=== PATIENT | female | born 1935 | race Caucasian/White ===

== ENCOUNTER 2017-10-01 09:29 | Inpatient (IN) | payer OTHER ==
[~2017-10-01] VITALS: Ht 152.4 cm; Wt 50.5 kg
[~2017-10-01 09:29] MED LIST: CARI350T28 PO; CLTP PO; CTP1 PO; DILT-119 PO; FIBER PO; FSM70 PO; INSDGI SC; LISI40TA PO; MRLP17 PO; MULT-506 PO; NVLGI; OXYC-57 PO; OXYSR20 PO; RANI75TA7 PO; SENN-65 PO; SIMV10TA2 PO
[2017-10-01] MEDS ORDERED: SODIUM CHLORIDE 0.9% 1000ML 1,000 ML IV STA (10:05)
[2017-10-01 10:17] LABS: BASO % 0.1 %; BASO ABS # 0.01 K/uL (0-0.2); EOS % 0.1 %; EOS ABS # 0.01 K/uL (0-0.5); HEMATOCRIT 36.4 % (37-47); HEMOGLOBIN 12.7 g/dL (12.0-16.0); IG# 0.02 K/uL (0.00-0.02); LYMPH % 3.9 %; LYMPH ABS # 0.45 K/uL (1.2-3.4); MEAN CELL VOLUME 93.6 fL (80-100); MEAN CORPUSCULAR HEMOGLOBIN 32.6 pg (25-34); MEAN CORPUSCULAR HGB CONC 34.9 g/dl (32-36); MEAN PLATELET VOLUME 10.1 fL (7.4-10.4); MONO ABS # 0.46 K/uL (0.11-0.59); NEUT % 91.7 %; NEUT ABS # 10.62 K/uL (1.4-6.5); PLATELET COUNT 184 K/uL (130-400); RED CELL DISTRIBUTION WIDTH CV 13.1 % (11.5-14.5); RED CELL DISTRIBUTION WIDTH SD 45.2 fL (36.4-46.3); WHITE BLOOD COUNT 11.57 K/uL (4.8-10.8)
--- NOTE | 2017-10-01 10:21 | EMERGENCY ROOM VISIT NOTE ---
History Report prepared by Juan David: Eddi Cantrell Under the Supervision of: Dr. Daniel Tamayo M.D. First contact with patient: 09:59 Chief Complaint: HYPERGLYCEMIA Stated Complaint: BLOOD SUGAR OVER 500 2 DAYS IN A ROW -MOUTH SORE History of Present Illness The patient is an 82 year old white female with a past medical history of diabetes, HTN, HLD who presents to the ED with a cc of persistent hyperglycemia beginning 2 days ago. Positive dry cough, vomiting, nausea, sore roof of mouth. Negative abdominal pain, fevers, back pain, diarrhea, urinary symptoms. The patient only vomited once and that was yesterday. She states that she takes Insulin 4 times per day, and she has not had any recent changes in her Insulin, but adds that she has raised her dosage recently. The patient took 18 units of NovoLog this morning. She notes that she did take her evening dosage last night. The patient says that she has not had any recent changes in her other medications. She notes no alcohol or tobacco use, or any recent long travels, antibiotic use, or hospitalizations. Source of History: patient, family Onset: 2 days ago Position: other (global) Quality: other (hyperglycemia) Timing: other (persistent) Associated Symptoms: + cough, + nausea, + vomiting, No fevers, No abdominal pain, No back pain, No diarrhea, No urinary symptoms Note: Sore roof of mouth. Review of Systems See HPI for pertinent positives and negatives. A total of ten systems were reviewed and were otherwise negative. Past Medical & Surgical Medical Problems: (1) Diabetes (2) HLD (hyperlipidemia) (3) HTN (hypertension) (4) Spinal stenosis Family History Family history omitted secondary to patient's advanced age. Social History Smoking Status: Never Smoker Marital Status: Housing Status: lives with family Occupation Status: retired Current/Historical Medications Scheduled Diltiazem Hcl Ext Rel (Tiazac), 360 MG PO DAILY Famotidine (Pepcid), 20 MG PO DAILY Insulin Glargine (Lantus), 16 UNITS SC QPM Lisinopril (Lisinopril), 40 MG PO DAILY Simvastatin (Zocor), 10 MG PO QPM Miscellaneous Medications Insulin Aspart (Novolog Flexpen) Allergies Coded Allergies: Penicillins (Verified Allergy, Intermediate, HIVES, 10/01/17) Physical Exam Vital Signs Date Time Temp Pulse Resp B/P (MAP) Pulse Ox O2 Delivery O2 Flow Rate FiO2 10/01/17 10:43 96 Room Air 10/01/17 10:03 101 10/01/17 09:32 36.7 118 18 147/55 95 Room Air Physical Exam GENERAL: Awake, alert, well-appearing, NAD HENT: Normocephalic, atraumatic. Posterior pharynx is clear. No tonsillar or uvular deviation or exudates. Recession of gums noted throughout. No sign of odontogenic infection. EYES: Normal conjunctiva. Sclera non-icteric. NECK: Supple. No nuchal rigidity. FROM. RESPIRATORY: CTAB, no rhonchi, wheezing, crackles CARDIAC: RRR, no MRG ABDOMEN: Soft, NTND, BS+ MSK: No chest wall TTP, no LE edema NEURO: GCS 15, CN 2-12 intact, moves all 4s on command SKIN: No rash or jaundice noted. Medical Decision & Procedures ER Provider Diagnostic Interpretation: X-ray: Per my interpretation, radiologist review. CHEST ONE VIEW PORTABLE CLINICAL HISTORY: Evaluate Fever/Sepsis dyspnea COMPARISON STUDY: No previous studies for comparison. FINDINGS: Mild emphysematous change. No focal infiltrate. Postoperative changes to the cervical and thoracolumbar spine. Minimal basilar platelike atelectasis. IMPRESSION: No acute process. Chronic and postoperative change. The above report was generated using voice recognition software. It may contain grammatical, syntax or spelling errors. Electronically signed by: Pepe Manzano M.D. 10/01/2017 10:34 AM Dictated Date/Time: 10/01/2017 10:33 AM Laboratory Results 10/01/17 09:55 Red Blood Count 3.89, Mean Corpuscular Volume 93.6, Mean Corpuscular Hemoglobin 32.6, Mean Corpuscular Hemoglobin Concent 34.9, Mean Platelet Volume 10.1, Neutrophils (%) (Auto) 91.7, Lymphocytes (%) (Auto) 3.9, Monocytes (%) (Auto) 4.0, Eosinophils (%) (Auto) 0.1, Basophils (%) (Auto) 0.1, Neutrophils # (Auto) 10.62, Lymphocytes # (Auto) 0.45, Monocytes # (Auto) 0.46, Eosinophils # (Auto) 0.01, Basophils # (Auto) 0.01 10/01/17 09:55 Test 10/01/17 09:55 10/01/17 10:40 10/01/17 10:50 10/01/17 11:30 White Blood Count 11.57 K/uL (4.8-10.8) Red Blood Count 3.89 M/uL (4.2-5.4) Hemoglobin 12.7 g/dL (12.0-16.0) Hematocrit 36.4 % (37-47) Mean Corpuscular Volume 93.6 fL (80-100) Mean Corpuscular Hemoglobin 32.6 pg (25-34) Mean Corpuscular Hemoglobin Concent 34.9 g/dl (32-36) Platelet Count 184 K/uL (130-400) Mean Platelet Volume 10.1 fL (7.4-10.4) Neutrophils (%) (Auto) 91.7 % Lymphocytes (%) (Auto) 3.9 % Monocytes (%) (Auto) 4.0 % Eosinophils (%) (Auto) 0.1 % Basophils (%) (Auto) 0.1 % Neutrophils # (Auto) 10.62 K/uL (1.4-6.5) Lymphocytes # (Auto) 0.45 K/uL (1.2-3.4) Monocytes # (Auto) 0.46 K/uL (0.11-0.59) Eosinophils # (Auto) 0.01 K/uL (0-0.5) Basophils # (Auto) 0.01 K/uL (0-0.2) RDW Standard Deviation 45.2 fL (36.4-46.3) RDW Coefficient of Variation 13.1 % (11.5-14.5) Immature Granulocyte % (Auto) 0.2 % Immature Granulocyte # (Auto) 0.02 K/uL (0.00-0.02) Prothrombin Time 10.6 SECONDS (9.0-12.0) Prothromb Time International Ratio 1.0 (0.9-1.1) Activated Partial Thromboplast Time 23.3 SECONDS (21.0-31.0) Partial Thromboplastin Ratio 0.9 Anion Gap 11.0 mmol/L (3-11) Est Creatinine Clear Calc Drug Dose 21.3 ml/min Estimated GFR () 38.5 Estimated GFR (Non- 33.2 BUN/Creatinine Ratio 25.1 (10-20) Calcium Level 9.2 mg/dl (8.5-10.1) Total Bilirubin 0.7 mg/dl (0.2-1) Direct Bilirubin 0.2 mg/dl (0-0.2) Aspartate Amino Transf (AST/SGOT) 22 U/L (15-37) Alanine Aminotransferase (ALT/SGPT) 29 U/L (12-78) Alkaline Phosphatase 61 U/L (45-117) Troponin I 0.053 ng/ml (0-0.045) Total Protein 6.6 gm/dl (6.4-8.2) Albumin 3.6 gm/dl (3.4-5.0) Lipase 147 U/L (73-393) Beta-Hydroxybutyric Acid 8.95 mg/dL (0.2-2.81) Influenza Type A Antigen Neg for Influ A (NEG) Influenza Type B Antigen Neg for Influ B (NEG) Venous Blood pH 7.40 (7.36-7.41) Venous Blood Partial Pressure CO2 37 mmHg (38.0-50.0) Venous Blood Partial Pressure O2 35 mmHg Venous Blood HCO3 23 mmol/L Venous Blood Oxygen Saturation 65.6 % Venous Blood Base Excess -1.9 mEq/L Lactic Acid Level 1.7 mmol/L (0.4-2.0) Laboratory results reviewed by me Medications Administered Medications (Trade) Dose Ordered Sig/Beverley Route Start Time Stop Time Status Last Admin Dose Admin Sodium Chloride 1,000 ml @ 999 mls/hr Q1H1M STAT IV 10/01/17 10:05 10/01/17 11:05 DC 10/01/17 10:58 999 MLS/HR Aspirin (Aspirin Chew) 324 mg NOW STAT PO 10/01/17 11:19 10/01/17 11:20 DC 10/01/17 11:28 324 MG ECG Per My Interpretation Indication: SOB/dyspnea Rate (beats per minute): 101 Rhythm: sinus tachycardia Findings: left axis deviation, other (normal intervals, T-wave flattening AVL, no other sts changes or twi) Change: Second ECG: Normal sinus rhythm at 99 bpm, otherwise unchanged. ED Course 1015: The patient was evaluated in room A9B. A complete history and physical exam was performed. 1130: Upon reexamination, the patient was resting comfortably. I discussed the test results and treatment plan with her. The patient will be evaluated for further management. 1142: Discussed the patient's case with Alla Jackson. The patient will be evaluated for further treatment and disposition. Medical Decision The patient is an 82 year old white female with a past medical history of diabetes, HTN, HLD who presents to the ED with a cc of persistent hyperglycemia beginning 2 days ago. Positive dry cough, vomiting, nausea, sore roof of mouth. Negative abdominal pain, fevers, back pain, diarrhea, urinary symptoms Differential diagnosis: Infection, stress reaction, medication noncompliance, possible non-fasting glucose. Patient was seen and evaluated the bedside. Patient was complaining of hyperglycemia. Patient noted that her blood sugars have been elevated greater than 500 each morning. Patient has tried to self titrate by increasing her home sliding scale as well as her long-acting insulin. Patient did have an episode of vomiting yesterday. Patient is mildly tacky on exam does not have any other acute complaints. Patient did have blood work completed, chest x-ray , EKG. Patient did have a noted positive troponin. Upon reassessment the patient denies any active chest pain or shortness of breath. The patient did note that she had some palpitations and has noted some increasing shortness of breath on exertion which is new for her. Patient does not appear volume overloaded. Patient denies any prior history of DVT or PE. Patient does have an elevated blood glucose. Patient has a normal anion gap. Bicarb is slightly low. Patient was giving fluids. Medication Reconcilliation Current Medication List: was personally reviewed by me Blood Pressure Screening Patient's blood pressure: Elevated blood pressure Refer to hospitalist. Consults Time Called: 1140 Consulting Physician: Alla Jackson Returned Call: 1142 Discussed the patient's case with Alla Jackson. The patient will be evaluated for further treatment and disposition. Impression Primary Impression: Hyperglycemia Additional Impression: Elevated troponin Scribe Attestation The scribe's documentation has been prepared under my direction and personally reviewed by me in its entirety. I confirm that the note above accurately reflects all work, treatment, procedures, and medical decision making performed by me. Departure Information Dispostion Being Evaluated By Hospitalist Referrals Albino Magaña MD (PCP) Patient Instructions My [facility] Problem Qualifiers
[2017-10-01 10:27] LABS: PTT PATIENT 23.3 SECONDS (21.0-31.0)
[2017-10-01 10:31] LABS: ALBUMIN 3.6 gm/dl (3.4-5.0); CALCIUM 9.2 mg/dl (8.5-10.1); CREATININE 1.46 mg/dl (0.60-1.20); POTASSIUM 4.1 mmol/L (3.5-5.1)
[2017-10-01 10:33] LABS: TOTAL PROTEIN 6.6 gm/dl (6.4-8.2)
--- NOTE | 2017-10-01 10:35 | DIAGNOSTIC IMAGING REPORT ---
CHEST ONE VIEW PORTABLE CLINICAL HISTORY: Evaluate Fever/Sepsis dyspnea COMPARISON STUDY: No previous studies for comparison. FINDINGS: Mild emphysematous change. No focal infiltrate. Postoperative changes to the cervical and thoracolumbar spine. Minimal basilar platelike atelectasis. IMPRESSION: No acute process. Chronic and postoperative change. The above report was generated using voice recognition software. It may contain grammatical, syntax or spelling errors. Electronically signed by: Pepe Manzano M.D. 10/01/2017 10:34 AM Dictated Date/Time: 10/01/2017 10:33 AM
[2017-10-01] MEDS ORDERED: SIMV10TA2 PO (11:15)
[2017-10-01] MEDS ORDERED: FAMO20TA11 PO (11:15)
[2017-10-01] MEDS ORDERED: NVLGI/PEN (11:15)
[2017-10-01] MEDS ORDERED: LSN40 PO (11:15)
[2017-10-01] MEDS ORDERED: DILT-119 PO (11:15)
[2017-10-01] MEDS ORDERED: INSDGI SC (11:15)
[2017-10-01] MEDS ORDERED: ASPIRIN 324 MG CHEW PO STA (11:19)
[2017-10-01 11:29] LABS: INFLUENZA B ANTIGEN Neg for Influ B (NEG)
[2017-10-01 11:56] VITALS: O2SAT 96; BMI 21.3
[2017-10-01] MEDS ORDERED: NITROGLYCERIN 0.4 MG SL PER TAB CHARGE SL PRN (12:30)
[2017-10-01] MEDS ORDERED: ONDANSETRON INJ 2 MG/ML 2 ML VIAL IV PRN (12:30)
[2017-10-01] MEDS ORDERED: ACETAMINOPHEN 325 MG TAB PO PRN (12:30)
[2017-10-01] MEDS ORDERED: DEXTROSE 50% 50 ML SYR IV PRN (13:00)
[2017-10-01] MEDS ORDERED: GLUCOSE 10 TABS/TUBE PO PRN (13:00)
[2017-10-01] MEDS ORDERED: GLUCOSE 40% GEL 15 GM TUBE PO PRN (13:00)
[2017-10-01] MEDS ORDERED: GLUCAGON FOR INJ 1 MG VIAL SQ PRN (13:00)
[2017-10-01] MEDS ORDERED: ASPEC81 PO (13:05)
[2017-10-01] MEDS ORDERED: OXYC-643 PO (13:05)
[2017-10-01] MEDS ORDERED: MULTTAB5 PO (13:05)
[2017-10-01] MEDS ORDERED: OMEG12006 PO (13:05)
[2017-10-01] MEDS ORDERED: OXYCODONE/ACETAMINOPHEN 5-325 TAB PO PRN (13:15)
[2017-10-01 13:30] VITALS: BP 107/63; PULSE 115; TEMP 36.8; O2SAT 98
[2017-10-01] MEDS ORDERED: INSULIN IV INFUSION PROTOCOL STA (13:55)
[2017-10-01] MEDS ORDERED: DKA GOAL RANGE 150-250 mg/dl 1 EA ONE (14:00)
[2017-10-01] MEDS ORDERED: INSULIN HUMAN REGULAR IV BOLUS 3 UNIT in SYRINGE 0 ML IV SCH (14:00)
[2017-10-01] MEDS ORDERED: SEVERE STRESS LEVEL ONE (14:00)
[2017-10-01] MEDS ORDERED: INSULIN ASPART 100 UNITS/ML 3 ML PEN SC SCH (14:00)
--- NOTE | 2017-10-01 14:02 | History and Physical ---
History & Physical Date & Time of Service: Oct 01, 2017 at 13:11 Chief Complaint: High Blood Sugars, Not Feeling Well Primary Care Physician: Albino Magaña MD History of Present Illness 82 year old female who presents to the ED with reports of high blood sugars and not feeling well the past couple of days. The patient reports that two nights ago she woke up in the middle of the night and was having palpitations. She reports this lasted for a couple of hours. When she got up in the morning, her blood sugar was over 500 which is very unusual for her. Blood sugars improved throughout the day with Novolog. She also increased her Lantus from 16 units to 18 units. Yesterday she felt nauseous and had one episode of vomiting. She denies hematemesis or coffee ground emesis. No abdominal pain or diarrhea. Patient reports she has been feeling generally poor. She denies any further episodes of palpitations. She does note increased shortness of breath with exertion. No chest pain, lightheadedness, dizziness, diaphoresis, or syncopal events. She denies fever and chills. No urinary symptoms. This morning blood sugar was over 500 again. In the ED, patient's blood sugar is 327. Troponin is mildly elevated at 0.053. EKG does not show any acute ST changes. Patient was given a full dose ASA and IVF. Past Medical/Surgical History Medical Problems: (1) CKD (chronic kidney disease), stage III Status: Chronic (2) DM type 1 (diabetes mellitus, type 1) Status: Chronic (3) Dyslipidemia Status: Chronic (4) HTN (hypertension) Status: Chronic (5) Spinal stenosis Status: Chronic Surgical Problems: (1) History of cataract surgery Status: Chronic (2) History of lumbar fusion Status: Chronic (3) S/P cervical spinal fusion Status: Chronic Family History non contributory due to patient's advanced age Social History Smoking Status: Former Smoker Alcohol Use: occasionally Immunizations History of Influenza Vaccine: Yes Influenza Vaccine Date: Apr 22, 2017 History of Tetanus Vaccine?: Yes Tetanus Immunization Date: Mar 03, 2015 History of Pneumococcal: Yes Pneumococcal Date: Sep 01, 2014 Allergies Coded Allergies: Penicillins (Verified Allergy, Intermediate, HIVES, 10/01/17) Home Medications Scheduled Aspirin (Aspirin EC Low Dose), 81 MG PO DAILY Diltiazem Hcl Ext Rel (Tiazac), 360 MG PO DAILY Famotidine (Pepcid), 20 MG PO DAILY Insulin Glargine (Lantus), 16 UNITS SC QPM Lisinopril (Lisinopril), 40 MG PO DAILY Multiple Vitamins W/ Minerals (Centrum), 1 TAB PO DAILY [place]-3 Fatty Acids ([place] 3), 1,000 MG PO DAILY Simvastatin (Zocor), 10 MG PO QPM Scheduled PRN Oxycodone/Acetaminophen 5MG/325MG (Oxycodone/Acetaminophen 5MG/325MG), 1 TABLET PO Q6H PRN for Pain Miscellaneous Medications Insulin Aspart (Novolog Flexpen) Review of Systems ROS per HPI, all other systems reviewed and negative Physical Exam Vital Signs Date Time Temp Pulse Resp B/P (MAP) Pulse Ox O2 Delivery O2 Flow Rate FiO2 10/01/17 12:41 112 10/01/17 11:56 96 Room Air 10/01/17 10:43 96 Room Air 10/01/17 10:03 101 10/01/17 09:32 36.7 118 18 147/55 95 Room Air General Appearance: WD/WN, no apparent distress Head: normocephalic, atraumatic Eyes: normal inspection, EOMI, sclerae normal ENT: hearing grossly normal, + pertinent finding (mucous membranes moist) Neck: supple, no JVD, trachea midline Respiratory/Chest: lungs clear, normal breath sounds, no respiratory distress Cardiovascular: no edema, normal peripheral pulses, + tachycardia (regular rhythm), + systolic murmur Abdomen/GI: normal bowel sounds, non tender, soft, no organomegaly Extremities/Musculoskelatal: normal inspection, no calf tenderness, normal capillary refill Neurologic/Psych: no motor/sensory deficits, alert, normal mood/affect, oriented x 3 Skin: normal color, warm/dry Diagnostics Laboratory Results Results Past 24 Hours Test 10/01/17 09:53 10/01/17 09:55 10/01/17 10:40 10/01/17 10:50 Range/Units Bedside Glucose 288 70-90 mg/dl White Blood Count 11.57 4.8-10.8 K/uL Red Blood Count 3.89 4.2-5.4 M/uL Hemoglobin 12.7 12.0-16.0 g/dL Hematocrit 36.4 37-47 % Mean Corpuscular Volume 93.6 80-100 fL Mean Corpuscular Hemoglobin 32.6 25-34 pg Mean Corpuscular Hemoglobin Concent 34.9 32-36 g/dl Platelet Count 184 130-400 K/uL Mean Platelet Volume 10.1 7.4-10.4 fL Neutrophils (%) (Auto) 91.7 % Lymphocytes (%) (Auto) 3.9 % Monocytes (%) (Auto) 4.0 % Eosinophils (%) (Auto) 0.1 % Basophils (%) (Auto) 0.1 % Neutrophils # (Auto) 10.62 1.4-6.5 K/uL Lymphocytes # (Auto) 0.45 1.2-3.4 K/uL Monocytes # (Auto) 0.46 0.11-0.59 K/uL Eosinophils # (Auto) 0.01 0-0.5 K/uL Basophils # (Auto) 0.01 0-0.2 K/uL RDW Standard Deviation 45.2 36.4-46.3 fL RDW Coefficient of Variation 13.1 11.5-14.5 % Immature Granulocyte % (Auto) 0.2 % Immature Granulocyte # (Auto) 0.02 0.00-0.02 K/uL Prothrombin Time 10.6 9.0-12.0 SECONDS Prothromb Time International Ratio 1.0 0.9-1.1 Activated Partial Thromboplast Time 23.3 21.0-31.0 SECONDS Partial Thromboplastin Ratio 0.9 Sodium Level 131 136-145 mmol/L Potassium Level 4.1 3.5-5.1 mmol/L Chloride Level 100 98-107 mmol/L Carbon Dioxide Level 20 21-32 mmol/L Anion Gap 11.0 3-11 mmol/L Blood Urea Nitrogen 37 7-18 mg/dl Creatinine 1.46 0.60-1.20 mg/dl Est Creatinine Clear Calc Drug Dose 21.3 ml/min Estimated GFR () 38.5 Estimated GFR (Non- 33.2 BUN/Creatinine Ratio 25.1 10-20 Random Glucose 327 70-99 mg/dl Calcium Level 9.2 8.5-10.1 mg/dl Total Bilirubin 0.7 0.2-1 mg/dl Direct Bilirubin 0.2 0-0.2 mg/dl Aspartate Amino Transf (AST/SGOT) 22 15-37 U/L Alanine Aminotransferase (ALT/SGPT) 29 12-78 U/L Alkaline Phosphatase 61 45-117 U/L Troponin I 0.053 0-0.045 ng/ml Total Protein 6.6 6.4-8.2 gm/dl Albumin 3.6 3.4-5.0 gm/dl Lipase 147 73-393 U/L Beta-Hydroxybutyric Acid 8.95 0.2-2.81 mg/dL Influenza Type A Antigen Neg for Influ A NEG Influenza Type B Antigen Neg for Influ B NEG Venous Blood pH 7.40 7.36-7.41 Venous Blood Partial Pressure CO2 37 38.0-50.0 mmHg Venous Blood Partial Pressure O2 35 mmHg Venous Blood HCO3 23 mmol/L Venous Blood Oxygen Saturation 65.6 % Venous Blood Base Excess -1.9 mEq/L Lactic Acid Level 1.7 0.4-2.0 mmol/L Test 10/01/17 11:30 Range/Units Urine Color YELLOW Urine Appearance CLEAR CLEAR Urine pH 5.0 4.5-7.5 Urine Specific [place] 1.020 1.000-1.030 Urine Protein NEG NEG Urine Glucose (UA) 3+ NEG Urine Ketones 2+ NEG Urine Occult Blood TRACE NEG Urine Nitrite NEG NEG Urine Bilirubin NEG NEG Urine Urobilinogen NEG NEG Urine Leukocyte Esterase MODERATE NEG Urine WBC (Auto) 10-30 0-5 /hpf Urine RBC (Auto) 0-4 0-4 /hpf Urine Hyaline Casts (Auto) 0 0-5 /lpf Urine Epithelial Cells (Auto) >30 0-5 /lpf Urine Bacteria (Auto) NEG NEG Microbiology Results 10/01/17 Blood Culture, Received Pending 10/01/17 Blood Culture, Received Pending 10/01/17 Urine Culture, Received Pending Diagnostic Radiology CXR IMPRESSION: No acute process. Chronic and postoperative change. Impression Assessment and Plan PALPITATIONS EXERTIONAL SHORTNESS OF BREATH ELEVATED TROPONIN - admit to tele - patient presenting with one episode of palpitations, exertional shortness of breath, and hyperglycemia - initial troponin 0.053, EKG without acute ST changes - last stress test was in 1999 - risk factors: DM, HTN, dyslipidemia, former smoker - continue to cycle cardiac enzymes, check resting echo - s/p full dose ASA in the ED; will continue with 81mg daily and statin - PRN nitro and EKG with chest pain - cardio consulted, Dr. Alvarado notified - also will r/o PE - check d. dimer and if positive will do BLLE dopplers and VQ due to renal function HYPERGLYCEMIA, DM TYPE I - blood sugars have been running over 500 in the mornings at home - mildly low bicarb, no gap - blood sugar 327 on labs -> 397 - will place on insulin gtt, IVF JUAN ON CKD STAGE III - prerenal due to dehydration / hyperglycemia in combination with ACEi - IVF, follow renal functions - hold ACEi ASYMPTOMATIC BACTERURIA - likely contaminated U/A - hold on antibiotics, follow culture HTN - BP controlled - continue diltiazem, holding Lisinopril due to JUAN DYSLIPIDEMIA - continue statin DVT PROPHYLAXIS - SQ Heparin CODE STATUS - Patient is a full code as per my discussion with her. DISPO - In my clinical judgment this beneficiary meets acute admission criteria, established by [facility], that includes being hospitalized through two midnights. - Patient is a former patient of Dr. Calderon; outpatient appointment made with [facility] Endocrinology - information given to patient's daughter Advanced Directives Existing Living Will: Yes Existing Power of Filter Washer: Yes Resuscitation Status VTE Prophylaxis Will order VTE Prophylaxis: Yes Note ATTENDING ADDENDUM Record reviewed. Patient interviewed and examined. Care coordinated with REYNA Hoffman. Please refer to her documentation for patient's history. Briefly, 82-year-old female with history of diabetes mellitus type 1 and other problems as noted. Blood sugars have been running very high over the past 1-2 days. Experiencing intermittent palpitations without chest pain or dyspnea. No fever, cough, or other symptoms of infection. EXAM: General- elderly female, no distress Eyes- anicteric Lungs- clear to auscultation; no respiratory distress Cardiovascular- RRR; I/ systolic murmur LSB; no gallop; no JVD; no pretibial edema Abdomen- + bowel sounds, soft, nontender Extremities- no cyanosis; no calf tenderness Neuro- alert, oriented Skin- warm & dry . DATA: Sodium 131, potassium 4.1, chloride 100, CO2 20, BUN 37, creatinine 1.46, random glucose 327. Serum troponin 0 0.053. Urinalysis demonstrated 3+ glucose, 2+ ketones, negative nitrites, moderate leukocyte esterase, 10-30 WBCs, greater than 30 epithelial cells, no bacteria. Nasopharyngeal swab for influenza A/B by both antigen and PCR were negative Other lab studies as noted. Chest x-ray did not show any infiltrates, effusions, CHF. EKG performed at 1043 reviewed and demonstrated sinus rhythm 100/minute, no acute changes. Repeat EKG performed at 1127 reviewed and demonstrated sinus tachycardia 101/ minute, slight ST depression in lead II, T-wave flattening in aVL, slight ST depression V3-6. ASSESSMENT AND PLAN: Diabetes mellitus type 1 with elevated blood sugars. Anion gap normal. BHB slightly elevated. Pharmacy consult for glycemic management. Insulin infusion will be utilized until blood sugars are improved. Uncertain precipitating etiology of elevated sugars. No apparent infection. Experiencing some palpitations and dyspnea, no chest pain; check d-dimer to screen for thromboembolic disease. Serum troponin slightly elevated. Second EKG showed minimal ST depression laterally. Check serial troponins. Check echo. Consult Cardiology. Please refer to BRADEN Gaitan's documentation for discussion of other issues. Iftikhar Carvalho MD .
[2017-10-01] MEDS ORDERED: PHARMACY GLYCEMIC MGMT CONSULT PRN (14:05)
[2017-10-01] MEDS ORDERED: INSULIN REGULAR 250 UNITS in SODIUM CHLORIDE 0.9% 250ML 250 ML IV SCH (14:30)
[2017-10-01] MEDS: HEPARIN SOD 5000 UNIT/0.5 ML CARP SQ SCH ×2 (14:39→20:37)
[2017-10-01] MEDS: INSULIN ASPART 100 UNITS/ML 3 ML PEN SC SCH ×3 (14:40→20:33)
--- NOTE | 2017-10-01 14:59 | Pharmacy Progress Note ---
Glycemic Control Intl Consult Date of Service Oct 01, 2017. Scope Glycemic Pharmacist consulted by Alla Gaitan on 10/01/17 for glycemic control and to write orders per [facility] inpatient glycemic control protocol Objective Weight (Kilograms): 49.800 Accuchecks BSG (last 24hrs): Test 10/01/17 09:53 10/01/17 09:55 10/01/17 13:34 Bedside Glucose 288 mg/dl (70-90) 397 mg/dl (70-90) Random Glucose 327 mg/dl (70-99) Laboratory Data (last 24hrs) Test 10/01/17 09:55 Anion Gap 11.0 mmol/L BUN/Creatinine Ratio 25.1 Blood Urea Nitrogen 37 mg/dl Creatinine 1.46 mg/dl Potassium Level 4.1 mmol/L Sodium Level 131 mmol/L White Blood Count 11.57 K/uL Red Blood Count 3.89 M/uL Hemoglobin 12.7 g/dL Hematocrit 36.4 % Mean Corpuscular Volume 93.6 fL Mean Corpuscular Hemoglobin 32.6 pg Mean Corpuscular Hemoglobin Concent 34.9 g/dl Platelet Count 184 K/uL Mean Platelet Volume 10.1 fL Neutrophils (%) (Auto) 91.7 % Lymphocytes (%) (Auto) 3.9 % Monocytes (%) (Auto) 4.0 % Eosinophils (%) (Auto) 0.1 % Basophils (%) (Auto) 0.1 % Neutrophils # (Auto) 10.62 K/uL Lymphocytes # (Auto) 0.45 K/uL Monocytes # (Auto) 0.46 K/uL Eosinophils # (Auto) 0.01 K/uL Basophils # (Auto) 0.01 K/uL Recent Pertinent Medications Outpatient Anti-diabetic Regimen: * Lantus 14 units SQ daily at bedtime (recently increased to 16 units for elevated blood sugars) and Novolog scale based SOLELY on blood sugars (patient does not count carbohydrates) * breakfast: scale is 4-11 units * lunch/dinner: scale is 4-12 units * A1c = 5.8 % 10/01/17 Risk Factors for Insulin Resistance: * Diet: type 1 diabetic diet Assessment & Plan ASSESSMENT: * Ms Todd is an 82 yo F with a PMH of HLD, HTN, and late onset- type 1 diabetes that appears well controlled per the HbA1C. Patient was diagnosed when she was her late twenties after gestational diabetes. The patient has been managed on the above regimen for about 1 year. She does not count carbohydrates. Her diet typically includes yogurt (recent switched to romanian yogurt) plus splenda and cinnamon swirl toast for breakfast; lunch is a [employer] sandwich; dinner is variable typically meat plus a carbohydrate. Per the patient's blood sugar log over the past few months, the patient's blood sugar control is very liable... she typically trends either very low in the morning to high at night (80s to 200s-300s) or very high in the morning to low at night (300s down to ~90s). * For the past two days the patient has had blood sugars in the morning of the 500s. Yesterday the patient took 60 units of insulin (18 units of Lantus) and blood sugars were 518 (14 units Novolog)-432 (14 units Novolog)-308 (14 units Novolog)-230 ... back up to 529 this morning for which she took 16 units of Novolog. This is not normal for the patient. * Based upon the blood sugar logs and the fact that the patient does not count carbohydrates, there is a lot of fluctuation and variability that the outpatient scale most accommodate. Since the patient has large swings in blood sugars, twice daily Lantus may be an option. Will start with 7 units tonight and do this twice daily. Insulin infusion will cover any deficit at this point. Will monitor patient closely. * If insulin infusion turns itself off in the middle of the night, recommend checking at least at midnight and four AM.... correction factor of 35 carbohydrate ratio of 10. Okay with turning off insulin infusion if the blood sugar is below 150 mg/dL x 2 checks and the insulin infusion is running at a negligible rate such as 0.5 units/hr. PLAN FOR INPATIENT GLYCEMIC CONTROL: * Starting IV insulin infusion per moderate (moderate/severe) stress protocol * Goal Range 150 - 250 mg/dl * In the critical care setting, continuous IV insulin infusion has been shown to be the best method for achieving glycemic targets. * Basal insulin with LANTUS 7 units SQ BID * Correctional Insulin with NOVOLOG per scale ACHS or Q6hrs while NPO * Goal Range: Low 150 mg/dL - High 250 mg/dL * Correction Factor: -- mg/dL/unit * Nutritional / Prandial insulin per carb ratio of 1 unit per -- grams CHO consumed * Please note that the plan above was derived based on current level of insulin resistance and hospital stress. These recommendations are appropriate for inpatient admission only. Plan of care upon discharge will need to be reassessed to avoid potential outpatient hypo/hyperglycemia. Thank you.
[2017-10-01] MEDS: SODIUM CHLORIDE 0.9% 1000ML 1,000 ML IV SCH (15:08)
[2017-10-01 15:18] VITALS: BMI 21.4
--- NOTE | 2017-10-01 15:45 | ECHOCARDIOGRAM REPORT ---
*NOTICE TO RECEIVING DEMOCRAT AGENCY This information is strictly Confidential and protected under [place] law. [place] law prohibits you from making any further disclosure of this information unless further disclosure is expressly permitted by the written consent of the person to whom it pertains or is authorized by law. A general authorization for the release of medical or other information is not sufficient for this purpose. Hospital accepts no responsibility if the information is made available to any other person, INCLUDING THE PATIENT. Interpretation Summary * Conclusions -- * The left ventricle is normal in size. * There is moderate concentric left ventricular hypertrophy. * Left ventricular systolic function is normal. * Ejection Fraction = 60-65%. * The left ventricular wall motion is normal. * The right ventricular systolic function is normal. * There is mild tricuspid regurgitation. Procedure Details * A complete two-dimensional transthoracic echocardiogram was performed (2D, M-mode, Doppler and color flow Doppler). Left Ventricle * The left ventricle is normal in size. * There is moderate concentric left ventricular hypertrophy. * Left ventricular systolic function is normal. * Ejection Fraction = 60-65%. * The left ventricular wall motion is normal. Right Ventricle * The right ventricle is normal size. * The right ventricular systolic function is normal. Atria * The left atrial size is normal. * Right atrial size is normal. Mitral Valve * There is moderate mitral annular calcification. * The mitral valve is not well visualized. * Significant mitral regurgitation is absent. Tricuspid Valve * The tricuspid valve is not well visualized, but is grossly normal. * There is mild tricuspid regurgitation. Aortic Valve * The aortic valve is not well visualized. * No hemodynamically significant valvular aortic stenosis. * There is no significant aortic regurgitation. Pulmonic Valve * The pulmonic valve is not well visualized. MMode 2D Measurements and Calculations IVSd 1.3 cm IVSs 1.4 cm LVIDd 3.6 cm LVIDs 2.2 cm LVPWd 1.1 cm LVPWs 1.1 cm IVS/LVPW 1.2 FS 38.3 % EDV(Teich) 54.4 ml ESV(Teich) 16.6 ml EF(Teich) 69.4 % EDV(cubed) 46.7 ml ESV(cubed) 11.0 ml EF(cubed) 76.5 % % IVS thick 7.1 % % LVPW thick 6.2 % LV mass(C)d 138.8 grams LV mass(C)dI 96.6 grams/m\S\2 LV mass(C)s 80.7 grams LV mass(C)sI 56.1 grams/m\S\2 SV(Teich) 37.8 ml SI(Teich) 26.3 ml/m\S\2 SV(cubed) 35.7 ml SI(cubed) 24.8 ml/m\S\2 Ao root diam 2.3 cm Ao root area 4.1 cm\S\2 LA dimension 2.7 cm LA/Ao 1.2 LVOT diam 1.9 cm LVOT area 2.8 cm\S\2 LVAd ap4 19.6 cm\S\2 LVLd ap4 6.7 cm EDV(MOD-sp4) 47.6 ml EDV(sp4-el) 48.5 ml LVAs ap4 11.3 cm\S\2 LVLs ap4 5.6 cm ESV(MOD-sp4) 20.8 ml ESV(sp4-el) 19.3 ml EF(MOD-sp4) 56.3 % EF(sp4-el) 60.3 % LVAd ap2 18.0 cm\S\2 LVLd ap2 6.0 cm EDV(MOD-sp2) 44.0 ml EDV(sp2-el) 46.0 ml LVAs ap2 10.1 cm\S\2 LVLs ap2 4.8 cm ESV(MOD-sp2) 17.6 ml ESV(sp2-el) 17.9 ml EF(MOD-sp2) 60.0 % EF(sp2-el) 61.1 % LVLd %diff -12.72 % EDV(MOD-bp) 46.2 ml LVLs %diff -15.55 % ESV(MOD-bp) 19.4 ml EF(MOD-bp) 58.0 % SV(MOD-sp4) 26.8 ml SI(MOD-sp4) 18.7 ml/m\S\2 SV(MOD-sp2) 26.4 ml SI(MOD-sp2) 18.4 ml/m\S\2 SV(MOD-bp) 26.8 ml SI(MOD-bp) 18.7 ml/m\S\2 SV(sp4-el) 29.2 ml SI(sp4-el) 20.3 ml/m\S\2 SV(sp2-el) 28.1 ml SI(sp2-el) 19.6 ml/m\S\2 Doppler Measurements and Calculations Ao V2 max 151.5 cm/sec Ao max PG 9.2 mmHg Ao max PG (full) 4.1 mmHg AZAM(V,A) 2.1 cm\S\2 AZAM(V,D) 2.1 cm\S\2 LV V1 max PG 5.1 mmHg LV V1 max 112.7 cm/sec TR max fariba 333.1 cm/sec
[2017-10-01 15:52] VITALS: BP 137/69; TEMP 36.7; O2SAT 95
[2017-10-01 16:34] LABS: CALCIUM 8.7 mg/dl (8.5-10.1); CREATININE 1.25 mg/dl (0.60-1.20); POTASSIUM 4.6 mmol/L (3.5-5.1)
--- NOTE | 2017-10-01 17:12 | DIAGNOSTIC IMAGING REPORT ---
ULTRASOUND BILATERAL LOWER EXTREMITY VENOUS CLINICAL HISTORY: Elevated d-dimer. COMPARISON STUDY: No priors. TECHNIQUE: Real-time, grayscale, and color Doppler sonography of the deep veins of the right and left lower extremity was performed from the inguinal crease to the calf. Compression and augmentation were utilized. FINDINGS: There is no sonographic evidence of deep venous thrombosis identified in the right or left lower extremity. The common femoral, superficial femoral, and popliteal veins are patent and normally compressible bilaterally. The greater saphenous vein and the profunda femoris vein at the junction with the common femoral vein are clear in both legs. The visualized calf veins are patent bilaterally. IMPRESSION: There is no sonographic evidence of deep venous thrombosis identified in the right or left lower extremity. Electronically signed by: Blaze Chery M.D. 10/01/2017 5:11 PM Dictated Date/Time: 10/01/2017 5:11 PM
[2017-10-01 19:32] VITALS: BP 136/69; PULSE 91; TEMP 37.1; O2SAT 98
[2017-10-01 19:35] LABS: INFLUENZA A PCR Neg for Influ A (NEG); INFLUENZA B PCR Neg for Influ B (NEG)
[2017-10-01] MEDS: SIMVASTATIN 10 MG TAB PO SCH (20:30)
[2017-10-01 20:31] LABS: CALCIUM 8.6 mg/dl (8.5-10.1); CREATININE 1.05 mg/dl (0.60-1.20); POTASSIUM 4.3 mmol/L (3.5-5.1)
[2017-10-01] MEDS: CLONAZEPAM 0.5 MG TAB PO SCH (20:33)
[2017-10-01] MEDS ORDERED: INSULIN GLARGINE SOLOSTAR 100 UNITS/ML 3 ML PEN SC SCH (21:00)
[2017-10-01 23:56] VITALS: BP 136/75; PULSE 86; TEMP 37.1; O2SAT 97
[2017-10-02] MEDS: SODIUM CHLORIDE 0.9% 1000ML 1,000 ML IV SCH (00:03)
[2017-10-02 00:20] LABS: CALCIUM 8.5 mg/dl (8.5-10.1); CREATININE 1.03 mg/dl (0.60-1.20); POTASSIUM 4.4 mmol/L (3.5-5.1)
[2017-10-02] MEDS ORDERED: METOPROLOL TARTRATE 25 MG TAB PO ONE (01:25)
[2017-10-02] MEDS ORDERED: HEPARIN IV BOLUS 4,000 UNIT in SYRINGE 0 ML IV ONE (01:45)
[2017-10-02] MEDS ORDERED: HEPARIN 25,000 UNIT/500ML D5W 500 ML IV PRN (01:45)
[2017-10-02] MEDS ORDERED: INSULIN ASPART 100 UNITS/ML 3 ML PEN SC SCH (02:00)
[2017-10-02 03:50] VITALS: BP 125/63; PULSE 81; TEMP 36.9; O2SAT 96
[2017-10-02 07:51] VITALS: BP 141/69; PULSE 80; TEMP 36.7; O2SAT 95
[2017-10-02] MEDS ORDERED: SODIUM CHLORIDE 0.9% 1000ML 1,000 ML IV SCH (08:15)
[2017-10-02 08:31] LABS: CALCIUM 8.3 mg/dl (8.5-10.1); CREATININE 0.87 mg/dl (0.60-1.20); POTASSIUM 4.5 mmol/L (3.5-5.1)
[2017-10-02 08:41] LABS: PTT PATIENT 224.3 SECONDS (21.0-31.0)
[2017-10-02] MEDS ORDERED: INSULIN GLARGINE SOLOSTAR 100 UNITS/ML 3 ML PEN SC SCH ×2 (09:00→16:45)
[2017-10-02 09:05] LABS: HEMOGLOBIN A1C 6.6 % (4.5-5.6)
[2017-10-02] MEDS ORDERED: OPTIRAY 320 IV PRN (09:15)
--- NOTE | 2017-10-02 09:18 | DIAGNOSTIC IMAGING REPORT ---
CT ANGIOGRAM OF THE CHEST CLINICAL HISTORY: COMPARISON STUDY: Chest x-ray dated 10/01/2017 TECHNIQUE: Following the IV administration of 94 mL of Optiray-320, CT angiogram of the thorax was performed from the thoracic inlet to the lung bases utilizing the pulmonary embolus protocol. Images are reviewed in the axial, sagittal, and coronal planes. IV contrast was administered without complication. MIP imaging was performed. A dose lowering technique was utilized adhering to the principles of ALARA. CT DOSE: 350.04 mGycm FINDINGS: No pathologically enlarged axillary mediastinal or hilar lymph nodes were visualized. Atheromatous changes are present within the thoracic aorta. There is no evidence of thoracic aortic aneurysm. There were no pulmonary artery filling defects to indicate acute pulmonary embolism. No pleural effusions are visualized. Evaluation the parenchyma is limited due to respiratory motion artifact. There is no lobar consolidation. There is lower lobe bronchial wall thickening and atelectatic change. There is mild elevation left hemidiaphragm. There are advanced arthritic changes present within the left shoulder with mild posterior subluxation and a bursal fluid collection. There are advanced degenerative changes in the lower thoracic spine. There are postsurgical changes present within the cervical spine and thoracolumbar spine. IMPRESSION: 1. No evidence of pulmonary embolism 2. Lower lobe bronchial wall thickening and basilar atelectatic change. Electronically signed by: Ranjith Irving M.D. 10/02/2017 9:16 AM Dictated Date/Time: 10/02/2017 9:10 AM
[2017-10-02] MEDS: INSULIN ASPART 100 UNITS/ML 3 ML PEN SC SCH ×4 (10:06→21:24)
[2017-10-02] MEDS: METOPROLOL TARTRATE 25 MG TAB PO SCH ×2 (10:07→21:00)
[2017-10-02] MEDS: FAMOTIDINE 20 MG TAB PO SCH (10:08)
[2017-10-02] MEDS: ASPIRIN 81 MG ECTAB PO SCH (10:08)
[2017-10-02] MEDS: CEROVITE ADV FORMULA TAB PO SCH (10:08)
[2017-10-02] MEDS: DILTIAZEM HCL (TIAzac) 180 MG CAPCR PO SCH (10:08)
[2017-10-02] MEDS: OMEGA-3 (PURIFIED FISH OIL) 1 GM CAP PO SCH (10:08)
[2017-10-02 10:21] LABS: PTT PATIENT 197.7 SECONDS (21.0-31.0)
--- NOTE | 2017-10-02 10:34 | Cardiology Consultation ---
Cardiology Consultation Date of Service Oct 02, 2017. Cardiology Consultation Indication: Consultation for abnormal cardiac markers History: This is an 82-year-old female with no prior history of heart disease. She has been a type I diabetic for several she stoped smoking approximately 10 years ago. The patient was in her usual state of health. On the evening before admission she did not feel well and actually vomited. The next morning she checked her blood glucose levels and they were over 500. She became concerned because she could not bring them down and presented to the hospital for hyperglycemia. She has not had any recent episodes of activity related chest pain. She has dyspnea with activity which is not new. After admission she has had no chest pain and feels well. Her EKGs show no acute changes. Her echocardiogram showed no wall motion abnormalities with normal LV function. Her cardiac troponins after admission were borderline elevated which is most likely due to the hyperglycemia, dehydration and renal insufficiency and not acute coronary syndrome. Allergies: Penicillin Reported Home Medications Medications Dose Route/Sig Max Daily Dose Days Date Category Dose Instructions Oxycodone/Acetaminophen 5MG/325MG (Oxycodone/Acetaminophen) 1 Tab Tab 1 Tablet PO Q6H PRN 10/01/17 Reported [place] 3 ([place]aver[place]-3 Fatty Acids) 1 Cap Cap 1,000 Mg PO DAILY 10/01/17 Reported Centrum (Multiple Vitamins W/ Minerals) 1 Tab Tab 1 Tab PO DAILY 10/01/17 Reported Aspirin EC Low Dose (Aspirin) 81 Mg Ectab 81 Mg PO DAILY 10/01/17 Reported Novolog Flexpen (Insulin Aspart) 100 Units/Ml Inj 10/01/17 Reported SLIDING SCALE. UP TO 30 U DAILY. Tiazac (Diltiazem HCl) 360 Mg Capcr 360 Mg PO DAILY 10/01/17 Reported Zocor (Simvastatin) 10 Mg Tab 10 Mg PO QPM 10/01/17 Reported Pepcid (Famotidine) 20 Mg Tab 20 Mg PO DAILY 10/01/17 Reported Lisinopril 40 Mg Tab 40 Mg PO DAILY 10/01/17 Reported Lantus (Insulin Glargine) 100 Unit/Ml Inj 16 Units SC QPM 10/01/17 Reported Past medical history: As outlined above the patient has no prior history of heart disease. She denies strokes. She has been a type I diabetic for many decades. She is treated for hypertension and dyslipidemia. Social history: Patient stopped smoking 10 years ago. She lives independently. Family medical history: Noncontributory General: The patient denies weight change, night sweats, fever, chills. Head: The patient denies headache and prior head trauma. Cardiovascular: The patient denies chest pain or chest discomfort, dyspnea on exertion, palpitations, PND, orthopnea, edema, spontaneous shortness of breath, syncope and near syncope. Pulmonary: The patient denies cough, wheeze, pleurisy, hemoptysis, sputum, and excessive snoring. Gastrointestinal: The patient denies nausea, vomiting, diarrhea, constipation, bloating, hematemesis, hematochezia, and abdominal pain. Skin: The patient denies diaphoresis and rash. Musculoskeletal: The patient denies joint pain, joint swelling, myalgia, back pain, neck pain and prior injuries. Neurological: The patient denies prior stroke and seizures Vital Signs Past 12 Hours Date Time Temp Pulse Resp B/P (MAP) Pulse Ox O2 Delivery O2 Flow Rate FiO2 10/02/17 07:51 36.7 80 18 141/69 (93) 95 10/02/17 04:02 Room Air 10/02/17 03:50 36.9 81 17 125/63 (83) 96 Room Air 10/02/17 00:00 Room Air 10/01/17 23:56 37.1 86 17 136/75 (95) 97 Room Air General Appearance: Alert and Oriented x3. NAD. Head: Normocephalic Atraumatic. Eyes: PERRLA, EOMI, conjunctiva and sclera clear Neck: Supple. No carotid bruits noted. No JVD. No HJD. Respiratory: Breath sounds clear to auscultation bilaterally. No w/r/r. Cardiovascular: Reg rate and rhythm. S1 and S2 noted. No murmurs, rubs, gallops. PMI non displace. Abdomen: Normal bowel sounds, soft nontender. no abdominal bruits. Extremities: No edema, no clubbing or cyanosis. distal pulses 2/4 bilaterally. Neuro: No focal deficits. Psychiatric: Normal affect. Last 24 Hours Test 10/01/17 10:40 10/01/17 10:50 10/01/17 11:30 10/01/17 13:34 Influenza Type A Antigen Neg for Influ A Influenza Type B Antigen Neg for Influ B Venous Blood pH 7.40 Venous Blood Partial Pressure CO2 37 mmHg Venous Blood Partial Pressure O2 35 mmHg Venous Blood HCO3 23 mmol/L Venous Blood Oxygen Saturation 65.6 % Venous Blood Base Excess -1.9 mEq/L Lactic Acid Level 1.7 mmol/L Urine Color YELLOW Urine Appearance CLEAR Urine pH 5.0 Urine Specific [place] 1.020 Urine Protein NEG Urine Glucose (UA) 3+ Urine Ketones 2+ Urine Occult Blood TRACE Urine Nitrite NEG Urine Bilirubin NEG Urine Urobilinogen NEG Urine Leukocyte Esterase MODERATE Urine WBC (Auto) 10-30 /hpf Urine RBC (Auto) 0-4 /hpf Urine Hyaline Casts (Auto) 0 /lpf Urine Epithelial Cells (Auto) >30 /lpf Urine Bacteria (Auto) NEG Bedside Glucose 397 mg/dl Test 10/01/17 15:32 10/01/17 15:51 10/01/17 16:32 10/01/17 17:32 Bedside Glucose 375 mg/dl 314 mg/dl 279 mg/dl D-Dimer 830 ug/L FEU Sodium Level 133 mmol/L Potassium Level 4.6 mmol/L Chloride Level 103 mmol/L Carbon Dioxide Level 20 mmol/L Anion Gap 10.0 mmol/L Blood Urea Nitrogen 32 mg/dl Creatinine 1.25 mg/dl Est Creatinine Clear Calc Drug Dose 24.9 ml/min Estimated GFR () 46.4 Estimated GFR (Non- 40.0 BUN/Creatinine Ratio 25.8 Random Glucose 353 mg/dl Calcium Level 8.7 mg/dl Troponin I 0.064 ng/ml Beta-Hydroxybutyric Acid 25.46 mg/dL Test 10/01/17 18:13 10/01/17 18:25 10/01/17 19:32 10/01/17 19:49 Influenza Type A (RT-PCR) Neg for Influ A Influenza Type B (RT-PCR) Neg for Influ B Bedside Glucose 230 mg/dl 209 mg/dl Sodium Level 135 mmol/L Potassium Level 4.3 mmol/L Chloride Level 105 mmol/L Carbon Dioxide Level 21 mmol/L Anion Gap 9.0 mmol/L Blood Urea Nitrogen 30 mg/dl Creatinine 1.05 mg/dl Est Creatinine Clear Calc Drug Dose 29.7 ml/min Estimated GFR () 57.3 Estimated GFR (Non- 49.4 BUN/Creatinine Ratio 28.3 Random Glucose 196 mg/dl Calcium Level 8.6 mg/dl Test 10/01/17 20:27 10/01/17 22:44 10/01/17 23:57 10/02/17 01:55 Bedside Glucose 164 mg/dl 118 mg/dl 115 mg/dl Sodium Level 137 mmol/L Potassium Level 4.4 mmol/L Chloride Level 107 mmol/L Carbon Dioxide Level 23 mmol/L Anion Gap 7.0 mmol/L Blood Urea Nitrogen 26 mg/dl Creatinine 1.03 mg/dl Est Creatinine Clear Calc Drug Dose 30.2 ml/min Estimated GFR () 58.6 Estimated GFR (Non- 50.6 BUN/Creatinine Ratio 25.3 Random Glucose 119 mg/dl Calcium Level 8.5 mg/dl Troponin I 0.248 ng/ml Test 10/02/17 07:49 10/02/17 08:03 10/02/17 09:39 Activated Partial Thromboplast Time 224.3 SECONDS 197.7 SECONDS Partial Thromboplastin Ratio 8.4 7.6 Sodium Level 135 mmol/L Potassium Level 4.5 mmol/L Chloride Level 105 mmol/L Carbon Dioxide Level 20 mmol/L Anion Gap 10.0 mmol/L Blood Urea Nitrogen 22 mg/dl Creatinine 0.87 mg/dl Est Creatinine Clear Calc Drug Dose 35.8 ml/min Estimated GFR () 71.9 Estimated GFR (Non- 62.0 BUN/Creatinine Ratio 24.6 Random Glucose 272 mg/dl Estimated Average Glucose 143 mg/dl Hemoglobin A1c 6.6 % Calcium Level 8.3 mg/dl Troponin I 0.196 ng/ml Triglycerides Level 39 mg/dl Cholesterol Level 127 mg/dl HDL Cholesterol 66 mg/dl LDL Cholesterol, Calculated 53 mg/dl VLDL Cholesterol, Calculated 8 mg/dl Cholesterol/HDL Ratio 1.9 Thyroid Stimulating Hormone (TSH) 2.090 uIu/ml Bedside Glucose 247 mg/dl Echocardiogram: Interpretation Summary n Conclusions -- n The left ventricle is normal in size. n There is moderate concentric left ventricular hypertrophy. n Left ventricular systolic function is normal. n Ejection Fraction = 60-65%. n The left ventricular wall motion is normal. n The right ventricular systolic function is normal. n There is mild tricuspid regurgitation. Impression: 1. Type II elevation of cardiac troponins 2. Doubt acute coronary syndrome 3. Type I diabetic with hyperglycemia Recommendations: As outlined above believe at this time the patient has type II elevation of the cardiac troponins and not acute coronary syndrome. I would treat her hyperglycemia. I do not anticipate any additional cardiac testing at this time so she may eat. I would discontinue the heparin. I believe that she may be discharged to outpatient follow-up. We can do a screening stress test as an outpatient. Thank you Dr. Alvarado
[2017-10-02 11:40] LABS: PTT PATIENT 73.2 SECONDS (21.0-31.0)
--- NOTE | 2017-10-02 13:17 | Progress Note ---
Internal Med Progress Note Date of Service: Oct 02, 2017. Provider Documentation: SUBJECTIVE: The patient was seen and examined Admitted with Palpitation and not feeling well Blood sugar was very high with mildly increased Troponin Feels a lot better this morning OBJECTIVE: Vital Signs-as noted below Exam: General-No distress at rest Eyes-normal ENT-normal Neck-supple Lungs-clear to ausucltate bilaterally Heart-Regular,no murmur appreciated Abdomen-Benign,no masses,bowel sound present Extremities-NO edema Neuro-AAOx3 Lab data as noted below. ASSESSMENT & PLAN: PALPITATIONS EXERTIONAL SHORTNESS OF BREATH ELEVATED TROPONIN -Type II - patient presenting with one episode of palpitations, exertional shortness of breath, and hyperglycemia - initial troponin 0.053 and subsequent troponin moderately elevated . EKG without acute ST changes - risk factors: DM, HTN, dyslipidemia, former smoker -ECHO;; The left ventricle is normal in size. There is moderate concentric left ventricular hypertrophy. n Left ventricular systolic function is normal. n Ejection Fraction = 60-65%. n The left ventricular wall motion is normal. n The right ventricular systolic function is normal. There is mild tricuspid regurgitation. - s/p full dose ASA in the ED; will continue with 81mg daily and statin - cardio consulted, Dr. Alvarado notified-appreciate Input -CTA -negative for PE and No DVT -Heparin discontinued -OP Cardiology follow up HYPERGLYCEMIA, DM TYPE I - blood sugars have been running over 500 in the mornings at home - mildly low bicarb, no gap - blood sugar 327 on labs -> 397 -appreciate Pharmacy input JUAN ON CKD STAGE III - prerenal due to dehydration / hyperglycemia in combination with ACEi - IVF, follow renal functions - hold ACEi-will restart on Discharge -Kidney function normalized ASYMPTOMATIC BACTERURIA - likely contaminated U/A - hold on antibiotics, follow culture-negative HTN - BP controlled - continue diltiazem, holding Lisinopril due to JUAN DYSLIPIDEMIA - continue statin DVT PROPHYLAXIS - SQ Heparin CODE STATUS - Patient is a full code as per my discussion with her. DISPO - In my clinical judgment this beneficiary meets acute admission criteria, established by [facility], that includes being hospitalized through two midnights. - Patient is a former patient of Dr. Calderon; outpatient appointment made with [facility] Endocrinology - information given to patient's daughter Vital Signs: Date Time Temp Pulse Resp B/P (MAP) Pulse Ox O2 Delivery O2 Flow Rate FiO2 10/02/17 07:51 36.7 80 18 141/69 (93) 95 10/02/17 04:02 Room Air 10/02/17 03:50 36.9 81 17 125/63 (83) 96 Room Air 10/02/17 00:00 Room Air 10/01/17 23:56 37.1 86 17 136/75 (95) 97 Room Air 10/01/17 20:00 Room Air 10/01/17 19:32 37.1 91 20 136/69 (91) 98 Room Air 10/01/17 16:00 Room Air 10/01/17 15:52 36.7 20 137/69 (91) 95 Room Air 10/01/17 13:30 36.8 115 18 107/63 (78) 98 Room Air Lab Results: Results Past 24 Hours Test 10/01/17 13:34 10/01/17 15:32 10/01/17 15:51 10/01/17 16:32 Range/Units Bedside Glucose 397 375 314 70-90 mg/dl D-Dimer 830 0-500 ug/L FEU Sodium Level 133 136-145 mmol/L Potassium Level 4.6 3.5-5.1 mmol/L Chloride Level 103 98-107 mmol/L Carbon Dioxide Level 20 21-32 mmol/L Anion Gap 10.0 3-11 mmol/L Blood Urea Nitrogen 32 7-18 mg/dl Creatinine 1.25 0.60-1.20 mg/dl Est Creatinine Clear Calc Drug Dose 24.9 ml/min Estimated GFR () 46.4 Estimated GFR (Non- 40.0 BUN/Creatinine Ratio 25.8 10-20 Random Glucose 353 70-99 mg/dl Calcium Level 8.7 8.5-10.1 mg/dl Troponin I 0.064 0-0.045 ng/ml Beta-Hydroxybutyric Acid 25.46 0.2-2.81 mg/dL Test 10/01/17 17:32 10/01/17 18:13 10/01/17 18:25 10/01/17 19:32 Range/Units Bedside Glucose 279 230 209 70-90 mg/dl Influenza Type A (RT-PCR) Neg for Influ A NEG Influenza Type B (RT-PCR) Neg for Influ B NEG Test 10/01/17 19:49 10/01/17 20:27 10/01/17 22:44 10/01/17 23:57 Range/Units Sodium Level 135 137 136-145 mmol/L Potassium Level 4.3 4.4 3.5-5.1 mmol/L Chloride Level 105 107 98-107 mmol/L Carbon Dioxide Level 21 23 21-32 mmol/L Anion Gap 9.0 7.0 3-11 mmol/L Blood Urea Nitrogen 30 26 7-18 mg/dl Creatinine 1.05 1.03 0.60-1.20 mg/dl Est Creatinine Clear Calc Drug Dose 29.7 30.2 ml/min Estimated GFR () 57.3 58.6 Estimated GFR (Non- 49.4 50.6 BUN/Creatinine Ratio 28.3 25.3 10-20 Random Glucose 196 119 70-99 mg/dl Calcium Level 8.6 8.5 8.5-10.1 mg/dl Bedside Glucose 164 118 70-90 mg/dl Troponin I 0.248 0-0.045 ng/ml Test 10/02/17 01:55 10/02/17 07:49 10/02/17 08:03 10/02/17 09:39 Range/Units Bedside Glucose 115 247 70-90 mg/dl Activated Partial Thromboplast Time 224.3 197.7 21.0-31.0 SECONDS Partial Thromboplastin Ratio 8.4 7.6 Sodium Level 135 136-145 mmol/L Potassium Level 4.5 3.5-5.1 mmol/L Chloride Level 105 98-107 mmol/L Carbon Dioxide Level 20 21-32 mmol/L Anion Gap 10.0 3-11 mmol/L Blood Urea Nitrogen 22 7-18 mg/dl Creatinine 0.87 0.60-1.20 mg/dl Est Creatinine Clear Calc Drug Dose 35.8 ml/min Estimated GFR () 71.9 Estimated GFR (Non- 62.0 BUN/Creatinine Ratio 24.6 10-20 Random Glucose 272 70-99 mg/dl Estimated Average Glucose 143 mg/dl Hemoglobin A1c 6.6 4.5-5.6 % Calcium Level 8.3 8.5-10.1 mg/dl Troponin I 0.196 0-0.045 ng/ml Triglycerides Level 39 0-150 mg/dl Cholesterol Level 127 0-200 mg/dl HDL Cholesterol 66 mg/dl LDL Cholesterol, Calculated 53 mg/dl VLDL Cholesterol, Calculated 8 mg/dl Cholesterol/HDL Ratio 1.9 Thyroid Stimulating Hormone (TSH) 2.090 0.300-4.500 uIu/ml Test 10/02/17 11:07 10/02/17 11:30 Range/Units Activated Partial Thromboplast Time 73.2 21.0-31.0 SECONDS Partial Thromboplastin Ratio 2.8 Bedside Glucose 284 70-90 mg/dl
[2017-10-02 14:16] VITALS: Ht 152.4 cm; Wt 50.5 kg
--- NOTE | 2017-10-02 14:34 | Pharmacy Progress Note ---
Pharmacy Glycemic Short Note 2 Date of Service Oct 02, 2017. OUTPATIENT ANTIDIABETIC REGIMEN: * ASSESSMENT: * Ms Todd is an 82 yo F with a PMH of HLD, HTN, and late onset- type 1 diabetes that appears well controlled per the HbA1C. Patient was diagnosed when she was her late twenties after gestational diabetes. The patient has been managed on the above regimen for about 1 year. She does not count carbohydrates. Her diet typically includes yogurt (recent switched to martiniquais yogurt) plus splenda and cinnamon swirl toast for breakfast; lunch is a [employer] sandwich; dinner is variable typically meat plus a carbohydrate. Per the patient's blood sugar log over the past few months, the patient's blood sugar control is very liable... she typically trends either very low in the morning to high at night (80s to 200s-300s) or very high in the morning to low at night (300s down to ~90s). * The patient was maintained on an insulin infusion from 1530 until around 1999 (she received an extra 5.5 units of insulin). Lantus was divided BID and received 7 units last night. Overnight patient was 115 mg/dL and then this morning 247 mg/dL. Lunch 282 mg/dL (less than 2 hours after correction given for breakfast). Increased Lantus slightly to 8 units this morning. After further evaluation of patient and her outpatient blood sugar logs, it appears that the patient has a lot of hypoglycemia and twice daily Lantus may augment this. Changing back to once daily. Give 8 units with dinner tonight and then 15 units at 1500 tomorrow and 15 units at bedtime 10/03/17. * Cannot evaluate Novolog yet so continue care. PLAN FOR INPATIENT GLYCEMIC CONTROL: * Basal insulin * Lantus 8 units SQ BID with transition to once daily * Bolus insulin * NovoLog per scale ACHS or Q6hrs while NPO * Goal Range: Low 140 mg/dL - High 180 mg/dL * Correction Factor: 35 mg/dL/unit * Nutritional / Prandial insulin per carb ratio of 1 unit per 10 grams CHO consumed PLAN FOR DISCHARGE: * Ms Todd is an 82 y/o F with many low blood sugars at home. She is maintained on once daily Lantus + a scale determined solely by blood sugars. She does not count carbohydrates. Patient is to follow-up with endocrinology very soon and would recommend that. Patient does appear to be stable on her home scale and may benefit from some loosenings.
[2017-10-02 15:40] VITALS: BP 104/69; PULSE 54; TEMP 36.6; O2SAT 96
[2017-10-02 19:08] VITALS: BP 125/61; PULSE 58; TEMP 36.6; O2SAT 97
[2017-10-02] MEDS: SIMVASTATIN 10 MG TAB PO SCH (21:10)
[2017-10-02] MEDS: CLONAZEPAM 0.5 MG TAB PO SCH (21:22)
[2017-10-02 23:18] VITALS: BP 119/68; PULSE 62; TEMP 36.6; O2SAT 97
[2017-10-03] MEDS ORDERED: INSULIN ASPART 100 UNITS/ML 3 ML PEN SC SCH (02:00)
[2017-10-03 03:19] VITALS: BP 154/71; PULSE 69; TEMP 36.6; O2SAT 96
[2017-10-03 06:09] LABS: HEMATOCRIT 37.2 % (37-47); MEAN CELL VOLUME 92.3 fL (80-100); MEAN CORPUSCULAR HEMOGLOBIN 32.3 pg (25-34); MEAN CORPUSCULAR HGB CONC 34.9 g/dl (32-36); MEAN PLATELET VOLUME 9.9 fL (7.4-10.4); PLATELET COUNT 143 K/uL (130-400); RED CELL DISTRIBUTION WIDTH CV 13.2 % (11.5-14.5); RED CELL DISTRIBUTION WIDTH SD 44.5 fL (36.4-46.3); WHITE BLOOD COUNT 5.19 K/uL (4.8-10.8)
[2017-10-03 06:19] LABS: PTT PATIENT 23.1 SECONDS (21.0-31.0)
[2017-10-03] MEDS: INSULIN ASPART 100 UNITS/ML 3 ML PEN SC SCH ×2 (07:57→12:14)
[2017-10-03] MEDS: ASPIRIN 81 MG ECTAB PO SCH (07:59)
[2017-10-03] MEDS: DILTIAZEM HCL (TIAzac) 180 MG CAPCR PO SCH (07:59)
[2017-10-03] MEDS: OMEGA-3 (PURIFIED FISH OIL) 1 GM CAP PO SCH (07:59)
[2017-10-03] MEDS: FAMOTIDINE 20 MG TAB PO SCH (07:59)
[2017-10-03] MEDS: CEROVITE ADV FORMULA TAB PO SCH (08:00)
[2017-10-03] MEDS: METOPROLOL TARTRATE 25 MG TAB PO SCH (08:01)
[2017-10-03 08:09] VITALS: BP 150/68; PULSE 73; TEMP 36.9; O2SAT 95
[2017-10-03 11:33] VITALS: BP 149/73; PULSE 69; TEMP 36.7; O2SAT 98
--- NOTE | 2017-10-03 11:43 | Progress Note ---
Internal Med Progress Note Date of Service: Oct 03, 2017. Provider Documentation: SUBJECTIVE: The patient was seen and examined Admitted with Palpitation and not feeling well Blood sugar was very high with mildly increased Troponin Feels a lot better this morning Ambulating without any difficulty Wants to go home OBJECTIVE: Vital Signs-as noted below Exam: General-No distress at rest Eyes-normal ENT-normal Neck-supple Lungs-clear to ausucltate bilaterally Heart-Regular,no murmur appreciated Abdomen-Benign,no masses,bowel sound present Extremities-NO edema Neuro-AAOx3 Lab data as noted below. ASSESSMENT & PLAN: PALPITATIONS EXERTIONAL SHORTNESS OF BREATH ELEVATED TROPONIN -Type II - patient presenting with one episode of palpitations, exertional shortness of breath, and hyperglycemia - initial troponin 0.053 and subsequent troponin moderately elevated . EKG without acute ST changes - risk factors: DM, HTN, dyslipidemia, former smoker -ECHO;; The left ventricle is normal in size. There is moderate concentric left ventricular hypertrophy. n Left ventricular systolic function is normal. n Ejection Fraction = 60-65%. n The left ventricular wall motion is normal. n The right ventricular systolic function is normal. There is mild tricuspid regurgitation. - s/p full dose ASA in the ED; will continue with 81mg daily and statin - cardio consulted, Dr. Alvarado notified-appreciate Input -CTA -negative for PE and No DVT -Heparin discontinued -OP Cardiology follow up -clinically stable to be discharged HYPERGLYCEMIA, DM TYPE I - blood sugars have been running over 500 in the mornings at home - mildly low bicarb, no gap - blood sugar 327 on labs -> 397 -appreciate Pharmacy input -No change in her OP regimen JUAN ON CKD STAGE III - prerenal due to dehydration / hyperglycemia in combination with ACEi - IVF, follow renal functions - hold ACEi-will restart on Discharge -Kidney function normalized ASYMPTOMATIC BACTERURIA - likely contaminated U/A - hold on antibiotics, follow culture-negative HTN - BP controlled - continue diltiazem, holding Lisinopril due to JUAN DYSLIPIDEMIA - continue statin DVT PROPHYLAXIS - SQ Heparin CODE STATUS - Patient is a full code as per my discussion with her. DISPO - Patient is a former patient of Dr. Calderon; outpatient appointment made with [facility] Endocrinology - information given to patient's daughter -Discharge home today Vital Signs: Date Time Temp Pulse Resp B/P (MAP) Pulse Ox O2 Delivery O2 Flow Rate FiO2 10/03/17 11:33 36.7 69 16 149/73 (98) 98 10/03/17 08:09 36.9 73 18 150/68 (95) 95 10/03/17 08:00 Room Air 10/03/17 04:00 Room Air 10/03/17 03:19 36.6 69 18 154/71 (98) 96 Room Air 10/02/17 23:59 Room Air 10/02/17 23:18 36.6 62 18 119/68 (85) 97 Room Air 10/02/17 20:00 Room Air 10/02/17 19:08 36.6 58 20 125/61 (82) 97 Room Air 10/02/17 16:00 Room Air 10/02/17 15:40 36.6 54 20 104/69 (81) 96 Room Air 10/02/17 12:00 Room Air Lab Results: Results Past 24 Hours Test 10/02/17 16:20 10/02/17 20:53 10/03/17 02:59 10/03/17 05:59 Range/Units Bedside Glucose 183 189 88 70-90 mg/dl White Blood Count 5.19 4.8-10.8 K/uL Red Blood Count 4.03 4.2-5.4 M/uL Hemoglobin 13.0 12.0-16.0 g/dL Hematocrit 37.2 37-47 % Mean Corpuscular Volume 92.3 80-100 fL Mean Corpuscular Hemoglobin 32.3 25-34 pg Mean Corpuscular Hemoglobin Concent 34.9 32-36 g/dl RDW Standard Deviation 44.5 36.4-46.3 fL RDW Coefficient of Variation 13.2 11.5-14.5 % Platelet Count 143 130-400 K/uL Mean Platelet Volume 9.9 7.4-10.4 fL Activated Partial Thromboplast Time 23.1 21.0-31.0 SECONDS Partial Thromboplastin Ratio 0.9 Test 10/03/17 07:42 Range/Units Bedside Glucose 107 70-90 mg/dl
--- NOTE | 2017-10-03 13:07 | Discharge Instructions ---
Discharge Instructions Date of Service Oct 03, 2017. Admission Reason for Admission: Elevated Troponin Discharge Discharge Diagnosis / Problem: Hyperglycemia,Palpitations-no ACS Discharge Goals Goal(s): Prevent Disease Progression Activity Recommendations Activity Limitations: resume your previous activity . Instructions / Follow-Up Instructions / Follow-Up Dr Magaña on 10/08/17 at 11:05 AM.Will need OP Cardiology follow up in a few weeks. Current Hospital Diet Patient's current hospital diet: Diabetes Type 1 Diet Discharge Diet Recommended Diet: AHA Diet (Heart Healthy), Diabetes Type 1 Diet Pending Studies Studies pending at discharge: no Laboratory Results Hemoglobin A1c Test 10/02/17 07:49 Range/Units Estimated Average Glucose 143 mg/dl Hemoglobin A1c 6.6 H 4.5-5.6 % Lipid Panel Test 10/02/17 07:49 Range/Units Triglycerides Level 39 0-150 mg/dl Cholesterol Level 127 0-200 mg/dl HDL Cholesterol 66 mg/dl Cholesterol/HDL Ratio 1.9 LDL Cholesterol, Calculated 53 mg/dl Medical Emergencies . Who to Call and When: Medical Emergencies: If at any time you feel your situation is an emergency, please call 911 immediately. . Non-Emergent Contact Non-Emergency issues call your: Primary Care Provider . Past History Medical & Surgical History: (1) Dyslipidemia (2) DM type 1 (diabetes mellitus, type 1) (3) CKD (chronic kidney disease), stage III (4) HTN (hypertension) (5) History of cataract surgery (6) History of lumbar fusion (7) S/P cervical spinal fusion . "Provider Documentation" section prepared by Mervin Perez. .
[2017-10-03 13:39] VITALS: BP 149/73; PULSE 69; TEMP 36.7; O2SAT 98
[2017-10-03] MEDS ORDERED: INSULIN GLARGINE SOLOSTAR 100 UNITS/ML 3 ML PEN SC SCH (15:00)
--- NOTE | 2017-10-04 08:06 | Discharge Summary ---
Discharge Summary Date of Service Oct 04, 2017. Discharge Summary Admission Date: Oct 01, 2017 at 12:31 Discharge Date: Oct 03, 2017 Discharge Disposition: Home Principal Diagnosis: Hyperglycemia,Palpitations-no ACS Secondary Diagnoses/Problems: Please see H&P and Hospital progress note Consultations: Cardiology Medication Reconciliation Continued Medications: Aspirin (Aspirin EC Low Dose) 81 Mg Ectab 81 MG PO DAILY Diltiazem Hcl Ext Rel (Tiazac) 360 Mg Capcr 360 MG PO DAILY Famotidine (Pepcid) 20 Mg Tab 20 MG PO DAILY Insulin Aspart (Novolog Flexpen) 100 Units/Ml Inj SLIDING SCALE. UP TO 30 U DAILY. Insulin Glargine (Lantus) 100 Unit/Ml Inj 16 UNITS SC QPM Lisinopril (Lisinopril) 40 Mg Tab 40 MG PO DAILY Multiple Vitamins W/ Minerals (Centrum) 1 Tab Tab 1 TAB PO DAILY Piseco-3 Fatty Acids (Piseco 3) 1 Cap Cap 1000 MG PO DAILY Oxycodone/Acetaminophen 5MG/325MG (Oxycodone/Acetaminophen 5MG/325MG) 1 Tab Tab 1 TABLET PO Q6H PRN for Pain, TAB Simvastatin (Zocor) 10 Mg Tab 10 MG PO QPM Admission Information HPI (per Admitting provider): 82 year old female who presents to the ED with reports of high blood sugars and not feeling well the past couple of days. The patient reports that two nights ago she woke up in the middle of the night and was having palpitations. She reports this lasted for a couple of hours. When she got up in the morning, her blood sugar was over 500 which is very unusual for her. Blood sugars improved throughout the day with Novolog. She also increased her Lantus from 16 units to 18 units. Yesterday she felt nauseous and had one episode of vomiting. She denies hematemesis or coffee ground emesis. No abdominal pain or diarrhea. Patient reports she has been feeling generally poor. She denies any further episodes of palpitations. She does note increased shortness of breath with exertion. No chest pain, lightheadedness, dizziness, diaphoresis, or syncopal events. She denies fever and chills. No urinary symptoms. This morning blood sugar was over 500 again. In the ED, patient's blood sugar is 327. Troponin is mildly elevated at 0.053. EKG does not show any acute ST changes. Patient was given a full dose ASA and IVF. Past Medical/Surgical History Medical Problems: (1) CKD (chronic kidney disease), stage III Status: Chronic (2) DM type 1 (diabetes mellitus, type 1) Status: Chronic (3) Dyslipidemia Status: Chronic (4) HTN (hypertension) Status: Chronic (5) Spinal stenosis Status: Chronic Surgical Problems: (1) History of cataract surgery Status: Chronic (2) History of lumbar fusion Status: Chronic (3) S/P cervical spinal fusion Status: Chronic Family History non contributory due to patient's advanced age Social History Smoking Status: Former Smoker Alcohol Use: occasionally Immunizations History of Influenza Vaccine: Yes Influenza Vaccine Date: Apr 22, 2017 History of Tetanus Vaccine?: Yes Tetanus Immunization Date: Mar 03, 2015 History of Pneumococcal: Yes Pneumococcal Date: Sep 01, 2014 Allergies Coded Allergies: Penicillins (Verified Allergy, Intermediate, HIVES, 10/01/17) Home Medications Scheduled Aspirin (Aspirin EC Low Dose), 81 MG PO DAILY Diltiazem Hcl Ext Rel (Tiazac), 360 MG PO DAILY Famotidine (Pepcid), 20 MG PO DAILY Insulin Glargine (Lantus), 16 UNITS SC QPM Lisinopril (Lisinopril), 40 MG PO DAILY Multiple Vitamins W/ Minerals (Centrum), 1 TAB PO DAILY Piseco-3 Fatty Acids (Piseco 3), 1,000 MG PO DAILY Simvastatin (Zocor), 10 MG PO QPM Scheduled PRN Oxycodone/Acetaminophen 5MG/325MG (Oxycodone/Acetaminophen 5MG/325MG), 1 TABLET PO Q6H PRN for Pain Miscellaneous Medications Insulin Aspart (Novolog Flexpen) Review of Systems ROS per HPI, all other systems reviewed and negative Physical Exam Vital Signs Date Time Temp Pulse Resp B/P (MAP) Pulse Ox O2 Delivery O2 Flow Rate FiO2 10/01/17 12:41 112 10/01/17 11:56 96 Room Air 10/01/17 10:43 96 Room Air 10/01/17 10:03 101 10/01/17 09:32 36.7 118 18 147/55 95 Room Air General Appearance: WD/WN, no apparent distress Head: normocephalic, atraumatic Eyes: normal inspection, EOMI, sclerae normal ENT: hearing grossly normal, + pertinent finding (mucous membranes moist) Neck: supple, no JVD, trachea midline Respiratory/Chest: lungs clear, normal breath sounds, no respiratory distress Cardiovascular: no edema, normal peripheral pulses, + tachycardia (regular rhythm), + systolic murmur Abdomen/GI: normal bowel sounds, non tender, soft, no organomegaly Extremities/Musculoskelatal: normal inspection, no calf tenderness, normal capillary refill Neurologic/Psych: no motor/sensory deficits, alert, normal mood/affect, oriented x 3 Skin: normal color, warm/dry Diagnostics Laboratory Results Results Past 24 Hours Test 10/01/17 09:53 10/01/17 09:55 10/01/17 10:40 10/01/17 10:50 Range/Units Bedside Glucose 288 70-90 mg/dl White Blood Count 11.57 4.8-10.8 K/uL Red Blood Count 3.89 4.2-5.4 M/uL Hemoglobin 12.7 12.0-16.0 g/dL Hematocrit 36.4 37-47 % Mean Corpuscular Volume 93.6 80-100 fL Mean Corpuscular Hemoglobin 32.6 25-34 pg Mean Corpuscular Hemoglobin Concent 34.9 32-36 g/dl Platelet Count 184 130-400 K/uL Mean Platelet Volume 10.1 7.4-10.4 fL Neutrophils (%) (Auto) 91.7 % Lymphocytes (%) (Auto) 3.9 % Monocytes (%) (Auto) 4.0 % Eosinophils (%) (Auto) 0.1 % Basophils (%) (Auto) 0.1 % Neutrophils # (Auto) 10.62 1.4-6.5 K/uL Lymphocytes # (Auto) 0.45 1.2-3.4 K/uL Monocytes # (Auto) 0.46 0.11-0.59 K/uL Eosinophils # (Auto) 0.01 0-0.5 K/uL Basophils # (Auto) 0.01 0-0.2 K/uL RDW Standard Deviation 45.2 36.4-46.3 fL RDW Coefficient of Variation 13.1 11.5-14.5 % Immature Granulocyte % (Auto) 0.2 % Immature Granulocyte # (Auto) 0.02 0.00-0.02 K/uL Prothrombin Time 10.6 9.0-12.0 SECONDS Prothromb Time International Ratio 1.0 0.9-1.1 Activated Partial Thromboplast Time 23.3 21.0-31.0 SECONDS Partial Thromboplastin Ratio 0.9 Sodium Level 131 136-145 mmol/L Potassium Level 4.1 3.5-5.1 mmol/L Chloride Level 100 98-107 mmol/L Carbon Dioxide Level 20 21-32 mmol/L Anion Gap 11.0 3-11 mmol/L Blood Urea Nitrogen 37 7-18 mg/dl Creatinine 1.46 0.60-1.20 mg/dl Est Creatinine Clear Calc Drug Dose 21.3 ml/min Estimated GFR () 38.5 Estimated GFR (Non- 33.2 BUN/Creatinine Ratio 25.1 10-20 Random Glucose 327 70-99 mg/dl Calcium Level 9.2 8.5-10.1 mg/dl Total Bilirubin 0.7 0.2-1 mg/dl Direct Bilirubin 0.2 0-0.2 mg/dl Aspartate Amino Transf (AST/SGOT) 22 15-37 U/L Alanine Aminotransferase (ALT/SGPT) 29 12-78 U/L Alkaline Phosphatase 61 45-117 U/L Troponin I 0.053 0-0.045 ng/ml Total Protein 6.6 6.4-8.2 gm/dl Albumin 3.6 3.4-5.0 gm/dl Lipase 147 73-393 U/L Beta-Hydroxybutyric Acid 8.95 0.2-2.81 mg/dL Influenza Type A Antigen Neg for Influ A NEG Influenza Type B Antigen Neg for Influ B NEG Venous Blood pH 7.40 7.36-7.41 Venous Blood Partial Pressure CO2 37 38.0-50.0 mmHg Venous Blood Partial Pressure O2 35 mmHg Venous Blood HCO3 23 mmol/L Venous Blood Oxygen Saturation 65.6 % Venous Blood Base Excess -1.9 mEq/L Lactic Acid Level 1.7 0.4-2.0 mmol/L Test 10/01/17 11:30 Range/Units Urine Color YELLOW Urine Appearance CLEAR CLEAR Urine pH 5.0 4.5-7.5 Urine Specific [place] 1.020 1.000-1.030 Urine Protein NEG NEG Urine Glucose (UA) 3+ NEG Urine Ketones 2+ NEG Urine Occult Blood TRACE NEG Urine Nitrite NEG NEG Urine Bilirubin NEG NEG Urine Urobilinogen NEG NEG Urine Leukocyte Esterase MODERATE NEG Urine WBC (Auto) 10-30 0-5 /hpf Urine RBC (Auto) 0-4 0-4 /hpf Urine Hyaline Casts (Auto) 0 0-5 /lpf Urine Epithelial Cells (Auto) >30 0-5 /lpf Urine Bacteria (Auto) NEG NEG Microbiology Results 10/01/17 Blood Culture, Received Pending 10/01/17 Blood Culture, Received Pending 10/01/17 Urine Culture, Received Pending Diagnostic Radiology CXR IMPRESSION: No acute process. Chronic and postoperative change. Impression Assessment and Plan PALPITATIONS EXERTIONAL SHORTNESS OF BREATH ELEVATED TROPONIN - admit to tele - patient presenting with one episode of palpitations, exertional shortness of breath, and hyperglycemia - initial troponin 0.053, EKG without acute ST changes - last stress test was in 1999 - risk factors: DM, HTN, dyslipidemia, former smoker - continue to cycle cardiac enzymes, check resting echo - s/p full dose ASA in the ED; will continue with 81mg daily and statin - PRN nitro and EKG with chest pain - cardio consulted, Dr. Alvarado notified - also will r/o PE - check d. dimer and if positive will do BLLE dopplers and VQ due to renal function HYPERGLYCEMIA, DM TYPE I - blood sugars have been running over 500 in the mornings at home - mildly low bicarb, no gap - blood sugar 327 on labs -> 397 - will place on insulin gtt, IVF JUAN ON CKD STAGE III - prerenal due to dehydration / hyperglycemia in combination with ACEi - IVF, follow renal functions - hold ACEi ASYMPTOMATIC BACTERURIA - likely contaminated U/A - hold on antibiotics, follow culture HTN - BP controlled - continue diltiazem, holding Lisinopril due to JUAN DYSLIPIDEMIA - continue statin DVT PROPHYLAXIS - SQ Heparin CODE STATUS - Patient is a full code as per my discussion with her. DISPO - In my clinical judgment this beneficiary meets acute admission criteria, established by [facility], that includes being hospitalized through two midnights. - Patient is a former patient of Dr. Calderon; outpatient appointment made with [facility] [place] [facility] - information given to patient's daughter Advanced Directives Existing Living Will: Yes Existing Power of [employer] Art [employer]: Yes Resuscitation Status VTE Prophylaxis Will order VTE Prophylaxis: Yes Note ATTENDING ADDENDUM Record reviewed. Patient interviewed and examined. Care coordinated with REYNA Hoffman. Please refer to her documentation for patient's history. Briefly, 82-year-old female with history of diabetes mellitus type 1 and other problems as noted. Blood sugars have been running very high over the past 1-2 days. Experiencing intermittent palpitations without chest pain or dyspnea. No fever, cough, or other symptoms of infection. EXAM: General- elderly female, no distress Eyes- anicteric Lungs- clear to auscultation; no respiratory distress Cardiovascular- RRR; I/ systolic murmur LSB; no gallop; no JVD; no pretibial edema Abdomen- + bowel sounds, soft, nontender Extremities- no cyanosis; no calf tenderness Neuro- alert, oriented Skin- warm & dry . DATA: Sodium 131, potassium 4.1, chloride 100, CO2 20, BUN 37, creatinine 1.46, random glucose 327. Serum troponin 0 0.053. Urinalysis demonstrated 3+ glucose, 2+ ketones, negative nitrites, moderate leukocyte esterase, 10-30 WBCs, greater than 30 epithelial cells, no bacteria. Nasopharyngeal swab for influenza A/B by both antigen and PCR were negative Other lab studies as noted. Chest x-ray did not show any infiltrates, effusions, CHF. EKG performed at 1043 reviewed and demonstrated sinus rhythm 100/minute, no acute changes. Repeat EKG performed at 1127 reviewed and demonstrated sinus tachycardia 101/ minute, slight ST depression in lead II, T-wave flattening in aVL, slight ST depression V3-6. ASSESSMENT AND PLAN: Diabetes mellitus type 1 with elevated blood sugars. Anion gap normal. BHB slightly elevated. Pharmacy consult for glycemic management. Insulin infusion will be utilized until blood sugars are improved. Uncertain precipitating etiology of elevated sugars. No apparent infection. Experiencing some palpitations and dyspnea, no chest pain; check d-dimer to screen for thromboembolic disease. Serum troponin slightly elevated. Second EKG showed minimal ST depression laterally. Check serial troponins. Check echo. Consult Cardiology. Please refer to BRADEN Gaitan's documentation for discussion of other issues. Iftikhar Carvalho MD . Addendum: Iftikhar Carvalho M.D. on 10/02/17 @ 01:25 Addendum Section D-dimer was elevated. Venous duplex lower extremities negative for DVT. CTA not performed because of elevated creatinine. VQ pending. Serum troponin 0 0.053, 0.064, 0.248. Echo did not show any wall motion abnormalities. Continue aspirin. Start IV heparin. Start metoprolol. Consult Cardiology. . Physical Exam (per Admitting): General Appearance: WD/WN, no apparent distress Head: normocephalic, atraumatic Eyes: normal inspection, EOMI, sclerae normal ENT: hearing grossly normal, + pertinent finding (mucous membranes moist) Neck: supple, no JVD, trachea midline Respiratory/Chest: lungs clear, normal breath sounds, no respiratory distress Cardiovascular: no edema, normal peripheral pulses, + tachycardia (regular rhythm), + systolic murmur Abdomen/GI: normal bowel sounds, non tender, soft, no organomegaly Extremities/Musculoskelatal: normal inspection, no calf tenderness, normal capillary refill Neurologic/Psych: no motor/sensory deficits, alert, normal mood/affect, oriented x 3 Skin: normal color, warm/dry Hospital Course PALPITATIONS EXERTIONAL SHORTNESS OF BREATH ELEVATED TROPONIN -Type II - patient presenting with one episode of palpitations, exertional shortness of breath, and hyperglycemia - initial troponin 0.053 and subsequent troponin moderately elevated . EKG without acute ST changes - risk factors: DM, HTN, dyslipidemia, former smoker -ECHO;; The left ventricle is normal in size. There is moderate concentric left ventricular hypertrophy. n Left ventricular systolic function is normal. n Ejection Fraction = 60-65%. n The left ventricular wall motion is normal. n The right ventricular systolic function is normal. There is mild tricuspid regurgitation. - s/p full dose ASA in the ED; will continue with 81mg daily and statin - cardio consulted, Dr. Alvarado notified-appreciate Input -CTA -negative for PE and No DVT -Heparin discontinued -OP Cardiology follow up -clinically stable to be discharged HYPERGLYCEMIA, DM TYPE I - blood sugars have been running over 500 in the mornings at home - mildly low bicarb, no gap - blood sugar 327 on labs -> 397 -appreciate Pharmacy input -No change in her OP regimen JUAN ON CKD STAGE III - prerenal due to dehydration / hyperglycemia in combination with ACEi - IVF, follow renal functions - hold ACEi-will restart on Discharge -Kidney function normalized ASYMPTOMATIC BACTERURIA - likely contaminated U/A - hold on antibiotics, follow culture-negative HTN - BP controlled - continue diltiazem, holding Lisinopril due to JUAN DYSLIPIDEMIA - continue statin DVT PROPHYLAXIS - SQ Heparin CODE STATUS - Patient is a full code as per my discussion with her. DISPO - Patient is a former patient of Dr. Calderon; outpatient appointment made with [facility] [place] [facility] - information given to patient's daughter -Discharge home today Total time spent on discharge = 35 minutes This includes examination of the patient, discharge planning, medication reconciliation, and communication with other providers. Discharge Instructions Date of Service Oct 03, 2017. Admission Reason for Admission: Elevated Troponin Discharge Discharge Diagnosis / Problem: Hyperglycemia,Palpitations-no ACS Discharge Goals Goal(s): Prevent Disease Progression Activity Recommendations Activity Limitations: resume your previous activity . Instructions / Follow-Up Instructions / Follow-Up Dr Magaña on 10/08/17 at 11:05 AM.Will need OP Cardiology follow up in a few weeks. Current Hospital Diet Patient's current hospital diet: Diabetes Type 1 Diet Discharge Diet Recommended Diet: AHA Diet (Heart Healthy), Diabetes Type 1 Diet Pending Studies Studies pending at discharge: no Laboratory Results Hemoglobin A1c Test 10/02/17 07:49 Range/Units Estimated Average Glucose 143 mg/dl Hemoglobin A1c 6.6 H 4.5-5.6 % Lipid Panel Test 10/02/17 07:49 Range/Units Triglycerides Level 39 0-150 mg/dl Cholesterol Level 127 0-200 mg/dl HDL Cholesterol 66 mg/dl Cholesterol/HDL Ratio 1.9 LDL Cholesterol, Calculated 53 mg/dl Medical Emergencies . Who to Call and When: Medical Emergencies: If at any time you feel your situation is an emergency, please call 911 immediately. . Non-Emergent Contact Non-Emergency issues call your: Primary Care Provider . Past History Medical & Surgical History: (1) Dyslipidemia (2) DM type 1 (diabetes mellitus, type 1) (3) CKD (chronic kidney disease), stage III (4) HTN (hypertension) (5) History of cataract surgery (6) History of lumbar fusion (7) S/P cervical spinal fusion . "Provider Documentation" section prepared by Mervin Preez. . <Electronically signed by Mervin Perez M.D.> Signed: 10/03/17 7607 Additional Copies To Albino Magaña MD
[2017-10-04] MEDS ORDERED: INSULIN GLARGINE SOLOSTAR 100 UNITS/ML 3 ML PEN SC SCH (21:00)
== END 2017-10-03 14:53 | disposition home or self-care (01) | DRG 638 ==
LOC: C.EDB 09:32 → C.2T 12:31 → ENRESERV 12:38
PROVIDERS: ADMIT Hospitalist; ATTEND Internal Medicine
DX: E10.65 Type 1 diabetes mellitus with hyperglycemia (principal); N17.9 Acute kidney failure, unspecified; R00.2 Palpitations; R06.02 Shortness of breath; E78.5 Hyperlipidemia, unspecified; I10 Essential (primary) hypertension; N18.3 Chronic kidney disease, stage 3 (moderate); Z79.4 Long term (current) use of insulin; Z88.0 Allergy status to penicillin; Z87.891 Personal history of nicotine dependence

== ENCOUNTER 2017-10-03 21:49 | Emergency (ER) | payer OTHER ==
[~2017-10-03] VITALS: Ht 152.4 cm; Wt 49.5 kg
[~2017-10-03 21:49] MED LIST changes: +ASPEC81 PO; -CARI350T28 PO; -CLTP PO; -CTP1 PO; +FAMO20TA11 PO; -FIBER PO; -FSM70 PO; -LISI40TA PO; +LSN40 PO; -MRLP17 PO; -MULT-506 PO; +MULTTAB5 PO; -NVLGI; +NVLGI/PEN; +OMEG12006 PO; -OXYC-57 PO; +OXYC-643 PO; -OXYSR20 PO; -RANI75TA7 PO; -SENN-65 PO
[2017-10-03 21:57] VITALS: Ht 152.4 cm; Wt 49.5 kg
[2017-10-03] MEDS ORDERED: SODIUM CHLORIDE 0.9% 500ML 500 ML IV STA (23:07)
--- NOTE | 2017-10-03 23:10 | EMERGENCY ROOM VISIT NOTE ---
History Report prepared by Juan David: Mic Stephenson Under the Supervision of: Dr. Oleg Mares M.D. First contact with patient: 22:57 Chief Complaint: HYPERGLYCEMIA Stated Complaint: HIGH BLOOD SUGAR,BS WAS 527 BEFORE SUPPER History of Present Illness The patient is a 82 year old female who presents to the Emergency Room with complaints of improving elevated blood sugars that began 8 hours ago. She states that her blood sugars were at 522 prior to eating a meal of chicken breast and a single piece of bread. She states that after taking 15 units of Insulin, her blood sugars came down. Per the family, they would like to know why her blood sugars have been abnormally elevated. She reports 2 episodes of nausea when she tried to eat. She takes a shot of NovoLog before each meal. She was given her nighttime Lantus (16 units) at 1500 yesterday. Per the family, the patient was admitted to [facility] yesterday without significant findings and had an egg salad sandwich with a cup of peaches for lunch. She denies chest pain, cough, fevers, and urinary burning. She denies steroid use. Source of History: patient, family Onset: 8 hours ago Position: other (global) Symptom Intensity: pain rated as 0/10 Timing: intermittent Modifying Factors (Relieving): other (Insulin) Associated Symptoms: + nausea (2 episodes), No fevers, No cough, No chest pain, No urinary symptoms Review of Systems See HPI for pertinent positives & negatives. A total of 10 systems reviewed and were otherwise negative. Past Medical & Surgical Medical Problems: (1) CKD (chronic kidney disease), stage III (2) DM type 1 (diabetes mellitus, type 1) (3) Dyslipidemia (4) HTN (hypertension) (5) Spinal stenosis Surgical Problems: (1) History of cataract surgery (2) History of lumbar fusion (3) S/P cervical spinal fusion Social History Smoking Status: Former Smoker Marital Status: Housing Status: lives with family Occupation Status: retired Current/Historical Medications Scheduled Aspirin (Aspirin EC Low Dose), 81 MG PO DAILY Diltiazem Hcl Ext Rel (Tiazac), 360 MG PO DAILY Famotidine (Pepcid), 20 MG PO DAILY Insulin Glargine (Lantus), 16 UNITS SC QPM Lisinopril (Lisinopril), 40 MG PO DAILY Multiple Vitamins W/ Minerals (Centrum), 1 TAB PO DAILY [place]-3 Fatty Acids ([place] 3), 1,000 MG PO DAILY Simvastatin (Zocor), 10 MG PO QPM Scheduled PRN Oxycodone/Acetaminophen 5MG/325MG (Oxycodone/Acetaminophen 5MG/325MG), 1 TABLET PO Q6H PRN for Pain Miscellaneous Medications Insulin Aspart (Novolog Flexpen) Allergies Coded Allergies: Penicillins (Verified Allergy, Intermediate, HIVES, 10/01/17) Physical Exam Vital Signs Date Time Temp Pulse Resp B/P (MAP) Pulse Ox O2 Delivery O2 Flow Rate FiO2 10/04/17 01:21 36.7 88 20 170/79 97 10/04/17 00:42 88 20 170/79 97 Room Air 10/03/17 23:24 79 20 151/66 97 Room Air 10/03/17 21:57 36.7 96 18 175/65 96 Room Air Physical Exam GENERAL: Patient is mildly anxious appearing and in no acute distress. EYES: No scleral icterus, unremarkable pupils. ENT: Mucous membranes moist, no nasal congestion. NECK: No masses appreciated, no meningismus, trachea is midline. RESPIRATORY: No dyspnea. Clear to auscultation and equal bilaterally. No wheeze , no rhonchi. CARDIOVASCULAR: Regular rate and rhythm. No murmurs, rubs, gallops appreciated. GASTROINTESTINAL: Abdomen soft, nontender, no peritonitis. Bowel sounds positive. No masses appreciated. BACK: No midline tenderness, no CVA tenderness EXTREMITIES: Normal motion all extremities, no cyanosis, no edema. NEUROLOGIC: Alert and oriented, no acute motor or sensory deficits, no focal weakness, cranial nerves grossly intact. SKIN: No rash, no jaundice, no diaphoresis. Medical Decision & Procedures Laboratory Results 10/03/17 23:21 Red Blood Count 4.14, Mean Corpuscular Volume 92.0, Mean Corpuscular Hemoglobin 32.4, Mean Corpuscular Hemoglobin Concent 35.2, Mean Platelet Volume 9.7, Neutrophils (%) (Auto) 82.1, Lymphocytes (%) (Auto) 7.9, Monocytes (%) (Auto) 9.1, Eosinophils (%) (Auto) 0.8, Basophils (%) (Auto) 0.0, Neutrophils # (Auto) 6.57, Lymphocytes # (Auto) 0.63, Monocytes # (Auto) 0.73, Eosinophils # (Auto) 0.06, Basophils # (Auto) 0.00 10/03/17 23:21 Test 10/03/17 23:21 10/03/17 23:26 10/04/17 00:41 White Blood Count 8.00 K/uL (4.8-10.8) Red Blood Count 4.14 M/uL (4.2-5.4) Hemoglobin 13.4 g/dL (12.0-16.0) Hematocrit 38.1 % (37-47) Mean Corpuscular Volume 92.0 fL (80-100) Mean Corpuscular Hemoglobin 32.4 pg (25-34) Mean Corpuscular Hemoglobin Concent 35.2 g/dl (32-36) Platelet Count 139 K/uL (130-400) Mean Platelet Volume 9.7 fL (7.4-10.4) Neutrophils (%) (Auto) 82.1 % Lymphocytes (%) (Auto) 7.9 % Monocytes (%) (Auto) 9.1 % Eosinophils (%) (Auto) 0.8 % Basophils (%) (Auto) 0.0 % Neutrophils # (Auto) 6.57 K/uL (1.4-6.5) Lymphocytes # (Auto) 0.63 K/uL (1.2-3.4) Monocytes # (Auto) 0.73 K/uL (0.11-0.59) Eosinophils # (Auto) 0.06 K/uL (0-0.5) Basophils # (Auto) 0.00 K/uL (0-0.2) RDW Standard Deviation 43.9 fL (36.4-46.3) RDW Coefficient of Variation 13.1 % (11.5-14.5) Immature Granulocyte % (Auto) 0.1 % Immature Granulocyte # (Auto) 0.01 K/uL (0.00-0.02) Anion Gap 9.0 mmol/L (3-11) Est Creatinine Clear Calc Drug Dose 28.1 ml/min Estimated GFR () 53.6 Estimated GFR (Non- 46.2 BUN/Creatinine Ratio 18.8 (10-20) Calcium Level 9.2 mg/dl (8.5-10.1) Troponin I 0.070 ng/ml (0-0.045) Beta-Hydroxybutyric Acid 14.39 mg/dL (0.2-2.81) Urine Color YELLOW Urine Appearance CLEAR (CLEAR) Urine pH 5.5 (4.5-7.5) Urine Specific [place] 1.023 (1.000-1.030) Urine Protein NEG (NEG) Urine Glucose (UA) 3+ (NEG) Urine Ketones 1+ (NEG) Urine Occult Blood 1+ (NEG) Urine Nitrite NEG (NEG) Urine Bilirubin NEG (NEG) Urine Urobilinogen NEG (NEG) Urine Leukocyte Esterase NEG (NEG) Urine WBC (Auto) 1-5 /hpf (0-5) Urine RBC (Auto) 0-4 /hpf (0-4) Urine Hyaline Casts (Auto) 0 /lpf (0-5) Urine Epithelial Cells (Auto) 5-10 /lpf (0-5) Urine Bacteria (Auto) NEG (NEG) Bedside Glucose 268 mg/dl (70-90) Laboratory results as reviewed by me. Medications Administered Medications (Trade) Dose Ordered Sig/Beverley Route Start Time Stop Time Status Last Admin Dose Admin Sodium Chloride 500 ml @ 999 mls/hr Q31M STAT IV 10/03/17 23:07 10/03/17 23:37 DC 10/03/17 23:07 999 MLS/HR Insulin Human Regular (novoLIN-R U-100 PER UNIT) 6 units NOW STAT SC 10/03/17 23:38 10/03/17 23:39 DC 10/04/17 00:09 6 UNITS Insulin Glargine (Lantus Solostar Pen) 16 units NOW SC 10/03/17 23:45 10/04/17 01:31 DC 10/04/17 00:10 16 UNITS ED Course 2257: The patient was evaluated in room B2. A complete history and physical exam was performed. 0042: I checked on the patient and she ambulated to the bathroom. She is doing well and would like to go home. 0115: I checked on the patient and she feels much better. They will try splitting her Lantus with an evening and morning dose. 0130: Reevaluated the patient. Discussed results and discharge instructions: She and the family verbalized understanding and agreement. The patient is ready for discharge. Medical Decision 82 yr old female arrives with BSG 500 at home this evening already down to the 300s after taking her insulin. Did not yet take her evening lantus. Review of chart she was discharged today from hospital with BSG 360 as it was thus I am not surprised it continued to go up without any insulin. She is asymptomatic and feels well. Her BSG is usually very well controlled however it did seem morning levels are good while evening ones tend to be trending up. Labs here are good and trop is at her baseline. She is not in dka. No evidence of infection that I can find. She is stable, maybe a bit on dehydrated side and feeling well. Given IV fluids, her evening Lantus and small dose sc fast insulin. She wishes to go home which seems reasonable. We discussed splitting her Lantus in to two daily injections to better cover her throughout day in to evening. She has family which will be with her. We also discussed that given she is requiring fair amount of sliding scale, increasing lantus to 20U total for the day might be reasonable as well. Patient and family comfortable with this plan and are aware of risks of hypoglycemia, as well as what to do in that situation. Medication Reconcilliation Current Medication List: was personally reviewed by me Blood Pressure Screening Patient's blood pressure: Elevated blood pressure Blood pressure disposition: Elevated BP felt to be situational Impression Primary Impression: Hyperglycemia Scribe Attestation The scribe's documentation has been prepared under my direction and personally reviewed by me in its entirety. I confirm that the note above accurately reflects all work, treatment, procedures, and medical decision making performed by me. Departure Information Dispostion Home / Self-Care Referrals Albino Magaña MD (PCP) Patient Instructions My [facility] Additional Instructions Monitor you sugars very closely and make sure you have family members around when you are changing your Insulin schedule.
[2017-10-03 23:32] LABS: EOS % 0.8 %; EOS ABS # 0.06 K/uL (0-0.5); HEMATOCRIT 38.1 % (37-47); HEMOGLOBIN 13.4 g/dL (12.0-16.0); IG# 0.01 K/uL (0.00-0.02); LYMPH % 7.9 %; LYMPH ABS # 0.63 K/uL (1.2-3.4); MEAN CORPUSCULAR HEMOGLOBIN 32.4 pg (25-34); MEAN CORPUSCULAR HGB CONC 35.2 g/dl (32-36); MEAN PLATELET VOLUME 9.7 fL (7.4-10.4); MONO % 9.1 %; MONO ABS # 0.73 K/uL (0.11-0.59); NEUT % 82.1 %; NEUT ABS # 6.57 K/uL (1.4-6.5); PLATELET COUNT 139 K/uL (130-400); RED CELL DISTRIBUTION WIDTH CV 13.1 % (11.5-14.5); RED CELL DISTRIBUTION WIDTH SD 43.9 fL (36.4-46.3)
[2017-10-03] MEDS ORDERED: NovoLIN-R INSULIN PER UNIT CHARGE SC STA (23:38)
[2017-10-03] MEDS ORDERED: INSULIN GLARGINE SOLOSTAR 100 UNITS/ML 3 ML PEN SC SCH (23:45)
[2017-10-04 00:04] LABS: CALCIUM 9.2 mg/dl (8.5-10.1); CREATININE 1.11 mg/dl (0.60-1.20); POTASSIUM 4.1 mmol/L (3.5-5.1)
[2017-10-04 01:21] VITALS: BP 170/79; PULSE 88; TEMP 36.7; O2SAT 97
== END 2017-10-04 01:21 | disposition home or self-care (01) ==
LOC: C.EDB 21:50
DX: E10.65 Type 1 diabetes mellitus with hyperglycemia (principal); E10.22 Type 1 diabetes mellitus with diabetic chronic kidney disease; I12.9 Hypertensive chronic kidney disease with stage 1 through stage 4 chronic kidney disease, or unspecified chronic kidney disease; N18.3 Chronic kidney disease, stage 3 (moderate); E78.5 Hyperlipidemia, unspecified; Z79.4 Long term (current) use of insulin; Z79.82 Long term (current) use of aspirin; Z87.891 Personal history of nicotine dependence; Z98.1 Arthrodesis status; Z88.0 Allergy status to penicillin

== ENCOUNTER 2023-09-22 12:54 | Inpatient (IN) ==
[2023-09-22 13:52] LABS: Basophils # (auto) 0.03 K/uL (0.00-0.20); Basophils % (auto) 0.4 %; Eosinophils # (auto) 0.08 K/uL (0.00-0.50); Hematocrit (blood only) 37.5 % (37.0-47.0); Hemoglobin 12.7 g/dl (12.0-16.0); Immature Granulocytes # (auto) 0.02 K/uL (0.01-0.20); Immature Granulocytes % (auto) 0.2 %; Lymphocytes # (auto) 0.72 K/uL (1.20-3.40); Lymphocytes % (auto) 8.7 %; Mean Corpuscular Hemoglobin 31.8 pg (25.0-34.0); Mean Corpuscular Hgb Conc 33.9 g/dL (32.0-36.0); Mean Platelet Volume 9.7 fL (9.4-12.4); Monocytes # (auto) 0.62 K/uL (0.11-0.59); Monocytes % (auto) 7.5 %; Neutrophils # (auto) 6.78 K/uL (1.40-6.50); Neutrophils % (auto) 82.2 %; Platelet Count 235 K/uL (130-400); RDW Coefficient of Variation 12.9 % (11.5-14.5); RDW Standard Deviation 44.5 fL (36.4-46.3); Red Blood Count 3.99 M/uL (4.20-5.40); White Blood Count 8.25 K/ul (4.8-10.8)
[2023-09-22 14:14] LABS: Alanine Aminotransferase 14 U/L (7-52); Albumin Globulin Ratio 1.2 (0.9-2); Albumin Level 3.8 gm/dl (3.4-5.0); Alkaline Phosphatase 55 U/L (34-104); Anion Gap 8 (3-11); Aspartate Aminotransferase 19 U/L (13-39); BUN Creatinine Ratio 24.6 (10-20); Bilirubin,Total 0.3 mg/dl (0.2-1.0); Blood Urea Nitrogen 31 mg/dl (6-23); Calcium 9.4 mg/dl (8.6-10.3); Carbon Dioxide 22 mmol/L (21-32); Chloride 102 mmol/L (98-107); Creatinine Clr Calc Pharmacy 21.4 ml/min; Est GFR (African American) 44.1 ml/min; Globulin 3.1 gm/dl (2.5-4.0); Glucose 102 mg/dl (70-99(Fasting)); Potassium 4.7 mmol/L (3.5-5.1); Sodium 132 mmol/L (136-145); Total Protein 6.9 gm/dl (6.0-8.3)
--- NOTE | 2023-09-22 14:54 | Emergency Department Note ---
Impression & Plan Osteomyelitis of finger of right hand, DM type 1 (diabetes mellitus, type 1), CKD (chronic kidney disease), stage III ED Provider Note Provider: Odin Mistry MD DATE OF SERVICE: 09/22/2023 CHIEF COMPLAINT: Finger infection HISTORY OF PRESENT ILLNESS: Patient is a 88-year-old female history of type 1 diabetes, hypertension, and CKD presenting here today with daughter reporting worsening infection of her right index finger. She reports her fingers cracked and she got a bit of erythema and infection here. Went to [facility] and placed on Bactrim on Friday. Less redness at the base of the index finger around the knuckles but worsening swelling particular noted by daughter to the tip of the right index finger. No fevers or chills. No other trauma. No drainage reported other than a little bit of serous drainage from the middle dorsal phalangeal area where a small erythematous abrasion and wound has appeared. Patient without pain but with severe neuropathy. PAST MEDICAL HISTORY: As noted above MEDICATIONS: Reviewed home medications includes insulin SOCIAL HISTORY: Non-smoker PHYSICAL EXAM: GENERAL: alert and oriented in no acute distress in chair Head: normocephalic and atraumatic EYES: No injection, discharge or icterus. PERRL, EOMI. NECK: Trachea midline. Supple. ENT: Mucous membranes pink and moist. Pharynx without erythema or exudate. LUNGS: Airway patent. No retractions or tachypnea HEART: Regular rate and rhythm. SKIN: Acyanotic, warm, dry, without rashes EXTREMITIES: Without swelling, tenderness or deformity with a small less than centimeter slight area of abrasion and erythema to the right index finger mid phalange E. The distal right index fingertip significantly swollen and erythematous with what appears to be purulence just under the nail. NEUROLOGICAL: No aphasia. No facial droop or slurred speech. Normal strength and tone in the extremities. Generalized diminished peripheral extremity numbness at baseline. Ambulatory with cane Patient's laboratory studies and imaging reviewed. Differential includes Cellulitis, abscess, MRSA infection, DVT, necrotizing fasciitis, dermatitis, drug eruption, allergic reaction, as well as other pathologies. IMPRESSION/MEDICAL DECISION MAKING: Patient had triage orders completed. Has been on Bactrim. Does not appear to affect the hand. Normal white count I doubt systemic involvement. Unfortunately fairly advanced neuropathy but is not causing her much discomfort or pain. Distal tip of the right index finger appears to show purulence under the nail concerning for felon. There is a slight abrasion in the middle phalangeal area with some serous drainage. Doubt flexor tenosynovitis. X-ray obtained to help exclude osteo as well as CRP. Will give a dose ceftriaxone as well as vancomycin in discussion with pharmacist here in the ED October. Question given her age with diabetes and the significant wound to her finger if further IV antibiotics would be the best course for her at this point. Discussed with patient and her daughter at bedside. I&D performed as below from the area with wound culture sent. Review of the x-ray by myself is concerning for osteo of this distal fingertip although CRP is not severely elevated. Will bring in for IV antibiotics patient and daughter were in agreement. I&D as below without significant purulent material. Seems to have some sloughing and skin. Question if she may lose this fingertip. DIAGNOSIS: Right index finger cellulitis and abscess, right index finger osteomyelitis, type 1 diabetes DISPOSITION: Hospitalist will evaluate Patient was agreeable with this plan. INCISION and DRAINAGE: Indications for the procedure as well as its risks and benefits were explained to the patient who provided informed consent to proceed. Patient, procedure, and site were verified immediately before the procedure. The affected area was prepped and draped for sterile technique. Patient fortunately with significant neuropathy although this means I do not need to use local anesthetics as she is insensate. Cleaned with Betadine. Abscess was incised with #11 blade and some blood expressed but no significant purulent material. Cavity irrigated and probed to extent for loculations. Seems to have a lot of sloughing of skin with some trace bleeding. Patient tolerated the procedure well. Wound culture sent from wound although again lack of significant purulence. Past Med/Surg History Medical History (Updated 09/22/23 @ 15:55 by Herminia Terrazas PA-C) Diabetic neuropathy CKD (chronic kidney disease), stage III DM type 1 (diabetes mellitus, type 1) Hypertension Dyslipidemia Surgical History Hx of breast biopsy History of trabeculectomy S/P cervical spinal fusion History of lumbar fusion History of cataract surgery Family History Mother Heart disease Father Heart disease Cancer Social History (Updated 09/22/23 @ 15:55 by Herminia Terrazas PA-C) Smoking Status: Former smoker Smoking End Date: 2005; Hx Alcohol Use: Yes Alcohol Intake Frequency: Monthly or Less Feels Safe at Home: Yes Allergies Allergies Allergy/AdvReac Type Severity Reaction Status Date / Time Penicillins Allergy Intermediate HIVES Verified 04/22/23 11:26 Home Meds Home Medications Medication Instructions Recorded Confirmed acetone (urine) test (Ketostix #25 ea 05/18/19 04/22/23 strips) diltiazem HCl 360 mg capsule,24 360 mg PO QAM 10/03/19 09/22/23 hr,extended release lisinopril 40 mg tablet 40 mg PO QAM #30 tabs 10/03/19 09/22/23 simvastatin 10 mg tablet 10 mg PO DAILY #90 tabs 10/03/19 09/22/23 blood-glucose meter #1 ea 01/22/21 04/22/23 vit C 250 mg-vit E 90 mg-zinc 40 2 tab PO BID 01/22/21 04/22/23 mg-copper 1 [id number] capsule (PreserVision AREDS-2) cholecalciferol (vitamin D3) 125 125 mcg PO QAM 01/22/22 09/22/23 mcg (5,000 unit) capsule denosumab 60 mg/mL subcutaneous 60 mg subcut UD 01/22/22 09/22/23 syringe (Prolia) Previous Rx's Medication Instructions Recorded pen needle, diabetic 32 gauge x #600 ea 12/27/22 5/32" (BD Ultra-Fine Briseyda Pen Needle) glucagon 3 mg/actuation nasal spray 3 mg intranasal ONCE 90 days #2 ea 04/23/23 insulin syringe-needle U-100 1 mL #200 ea 04/23/23 31 gauge x 5/16" (BD Insulin Syringe Ultra-Fine) Novolog FlexPen U-100 Insulin 100 25 unit (0.25 mL) subcut DAILY 90 08/28/23 unit/mL (3 mL) subcutaneous days #30 mL (insulin aspart U-100) insulin glargine 100 unit/mL (3 See Rx Instructions subcut 09/02/23 mL) subcutaneous pen (Basaglar .COMPLEX #30 mL KwikPen U-100 Insulin) Results & Data (ED) Vital Signs Vital Signs - 24 hr 09/22/23 13:02 Temperature 36.6 C Temperature Source Temporal Artery Scan Pulse Rate 92 H Respiratory Rate 20 Respiratory Effort / Characteristics Non-Labored Respiratory Depth Normal Blood Pressure 100/56 L Blood Pressure Mean 70 Pulse Oximetry 94 Oxygen Delivery Method Room Air Sepsis Recent Fever Within 48 Hours No Sepsis New/Unexplained Change in Mental Status No Sepsis Action Taken by Nursing No Action Required Laboratory Data 09/22/23 13:33 09/22/23 13:33 Lab Results 09/22/23 Range/Units 13:33 WBC 8.25 (4.8-10.8) K/ul RBC 3.99 L (4.20-5.40) M/uL Hgb 12.7 (12.0-16.0) g/dl Hct 37.5 (37.0-47.0) % MCV 94.0 (80.0-100.0) fL MCH 31.8 (25.0-34.0) pg MCHC 33.9 (32.0-36.0) g/dL RDW Std Deviation 44.5 (36.4-46.3) fL RDW Coeff of Chuy 12.9 (11.5-14.5) % Plt Count 235 (130-400) K/uL MPV 9.7 (9.4-12.4) fL Immature Gran % (Auto) 0.2 % Neut % (Auto) 82.2 % Lymph % (Auto) 8.7 % Union % (Auto) 7.5 % Eos % (Auto) 1.0 % Baso % (Auto) 0.4 % Neut # (Auto) 6.78 H (1.40-6.50) K/uL Lymph # (Auto) 0.72 L (1.20-3.40) K/uL Union # (Auto) 0.62 H (0.11-0.59) K/uL Eos # (Auto) 0.08 (0.00-0.50) K/uL Baso # (Auto) 0.03 (0.00-0.20) K/uL Immature Gran # (Auto) 0.02 (0.01-0.20) K/uL Sodium 132 L (136-145) mmol/L Potassium 4.7 (3.5-5.1) mmol/L Chloride 102 (98-107) mmol/L Carbon Dioxide 22 (21-32) mmol/L Anion Gap 8 (3-11) BUN 31 H (6-23) mg/dl Creatinine 1.26 H (0.6-1.2) mg/dl Est Cr Clr Drug Dosing 21.4 ml/min Est GFR ( Amer) 44.1 ml/min Est GFR (Non-Af Amer) 38.0 ml/min BUN/Creatinine Ratio 24.6 H (10-20) Glucose 102 H (70-99(Fasting)) mg/dl Calcium 9.4 (8.6-10.3) mg/dl Total Bilirubin 0.3 (0.2-1.0) mg/dl AST 19 (13-39) U/L ALT 14 (7-52) U/L Alkaline Phosphatase 55 (34-104) U/L C-Reactive Protein < 0.50 (0-0.5) mg/dl Total Protein 6.9 (6.0-8.3) gm/dl Albumin 3.8 (3.4-5.0) gm/dl Globulin 3.1 (2.5-4.0) gm/dl Albumin/Globulin Ratio 1.2 (0.9-2) Administered Medications Discontinued Medications Ceftriaxone Sodium (Rocephin) 2,000 mg in 50 mls @ 100 mls/hr IV NOW STA Stop: 09/22/23 15:18 Last Admin: 09/22/23 15:30 Dose: 100 mls/hr Documented By: MICHEAL Sodium Chloride (Nss) 500 mls @ 999 mls/hr IV .Q31M ONE Stop: 09/22/23 15:35 Last Admin: 09/22/23 15:30 Dose: 999 mls/hr Documented By: MICHEAL Imaging Data Radiologist's Impression: Finger X-Ray 09/22/23 14:47 RIGHT SECOND FINGER 3 VIEWS CLINICAL HISTORY: Second finger infection. FINDINGS: 3 views of the right second finger are obtained. No prior studies are available for comparison at the time of dictation. The skeletal structures are osteopenic. No acute fracture is seen. There is no dislocation. There is bony erosion involving the tuft of the second distal phalanx typical for osteomyelitis. Surrounding soft tissue edema is seen throughout the second digit, greatest distally. No soft tissue gas or radiodense foreign body is identified. Arthritic change is noted throughout the imaged fingers. Soft tissue calcifications are seen around the metacarpophalangeal joints and the third proximal interphalangeal joint. IMPRESSION: There is evidence of osteomyelitis involving the tuft of the second distal phalanx with significant surrounding soft tissue edema. Electronically signed by: Blaze Chery M.D. 09/22/2023 3:05 PM Discharge Plan Visit Data Chief Complaint: Infection Stated Complaint: FINGER INFECTION, ANTIBIOTIC NOT WORKING ED Provider: Odin Mistry Discharge Problem: Osteomyelitis of finger of right hand, DM type 1 (diabetes mellitus, type 1), CKD (chronic kidney disease), stage III Patient Disposition: Being Evaluated by Hospitalist Condition: Good Forms Stand Alone Forms: My [facility] [employer] Prescriptions Prescriptions: No Action (DME) pen needle, diabetic [BD Ultra-Fine Briseyda Pen Needle] 32 gauge x 5/32" needle See Dose Instructions .ROUTE .MEDSUPPLY Qty: 600 3RF Rx Instructions: use 6 needles daily insulin aspart U-100 [Novolog FlexPen U-100 Insulin] 100 unit/mL (3 mL) insulin pen 25 unit SQ DAILY 90 Days Qty: 30 3RF Rx Instructions: Inject 5 u before breakfast, 5 u before lunch and 8 u before supper, plus sliding scale; TDD 30 u insulin glargine [Basaglar KwikPen U-100 Insulin] 100 unit/mL (3 mL) insulin pen See Rx Instructions subcut .COMPLEX MDD 14 units Qty: 30 3RF Rx Instructions: subcutaneously; inject 9 units AM and 5 units PM (DME) Ketostix strip See Dose Instructions .ROUTE .MEDSUPPLY Qty: 25 Rx Instructions: as needed diltiazem HCl 360 mg capsule,extended release 24 hr 360 mg PO QAM simvastatin 10 mg tablet 10 mg PO DAILY Qty: 90 lisinopril 40 mg tablet 40 mg PO QAM Qty: 30 (DME) blood-glucose meter Mis See Rx Instructions .ROUTE .MEDSUPPLY Qty: 1 Rx Instructions: Reli-On brand. Test blood sugar four times daily Prolia 60 mg/mL syringe 60 mg subcut UD cholecalciferol (vitamin D3) 125 mcg (5,000 unit) capsule 125 mcg PO QAM PreserVision AREDS-2 250-90-40-1 mg capsule 2 tab PO BID Rx Instructions: administer with meals glucagon 3 mg/actuation spray,non-aerosol 3 mg intranasal ONCE 90 Days Qty: 2 3RF (DME) insulin syringe-needle U-100 [BD Insulin Syringe Ultra-Fine] 1 mL 31 gauge x 5/16 syringe See Rx Instructions .ROUTE .MEDSUPPLY Qty: 200 3RF Rx Instructions: Use twice daily Referrals Referrals: Albino Magaña MD [Primary Care Provider] -
[2023-09-22] MEDS ORDERED: VANCOMYCIN CONSULT ACTIVE PRN (15:04)
--- NOTE | 2023-09-22 15:06 | XRay Report ---
RIGHT SECOND FINGER 3 VIEWS CLINICAL HISTORY: Second finger infection. FINDINGS: 3 views of the right second finger are obtained. No prior studies are available for compari son at the time of dictation. The skeletal structures are osteopenic. No acute fracture is seen. Ther e is no dislocation. There is bony erosion involving the tuft of the second distal phalanx typical fo r osteomyelitis. Surrounding soft tissue edema is seen throughout the second digit, greatest distally . No soft tissue gas or radiodense foreign body is identified. Arthritic change is noted throughout t he imaged fingers. Soft tissue calcifications are seen around the metacarpophalangeal joints and the third proximal interphalangeal joint. IMPRESSION: There is evidence of osteomyelitis involving the tuft of the second distal phalanx with s ignificant surrounding soft tissue edema. Electronically signed by: Blaze Chery M.D. 09/22/2023 3:05 PM
[2023-09-22 15:15] LABS: C Reactive Protein < 0.50 mg/dl (0-0.5)
[2023-09-22] MEDS: SODIUM CHLORIDE 0.9% 500 ML IV ONE (15:30)
[2023-09-22] MEDS: cefTRIAXone SODIUM 2,000 MG/50 ML BAG IV STA (15:30)
--- NOTE | 2023-09-22 15:55 | History & Physical Report ---
Date of Service September 22, 2023 Assessment & Plan (1) Osteomyelitis of finger of right hand: (2) Acute kidney injury superimposed on CKD: (3) DM type 1 (diabetes mellitus, type 1): (4) Hypertension: (5) Dyslipidemia: Plan This is a 88-year-old female with PMH of type 1 diabetes, dyslipidemia, hypertension, macular degeneration and other medical problems listed below who presents with worsening infection of right index finger with findings consistent with osteomyelitis. Osteomyelitis of finger of right hand Had cracked opening at the tip of her right index finger that became infected, started on Bactrim 09/20 with increased edema and purulent drainage since Finger XR with evidence of osteomyelitis involving the tuft of the second distal phalanx with significant surrounding soft tissue edema Wound culture obtained in the ED, ID consult placed Continue empiric vanco, cefepime Ortho consulted, NPO at midnight JUAN superimposed on CKD Cr 1.26 (baseline 0.8-0.9) in setting of recent Bactrim use Hold lisinopril, dc Bactrim, gentle fluids Repeat BMP in AM DM I Follows with [facility] endocrinology Basal/bolus insulin while admitted Glycemic consult placed BSG AC HS HTN BP lower end of normal at 128/57. Holding lisinopril 2/2 JUAN, continue diltiazem Dyslipidemia Continue statin DVT Ppx: SCDs for now until ortho evaluates Code status: FULL PCP: Gómez Dispo: Admitted to med/surg Patient seen in collaboration with Dr. Hoffman. Please see addendum. I spent a total of 75 minutes coordinating, documenting, and providing care for this patient excluding time spent in the performance of separately billed services. History of Present Illness Chief Complaint: Right finger pain Primary Care Provider: Albino Magaña MD This is a 88-year-old female with PMH of type 1 diabetes, dyslipidemia, hypertension, macular degeneration and other medical problems listed below who presents with worsening infection of right index finger. Noted cracked skin that had opened on the finger 1 week ago that then developed redness and looked infected by last Friday. Redness and swelling increased and went to [facility] on Friday, 09/20. Has noted some improvement of the redness near knuckles and dorsum of hand but worsening swelling noted at the tip of her right index finger as well as some blood-tinged drainage. Denies any fever or chills. No lightheadedness, chest pain, shortness of breath, nausea, vomiting, abdominal pain, dysuria, diarrhea or constipation. Allergies Allergy/AdvReac Type Severity Reaction Status Date / Time Penicillins Allergy Intermediate HIVES Verified 09/22/23 15:59 Home Medications Medication Instructions Recorded Confirmed Type acetone (urine) test (Ketostix #25 ea 05/18/19 04/22/23 History strips) diltiazem HCl 360 mg capsule,24 360 mg PO QAM 10/03/19 09/22/23 History hr,extended release lisinopril 40 mg tablet 40 mg PO QAM #30 tabs 10/03/19 09/22/23 History simvastatin 10 mg tablet 10 mg PO DAILY #90 tabs 10/03/19 09/22/23 History blood-glucose meter #1 ea 01/22/21 09/22/23 History vit C 250 mg-vit E 90 mg-zinc 40 2 tab PO BID 01/22/21 04/22/23 History mg-copper 1 [id number] capsule (PreserVision AREDS-2) cholecalciferol (vitamin D3) 125 125 mcg PO QAM 01/22/22 09/22/23 History mcg (5,000 unit) capsule denosumab 60 mg/mL subcutaneous 60 mg subcut UD 01/22/22 09/22/23 History syringe (Prolia) pen needle, diabetic 32 gauge x #600 ea 12/27/22 04/22/23 Rx 5/32" (BD Ultra-Fine Briseyda Pen Needle) insulin syringe-needle U-100 1 mL #200 ea 04/23/23 04/23/23 Rx 31 gauge x 5/16" (BD Insulin Syringe Ultra-Fine) insulin glargine 100 unit/mL (3 See Rx Instructions subcut 09/02/23 09/22/23 Rx mL) subcutaneous pen (Basaglar .COMPLEX #30 mL KwikPen U-100 Insulin) insulin aspart U-100 100 unit/mL 0 unit subcut DAILY 09/22/23 09/22/23 History (3 mL) subcutaneous pen (Novolog FlexPen U-100 Insulin aspart) sulfamethoxazole 800 1 tab PO BID 09/22/23 09/22/23 History mg-trimethoprim 160 mg tablet vit C 250 mg-vit E 90 mg-zinc 40 1 cap PO BID 09/23/23 09/23/23 History mg-copper 1 [id number] capsule (PreserVision AREDS-2) Past Med/Surg History Medical History Diabetic neuropathy CKD (chronic kidney disease), stage III DM type 1 (diabetes mellitus, type 1) Hypertension Dyslipidemia Surgical History Hx of breast biopsy History of trabeculectomy S/P cervical spinal fusion History of lumbar fusion History of cataract surgery Family History Mother Heart disease Father Heart disease Cancer Social History Smoking Status: Former smoker Smoking End Date: 2005; Hx Alcohol Use: Yes Alcohol Intake Frequency: Monthly or Less Hx Substance Use: No Preferred Language: Turkish Communication Ability: Effective [employer] Architect Required: No Beliefs That Will Affect Care: None Current Living Situation: Alone Current Living Situation Comment: [facility]. lives at [facility]. Other Information That Helps Us Care for You: No Feels Safe at Home: Yes Safety Concerns: Feels Safe At This Time Assistive Devices: Cane Review of Systems Review of Systems: At least ten systems reviewed and negative except as noted in the HPI. Physical Exam Physical Exam: General Appearance: WD/WN, vitals as above, NAD, sitting up in bed, pleasant, conversing easily Head: normocephalic, atraumatic Eyes: normal inspection, PERRL, conjunctivae normal, anicteric sclerae ENT: external ear and nose normal, oropharynx normal Neck: normal visual inspection, trachea midline, no thyromegaly Respiratory: normal respiratory effort, lungs clear to auscultation, no wheeze, rales, rhonchi. No accessory muscle use Cardiovascular: regular rate, rhythm, no murmur, normal peripheral pulses, no BLE edema. Vessels: no JVD Chest: normal inspection of chest Abdomen/GI: normal bowel sounds, soft, nontender, no hepatosplenomegaly Extremities/Musculoskeletal: R index finger with dressing c/d/i. No cyanosis or clubbing, extremities motor strength 5/5 Neurologic: PERRL, EOMI, accommodation nl, no face palsy, no dysarthria, CN's II-XI intact bilaterally and moves all extremities Psychiatric: A+Ox3, euthymic affect Skin: no rashes, normal color, warm/dry Results & Data Results & Data Vital Signs (Past 12 Hours) Vital Signs Temp Pulse Resp BP Pulse Ox O2 Del Method 09/22/23 13:02 36.6 C 92 H 20 100/56 L 94 Room Air Laboratory Results Short CBC 09/22/23 Range/Units 13:33 WBC 8.25 (4.8-10.8) K/ul Hgb 12.7 (12.0-16.0) g/dl Hct 37.5 (37.0-47.0) % Plt Count 235 (130-400) K/uL BMP 09/22/23 13:33 Sodium 132 L Potassium 4.7 Chloride 102 Carbon Dioxide 22 BUN 31 H Creatinine 1.26 H Glucose 102 H Calcium 9.4 Liver Function 09/22/23 Range/Units 13:33 Total Bilirubin 0.3 (0.2-1.0) mg/dl AST 19 (13-39) U/L ALT 14 (7-52) U/L Alkaline Phosphatase 55 (34-104) U/L Albumin 3.8 (3.4-5.0) gm/dl Diagnostic Findings Finger X-Ray 09/22/23 14:47 RIGHT SECOND FINGER 3 VIEWS CLINICAL HISTORY: Second finger infection. FINDINGS: 3 views of the right second finger are obtained. No prior studies are available for comparison at the time of dictation. The skeletal structures are osteopenic. No acute fracture is seen. There is no dislocation. There is bony erosion involving the tuft of the second distal phalanx typical for osteomyelitis. Surrounding soft tissue edema is seen throughout the second digit, greatest distally. No soft tissue gas or radiodense foreign body is identified. Arthritic change is noted throughout the imaged fingers. Soft tissue calcifications are seen around the metacarpophalangeal joints and the third proximal interphalangeal joint. IMPRESSION: There is evidence of osteomyelitis involving the tuft of the second distal phalanx with significant surrounding soft tissue edema. Electronically signed by: Blaze Chery M.D. 09/22/2023 3:05 PM Code Status & VTE Plan VTE Prophylaxis Plan VTE Prophylaxis will be ordered: Yes Supervising Physician Co-Signing Physician Notes Patient was seen and examined at bedside. Patient came in with worsening infection of right index finger, noted to have osteomyelitis in the ED. Failure of outpatient antibiotic therapy. Patient will be admitted, Ortho will evaluate, ID consult placed, will continue with cefepime and vancomycin for the time being, cultures pending. GENERAL: Alert and oriented x3. NAD, on RA. HEENT: No pallor, no icterus. Pupils equal, round and reactive to light. Oral mucosa moist. NECK: No JVD, no neck masses. HEART: S1 and S2 heard. Regular rate and rhythm. No murmur, no gallop. RESPIRATORY SYSTEM: Normal AP diameter. No accessory muscle use. No wheezing, no crackles. ABDOMEN: Soft, bowel sounds present, nontender, no distention. CENTRAL NERVOUS SYSTEM: No facial droop. Speech is clear. Obeys simple commands. Moves extremities. EXTREMITIES: No edema, no erythema seen. Right index finger with clean dressing without soakage. Right hand with erythema extending from right index finger. I have seen and examined the patient and have discussed the case with the provider above. I agree with the assessment and plan as stated.
[2023-09-22] MEDS: VANCOMYCIN HCL 1,000 MG in SODIUM CHLORIDE 0.9% 500 ML IV ONE (16:03)
[2023-09-22] MEDS ORDERED: ACETAMINOPHEN 325 MG TAB PO PRN (18:00)
[2023-09-22] MEDS ORDERED: ONDANSETRON INJ 2 MG/ML 2 ML VIAL IV PRN (18:00)
[2023-09-22] MEDS ORDERED: POLYETHYLENE (MIRALAX) 17 GM PACK PO PRN (18:00)
[2023-09-22] MEDS ORDERED: GLUCOSE 10 TAB/TUBE PO PRN (19:04)
[2023-09-22] MEDS ORDERED: PHARMACY GLYCEMIC MGMT CONSULT PRN (19:04)
[2023-09-22] MEDS ORDERED: CARBOHYDRATES FOR HYPOGLYCEMIA PO PRN (19:04)
[2023-09-22] MEDS ORDERED: GLUCAGON FOR INJ 1 MG VIAL SQ PRN (19:04)
[2023-09-22] MEDS ORDERED: GLUCOSE 40% GEL 15 GM TUBE PO PRN (19:04)
[2023-09-22] MEDS: SODIUM CHLORIDE 0.9% 500 ML IV SCH (19:50)
[2023-09-22] MEDS: CEFEPIME 2,000 MG in SYRINGE 0 ML IV ONE (19:50)
[2023-09-22] MEDS ORDERED: NON-FORMULARY MEDICATION (Vit C,E-Zn-Coppr-Lutein-Zeaxan [Preservision Areds-2] 250-90-40- PO SCH (21:00)
--- NOTE | 2023-09-22 21:10 | Orthopedic Consultation ---
Date of Consultation September 22, 2023 Assessment & Plan (1) Osteomyelitis of finger of right hand: 88-year-old female with right index finger infection/suspected osteomyelitis -Pain control -Elevate right upper extremity -Med management -IV antibiotic therapy -Follow-up MRI right hand -Patient's examination and imaging are concerning for osteomyelitis. We ordered MRI to evaluate for extent of bony involvement. Pending this this will determine next step in treatment. History of Present Illness Reason for Consultation: Right index finger infection Attending Physician: Blaine Hoffman MD History of Present Illness 88-year-old male presenting with a 2 to 3-day history of right index finger pain and swelling. She noted a crack over the tip of her index finger and admits that it began to swell and drain purulent fluid. He was placed on Bactrim but did not have any significant improvement. She presented to the emergency department radiographs were obtained demonstrating some erosive changes concerning for possible osteomyelitis. Patient was admitted medical service orthopedics was consulted for evaluation. Allergies Allergy/AdvReac Type Severity Reaction Status Date / Time Penicillins Allergy Intermediate HIVES Verified 09/22/23 15:59 Home Medications Medication Instructions Recorded Confirmed Type acetone (urine) test (Ketostix #25 ea 05/18/19 04/22/23 History strips) diltiazem HCl 360 mg capsule,24 360 mg PO QAM 10/03/19 09/22/23 History hr,extended release lisinopril 40 mg tablet 40 mg PO QAM #30 tabs 10/03/19 09/22/23 History simvastatin 10 mg tablet 10 mg PO DAILY #90 tabs 10/03/19 09/22/23 History blood-glucose meter #1 ea 01/22/21 09/22/23 History vit C 250 mg-vit E 90 mg-zinc 40 2 tab PO BID 01/22/21 09/22/23 History mg-copper 1 uo-ktwlze-dxzviv capsule (PreserVision AREDS-2) cholecalciferol (vitamin D3) 125 125 mcg PO QAM 01/22/22 09/22/23 History mcg (5,000 unit) capsule denosumab 60 mg/mL subcutaneous 60 mg subcut UD 01/22/22 09/22/23 History syringe (Prolia) pen needle, diabetic 32 gauge x #600 ea 12/27/22 04/22/23 Rx 5/32" (BD Ultra-Fine Briseyda Pen Needle) insulin syringe-needle U-100 1 mL #200 ea 04/23/23 04/23/23 Rx 31 gauge x 5/16" (BD Insulin Syringe Ultra-Fine) insulin glargine 100 unit/mL (3 See Rx Instructions subcut 09/02/23 09/22/23 Rx mL) subcutaneous pen (Basaglar .COMPLEX #30 mL KwikPen U-100 Insulin) insulin aspart U-100 100 unit/mL 0 unit subcut DAILY 09/22/23 09/22/23 History (3 mL) subcutaneous pen (Novolog FlexPen U-100 Insulin aspart) sulfamethoxazole 800 1 tab PO BID 09/22/23 09/22/23 History mg-trimethoprim 160 mg tablet Patient History Medical History Diabetic neuropathy CKD (chronic kidney disease), stage III DM type 1 (diabetes mellitus, type 1) Hypertension Dyslipidemia Surgical History Hx of breast biopsy History of trabeculectomy S/P cervical spinal fusion History of lumbar fusion History of cataract surgery Family History Mother Heart disease Father Heart disease Cancer Social History Smoking Status: Former smoker Smoking End Date: 2005; Hx Alcohol Use: Yes Alcohol Intake Frequency: Monthly or Less Feels Safe at Home: Yes Physical Exam Constitutional: No acute distress, resting in bed Musculoskeletal: Right upper extremity -There is diffuse swelling over the dist al phalanx of the right index finger, there is surrounding erythema as well as a crack in the distal aspect of the finger. It appears to be draining serosanguineous fluid -There is no pain over the flexor tendon sheath. She is able to flex and extend the proximal interphalangeal and metacarpophalangeal joints. - silt srad/med/uln - fires edc/fdp/ra + rad pulse Results & Data Vital Signs (Past 12 Hours) Vital Signs Temp Pulse Pulse Resp BP BP Pulse Ox 09/22/23 16:51 74 18 128/57 L 98 09/22/23 13:02 36.6 C 92 H 20 100/56 L 94 O2 Del Method 09/22/23 16:51 Room Air 09/22/23 13:02 Room Air Diagnostic Findings Radiographs of the right index finger demonstrate erosive changes overlying the distal phalanx tuft
--- OUTSIDE RECORDS SUMMARY | 2023-09-22 21:25 | External Medical Summary | Summary of Care ---
Author Name Unknown Organization [facility] Address [address] [place] [address] Phone [phone] Care Team Providers Care Clerk Carrier Name Role Phone Albino Magaña MD Primary Care Provider + Reason for Visit * Reason Comments Adult Annual Wellness Visit, Subsequent Visit Encounter Details Date Type Department Care Team Description 2023 Nurse Only Ancillary [facility] [address] [place] [id number] Im, Nurse Annual Wellness [facility] [address] [place] [id number] Adult Annual Wellness Visit, Subsequent Visit Allergies Active Allergy Reactions Severity Noted Date Comments Penicillins Hives 05/04/2000 documented as of this encounter (statuses as of 2023) Medications Medication Sig Dispensed Refills Start Date End Date Status B-D ULTRAFINE III (8MM) SHORT PEN MISCIndications:DM type 1, goal A1c below 7 for use with Novolog flex pen. use 3 times daily. 270 Each 3 01/18/2014 Active Insulin Syringes, Disposable, U-100 1 ML MISCIndications:Typ e 1 diabetes mellitus with hemoglobin A1c goal of less than 7.5% (HCC) Use as directed daily. 1 Box Dosing Unit 5 08/05/2016 Active glucagon (GLUCAGON EMERGENCY) 1 MG KITIndications:Type 1 diabetes mellitus with hemoglobin A1c goal of less than 7.5% (HCC) As directed 1 Kit 5 01/20/2019 Active Blood Glucose Monitoring Suppl ([employer] PREMIER COMPACT SYSTEM) w/Device KIT Use as directed. Test 4 times daily as directed. 0 Active Glucose Blood In Vitro Strip Test 4 times daily as directed. 0 Active ReliOn Lancets Micro-Thin 33G MISC Use as directed. Test 4 times daily as directed. 0 Active Multiple Vitamins-Minerals (PRESERVISION AREDS 2+MULTI VIT) CAPS Take 1 Cap by mouth 2 times a day. 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 Apply to right elbow as needed 0 Active Simvastatin 10 MG Oral Tablet (Zocor)Indications: Dyslipidemia, goal LDL below 100 TAKE 1 TABLET BY MOUTH AT BEDTIME 90 Tablet 1 03/19/2023 Active Lisinopril 40 MG Oral TabletIndications:H TN, goal below 140/90 TAKE 1 TABLET BY MOUTH ONCE DAILY 90 Tablet 1 03/19/2023 Active dilTIAZem HCl ER Beads 360 MG Oral Capsule Extended Release 24 Hour (Tiazac)Indications :HTN, goal below 140/90 TAKE 1 CAPSULE BY MOUTH ONCE DAILY 90 Capsule 1 05/07/2023 Active Hospital, Clinic, or Other Facility Administered Medication Ordered Dose Route Frequency Start Date End Date Status albuterol sulfate (PROVENTIL) (2.5 MG/3ML) 0.083% inhalation solution 2.5 mgIndications:COPD exacerbation (HCC) 2.5 mg NEBULIZER Q4H PRN 02/18/2019 Active documented as of this encounter (statuses as of 2023) Active Problems Problem Noted Date 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 SPINAL STENOSIS-LUMBAR 09/05/2005 Spondylolisthesis 09/05/2005 documented as of this encounter (statuses as of 2023) Resolved Problems Problem Noted Date Resolved Date Osteopenia of multiple sites 04/22/2017 Current use of insulin 04/22/2017 8 CKD stage 3 due to type 1 diabetes mellitus 03/2907/15/2018 Type 1 diabetes mellitus wit h hemoglobin A1c goal of less than 7.5% 04/22/2017 01/20/2019 Kidney disease, chronic, stage III (GFR 30-59 ml /min) 04/10/2015 04/22/2017 Overview: Per CKD protocol #1 Dermatitis 11/03/2013 07/15/2018 MEDICATION USE AGREEMENT 05/29/2012 018 Carpal tunnel syndrome 02/26/2012 7 DM type 2 causing renal disease 04/05/2011 02/26/2012 Kidney disease, chronic, stage III (GFR 30-59 ml /min) 05/23/2010 03/21/2013 HTN, goal below 130/80 10/19/2009 4 Type 1 diabetes mellitus wit h hemoglobin A1c goal of less than 7.0% 05/11/2009 03/22/2015 Overview: Modified per Diabetes protocol #14. ICD-10 update of inactive term Vertebral fracture, osteoporotic 07/04/2008 04/22/2017 Overview: Per Osteoporotic Vertebral Fracture Protocol # 9 Constipation 12/26/2007 04/23/2010 Overview: ICD-10 update of inactive term Neuralgia and neuritis 12/24/2007 2 Overview: right lower extremity radiculopathy s/p revision of posterior segmental instrumentat ion 12/23/2007 07/15/2018 Thoracic and lumbosacral neuritis 08/06/2006 06/16/2008 Other form of scoliosis, unspecified spinal tegan on 09/05/2005 07/15/2018 Overview: ICD-10 update of inactive term Pain in limb 09/05/2005 06/16/2008 Inflammation of sacroiliac joint 06/05/2005 06/16/2008 Colonoscopy 06/28; due in 06/201205/28/2005 02/26/2012 Overview: Hyperplastic polyp - repeat in 10 years ADVANCE DIRECTIVE INFORMATION 03/21/2005 Overview: Yes, Patient instructed to provide copy of advance directive for provider to review and to be scanned into Electronic Medical Record States was given to Joann Willoughby with Dr. Doran. Lumbosacral spondylosis 12/15/2002 04/22/20 17 DISC DIS [id number] 11/17/2002 06/16/20 08 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 Osteoporosis 06/16/2008 PURE HYPERCHOLESTEROLEM 07/04/20 09 Overview: Per Lipid Taxonomy. 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 documented as of this encounter (statuses as of 2023) Immunizations Name Administration Dates Next Due COVID-19 mRNA, LNP-s, No Pre serve, 2-Dose Series ([employer]) 02/15/2022,06/04/2021,09/20/2020,08/30 Covid-19, Mrna, Lnp-s, Pf, B ivalent, 30 Mcg, IM, 12 yrs and above (Pfizer) 10/04/2022 H1N1 2009 Influenza, IM 07/24/2009 Pneumococcal Conjugate Vacc, 13 Valent (Prevnar) 09/01/2014 Pneumococcal Polysaccharide PPV23 (Pneumovax) 04/23/2010 SEASONAL INFLUENZA, PF, 6 M & Above, IM , (FLULAVAL or FLUZONE) 04/14/2019,04/02/2018,04/22/2017 Season Influenza, Quad, PF, Adjuvanted, 65+ Yrs, IM (FLUAD) 04/05/2021,03/30/2020 Seasonal Influenza Virus Vac cine, Unspecified Formulation 04/18/2022 Seasonal Influenza, Quadriva lent Hd (Fluzone Hd) 04/09/2023 Seasonal Influenza, Quadriva lent, No Preserve, IM 04/09/2016,05/02/2015 Seasonal Influenza, Split, I IV3, With Preserve, Inj 04/22/2014,05/24/2013,04/24/2012,04/15,04/23/2010,04/20/2009,05/02/2008 ,05/14/2007,04/28/2006 TD, Preservative Free 11/02/2007 TDAP (age 10 and older)(Boostrix) 03/03/2015 Varicella Zoster Vaccine (Adult) 05/29/2012 Zoster Vaccine Recombinant (Shingrix) 08/29/2018 ,06/26/2018 documented as of this encounter Social History Tobacco Use Types Packs/Day Years Used Date Smoking Tobacco: Former Cigarettes 0.5 48 Q uit: 05/02/2006 Smokeless Tobacco: Never Tobacco Cessation:Counseling Given: Not Answered Alcohol Use Standard Drinks/Week Comments Yes 0 (1 standard drink = 0.6 oz pur e alcohol) seldom Alcohol Habits Answer Date Recorded How often do you have a drink containing alcohol ? Monthly or less 06/05/2020 How many drinks containing a lcohol do you have on a typical day when you are drinking? 1 or 2 06/05/2020 How often do you have six or more drinks on one occasion? Not asked 06/05/2020 Food Insecurity Answer Date Recorded Within the past 12 months, y ou worried that your food would run out before you got money to buy more. Never true 05/09/2022 Within the past 12 months, t he food you bought just didn't last and you didn't have money to get more. Never true 05/09/2022 Sex Assigned at Date Recorded Female 01/20/2019 9:23 AM E DT Job Start Date Occupation Industry Not on file Not on file Not on file documented as of this encounter Last Filed Vital Signs Vital Sign Reading Time Taken Comments Blood Pressure 126/58 2023 2:00 PM EDT Pulse 90 2023 2:00 PM EDT Temperature 36.5 C (97.7 F) 2023 2:00 PM ED T Respiratory Rate - - Oxygen Saturation 98% 2023 2:00 PM EDT Inhaled Oxygen Concentration - - Weight 46.6 kg (102 lb 11.2 oz) 2023 2:00 PM EDT Height 149.9 cm (4' 11") 2023 2:00 PM EDT Body Mass Index 20.74 2023 2:00 PM EDT documented in this encounter Patient Instructions * Patient Instructions* Jessica Braxton RN - 2023 9:16 AM EDT Patient Instructions - Fall Prevention (This education is for all patients over 65 regardless of symptoms) Remember to take your current medications as prescribed. In order to prevent falls, you are encouraged to: Exercise Utilize assistive/adaptive devices Avoid multifocal lenses when walking Avoid hazards in home Maintain a regular toileting schedule Any questions please contact our office. Preventing Falls in the Home (This education is for all patients over 65 regardless of symptoms) As you get older, falls are more likely. Thats because your reaction time slows. Your muscles and joints may also get stiffer, making them less flexible. Illness, medications, and vision changes can also affect your balance. A fall could leave you unable to live on your own. To make your home safer, follow these tips: Floors Put nonskid pads under area rugs Remove throw rugs Replace worn floor coverings Tack carpets firmly to each step on carpeted stairs. Put nonskid strips on the edges of uncarpeted stairs Keep floors and stairs free of clutter and cords Arrange furniture so there are clear pathways Clean up any spills right away Bathrooms Install grab bars in the tub or shower Apply nonskid strips or put a nonskid rubber mat in the tub or shower Sit on a bath chair to bathe Use bathmats with nonskid backing Lighting Keep a flashlight in each room Put a nightlight along the pathway between the bedroom and the bathroom boo-box Patient Education Copyright 2008 - 2010 [employer]box except where otherwise noted Preventing Falls: Exercises to Improve Balance, Flexibility, Strength, and Staying Power (This education is for all patients over 65 regardless of symptoms) Certain types of exercises may help make you less likely to fall. Try the ones below. Or do other exercises that your healthcare provider suggests. Depending on your health, you may need to start slowly. Dont let that stop you. Even small amounts of exercise can help you. Be sure to talk to yourhealthcare provider before starting any exercise program. Improve Balance Many types of exercise can help improve balance. Hayden chi and yoga are good examples. Heres another one to try. You can do it anytime and almost anywhere. Stand next to a counter or solid support. Push yourself up onto your tiptoes. Hold for 5 seconds. If you start to lose your balance, hold on to the counter. Rest and repeat 5 times. Work up to holding for 20 to 30 seconds, if you can. Increase Flexibility Being more flexible makes it easier for you to move around safely. Try exercises like the seated hamstring stretch. Sit in a chair and put one foot on a stool. Straighten your leg and reach with both hands down either side of your leg. Reach as far down your leg as you can. Hold for about 20 seconds. Go back to the starting position. Then repeat 5 times. Switch legs. Build Strength Resistance exercises help build strength. You can do them without equipment. Or you can use weights, elastic bands, or special machines. One such exercise is called the biceps curl. You can hold a 1 pound weight or even a can of soup. Do this exercise at least 3 times a week. Strive for everyday. Sit up straight in a chair. Keep your elbow close to your body and your wrist straight. Bend your arm, moving your hand up to your shoulder. Then slowly lower your arm. Repeat 5 times. Switch to the other arm. Build Your Staying Power Aerobic exercises make your heart and lungs stronger so you can keep moving longer. Walking and swimming are two of the best types of exercises you can do. Using a stationary bike is great, too. Find an aerobic exercise that you enjoy. Start slowly and build up. Even 5 minutes is helpful. Aimfor a goal of 30 minutes, at least 3 times a week. You dont have to do 30 minutes in one session. Break it up and walk a little throughout the day. More Helpful Tips Start easy. Slowly work up to doing more. Talk with your healthcare provider about the best exercises for you. Call senior centers or health clubs about exercise programs. If needed, have a family member watch you walk every so often to check your stability. Exercise with a friend. Choose an activity you both enjoy. Try exercises that you can do anytime, anywhere. Here are two examples. Have someone with you when you first try these: Practice walking by placing one foot right in front of the other. Stand up and sit down 10 times. Repeat this throughout the day. [employer] Patient Education Copyright 2008 - 2010 Noemi except where otherwise noted. Preventing Falls: Moving Safely Using a Cane or Walker (This education is for all patients over 65 regardless of symptoms) Keep the cane away from your feet so you dont trip. A walking aid, such as a cane or walker, can help you stay more independent and avoid falls. Remember to keep your walking aid within easy reach when youre in a chair or in bed. And learn how to use it safely so you dont injure yourself. Using a Cane If you have a stronger side, hold the cane on that side. Get your balance. Move the cane and your weaker leg forward. Support your weight on both the cane and your weaker side. Step with your stronger leg. Start again from step 1. If youre using a folding walker, be sure you know how to lock it open. Check that its locked open before each use. Using a Walker Roll the walker (or lift it, if youre using one without wheels) forward about 12 inches. Step forward with your weaker leg first. Use the walker to help keep your balance. Bring your other foot forward to the center of the walker. Start again from step 1. Helpful Tips Check with your healthcare provider about the right walking aid to use. Ask about a walker with a seat attached. Check the tips of your cane or walker to make sure they have nonskid covers. Move slowly from room to room. Dont mehta. Sit down to get dressed. Use a pradip pack or backpack to keep your hands free. Get help for jobs that mean climbing, even on a stepstool. [employer] Patient Education Copyright 2008 - 2010 [employer] except where otherwise noted. Urinary Incontinence Plan of Care Documentation: (This education is for all patients over 65 regardless of symptoms) Current medications reconciled. Patient encouraged to: Practice kegal exercises Provide education materials Use the restroom every 2 hours throughout the day Limit caffeine, alcohol, spicy foods and acidic foods Keep a bladder diary Limit fluid intake 3-4 hours before bed Lose weight Prevent constipation Take fluid pills at a time when you can get to the bathroom quickly Control sugar better if diabetic Limit fluid intake to 60 oz. per day Wear support stockings (TEDs)if you have edema Jessica Braxton RN 2023 Kegel Exercises Kegel exercises dont require special clothing or equipment. Theyre easy to learn and simple to do. And if you do them right, no one can tell youre doing them, so they can be done almost anywhere. Your doctor, nurse, or physical therapist can answer any questions you have and help you get started. A Weak Pelvic Floor The pelvic floor muscles may weaken due to aging, and vaginal childbirth, injury, surgery, chronic cough, or lack of exercise. If the pelvic floor is weak, your bladder and other pelvic organs may sag out of place. The urethra may also open too easily and allow urine to leak out. Kegel exercises can help you strengthen your pelvic floor muscles so they can better support the pelvic organs and control urine flow. How Kegel Exercises Are Done Try each of the Kegel exercises described below. When youre doing them, try not to move your leg, buttock, or stomach muscles. While youre urinating, try to stop the flow of urine. Start and stop it as often as you can. Contract as if you were stopping your urine stream, but do it when youre not urinating. Tighten your rectum as if trying not to pass gas. Contract your anus, but dont move your buttocks. Helpful Hints Do your Kegels as often as you can. The more you do them, the faster youll feel the results. Pick an activity you do often as a reminder. For instance, do your Kegels every time you sit down. Tighten your pelvic floor before you sneeze, get up from a chair, cough, laugh, or lift. This protects your pelvic floor from injury and can help prevent urine leakage. Try to hold each Kegel for a slow count to five. You probably wont be able to hold them for thatlong at first, but keep practicing. It will get easier as your pelvic floor gets stronger. Eventually, special weights that you place in your vagina may be recommended to help make your Kegels even more effective. [employer] Patient Education Copyright 2008 - 2010 [employer] except where otherwise noted. Here are some helpful tips for your urinary incontinence: (This education is for all patients over 65 regardless of symptoms) Practice Kegel exercises Use the restroom every 2 hours throughout the day Limit caffeine, alcohol, spicy foods, and acidic foods Keep a bladder diary Limit fluid intake 3-4 hours before bed Lose weight Prevent constipation Take fluid pills at a time when can get to the bathroom quickly Control sugar better if diabetic Limit fluid intake to 60 oz. per day Any questions, please feel free to contact our office. Hi Ms. Todd, As your primary care physician, I know that regular visits with my patients who have several chronic conditions can go a long way in helping you stay healthy. Many times, the clinic team and I are in touch with you and/or other care team members between office visits to adjust medications, discuss any changes in your health, and review our care plan to make sure it is still meeting your needs. I am dedicated to helping you take a more active role in your overall care. It is important that there are resources available to you, so I created a personalized plan of care with a Health Calendar for you, which is included on the next page of this letter. Below is a list that summarizes your electronic health record: Health Maintenance Due: Health Maintenance Due Topic Date Due Diabetic Foot Exam 07/15/2019 COVID-19 Vaccine ( season) 2023 DXA Scan 04/30/2023 Depression Screening 05/09/2023 Current Medication List: (as of Visit date not found (in office), Visit date not found (telemedicine) ) Current Outpatient Medications Medication Sig Dispense Refill B-D ULTRAFINE III (8MM) SHORT PEN MISC for use with Novolog flex pen. use 3 times daily. 270 Each 3 Insulin Syringes, Disposable, U-100 1 ML MISC Use as directed daily. 1 Box Dosing Unit 5 glucagon (GLUCAGON EMERGENCY) 1 MG KIT As directed 1 Kit 5 Blood Glucose Monitoring Suppl ([employer] PREMIER COMPACT SYSTEM) w/Device KIT Use as directed. Test 4 times daily as directed. Glucose Blood In Vitro Strip Test 4 times daily as directed. ReliOn Lancets Micro-Thin 33G MISC Use as directed. Test 4 times daily as directed. Multiple Vitamins-Minerals (PRESERVISION AREDS 2+MULTI VIT) CAPS Take 1 Cap by mouth 2 times a day. UltiCare Insulin Syringe 31G X 5/16" 1 ML Levemir 100 UNIT/ML Subcutaneous Solution Inject 9 units subq in the morning and 7 units subq at bedtime, 1 Each NovoLOG FlexPen 100 UNIT/ML Subcutaneous Solution Pen-injector (insulin aspart) Inject 6 prior to breakfast, 5 units prior to lunch and 8 units prior to dinner, can apply pre meal scale if glucose out of range 15 mL 5 Clobetasol Propionate 0.05 % External Ointment (Temovate) APPLY TOPICALLY TO AFFECTED AREA 2 TIMES A DAY 45 g 0 Cholecalciferol 125 MCG (5000 UT) Oral Capsule DAILY Diclofenac Sodium 1 % External Gel Apply topically to affected area. Apply to right elbow as needed Simvastatin 10 MG Oral Tablet (Zocor) TAKE 1 TABLET BY MOUTH AT BEDTIME 90 Tablet 1 Lisinopril 40 MG Oral Tablet TAKE 1 TABLET BY MOUTH ONCE DAILY 90 Tablet 1 dilTIAZem HCl ER Beads 360 MG Oral Capsule Extended Release 24 Hour (Tiazac) TAKE 1 CAPSULE BY MOUTH ONCE DAILY 90 Capsule 1 Denosumab 60 MG/ML Subcutaneous Solution Prefilled Syringe (Prolia) Current Facility-Administered Medications Medication Dose Route Frequency Provider Last Rate Last Admin albuterol sulfate (PROVENTIL) (2.5 MG/3ML) 0.083% inhalation solution 2.5 mg 2.5 mg Nebulizer Q4H PRN Deann Valencia DO Current List of Allergies: (as of Visit date not found (in office), Visit date not found (telemedicine) ) Review of patient's allergies indicates: Allergen Reactions Penicillins Hives Most Recent Lab Results: Results for orders placed or performed in visit on 04/09/23 HEMOGLOBIN A1C Result Value Ref Range Hemoglobin A1C 6.8 (H) 4.0 - 5.6 % Estimated Average Glucose 148 (H) <126 mg/dL COMPREHENSIVE METABOLIC PANEL Result Value Ref Range BUN 15 6 - 20 mg/dL Creatinine 0.8 0.5 - 1.0 mg/dL Estimated Glomerular Filtration Rate 68 >=60 mL/min Sodium 136 135 - 146 mmol/L Potassium 4.8 3.5 - 5.1 mmol/L Chloride 99 98 - 107 mmol/L CO2 26 22 - 32 mmol/L Anion Gap 11 7 - 15 mmol/L Glucose 136 (H) 70 - 120 mg/dL Albumin 4.5 3.8 - 5.0 g/dL AST 23 10 - 35 U/L Alkaline Phosphatase 74 35 - 130 U/L Bilirubin, Total 0.3 <=1.2 mg/dL Calcium 10.2 8.4 - 10.2 mg/dL Protein 6.9 6.0 - 8.3 g/dL ALT 16 10 - 35 U/L PHOSPHORUS Result Value Ref Range Phosphorus 4.6 2.5 - 4.8 mg/dL LIPID PANEL WITH DIRECT LDL IF TG IS HIGH Result Value Ref Range Triglycerides 78 <=174 mg/dL Cholesterol 169 <200 mg/dL HDL Cholesterol 78 >49 mg/dL Non-HDL Cholesterol 91 <=159 mg/dL LDL Cholesterol 75 <=129 mg/dL CBC Result Value Ref Range WBC 6.15 4.00 - 10.80 K/uL RBC 4.40 3.85 - 5.15 M/uL HGB 14.1 12.0 - 15.3 g/dL HCT 42.5 36.0 - 45.2 % MCV 96.6 81.5 - 97.5 fL MCH 32.0 27.0 - 34.0 pg MCHC 33.2 32.0 - 36.0 g/dL RDW 13.5 11.5 - 15.5 % PLT 195 140 - 400 K/uL MPV 9.7 6.6 - 11.1 fL DIFFERENTIAL, AUTOMATED Result Value Ref Range WBC 6.15 4.00 - 10.80 K/uL Neutrophils % 76.6 (H) 40.0 - 75.0 % Lymphocytes % 12.8 (L) 18.0 - 42.0 % Monocytes % 8.9 1.0 - 11.0 % Eosinophils % 1.5 0.0 - 6.0 % Basophils % 0.2 0.0 - 2.0 % Absolute Neutrophils 4.71 1.80 - 7.70 K/uL Absolute Lymphocytes 0.79 (L) 1.00 - 4.80 K/ul Absolute Monocytes 0.55 0.00 - 1.10 K/uL Absolute Eosinophils 0.09 0.00 - 0.70 K/uL Absolute Basophils 0.01 0.00 - 0.20 K/uL *Note: Due to a large number of results and/or encounters for the requested time period, some results have not been displayed. A complete set of results can be found in Results Review. Sincerely, Albino Magaña MD 2023 [facility] Calendar (as of Visit date not found (in office), Visit date not found (telemedicine) ) Care needs Care needs Last completed Due next Diabetic Foot Exam 07/15/2018 07/15/2019 COVID-19 Vaccine ( season) 2022 03/28/2023 Bone Density 04/30/2021 04/30/2023 Urine albumin/creatinine test 09/09/2022 09/09/2023 A1C blood sugar test 04/09/2023 10/08/2023 Diphtheria, tetanus & pertussis vaccines (2 - Td or Tdap) 03/03/2015 03/03/2025 As you look over the recommended services, be sure to check with your insurance company to determine what's covered. [employer] is a great tool that helps you review your medical record online, including test results, doctor notes and your health summary. You can also schedule appointments with me and other members of your care team, request prescription refills and ask for advice related to your medical conditions at [email or web address]. Diabetes: Keeping Feet Healthy Inspect your feet every day for signs of a problem. Diabetes can damage nerves in your feet and cause neuropathy. This condition makes it hard for you to feel injuries or sore spots. Diabetes can also change blood flow, making it harder for small problems, like a blister, to heal properly. In fact, minor injuries can quickly become serious infections that send you to the hospital. Practice self-care to protect your feet and keep them healthy. Take Special Care Inspect your feet daily for problems such as redness, blisters, cracks, dry skin, or numbness. Use a mirror to see the bottoms of your feet. Or, ask for help. Manage your diabetes. Monitor and control your blood sugar. Take all your medications as prescribed. Avoid walking barefoot, even indoors. Wash your feet with warm water and mild soap. Dry well, especially between toes. Dont treat corns or calluses yourself. Talk to your doctor or payroll director (a doctor who specializes in foot care) if you need assistance trimming your toenails. Use moisturizing cream or lotion if you have dry skin, but dont use it between toes. Dont use heating pads on your feet. If you have neuropathy, you could get a burn and not feel it. Stop smoking. Smoking restricts blood flow and can make it harder for wounds to heal. Have Regular Checkups Foot problems can develop quickly. So be sure to follow your healthcare teams schedule for regular checkups. During office visits, take off your shoes and socks as soon as you get in the exam room. Ask your healthcare provider to examine your feet for problems. This will make it easier to find and treat small skin irritations before they get worse. Regular checkups can also help keep track of the blood flow and feeling in your feet. If you have neuropathy, you may need to have checkups more often. Wear Proper Footwear Wearing proper footwear is very important. If areas of your feet have been damaged by too much pressure, your healthcare provider may recommend changing your footwear. In some cases, avoiding high heels or tight work boots may be all thats needed. Or, your healthcare provider may recommend special shoes or custom inserts. These help protect your feet and keep existing irritations from getting worse. If you need special footwear, ask your healthcare provider if you qualify for [facility] diabetic shoe program. Make Sure Shoes and Socks Fit Any pair of shoes--new or old--should feel comfortable as soon as you put them on. There shouldnt be any rubbing when you walk. Wear the right shoe for any activity. For instance, a running shoe is designed to keep your feet injury-free while jogging. Buy shoes at the end of the day, when your feet are larger. Make sure they provide support without feeling too loose. Make sure your socks fit, t oo. Wear soft, seamless, well-padded socks for activity. Cotton or microfiber socks are best to help to absorb sweat. To protect your feet, avoid shoes that are open-toed or open-heeled. If you have questions about what kinds of shoes and socks are best, talk to your healthcare team. Get Regular Exercise Regular exercise improves blood flow in your feet. It also increases foot strength and flexibility.Gentle exercises, like walking or riding a stationary bicycle, are best. You can also do special foot exercises. Just be sure to talk with your healthcare provider before starting any exercise program. Also mention if any exercise causes pain, redness, or other signs of foot problems. Note: If you have any kind of break in the skin of your foot or ankle, keep the area clean. Then call your doctor--especially if the area doesnt appear to be healing. [id number] [employer], [address] [place] [address]. All rights reserved. This information is not intended as a substitute for professional medical care. Always follow your healthcare professional's instructions. documented in this encounter Progress Notes * Jessica Braxton RN - 2023 9:22 AM EDT AD8 Dementia Screening Interview Person answering questions: patient Remember, "Yes, a change" indicates that there has been a change in the last several years caused by cognitive (thinking and memory) problems 1. Problems with judgement (eg: problems making decisions, bad financial decisions, problems with thinking). No (0) 2. Less interest in hobbies/activities. No (0) 3. Repeats the same things over and over (questions, stories, or statements). No (0) 4. Trouble learning how to use a tool, appliance, or gadget (eg: VCR, computer, microwave, remote control). No (0) 5. Forgets correct month or year. No (0) 6. Trouble handling complicated financial affairs (eg: balancing checkbook, income taxes, paying bills). No (0) 7. Trouble remembering appointments. No (0) 8. Daily problems with thinking and/or memory. No (0) TOTAL AD8: 0 - AD8 Dementia Screening Score The final score is a sum of the number items marked "Yes, A Change". 0 - 1: Normal cognition; 2 or greater: Cognitive impairments is likely to be present - further testing required Adult Annual Wellness Visit: Sheila Todd is a 88 year old female who presents for an Adult Annual Wellness Visit. Depression Screening: Did the patient complete the screening questionnaire for Depression? Yes, score of 0 Is the patient's total score for Depression 15 or greater? No, no further intervention needed, unless requested by patient. Did the patient answer positively to the suicide question? No, no further intervention needed, unless requested by patient. In general, compared to other people your age, what would you say that your health is? Good Ht Readings from Last 1 Encounters: 04/09/23 1.524 m (5') Wt Readings from Last 1 Encounters: 04/09/23 45.9 kg (101 lb 3.2 oz) Body Mass Index: 20.6 There is no height or weight on file to calculate BMI. BP Readings from Last 1 Encounters: 04/09/23 136/58 Medical/Surgical/Family History Reviewed: Yes Past Medical History: Diagnosis Date Carpal tunnel syndrome 02/26/2012 CKD stage 3 due to type 1 diabetes mellitus ([facility]) 04/22/2017 Current use of insulin ([facility]) 04/22/2017 Diffuse cystic mastopathy Breast, Fibrocystic DM type 1, not at goal ([facility]) dx 1961 Diabetes Type I, Uncontrolled Dyslipidemia, goal LDL below 100 07/04/2009 Dyslipidemia, goal LDL below 160 Hypercholesterolemia High risk for fracture due to osteoporosis by DEXA scan 02/02/2020 HTN, goal below 140/90 10/19/2009 Lumbosacral spondylosis 12/15/2002 Macular degeneration MEDICATION USE AGREEMENT 05/29/2012 Neuralgia and neuritis 12/24/2007 right lower extremity radiculopathy Osteopenia of multiple sites 04/22/2017 Osteoporosis Osteopenia s/p revision of posterior segmental instrumentation 12/23/2007 Shingles 01/2012 Type 1 diabetes mellitus with hemoglobin A1c goal of less than 7.0% ([facility]) 04/22/2017 Vertebral fracture, osteoporotic ([facility]) 07/04/2008 Per Osteoporotic Vertebral Fracture Protocol # 9 Past Surgical History: Procedure Laterality Date ALLOGRAFT, MORSELIZED, FOR SPINE SURGERY 12/02/2006 ALLOGRAFT FOR SPINE SURGERY MORSELIZED performed by SRINIVASA DIEGO at [facility] BIOPSY OF BREAST, OPEN Breast Biopsy, Benign Disease COLONOSCOPY W/ BIOPSY (RECTUM) 08/20/2011 polyps ENDO DECOMPRESS SPINAL CORD W/LAMINOTOMY, CERVICAL 12/02/2006 LAMINECTOMY DECOMPRESSION SPINAL CORD CERVICAL performed [place] SRINIVASA DIEGO [place] [facility] [place]JECT/TREAT EYE W/MEDICATION 06/01/2020 LASER TRABECULOPLASTY 04/08/12, 04/15/12 Repair of scar tissue from cataract surgery LUMBAR SPINE FUSION W/BONE GRAFT 11/26/2007 ARTHRODESIS SPINE ANTERIOR LUMBAR performed by ZA REYES at [facility] LUMBAR SPINE FUSION, POST INTERBODY 11/26/2007 ARTHRODESIS SPINE POSTERIOR INTERBODY WITH LAMINECTOMY LUMBAR performed by ZA REYES [facility] LUMBAR SPINE FUSION, POSTEROLATERAL 11/26/2007 ARTHRODESIS SPINE POSTERIOR LUMBAR performed by ZA REYES at [facility] NECK SPINE FUSION (CERV, BELOW C2) 12/02/2006 ARTHRODESIS SPINE POSTERIOR CERVICAL performed by SRINIVASA DIEGO at [facility] REINSERT SPINAL FIXATION DEVICE 12/24/2007 REINSERTION OF SPINAL INSTRUMENTATION performed by ZA REYES [place] [facility] REMOVE CATARACT, INSERT LENS PROSTH both 2008 Cataract Removal REMOVE NECK SPINE DISK, SINGLE 12/02/2006 DISKECTOMY ANTERIOR CERVICAL performed by SRINIVASA DIEGO [place] [facility] REMOVE VERTEBR SEG FOR SPINE TUMOR 12/02/2006 CORPECTOMY EXCISION INTRASPINAL LESION EXTRADURAL CERVICAL performed by SRINIVASA DIEGO at [facility] SPINAL FUSION, 7-12 VERT, POST 12/02/2006 ARTHRODESIS SPINE POSTERIOR FOR DEFORMITY 7 TO 12 VERTEBRAE performed by SRINIVASA DIEGO at [facility] THORAX SPINE FUSION, POSTEROLATERAL 12/07/2007 ARTHRODESIS SPINE POSTERIOR THORACIC performed by ZA REYES [place] [facility] Family History Problem Relation Age of Onset Heart Disorder Mother Heart Disorder Father AAA, age 77 Cancer Father Stroke Sister Diabetes Sister Lung Disorder Brother Heart Disorder Sister AAA age 67 Has patient ever had cancer? No Social History Tobacco Use Smoking status: Former Packs/day: 0.50 Years: 48.00 Pack years: 24.00 Types: Cigarettes Quit date: 05/02/2006 Years since quittin.0 Smokeless tobacco: Never Substance Use Topics Alcohol use: Yes Comment: seldom Vaping/E-Cigarette Use Vaping/E-Cigarette Use Never User Vaping/E-Cigarette Substances Vaping/E-Cigarette Devices Tobacco/Alcohol screening completed today? Yes Hospital Care: Admissions (within the last year): Not Applicable ER within 30 days: No Does the patient have an Advance Directives/Living Will? No. Does the patient want information? Yes. Information given to patient Last Physical Exam: Last physical exam: 04/09/2023 Does patient see primary provider regularly? Yes Does patient see other providers? Yes, Specialist Patient Care Team updated? Yes Review of patient's allergies indicates: Allergen Reactions Penicillins Hives Immunization History Administered Date(s) Administered COVID-19 mRNA, LNP-s, No Preserve, 2-Dose Series ([employer]) 08/30/2020, 09/20/2020, 06/04/2021, 02/15/2022 Covid-19, Mrna, Lnp-s, Pf, Bivalent, 30 Mcg, IM, 12 yrs and above (Pfizer) 10/04/2022 H1N1 2009 Influenza, IM 07/24/2009 Pneumococcal Conjugate Vacc, 13 Valent (Prevnar) 09/01/2014 Pneumococcal Conjugate Vaccine, 7 Valent 03/08/2004 Pneumococcal Polysaccharide PPV23 (Pneumovax) 04/23/2010 SEASONAL INFLUENZA, PF, 6 M & Above, IM , (FLULAVAL or FLUZONE) 04/22/2017, 04/02/2018, 04/14/2019 Season Influenza, Quad, PF, Adjuvanted, 65+ Yrs, IM (FLUAD) 03/30/2020, 04/05/2021 Seasonal Influenza Virus Vaccine, Unspecified Formulation 04/18/2022 Seasonal Influenza, Quadrivalent Hd (Fluzone Hd) 04/09/2023 Seasonal Influenza, Quadrivalent, No Preserve, IM 05/02/2015, 04/09/2016 Seasonal Influenza, Split, IIV3, With Preserve, Inj 05/03/2002, 05/24/2003, 05/28/2005, 04/28/2006,05/14/2007, 05/02/2008, 04/20/2009, 04/23/2010, 04/15/2011, 04/24/2012, 05/24/2013, 04/22/2014 TD, Preservative Free 11/02/2007 TDAP (age 10 and older)(Boostrix) 03/03/2015 Varicella Zoster Vaccine (Adult) 05/29/2012 Zoster Vaccine Recombinant (Shingrix) 06/26/2018, 08/29/2018 Current Outpatient Medications Medication Sig Dispense Refill B-D ULTRAFINE III (8MM) SHORT PEN MISC for use with Novolog flex pen. use 3 times daily. 270 Each 3 Insulin Syringes, Disposable, U-100 1 ML MISC Use as directed daily. 1 Box Dosing Unit 5 glucagon (GLUCAGON EMERGENCY) 1 MG KIT As directed 1 Kit 5 Blood Glucose Monitoring Suppl ([employer]ION PREMIER COMPACT SYSTEM) w/Device KIT Use as directed. Test 4times daily as directed. Glucose Blood In Vitro Strip Test 4 times daily as directed. ReliOn Lancets Micro-Thin 33G MISC Use as directed. Test 4 times daily as directed. Multiple Vitamins-Minerals (PRESERVISION AREDS 2+MULTI VIT) CAPS Take 1 Cap by mouth 2 times a day. UltiCare Insulin Syringe 31G X 5/16" 1 ML Levemir 100 UNIT/ML Subcutaneous Solution Inject 9 units subq in the morning and 7 units subq at bedtime, 1 Each NovoLOG FlexPen 100 UNIT/ML Subcutaneous Solution Pen-injector (insulin aspart) Inject 6 prior to breakfast, 5 units prior to lunch and 8 units prior to dinner, can apply pre meal scale if glucose out of range 15 mL 5 Clobetasol Propionate 0.05 % External Ointment (Temovate) APPLY TOPICALLY TO AFFECTED AREA 2 TIMES A DAY 45 g 0 Cholecalciferol 125 MCG (5000 UT) Oral Capsule DAILY Diclofenac Sodium 1 % External Gel Apply topically to affected area. Apply to right elbow as needed Simvastatin 10 MG Oral Tablet (Zocor) TAKE 1 TABLET BY MOUTH AT BEDTIME 90 Tablet 1 Lisinopril 40 MG Oral Tablet TAKE 1 TABLET BY MOUTH ONCE DAILY 90 Tablet 1 dilTIAZem HCl ER Beads 360 MG Oral Capsule Extended Release 24 Hour (Tiazac) TAKE 1 CAPSULE BY MOUTH ONCE DAILY 90 Capsule 1 Denosumab 60 MG/ML Subcutaneous Solution Prefilled Syringe (Prolia) Current Facility-Administered Medications Medication Dose Route Frequency Provider Last Rate Last Admin albuterol sulfate (PROVENTIL) (2.5 MG/3ML) 0.083% inhalation solution 2.5 mg 2.5 mg Nebulizer Q4H PRN Deann Valencia, DO Patient Active Problem List Diagnosis Code SPINAL STENOSIS-LUMBAR M48.061 Spondylolisthesis M43.10 DYSLIPIDEMIA, GOAL LDL BELOW 100 E78.5 Hypertension goal BP (blood pressure) < 140/90 I10 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 ([facility]) E10.22, I12.9, N18.30 Right carotid bruit R09.89 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 Yes Patient takes medications as prescribed? Yes Patient manages own medications: Yes Patient uses a pill box? No Dental Exam: Hasn't been to dentist in a few years. Eye Screening: Yes: Every six weeks Are you having trouble with hearing? No. Doesn't have the money to get them. L ear worse than R ear. Do you use an assistive device to help your hearing? No Exercise Screening: daily exercise. Walks the halls at apartment and keeps her house. Nutrition Assessment: Eats three meals a day and if blood sugar is low at bedtime will eat something else. Eats a lot of frozen food. Is not going to "fuss for herself" Tries to drink at least 6 8 ozglasses of water daily. Pain Screening: Are you having any pain? No Sleep Screening Tool 'STOP': Do you snore? No Do you feel fatigued during the day? No Do you wake up feeling like you haven't slept? No Have you been told you stop breathing at night? No Do you gasp for air or choke while sleeping? No Have you been told you have Sleep Apnea? No Do you have high blood pressure or are on medication(s) to control high blood pressure? Yes SCORE: If you check YES to two or more questions, make a referral for Obstructive Sleep Apnea Patient and Caregiver Support System: Patient lives alone Means of Transportation: [employer] transportation Patient lives in Apartment. Community Resources: Gets food delivered [facility]. Also uses food [employer]. Functional Status and ADL Skills: Has patient ever had an amputation? No Functional Assessment: 90- Able to carry on normal activity, minor symptoms of disease Ambulation: Patient ambulates with assistive device. Quad Cane Dressing: Gets clothes and dresses without any assistance: Independent Able to move freely in chair or bed including turning over: Independent Repositioning (bed or chair): Not applicable Transfers: Independent Toileting: Goes to bathroom, uses toilet, arranges clothes and returns without any assistance: Independent Toileting: continent of bladder and continent of bowel Feeding: Self Bathing: Self; Walk in shower, with grab bars, and a chair. And has mat to step out onto. Requires minimal assistance with ADLs. Instrumental ADL's: Shopping: Independent Housekeeping: Independent Handling Finances: Independent DME Vendor Name: Not Applicable Fall Risk Assessment: Can the patient demonstrate that she can stand from a sitting position? Yes Has the patient had a fall within the last 6 months? No Does the patient have a problem with her gait or balance? No Does the patient take 4 or more prescription medicines? Yes Does the patient use sedatives or narcotics? No Fall Risk Factors Present: Uses more than 4 medications Uses assistive devices Older than age 70 Fuu-Fh-avd-Go Test: Time began at 0900. Patient stood from sitting position and walked approximately 10 feet, returned and sat down. Total time for zhc-if-qmn-go test was 12 seconds. Xbn-Bp-rjj-Go Test completed? Yes Gender Specific Preventative Plan: Health Maintenance Topic Date Due Diabetic Foot Exam 07/15/2019 COVID-19 Vaccine ( season) 2023 DXA Scan 04/30/2023 Depression Screening 05/09/2023 Albumin/Creatinine Ratio 09/09/2023 HbA1c 10/08/2023 CKD HGB USE SMARTSET [id number] 04/09/2024 CKD PHOS USE SMARTSET [id number] 04/09/2024 DTaP,Tdap,and Td Vaccines (2 - Td or Tdap) 03/03/2025 VITAMIN D LEVEL ONCE IN A LIFETIME-USE SMARTSET# [id number] Completed Influenza Vaccine (FLU shot) Completed Zoster Vaccines Completed Pneumococcal Vaccine: 65+ Years Completed Hepatitis B Aged Out MENINGOCOCCAL (MENACTRA/MENVEO) Aged Out GARDASIL-HPV IMMUNIZATION SERIES Aged Out Follow Up/ Referrals/Handouts: Depression screening - Completed. Score of 0 no concerns Functional assessment - Completed. Walks with quad cane.Provided handout, "Diabetes, Keeping Feet Healthy" Falls Risk screening - Completed. No history of recent fall. Provided handout, "Preventing Falls atHome" Exercise screening -Completed. Patient mendoza the hallways of the apartment complex she lives in. Isas active as she can be. Provided handout, "Exercises to Prevent Falls." Nutrition assessment -. Completed. Education Provided and discussed importance of hydration. Patient describes drinking adequate amounts of fluid. Gets "box" from [facility] and also uses food [employer]. Pain screening - Completed. No concerns. Incontinence screening - Completed. Has some urinary frequency. Risk and functional assessment (Primary) Routine general medical examination at a health care facility Encounter for diabetic foot exam (HCC) - DIABETES FOOT EXAM 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) - Med reconciliation completed and compliance discussed. - pt to continue present medications. 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 -ambulate with cane for safely -perform exercises to prevent falls DYSLIPIDEMIA, GOAL LDL BELOW 100 - Med reconciliation completed and compliance discussed. - pt to continue present medications. -Continues to follow with PCP Lab Results Component Value Date/Time LDL (CALCULATED)-OUTSIDE LAB 73 01/22/2021 12:00 AM LDL CHOLESTEROL (CALCULATED) - [facility] 75 04/09/2023 03:50 PM LDL CHOLESTEROL (CALCULATED) - [facility] 66 08/02/2020 08:46 AM LDL CHOLESTEROL (DIRECT MEASURE) - [facility] NOT APPLICABLE 08/02/2020 08:46 AM LDL CHOLESTEROL (DIRECT MEASURE) - [facility] 78 10/30/2015 07:21 AM Hypertension goal BP (blood pressure) < 140/90 - Med reconciliation completed and compliance discussed. - pt to continue present medications. -Continues to follow with PCP BP Readings from Last 4 Encounters: 05/12/23 126/58 04/09/23 136/58 10/01/22 102/60 07/22/22 130/60 High risk for fracture due to osteoporosis by DEXA scan - Med reconciliation completed and compliance discussed. - pt to continue present medications. -Continues to follow with rheumatology. Patient has been verbally educated on the need or importance of Cholesterol, Dexa Scan, Diabetic Eye Exam, Diabetic Foot Exam, Glucose, Hemoglobin A1c, and Immunizations: Flu, RSV, Covid Boosters. Pt has completed the covid vaccines: Yes, patient has had both vaccines and three boosters. Is scheduled for May 14 for additional booster. Would patient like to schedule next AWV visit? Yes Jessica Braxton RN DM Foot Exam completed today. Provider aware. Jessica Braxton RN Socks and Shoes Removed for Annual Diabetic Foot Screening RIGHT FOOT: No Reddened, Cracking, Or Open Areas Noted. RIGHT Dorsalis Pedis Pulse: Palpable RIGHT Posterior Tibial Pulse: Palpable RIGHT Monofilament:Patient reports feeling monofilament pressure on plantar surface of foot LEFT FOOT: No Reddened, Cracking or Open Areas Noted. LEFT Dorsalis Pedis Pulse: Palpable LEFT Posterior Tibial Pulse: Palpable LEFT Monofilament:Patient reports feeling monofilament pressure on plantar surface of foot Do you need diabetic shoes: N/A documented in this encounter Miscellaneous Notes * Pt Handout (on AVS) - Jessica Braxton RN - 2023 9:57 AM EDT Images from the original note were not included. [id number] Preventing Falls at Home A person can fall for many reasons. Older adults may fall because reaction time slows as we age. Your muscles and joints may get stiff, weak, or less flexible because of illness, medicines, or a physical condition. Other health problems that make falls more likely include: Arthritis Dizziness or lightheadedness when you stand up (orthostatic hypotension) History of a stroke Dizziness Anemia Certain medicines taken for mental illness or to control blood pressure. Problems with balance or gait Bladder or urinary problems History of falling Changes in vision (vision impairment) Changes in thinking skills and memory (cognitive impairment) Muscle weakness Excessive alcohol use Falls can cause serious injuries, such as head trauma, broken bones, dislocated joints, internal bleeding, and cuts. Injuries like these can limit your independence. Prevention tips To help prevent falls and fall-related injuries, follow the tips below. Floors To make floors safer: Put nonskid pads under area rugs. Remove small rugs. Replace worn floor coverings. Tack carpets firmly to each step on carpeted stairs. Put nonskid strips on the edges of uncarpeted stairs. Keep floors and stairs free of clutter and cords. Keep floors and stairs clear of animal and children's toys Arrange furniture so there are clear pathways. Clean up any spills right away. Don't walk on wet floors. Bathrooms To make bathrooms safer: Install grab bars in the tub or shower. Install a raised (elevated) toilet or toilet seat. Apply nonskid strips or put a nonskid rubber mat in the tub or shower. Sit on a bath chair to bathe. Use bathmats with nonskid backing. Lighting To improve visibility in your home: Keep a flashlight in each room. Or put a lamp next to the bed within easy reach. Put nightlights in the bedrooms, hallways, kitchen, and bathrooms. Make sure all stairways have good lighting. There should be a light switch at the bottom and thetop of each stairway. Other changes to make Look around to find any safety hazards. Look closely at doorways, walkways, and the driveway. Remove or repair any safety problems that you find. Wear shoes that fit well. Never go barefoot or wear socks or slippers with smooth soles. See your eye care provider once a year if you wear glasses. This is to be sure the prescription is still right for you. Take your time when going up and down stairs; always use handrails. Never carry items in both hands. Wear an alert necklace or bracelet if you are already prone to falling. Put handrails on both sides of stairs and in walkways for more support. To prevent injury to your wrist or arm, don?t use handrails to pull yourself up. Use a "reach stick" to grab [id number] items. Install grab bars wherever needed to pull yourself up. Arrange items that you use often. This will make them easier to find or reach. Keep track of where your pets are so you don't trip over them when you are walking. Last Reviewed Date: 05/28/[id number] [employer]. All rights reserved. This information is not intended as a substitute for professional medical care. Always follow your healthcare professional's instructions. * Pt Handout (on AVS) - Jessica Braxton RN - 2023 9:57 AM EDT Images from the original note were not included. 70851 Exercises to Prevent Falls Certain types of exercises may help make you less likely to fall. Try the ones below or do other exercises that your healthcare provider suggests. Depending on your health, you may need to start slowly. Don't let that stop you. Even small amountsof exercise can help you. Talk with your healthcare provider before starting any exercise program. Improve balance Many types of exercise can help improve balance. Hayden chi and yoga are good examples. Here's anotherone to try. You can do it anytime and almost anywhere. Stand next to a counter or solid support. Push yourself up onto your tiptoes. Hold for 5 seconds. If you start to lose your balance, hold on to the counter. Rest and repeat 5 times. Work up to holding for 20 to 30 seconds, if you can. Increase flexibility Being more flexible makes it easier for you to move around safely. Try exercises like the seatedhamstring stretch. o Sit in a chair and put one foot on a stool. o Straighten your leg and reach with both hands down either side of your leg. Reach as far down your leg as you can. o Hold for about 20 seconds. o Go back to the starting position. Then repeat 5 times. Switch legs. o o Build strength o Resistance exercises help build strength. You can do them without equipment. Or you can use weights, elastic bands, or special machines. One such exercise is called the biceps curl. You can hold a 1-pound weight or even a can of soup. Do this exercise at least 3 times a week. Strive for every day. Sit up straight in a chair. Keep your elbow close to your body and your wrist straight. Bend your arm, moving your hand up to your shoulder. Then slowly lower your arm. Repeat 5 times. Switch to the other arm. Build your staying power Aerobic exercises make your heart and lungs stronger so you can keep moving longer. Walking and swimming are 2 of the best types of exercises you can do. Using a stationary bike is great, too. Find an aerobic exercise that you enjoy. Start slowly and build up. Even 5 minutes is helpful. Aim for a goal of 30 minutes, at least 3 times a week. You don't have to do 30 minutes in 1 session. Break it up and walk a little throughout the day. Starting out safely and slowly Start easy. Slowly work up to doing more. Talk with your healthcare provider about the best exercises for you. Call senior centers or health clubs about exercise programs. If needed, have a family member watch you walk every so often to check your stability. Exercise with a friend. Choose an activity you both enjoy. Be sure to gently warm up and cool down. Drink fluids, such as water, to stay hydrated. If your provider recommended that you limit fluids, ask them how much is OK to drink while exercising. Consider hayden chi or yoga to strengthen your balance. Try exercises that you can do anytime, anywhere. Here are 2 examples. Have someone with you whenyou first try these: o Practice walking by placing one foot right in front of the other. o Stand up and sit down 10 times. Repeat this throughout the day. Last Reviewed Date: 05/28/202219990212-7213 [employer]. All rights reserved. This information is not intended as a substitute for professional medical care. Always follow your healthcare professional's instructions. * Pt Handout (on AVS) - Jessica Braxton RN - 2023 9:56 AM EDT Images from the original note were not included. 82645 Diabetes: Keeping Feet Healthy Diabetes can damage nerves in your feet. It can cause weakness, numbness, and pain (neuropathy). This makes it hard to feel injuries or sore spots. Diabetes can also change blood flow. This can make it harder for small problems, like a blister, to heal. In fact, small injuries can quickly become serious infections. They can send you to the hospital. Self-care is miranda. It helps protect your feet and keep them healthy. Take special care These tips can help you care for your feet: Check your feet daily for problems such as swelling, redness, and blisters. Also looks for cracks, dry skin, or numbness. Use a mirror to see the bottoms of your feet. Or ask for help. Try to check your feet at the same time each day. Manage your diabetes. Check and control your blood sugar. Take all your medicines as prescribed.Call your provider if you have trouble controlling your blood sugar. Don't walk barefoot, even indoors. Always wear socks inside your shoes. Wash your feet with warm water and mild soap. Check the water temperature before putting your foot in the water. Dry feet well, especially between toes. Don?t treat in-grown toenails, corns, or calluses yourself. Talk with your provider or foot doctor (payroll director) if you need help trimming your toenails. Ask your payroll director for a foot care plan. Use skin cream or lotion if you have dry skin. But, don?t use it between toes. Don?t use heating pads on your feet. If you have nerve damage (neuropathy), you could get a burnand not feel it. Stop smoking. Smoking limits blood flow. It can make it harder for wounds to heal. Don't use sharp blades to trim your nails. Use a nail clipper and file instead. Have regular checkups Foot problems can happen fast. Follow your healthcare team?s schedule for checkups. During office visits, take off your shoes and socks as soon as you get in the exam room. Ask your provider to checkyour feet for problems. This will make it easier to find and treat small skin problems before they get worse. Regular checkups can also help keep track of the blood flow and feeling in your feet. In some cases, you may have a decrease in the pulses in your feet. Then your provider may refer you to have special measurements taken of the blood pressures in your arms and legs. You may need to have checkups more often if you have neuropathy. Have your feet checked every time you see your healthcare provider, and at least once a year. Wear the right footwear Wearing correct footwear is very important. Parts of your feet have been damaged by too much pressure. Then your provider may advise changing your footwear. You may need to not wear high heels or tight work boots. Or your provider may advise special shoes or inserts. These help protect your feet. And they keep current problems from getting worse. If you need special footwear, ask your provider if you qualify for Medicare's custom-molded and extra-depth diabetic shoe and insert program. Make sure shoes and socks fit Any pair of shoes?new or old?should feel comfortable as soon as you put them on. There shouldn?t beany rubbing when you walk. Wear the right shoe for any activity. For instance, a running shoe is meant to keep your feet free from injury while you jog. Buy shoes at the end of the day, when your feet are larger. Check that they provide support without feeling too loose. Check that your socks fit, too. Wear soft, seamless, well-padded socks for activity. Cotton or microfiber socks are best. They help to absorb sweat. To protect your feet, don't wear open-toed or open-heeled shoes. Talk with your healthcare team if you have questions about what kinds of shoes and socks are best. . Get regular exercise Regular exercise helps blood flow in your feet. It also helps make your feet stronger and more flexible. Gentle exercises such as walking or riding a stationary bike are best. You can also do specialfoot exercises. Talk with your provider before starting any exercise program. Also tell your provider if any exercise causes pain, redness, or other foot problems. Note: If you have any kind of break in the skin of your foot or ankle, keep the area clean. Then call your healthcare provider. This is especially true if the area doesn?t seem to be healing. Last Reviewed Date: 06/27/202119995795-4061 [employer]. All rights reserved. This information is not intended as a substitute for professional medical care. Always follow your healthcare professional's instructions. documented in this encounter Plan of Treatment Upcoming Encounters Date Type Specialty Care Team Description 05/26/2023 Imaging Radiology 05/26/2023 Nurse Only Rheumatology Pf, Nurse Rheum [address] [place] [address] 10/22/2023 Office Visit Internal Medicine Albino Magaña MD [address] [facility] [place] [address] 05/13/2024 Nurse Only Ancillary Im, Nurse Annual Wellness [facility] [address] [place] [address] Health Maintenance Due Date Last Done Comments COVID-19 Vaccine ( season) 2023 10/04/2022, 02/15/2022, 06/04/2021, Additional history exists DXA Scan 04/30/2023 04/30/2021, 0708/2017, 01/22/2016, Additional history exists Depression Screening 05/09/2023 2023, 03/22/20 15 Albumin/Creatinine Ratio 09/09/2023 023, 04/05/2022, 01/22/2021, Additional history exists HbA1c 10/08/2023 04/09/2023, 08/28, 05/09/2022, Additional history exists CKD HGB USE SMARTSET 08732 04/09/202404/09, 04/09/2023, 04/05/2022, Additional history exists CKD PHOS USE SMARTSET 08561 04/09/202403/28, 04/05/2022, 08/02/2020, Additional history exists Diabetic Foot Exam 2024 2023, 1 09/15/2017, 10/08/2017, Additional history exists DTaP,Tdap,and Td Vaccines (2 - Td or Tdap) 03/03/2025 03/03/2015, 11/02/2007 Pneumococcal Vaccine: 65+ Years Completed 09/01/2014, 04/23/2010 Zoster Vaccines Completed 08/29/2018, 05/30, 05/29/2012 VITAMIN D LEVEL ONCE IN A LIFETIME-USE SMARTSET# 95040 Completed 08/08/2021, 10/19/2009 Influenza Vaccine (FLU shot) Completed , 04/18/2022, 04/05/2021, Additional history exists GARDASIL-HPV IMMUNIZATION SERIES Aged Out No longer eligible based on patient's age to complete this topic Hepatitis B Aged Out No longer eligi ble based on patient's age to complete this topic MENINGOCOCCAL (MENACTRA/MENVEO) Aged Out No longer eligible based on patient's age to complete this topic documented as of this encounter Medical Devices Implanted Type Area Mine Motor Engineer Device Identifier Shelf Expiration Date Model / Serial / Lot Graft Ant 10mm [id number] - [id number] [place]planted:Qt y: 1 [place] [facility] [place] Human N/A: Spine Lumbar [employer] 08/19/2011 [id number] / [id number] / [place] Nt [id number] - [id number] Implanted:Qt y: 1 on 12[place]02/2006 [place] [facility] [place]A: Spine Cervical REGALADO [id number] / / Amos 480mm [id number] - [id number] Implanted:Qt y: 1 on 11[place]26/2007 [place] [facility] [place]A: Spine Lumbar [employer]IA [employer] ELOD[employer] DEPUY [id number] / / documented as of this encounter Visit Diagnoses Diagnosis Risk and functional assessment- Primary Screening for unspecified condition Routine general medical examination at a health care facility Encounter for diabetic foot exam (HCC) 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 DYSLIPIDEMIA, GOAL LDL BELOW 100 Other and unspecified hyperlipidemia Hypertension goal BP (blood pressure) < 140/90 Unspecified essential hypertension High risk for fracture due to osteoporosis by DEXA scan Osteoporosis, unspecified documented in this encounter Advance Directives Latest Code Status on File Code Status Date Activated Date Inactivated Comments Full Code 12/24/2007 4:07 PM 12/30/2007 12:19 PM Code Status History Code Status Date Activated Date Inactivated Comments Full Code 12/23/2007 4:52 PM 12/24/2007 4:07 PM Full Code 11/26/2007 2:41 PM 12/11/2007 3:07 PM Full Code 11/26/2007 6:01 AM 11/26/2007 2:41 PM Care Teams Clerk Carrier Relationship Specialty Start Date End Date Albino Magaña MD [address] [place] [address], [place] [address] PCP - General Internal Medicine 01/17/12 documented as of this encounter
--- OUTSIDE RECORDS SUMMARY | 2023-09-22 21:25 | External Medical Summary ---
Author Name Unknown Address Unknown Organization K01:[facility]ORY [facility] [place] - [address] [place] [address] Laboratory Report Ordering Provider Test Date Status SUZY RETANA 09/20/2023 12:19:27 Preliminary Multiple other species of ae robic and/or anaerobic bacteria. Observation Date Value Abnormality Reference (Units) Status Bacteria identified in Specimen by Culture 09/20/2023 12:19:27 [id number]^STAPH YLOCOCCUS AUREUS Abnormal Preliminary One colony Staphylococcus au reus Gram Stain 09/20/2023 12:19:27 Few Polymorp honuclear leukocytes Abnormal Preliminary Gram Stain 09/20/2023 12:19:27 Many Gram positive cocci Abno rmal Preliminary Gram Stain 09/20/2023 12:19:27 Few Gram negative bacilli Abn ormal Preliminary Test: Culture, Wound, Deep, Aerobic and Anaerobic
Specimen Source: Finger, Left
Specimen Type: Drainage
Specimen Date: 09/20/2023 12:19 PM
Result Date: 09/22/2023 9:33 AM
Result Status: Preliminary result
Abnormal: Yes
Resulting Lab: [facility] [place]
[address]
[place] [address]

CULTURE

One colony Staphylococcus aureus (Abnormal)

Multiple other species of aerobic and/or anaerobic bacteria.

STAIN

Few Polymorphonuclear leukocytes

Many Gram positive cocci

Few Gram negative bacilli

null Performing Location [facility] [place] - [address] [facility] [address]
--- OUTSIDE RECORDS SUMMARY | 2023-09-22 21:25 | External Medical Summary | Summary of Care ---
Author Name Unknown Organization [facility] Address [address] [place] [address] Phone [phone] Care Team Providers Care Adjunct Professor Name Role Phone Albino Magaña MD Primary Care Provider + Reason for Visit * Reason Onset Date Comments Test Results 05/15/2023 Encounter Details Date Type Department Care Team Description 05/15/2023 Telephone General Internal Medicine [facility] [address] [facility] [place] [address] [facility] [address] [facility] [address] Test Results Allergies Active Allergy Reactions Severity Noted Date Comments Penicillins Hives 05/04/2000 documented as of this encounter (statuses as of 05/15/2023) Medications Medication Sig Dispensed Refills Start Date [...] 5 01/20/2019 Active Blood Glucose Monitoring Suppl ([employer] PREMIER COMPACT SYSTEM) w/Device KIT Use as [...] as of this encounter (statuses as of 05/15/2023) Active Problems Problem Noted Date Neovascular age-related [...] as of this encounter (statuses as of 05/15/2023) Resolved Problems Problem Noted Date Resolved Date [...] Lumbosacral spondylosis 12/15/2002 04/22/20 17 DISC DIS [id number] 11/17/2002 06/16/20 08 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 Osteoporosis 06/16/2008 PURE HYPERCHOLESTEROLEM 07/04/20 09 Overview: Per Lipid Taxonomy. 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 documented as of this encounter (statuses as of 05/15/2023) Immunizations Name Administration Dates Next Due COVID-19 mRNA, LNP-s, No Pre serve, 2-Dose Series (OpenSky) 02/15/2022,06/04/2021,09/20/2020,08/30 Covid-19, Mrna, Lnp-s, Pf, B ivalent, [...] 48 Q uit: 05/02/2006 Smokeless Tobacco: Never Alcohol Use Standard Drinks/Week Comments Yes 0 [...] on file documented as of this encounter Miscellaneous Notes * Telephone Encounter - Brian Bray LPN - 05/15/2023 12:18 PM EDT The pt states that voltaren helps a lot with pain management. She said she is using voltaren twice a day; and that the pain isn't severe and she is still able to do her ADLs without issue. Pt aware and voiced understanding of all other issues. 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 Given things improving, would observe clinically, let us know if things worsen or persist, 4-6 weeks documented in this encounter Plan of Treatment Upcoming Encounters Date Type Specialty Care Team Description 05/26/2023 Imaging Radiology 05/26/2023 Nurse Only Rheumatology Pf, Nurse Rheum [address] [facility] [place] [address] 10/22/2023 Office Visit Internal Medicine Albino Magaña MD [address] [facility] [place] [address] 05/13/2024 Nurse Only Ancillary Im, Nurse Annual Wellness [facility] [address] [place] [address] Health Maintenance Due Date Last Done Comments COVID-19 Vaccine (2022- season) 2023 10/04/2022, 02/15/2022, 06/04/2021, Additional history exists DXA Scan 04/30/2023 04/30/2021, 0708/2017, 01/22/2016, Additional history exists Albumin/Creatinine Ratio 09/09/2023 023, 04/05/2022, 01/22/2021, Additional history exists HbA1c 10/08/2023 04/09/2023, 08/28, 05/09/2022, Additional history exists CKD HGB USE SMARTSET 11517 04/09/202404/09, 04/09/2023, 04/05/2022, Additional history exists CKD PHOS USE SMARTSET 90923 04/09/202403/28, 04/05/2022, 08/02/2020, Additional history exists Depression Screening 2024 2023, 03/22/20 15 Diabetic Foot Exam 2024 2023, 1 09/15/2017, 10/08/2017, Additional history exists DTaP,Tdap,and Td Vaccines (2 - Td or Tdap) 03/03/2025 03/03/2015, 11/02/2007 Pneumococcal Vaccine: 65+ Years Completed 09/01/2014, 04/23/2010 Zoster Vaccines Completed 08/29/2018, 05/30, 05/29/2012 VITAMIN D LEVEL ONCE IN A LIFETIME-USE SMARTSET# 14511 Completed 08/08/2021, 10/19/2009 Influenza Vaccine (FLU shot) [...] this encounter Medical Devices Implanted Type Area Underwriting Sales Representative Device Identifier Shelf Expiration Date Model / Serial / Lot Graft Ant 10mm [id number] - [id number] Implanted:Qt y: 1 [place] [facility] [place] Human N/A: Spine Lumbar [employer] 08/19/2011 [id number] / [id number] / [place] Nt [id number] - [id number] Implanted:Qt y: 1 on 12[place]02[place]2006 [place] [facility] [place]A: Spine Cervical REGALADO [id number] / / Amos 480mm [id number] - [id number] Implanted:Qt y: 1 on 11[place]26/2007 [place] [facility] [place]A: Spine Lumbar ELODIA [employer] ELODIA DEPUY [id number] / / documented as of this encounter Advance Directives Latest Code Status on File Code Status Date Activated Date Inactivated Comments Full Code 12/24/2007 4:07 PM 12/30/2007 12:19 PM Code Status History Code Status Date Activated Date Inactivated Comments Full Code 12/23/2007 4:52 PM 12/24/2007 4:07 PM Full Code 11/26/2007 2:41 PM 12/11/2007 3:07 PM Full Code 11/26/2007 6:01 AM 11/26/2007 2:41 PM Care Teams Adjunct Professor Relationship Specialty Start Date End Date Albino Magaña MD [address] [place] [address] PCP - General Internal Medicine 01/17/12 documented as of this encounter
--- OUTSIDE RECORDS SUMMARY | 2023-09-22 21:25 | External Medical Summary | Summary of Care ---
Author Name Unknown Organization [facility] Address [address] [place] [address] Phone [phone] Care Team Providers Care Gas Dispenser Name Role Phone Albino Magaña MD Primary Care Provider + Reason for Visit * Reason Comments Acute Pt here for right queen nd pointer finger and hand swelling since fri. Pt denies any pain. Pt denies any trama to the area. Nail had been trimemd d/t growing into the finger about a month ago Encounter Details Date Type Department Care Team (Latest Contact Info) Description 09/20/2023 12:30 PM EST Convenient Care Visit [facility] [address] [place] [address] Isac Hernandez PA-C [address] [place] [address] Paronychia of finger of left hand* Allergies Active Allergy Reactions Criticality Noted Date Comments Penicillins Hives High 05/04/2000 Other Reaction(s): HIVES documented as of this encounter (statuses as of 09/20/2023) Medications Medication Sig Dispensed Refills Start Date End Date Status B-D ULTRAFINE III (8MM) SHORT PEN MISCIndications:DM type 1, goal A1c below 7 for use with Novolog flex pen. use 3 times daily. 270 Each 3 01/18/2014 Active Insulin Syringes, Disposable, U-100 1 ML MISCIndications:Typ e 1 diabetes mellitus with hemoglobin A1c goal of less than 7.5% ([facility]) Use as directed daily. 1 Box Dosing Unit 5 08/05/2016 Active glucagon (GLUCAGON EMERGENCY) 1 MG KITIndications:Type 1 diabetes mellitus with hemoglobin A1c goal of less than 7.5% (HCC) As directed 1 Kit 5 01/20/2019 Active Blood Glucose Monitoring Suppl ([employer] [...] to right elbow as needed 0 Active dilTIAZem HCl ER Beads 360 MG Oral Capsule Extended Release 24 Hour (Tiazac)Indications :HTN, goal below 140/90 TAKE 1 CAPSULE BY MOUTH ONCE DAILY 90 Capsule 1 05/07/2023 Active Simvastatin 10 MG Oral Tablet (Zocor)Indications: Dyslipidemia, goal LDL below 100 TAKE ONE TABLET BY MOUTH ONCE DAILY AT BEDTIME 90 Tablet 2 09/08/2023 Active Lisinopril 40 MG Oral TabletIndications:H TN, goal below 140/90 TAKE 1 TABLET BY MOUTH ONCE DAILY 90 Tablet 2 09/08/2023 Active Sulfamethoxazole-Tr imethoprim 800-160 MG Oral Tablet (Bactrim DS)Indications:Paro nychia of finger of left hand Take 1 Tablet by mouth in the morning and 1 Tablet before bedtime. Do all this for 10 days. Until gone. 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 SPINAL STENOSIS-LUMBAR 09/05/2005 Spondylolisthesis 09/05/2005 documented as of this encounter (statuses as of 09/20/2023) Resolved Problems Problem Noted Date Diagnosed Date Resolved Date Osteopenia of multiple sites 04/22/2017 03/26/2022 Current use of insulin 04/22/201707/15 CKD stage 3 due to type 1 diabetes mellitus 04/22/2017 07/15/2018 Type 1 diabetes mellitus wit h hemoglobin A1c goal of less than 7.5% 04/22/2017 01/20/2019 Kidney disease, chronic, sta ge III (GFR 30-59 ml/min) 04/10/2015 04/22/2017 Overview: Per CKD protocol #1 Dermatitis 11/03/2013 07/15/2018 MEDICATION USE AGREEMENT 05/29/2012 Carpal tunnel syndrome 02/26/201204/22 DM type 2 causing renal disease 04/05/2011 02/26/2012 Kidney disease, chronic, sta ge III (GFR 30-59 ml/min) 05/23/2010 03/21/2013 HTN, goal below 130/80 10/19/200909/20 Type 1 diabetes mellitus wit h hemoglobin A1c goal of less than 7.0% 05/11/2009 03/22/2015 Overview: Modified per Diabetes protocol #14. ICD-10 update of inactive term Vertebral fracture, osteoporotic 07/04/2008 04/22/2017 Overview: Per Osteoporotic Vertebral Fracture Protocol # 9 Constipation 12/26/2007 04/23/2010 Overview: ICD-10 update of inactive term Neuralgia and neuritis 12/24/200702/25 Overview: right lower extremity radiculopathy s/p revision of posterior se gmental instrumentation 12/23/2007 07/15/2018 Thoracic and lumbosacral neuritis 08/06/2006 06/16/2008 Other form of scoliosis, uns pecified spinal region 09/05/2005 07/15/2018 Overview: ICD-10 update of inactive term Pain in limb 09/05/2005 06/16/2008 Inflammation of sacroiliac joint 06/05/2005 06/16/2008 Colonoscopy 06/28; due in 06/201205/28/2005 02/26/2012 Overview: Hyperplastic polyp - repeat in 10 years ADVANCE DIRECTIVE INFORMATION 03/21/2005 01/09/2018 Overview: Yes, Patient instructed to provide copy of advance directive for provider to review and to be scanned into Electronic Medical Record States was given to Joann Willoughby with Dr. Doran. Lumbosacral spondylosis 12/15/200203/29 DISC DIS WBW-VPL-TNVOLD 11/17/200205/29 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 Osteoporosis 06/16/2008 PURE HYPERCHOLESTEROLEM /02/2009 Overview: Per Lipid Taxonomy. DIFFUS CYSTIC MASTOPATHY Osteoporosis 04/22/2017 Overview: Osteopenia HTN, goal to be determined 1 08/20/2008 Overview: Modified per HTN protocol #16. documented as of this encounter (statuses as of 09/20/2023) Immunizations Name Administration Dates Next Due COVID-19 mRNA, LNP-s, No Pre serve, 2-Dose Series ([employer]) 02/15/2022,06/04/2021,09/20/2020,08/30 COVID-19, MRNA-LNP, 23-24, P F, 30 MCG/0.3 mL, 12 YRS AND ABOVE, IM ([employer]-Comirnaty) 05/14/2023 Covid-19, Mrna, Lnp-s, Pf, B ivalent, 30 Mcg, IM, 12 yrs and above ([employer]) 10/04/2022 H1N1 2009 Influenza, IM 07/24/2009 Pneumococcal Conjugate Vacc, 13 Valent (Prevnar) 09/01/2014 Pneumococcal Polysaccharide PPV23 (Pneumovax) 04/23/2010 Season Influenza, Quad, PF, Adjuvanted, 65+ Yrs, IM (FLUAD) 05/14/2023,04/05/2021,03/30/2020 Seasonal Influenza Virus Vac cine, Unspecified Formulation 04/18/2022 Seasonal Influenza, PF, 6 M & above, IM , (FluLaval or Fluzone) 04/14/2019,04/02/2018,04/22/2017 Seasonal Influenza, Quadriva lent Hd (Fluzone Hd) [...] Date Smoking Tobacco: Former Cigarettes 0.5 48 1 - 05/02/2006 Smokeless Tobacco: Never Tobacco Cessation:Counseling Given: Not Answered Alcohol Use Standard Drinks/Week Comments Yes 0 (1 standard drink = 0.6 oz pur e alcohol) seldom AUDIT-C Answer Date Recorded Frequency of Alcohol Consumption Monthly or less 06/05/2020 Average Number of Drinks 1 or 2 020 Frequency of Binge Drinking Not asked 03/2020 PHQ-2 Answer Date Recorded PHQ Adult Total Score 0 2023 Hunger Vital Sign Answer Date Recorded Within the past 12 months, y ou worried that your food would run out before you got the money to buy more. Never true 05/09/20 22 Within the past 12 months, t he food you bought just didn't last and you didn't have money to get more. Never true 05/09/2022 Sex and Gender Information Value Date Recorded Sex Assigned at Female 01/20/2019 9:23 AM EDT Gender Identity Female 01/20/2019 9:23 AM EDT Sexual Orientation Straight 01/20/2019 9: 23 AM EDT Job Start Date Occupation Industry Not on file Not on file Not on file documented as of this encounter Last Filed Vital Signs Vital Sign Reading Time Taken Comments Blood Pressure 132/67 09/20/2023 12:04 PM EST Pulse 74 09/20/2023 12:04 PM EST Temperature 36.1 C (96.9 F) 09/20/2023 12:[address] Respiratory Rate 16 09/20/2023 12:04 PM EST Oxygen Saturation 97% 09/20/2023 12:04 PM EST Inhaled Oxygen Concentration - - Weight 44.5 kg (98 lb 3.2 oz) 09/20/2023 12:04 P M EST Height 149.9 cm (4' 11") 09/20/2023 12:04 PM EST Body Mass Index 19.83 09/20/2023 12:04 PM EST documented in this encounter Patient Instructions * Patient Instructions* Isac Hernandez PA-C - 09/20/2023 12:16 PM EST Bactrim twice a day for 10 days Warm soaks in epsom salts. After a soak, wash with soap and water. Follow-up with PCP on Mon/Tu. ER if acutely worsens or if develop fever. documented in this encounter Progress Notes * Isac Hernandez PA-C - 09/20/2023 12:18 PM EST Images from the original note were not included. Nursing Notes: Dejah Garcia LPN 09/20/23 1206 Sign at exiting of workspace Patient spelled last name and verbalized birthdate to verify identity. Chief Complaint Patient presents with Acute Pt here for right hand pointer finger and hand swelling since fri. Pt denies any pain. Pt denies any trama to the area. Nail had been trimemd d/t growing into the finger about a month ago Subjective Sheila Todd is a 88 year old female that presents for Acute (Pt here for right hand pointer finger and hand swelling since fri. Pt denies any pain. Pt denies any trama to the area. Nail had been trimemd d/t growing into the finger about a month ago) Hand Pain The incident occurred 5 to 7 days ago. The incident occurred at home. There was no injury mechanism(but a few weeks ago she did have an ingrown 2nd finger nail on L hand). Pain location: L 2nd digit. The quality of the pain is described as aching (redness, swelling). The pain does not radiate. Thepain is moderate. The pain has been Constant since the incident. Pertinent negatives include no chest pain, muscle weakness, numbness or tingling. Associated symptoms comments: Denies f/s/ch, drainage . Objective BP 132/67 | Pulse 74 | Temp 36.1 C (96.9 F) | Resp 16 | Ht 1.499 m (4' 11") | Wt 44.5 kg (98 lb3.2 oz) | SpO2 97% | BMI 19.83 kg/m | BSA 1.36 m Body mass index is 19.83 kg/m. BP Readings from Last 3 Encounters: 09/20/23 132/67 05/12/23 126/58 04/09/23 136/58 Wt Readings from Last 3 Encounters: 09/20/23 44.5 kg (98 lb 3.2 oz) 05/12/23 46.6 kg (102 lb 11.2 oz) 04/09/23 45.9 kg (101 lb 3.2 oz) Physical Exam Vitals and nursing note reviewed. Constitutional: General: She is not in acute distress. Appearance: She is well-developed. She is not ill-appearing, toxic-appearing or diaphoretic. HENT: Head: Normocephalic and atraumatic. Eyes: Extraocular Movements: Extraocular movements intact. Neck: Vascular: No JVD. Trachea: No tracheal deviation. Cardiovascular: Rate and Rhythm: Normal rate and regular rhythm. Pulses: Radial pulses are 2+ on the right side and 2+ on the left side. Heart sounds: Normal heart sounds. No murmur heard. No friction rub. No gallop. Pulmonary: Effort: No accessory muscle usage. Breath sounds: No decreased breath sounds, wheezing, rhonchi or rales. Chest: Chest wall: No mass, deformity, tenderness or crepitus. Abdominal: General: Bowel sounds are normal. Palpations: Abdomen is soft. There is no hepatomegaly or splenomegaly. Tenderness: There is no abdominal tenderness. There is no guarding or rebound. Musculoskeletal: General: Normal range of motion. Cervical back: Normal range of motion and neck supple. Right lower leg: No tenderness. No edema. Left lower leg: No tenderness. No edema. Skin: General: Skin is warm and dry. Capillary Refill: Capillary refill takes less than 2 seconds. Nails: There is no clubbing. Neurological: General: No focal deficit present. Mental Status: She is alert and oriented to person, place, and time. Psychiatric: Mood and Affect: Mood normal. Mood is not anxious. Behavior: Behavior normal. Behavior is not agitated. Assessment and plan 1. Paronychia of finger of left hand Will follow culture - Sulfamethoxazole-Trimethoprim 800-160 MG Oral Tablet (Bactrim DS); Take 1 Tablet by mouth in the morning and 1 Tablet before bedtime. Do all this for 10 days. Until gone. Dispense: 20 Tablet; Refill: 0 - CULTURE, WOUND, DEEP, AEROBIC AND ANAEROBIC Follow up Bactrim twice a day for 10 days Warm soaks in epsom salts. After a soak, wash with soap and water. Follow-up with PCP on Mon/Tu. ER if acutely worsens or if develop fever. The above was discussed and understanding was expressed. Isac Hernandez PA-C documented in this encounter Nursing Notes * Dejah Garcia LPN - 09/20/2023 12:02 PM EST Patient spelled last name and verbalized birthdate to verify identity. Chief Complaint Patient presents with Acute Pt here for right hand pointer finger and hand swelling since fri. Pt denies any pain. Pt denies any trama to the area. Nail had been trimemd d/t growing into the finger about a month ago documented in this encounter Plan of Treatment Upcoming Encounters Date Type Department Care Team (Late st Contact Info) Description 10/22/2023 10:00 AM EDT Office Visit General Internal Medicine [facility] [address] [place], [place] [address] Albino Magaña MD [address] [place], [place] [address] 12/10/2023 3:00 PM EDT Office Visit Rheumatology [facility] [address] [place], [place] [address] Trudy Jeffers CRNP [address] [place], [place] [address] 01/12/2024 12:00 PM EDT Office Visit Ophthalmology, [facility] [address] [place] [address] Neeraj Celis, DO [address] [facility] [place] [address] 05/13/2024 9:00 AM EDT Nurse Only Ancillary [facility] [address] [place] [address] Im, Nurse Annual Wellness [facility] [address] [place] [address] Pending Results Name Type Priority Associated Diagnoses Date /Time CULTURE, WOUND, DEEP, AEROBIC AND ANAEROBIC Lab STAT Paronychia of finger of left hand 09/20/2023 12:19 PM EST Health Maintenance Due Date Last Done Comments Diabetic Eye Exam 06/06/2023 06/06/2022, , 04/18/2021, Additional history exists Albumin/Creatinine Ratio 09/09/2023 023, 04/05/2022, 01/22/2021, Additional history exists HbA1c 10/08/2023 04/09/2023, 08/28, 05/09/2022, Additional history exists CKD HGB USE SMARTSET 54115 04/09/202404/09, 04/09/2023, 04/05/2022, Additional history exists CKD PHOS USE SMARTSET 43422 04/09/202403/28, 04/05/2022, 08/02/2020, Additional history exists Depression Screening 2024 2023, 03/22/20 15 Diabetic Foot Exam 2024 2023, 1 09/15/2017, 10/08/2017, Additional history exists DTaP,Tdap,and Td Vaccines (2 - Td or Tdap) 03/03/2025 03/03/2015, 11/02/2007 DXA Scan 05/26/2025 05/26/2023, 10/10/2020, 01/26/2018, Additional history exists Pneumococcal Vaccine: 65+ Years Completed 09/01/2014, 04/23/2010 Zoster Vaccines Completed 08/29/2018, 05/30, 05/29/2012 VITAMIN D LEVEL ONCE IN A LIFETIME-USE SMARTSET# [id number] Completed 08/08/2021, 10/19/2009 COVID-19 Vaccine Completed 05/14/2023, 04/2023, 02/15/2022, Additional history exists Influenza Vaccine (FLU shot) Completed , 04/09/2023, 04/18/2022, Additional history exists GARDASIL-HPV IMMUNIZATION SERIES Aged Out No longer eligible based on patient's age to complete this topic Hepatitis B Aged Out No longer eligi ble based on patient's age to complete this topic MENINGOCOCCAL (MENACTRA/MENVEO) Aged Out No longer eligible based on patient's age to complete this topic documented as of this encounter Medical Devices Implanted Type Area Transcript Evaluator Device Identifier Shelf Expiration Date Model / Serial / Lot Graft Ant Lat 12mm [id number] - [id number] Implanted:Qt y: 1 on 11[place]26[place]2007 [place] [facility] [place] - Human N/A: Spine Lumbar [employer] 06/09/2011 [id number] / [id number] / Graft Ant Lat 14mm Sw4p-22ma - [id number] Implanted:Qt y: 1 on 11/26/2007 [place] [facility] [place] Tissue - Human N/A: Spine Lumbar [employer] monett Co 08/08/2011 [id number] / [id number] / Graft Ant Lat 14mm [id number] - [id number] Implanted:Qt y: 1 on 11/26/2007 [place] [facility] [place] Tissue - Human N/A: Spine Lumbar [employer]ett Co 07/23/2009 [id number] / [id number] / Graft Ant Lat 14mm Qx6h-[id number] - [id number] Implanted:Qt y: 1 on 11/26/2007 at [place] [facility] [place] Tissue - Human N/A: Spine Lumbar [employer] 03/10/2012 [id number] / Graft Ant 10mm Ai1p-[id number] - [id number] Implanted:Qt y: 1 on 11/26/2007 [place] [facility] [place] Tissue - Human N/A: Spine Lumbar [employer] 08/19/2011 [id number] / [id number] / Floseal Nt [id number] - [id number] Implanted:Qt y: 1 on 12/02/2006 at [place] [facility] [place] N/A: Spine Cervical REGALADO [id number] / / [id number] Floseal Nt [id number] - [id number] Implanted:Qt y: 1 on 12/02/2006 at [place] [facility] [place] N/A: Spine Cervical REGALADO [id number] / / Graft Cervical 6x8 [id number] - [id number] Implanted:Qt y: 1 on 12/02/2006 at [place] [facility] [place] N/A: Spine Cervical [employer] [id number] / / [id number] Graft Cervical 5x7 Kg3d-U03 - [id number] Implanted:Qt y: 1 on 12/02/2006 at [place] [facility] [place] N/A: Spine Cervical [employer] monett [employer] [id number] / / -[id number] Graft Cervical 7x9 [id number]-O60 - [id number] Implanted:Qt y: 1 on 12/02/2006 at [place] [facility] [place] N/A: Spine Cervical [facility] Co [id number] / / -[id number] Screw 3.5x14 Mntr Fa [id number] - [id number] Implanted:Qt y: 8 on 12/02/2006 at [place] [facility] [place] N/A: Neck ELODIA & ELODIA DEPUY [id number] / / Screw Inner Mntr [id number] - [id number] Implanted:Qt y: 11 on 12/02/2006 at [place] [facility] [place] N/A: Neck ELODIA [employer] ELODIA DEPUY [id number] / / Screw 4.35x25 Mntrml [id number] - [id number] Implanted:Qt y: 2 on 12/02/2006 at [place] [facility] [place] N/A: Neck ELODIA [employer] ELOD[employer] DEPUY [id number] / / Amos [id number] - [id number] Implanted:Qt y: 2 on 12/02/2006 at [place] [facility] [place] N/A: Neck ELODIA [employer] EL[employer] DEPUY [id number] / / Screw 3.5x20 Mntr Fa [id number] - [id number] Implanted:Qt y: 1 on 12/02/2006 at [place] [facility] [place] N/A: Neck ELODIA [employer] ELOD[employer] DEPUY [id number] / / Graft Infus Bone Lg Ii [id number] - [id number] Implanted:Qt y: 1 on 11/26/2007 at [place] [facility] [place] N/A: Spine Lumbar Med[employer] Sofam[employer] Danek 12/26/2009 [id number] / / [id number] Graft Infuse Bone Sm [id number] - [id number] Implanted:Qt y: 1 on 11/26/2007 at [place] [facility] [place] N/A: Spine Lumbar Med[employer] Sofamor Danek 03/28/2010 [id number] / / [id number] Screw 6x40 Poly Si [id number] - [id number] Implanted:Qt y: 5 on 11/26/2007 at [place] [facility] [place] N/A: Spine Lumbar [employer] EL[employer] DE[employer]Y [id number] / / Screw 6x45 Poly Si [id number] - [id number] Implanted:Qt y: 4 on 11/26/2007 at [place] [facility] [place] N/A: Spine Lumbar [employer] ELOD[employer] DE[employer]Y [id number] / / Screw Set Sng Inner [id number] - [id number] Implanted:Qt y: 13 on 11/26/2007 at [place] [facility] [place] N/A: Spine Lumbar [employer] ELOD[employer] DEPUY [id number] / / Screw 7x35 Poly Si [id number] - [id number] Implanted:Qt y: 2 on 11/26/2007 at [place] [facility] [place] N/A: Spine Lumbar [employer] ELOD[employer] DEPUY [id number] / / Screw 5x40 Poly Si [id number] - [id number] Implanted:Qt y: 1 on 11/26/2007 at [place] [facility] [place] N/A: Spine Lumbar [employer]ODIA [employer] ELOD[employer] DEPUY [id number] / / Screw 5x45 Poly Si [id number] - [id number] Implanted:Qt y: 1 on 11/26/2007 at [place] [facility] [place] N/A: Spine Lumbar [employer] ELOD[employer]PUY [id number] / / Amos 480mm [id number] - [id number] Implanted:Qt y: 1 on 11/26/2007 at [place] [facility] [place] N/A: Spine Lumbar [employer]ODIA [employer] ELODIA DEPUY [id number] / / documented as of this encounter Visit Diagnoses Diagnosis Paronychia of finger of left hand- Primary documented in this encounter Advance Directives Latest Code Status on File Code Status Date Activated Date Inactivated Comments Full Code 12/24/2007 4:07 PM 12/30/2007 12:19 PM Code Status History Code Status Date Activated Date Inactivated Comments Full Code 12/23/2007 4:52 PM 12/24/2007 4:07 PM Full Code 11/26/2007 2:41 PM 12/11/2007 3:07 PM Full Code 11/26/2007 6:01 AM 11/26/2007 2:41 PM Care Teams Gas Dispenser Relationship Specialty Start Date End Date Albino Magaña MD [address] [place] [address] PCP - General Internal Medicine 01/17/12 documented as of this encounter
--- OUTSIDE RECORDS SUMMARY | 2023-09-22 21:25 | External Medical Summary | Summary of Care ---
Author Name Unknown Organization [facility] Address [address] [place] [address] Phone [phone] Care Team Providers Care Sail Finisher Machine Name Role Phone Albino Castillo MD Primary Care Provider + Reason for Visit * Reason Comments eRx-Medication Refill Encounter Details Date Type Department Care Team (Late st Contact Info) Description 09/07/2023 Refill General Internal Medicine [facility] [address] [facility] [place] [address] Albino Castillo MD 200 [place] [address] Dyslipidemia, goal LDL below 100; HTN, goal below 140/90 Allergies Active Allergy Reactions Criticality Noted Date Comments Penicillins Hives High 05/04/2000 Other Reaction(s): HIVES documented as of this encounter (statuses as of 09/08/2023) Medications Medication Sig Dispensed Refills Start Date End Date Status B-D ULTRAFINE III (8MM) SHORT PEN MISCIndications:D M type 1, goal A1c below 7 for use with Novolog flex pen. use 3 times daily. 270 Each 3 01/18/2014 Active Insulin Syringes, Disposable, U-100 1 ML MISCIndications:T ype 1 diabetes mellitus with hemoglobin A1c goal of less than 7.5% (HCC) Use as directed daily. 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) Inject 9 units subq in the morning and 7 units subq at bedtime, 1 Each 0 10/01/2022 Active NovoLOG FlexPen 100 UNIT/ML Subcutaneous Solution Pen-injector (insulin aspart)Indication s:Type 1 DM with CKD stage 3 and [...] MG Oral Capsule Extended Release 24 Hour (Tiazac)Indicatio ns:HTN, goal below 140/90 TAKE 1 CAPSULE BY MOUTH ONCE DAILY 90 Capsule 1 05/07/2023 Active Simvastatin 10 MG Oral Tablet (Zocor)Indication s:Dyslipidemia, goal LDL below 100 TAKE ONE TABLET BY MOUTH ONCE DAILY AT BEDTIME 90 Tablet 2 09/08/2023 Active Lisinopril 40 MG Oral TabletIndications :HTN, goal below 140/90 TAKE 1 TABLET BY MOUTH ONCE DAILY 90 Tablet 2 09/08/2023 Active Simvastatin 10 MG Oral Tablet (Zocor)Indication s:Dyslipidemia, goal LDL below 100 TAKE 1 TABLET BY MOUTH AT BEDTIME 90 Tablet 1 03/19/2023 4 Discontinued Lisinopril 40 MG Oral TabletIndications :HTN, goal below 140/90 TAKE 1 TABLET BY MOUTH ONCE DAILY 90 Tablet 1 03/19/2023 4 Discontinued Hospital, Clinic, or Other Facility Administered Medication Ordered Dose Route Frequency Start Date End Date Status albuterol sulfate (PROVENTIL) (2.5 MG/3ML) 0.083% inhalation solution 2.5 mgIndications:COPD exacerbation (HCC) 2.5 mg NEBULIZER Q4H PRN 02/18/2019 Active documented as of this encounter (statuses as of 09/08/2023) Active Problems Problem Noted Date Diagnosed Date [...] as of this encounter (statuses as of 09/08/2023) Resolved Problems Problem Noted Date Diagnosed Date [...] Dr. Doran. 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 Osteoporosis 06/16/2008 PURE HYPERCHOLESTEROLEM /0 02/2009 Overview: Per Lipid Taxonomy. DIFFUS CYSTIC MASTOPATHY Osteoporosis 04/22/2017 Overview: Osteopenia HTN, goal to be determined 1 08/20/2008 Overview: Modified per HTN protocol #16. documented as of this encounter (statuses as of 09/08/2023) Immunizations Name Administration Dates Next Due COVID-19 mRNA, LNP-s, No Pre serve, 2-Dose Series ([employer]) 02/15/2022,06/04/2021,09/20/2020,08/30 COVID-19, MRNA-LNP, 23-24, P F, 30 MCG/0.3 mL, 12 YRS AND ABOVE, IM ([facility]) 05/14/2023 Covid-19, Mrna, Lnp-s, Pf, B ivalent, 30 Mcg, IM, 12 yrs and above ([employer]) 10/04/2022 H1N1 2009 Influenza, IM 07/24/2009 Pneumococcal [...] encounter Miscellaneous Notes * Telephone Encounter - Chapis Guerrero RPh - 09/08/2023 10:58 AM ESTSigned Prescriptions: Disp Refills Simvastatin 10 MG Oral Tablet (Zocor) 90 Tab*2 Sig: TAKE ONE TABLET BY MOUTH ONCE DAILY AT BEDTIMEAuthorizing Provider: ALBINO CASTILLO User: CHAPIS GUERRERO Lisinopril 40 MG Oral Tablet 90 Tab*2 Sig: TAKE 1 TABLET BY MOUTH ONCE DAILYAuthorizing Provider: ALBINO CASTILLO User: CHAPIS GUERRERO documented in this encounter Plan of Treatment Upcoming Encounters Date Type Department Care Team (Late st Contact Info) Description 10/22/2023 10:00 AM EDT Office Visit General Internal Medicine [facility] [address] [place] [address] Albino Castillo MD 200 [facility] [place] [address] 12/10/2023 3:00 PM EDT Office Visit Rheumatology [place] [address] [place] [address] Trudy Jeffers CRNP [address] [place] [address] 05/13/2024 9:00 AM EDT Nurse Only Ancillary [facility] [address] [place] [address] Im, Nurse Annual Wellness [facility] 200 [facility] [place] [address] Health Maintenance Due Date Last Done Comments Hepatitis B (1 of 3 - Risk 3-dose series) 1995 Diabetic Eye Exam 06/06/2023 06/06/2022, , 04/18/2021, Additional history exists Albumin/Creatinine Ratio 09/09/2023 023, 04/05/2022, 01/22/2021, Additional history exists HbA1c 10/08/2023 04/09/2023, 08/28, 05/09/2022, Additional history exists CKD HGB USE SMARTSET 86367 04/09/202404/09, 04/09/2023, 04/05/2022, Additional history exists CKD PHOS USE SMARTSET 91252 04/09/202403/28, 04/05/2022, 08/02/2020, Additional history exists Depression Screening 2024 2023, 03/22/20 15 Diabetic Foot Exam 2024 2023, 1 09/15/2017, 10/08/2017, Additional history exists DTaP,Tdap,and Td Vaccines (2 - Td or Tdap) 03/03/2025 03/03/2015, 11/02/2007 DXA Scan 05/26/2025 05/26/2023, 10/2020, 01/26/2018, Additional history exists Pneumococcal Vaccine: 65+ Years Completed 09/01/2014, 04/23/2010 Zoster Vaccines Completed 08/29/2018, 05/30, 05/29/2012 VITAMIN D LEVEL ONCE IN A LIFETIME-USE SMARTSET# [id number] Completed 08/08/2021, 10/19/2009 COVID-19 Vaccine Completed 05/14/2023, [...] this encounter Medical Devices Implanted Type Area Twister Doffer Device Identifier Shelf Expiration Date Model / Serial / Lot Graft Ant 10mm [id number] - [id number] Implanted:Qt y: 1 on 11/26/2007 at [place] [facility] [place] Tissue - Human N/A: Spine Lumbar [employer] 08/19/2011 [id number] / [id number] / [place] [id number] - [id number] Implanted:Qt y: 1 on 12/02/2006 at [place] [facility] [place] N/A: Spine Cervical REGALADO [id number] / / Amos 480mm [id number] - [id number] Implanted:Qt y: 1 on 11/26/2007 at [place] [facility] [place] N/A: Spine Lumbar ELODIA & ELODIA DEPUY [id number] / / documented as of this encounter Visit Diagnoses Diagnosis Dyslipidemia, goal LDL below 100 Other and unspecified hyperlipidemia HTN, goal below 140/90 Unspecified essential hypertension documented in this encounter Advance Directives Latest Code Status on File Code Status Date Activated Date Inactivated Comments Full Code 12/24/2007 4:07 PM 12/30/2007 12:19 PM Code Status History Code Status Date Activated Date Inactivated Comments Full Code 12/23/2007 4:52 PM 12/24/2007 4:07 PM Full Code 11/26/2007 2:41 PM 12/11/2007 3:07 PM Full Code 11/26/2007 6:01 AM 11/26/2007 2:41 PM Care Teams Sail Finisher Machine Relationship Specialty Start Date End Date Albino Castillo MD 200 [facility], [place] [address] PCP - General Internal Medicine 01/17/12 documented as of this encounter
--- OUTSIDE RECORDS SUMMARY | 2023-09-22 21:25 | External Medical Summary | Summary of Care ---
Author Name Unknown Organization [facility] Address [address] [place] [address] Phone [phone] Care Team Providers Care Emr Analyst Name Role Phone Albino Magaña MD Primary Care Provider + Reason for Visit * Reason Onset Date Comments Medication Administration prolia Medication Administration 05/26/2023 Prolia * Precert (Within 30 days (routine)) - Authorized Specialty Diagnoses / Procedures Referred By Contac t Referred To Contact Rheumatology Diagnoses Age-related osteoporosis without current pathological fracture Procedures DENOSUMAB 1MG, [place] [address] [place] [address] Referral ID Status Reason Start Date Expiration Date V isits Requested Visits Authorized [id number] Authorized Precert 08/09/2021 07/27/2099 99 99 Encounter Details Date Type Department Care Team (Late st Contact Info) Description 05/26/2023 2:30 PM EDT Nurse Only Rheumatology [address] [place], [place] [address] Pf, Nurse Rheum [address] [place] [address] [place] [address] Medication Administration (prolia); Medica... 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 Doran. Lumbosacral spondylosis 12/15/200203/29 DISC DIS [id number] 11/17/200205/29 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 Osteoporosis 06/16/2008 PURE HYPERCHOLESTEROLEM 12/0 02/2009 Overview: Per Lipid Taxonomy. DIFFUS CYSTIC MASTOPATHY Osteoporosis 04/22/2017 Overview: Osteopenia HTN, goal to be determined 1 08/20/2008 Overview: Modified per HTN protocol #16. documented as of this encounter (statuses as of 05/26/2023) Immunizations Name Administration Dates Next Due COVID-19 mRNA, LNP-s, No Pre serve, 2-Dose Series ([employer]) 02/15/2022,06/04/2021,09/20/2020,08/30 COVID-19, MRNA-LNP, 23-24, P F, 30 MCG/0.3 mL, 12 YRS AND ABOVE, IM ([employer] [facility]) 05/14/2023 Covid-19, Mrna, Lnp-s, Pf, B ivalent, [...] Sign Reading Time Taken Comments Blood Pressure - - Pulse - - Temperature 36.8 C (98.2 F) 05/26/2023 1:35 PM ED T Respiratory Rate - - Oxygen Saturation - - Inhaled Oxygen Concentration - - Weight - - Height - - Body Mass Index - - documented in this encounter Progress Notes * Ginger Jain LPN - 05/26/2023 3:20 PM EDT Sheila Todd presents today for administration of Prolia. She understands the benefits and risks of this treatment. An educational pamphlet was given to the patient. Prolia 60 mg was administered subcutaneously. The patient tolerated the procedure without problems. She will return in 6 months for the next injection and evaluation. Ginger Jain LPN documented in this encounter Nursing Notes * Ginger Jain LPN - 05/26/2023 1:34 PM EDT Chief Complaint Patient presents with Medication Administration prolia documented in this encounter Plan of Treatment Upcoming Encounters Date Type Department Care Team (Late st Contact Info) Description 10/22/2023 10:00 AM EDT Office Visit General Internal Medicine [address] [place] [address] Albino Magaña MD [address] [place] [address] [place] [address] 12/10/2023 3:00 PM EDT Office Visit Rheumatology [facility] [address] [facility] [place] [address] Trudy Jeffers CRNP [address] [facility] [place] [address] 05/13/2024 9:00 AM EDT Nurse Only Ancillary [address] [place] [address] Im, Nurse Annual Wellness [address] [place] [address] Health Maintenance Due Date Last Done Comments Hepatitis B (1 of 3 - Risk 3-dose series) 1995 DXA Scan 04/30/2023 04/30/2021, 07/0 08/2017, 01/22/2016, Additional history exists Diabetic Eye Exam 06/06/2023 06/06/2022, , 04/18/2021, Additional history exists Albumin/Creatinine Ratio 09/09/2023 023, 04/05/2022, 01/22/2021, Additional history exists HbA1c 10/08/2023 04/09/2023, 08/28, 05/09/2022, Additional history exists CKD HGB USE SMARTSET 81464 04/09/202404/09, 04/09/2023, 04/05/2022, Additional history exists CKD PHOS USE SMARTSET 22605 04/09/202403/28, 04/05/2022, 08/02/2020, Additional history exists Depression Screening 2024 2023, 03/22/20 15 Diabetic Foot Exam 2024 2023, 1 09/15/2017, 10/08/2017, Additional history exists DTaP,Tdap,and Td Vaccines (2 - Td or Tdap) 03/03/2025 03/03/2015, 11/02/2007 Pneumococcal Vaccine: 65+ Years Completed 09/01/2014, 04/23/2010 *BISPHONATE OR OTHER ACCEPTABLE MEDICATION NEEDED FOR OSTEOPOROSIS (REFER TO SMARTSET #1146) Completed 04/09/2016 Zoster Vaccines Completed 08/29/2018, 05/30, 05/29/2012 VITAMIN D LEVEL ONCE IN A LIFETIME-USE SMARTSET# [id number] Completed 08/08/2021, 10/19/2009 COVID-19 Vaccine Completed 05/14/2023, [...] this encounter Medical Devices Implanted Type Area Legal Consultant Device Identifier Shelf Expiration Date Model / Serial / Lot Graft Ant 10mm [id number] - [id number] Implanted:Qt y: 1 [place] [facility] [place] Human N/A: Spine Lumbar [employer] 08/19/2011 [id number] / [id number] / [place] Nt [id number] - [id number] Implanted:Qt y: 1 on 12[place]02[place]2006 [place] [facility] [place]A: Spine Cervical REGALADO [id number] / / Amos 480mm [id number] - [id number] Implanted:Qt y: 1 on 11/26/2007 [place] [facility] [place]/A: Spine Lumbar ELODIA & EL[employer]IA DEPUY [id number] / / documented as of this encounter Visit Diagnoses Diagnosis Senile osteoporosis- Primary documented in this encounter Administered Medications Inactive Administered Medications - up to 3 most recent administrations Medication Order MAR Action Action Date Dose Rate Site Denosumab (Prolia) subcut inj 60 mg 60 mg, Subcutaneous, ONCE, On 05/26/23 at 1545, For 1 dose Given 05/26/2023 3:20 PM EDT 60 mg Arm L eft Upper documented in this encounter Advance Directives Latest Code Status on File Code Status Date Activated Date Inactivated Comments Full Code 12/24/2007 4:07 PM 12/30/2007 12:19 PM Code Status History Code Status Date Activated Date Inactivated Comments Full Code 12/23/2007 4:52 PM 12/24/2007 4:07 PM Full Code 11/26/2007 2:41 PM 12/11/2007 3:07 PM Full Code 11/26/2007 6:01 AM 11/26/2007 2:41 PM Care Teams Emr Analyst Relationship Specialty Start Date End Date Albino Magaña MD [address] [facility] [place] [address] PCP - General Internal Medicine 01/17/12 documented as of this encounter
--- OUTSIDE RECORDS SUMMARY | 2023-09-22 21:25 | External Medical Summary | Summary of Care ---
Author Name Unknown Organization [facility] Address [address] [place] [address] Phone [phone] Care Team Providers Care Shrimp Peeler Name Role Phone Albino Magaña MD Primary Care Provider + Reason for Visit * Reason Onset Date Comments Order Request 05/08/2023 Encounter Details Date Type Department Care Team (Late st Contact Info) Description 05/08/2023 Telephone Radiology [facility] [address] [place] [address] Dexa, Bone Density [address] [place] [address] Order Request Allergies Active Allergy Reactions Criticality Noted Date Comments Penicillins Hives High 05/04/2000 Other Reaction(s): HIVES documented as of this encounter (statuses as of 06/10/2023) Medications Medication Sig Dispensed Refills Start Date End Date Status B-D ULTRAFINE III (8MM) SHORT PEN MISCIndications:DM type 1, goal A1c below 7 for use with Novolog flex pen. use 3 times daily. 270 Each 3 01/18/2014 Active Insulin Syringes, Disposable, U-100 1 ML MISCIndications:Ty pe 1 diabetes mellitus with hemoglobin A1c goal of less than 7.5% (HCC) Use as directed daily. 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) Inject 9 units subq in the morning and 7 units subq at bedtime, 1 Each 0 10/01/2022 Active NovoLOG FlexPen 100 UNIT/ML Subcutaneous Solution Pen-injector (insulin aspart)Indications :Type 1 DM with CKD stage 3 [...] 0 Active Simvastatin 10 MG Oral Tablet (Zocor)Indications :Dyslipidemia, goal LDL below 100 TAKE 1 TABLET BY MOUTH AT BEDTIME 90 Tablet 1 03/19/2023 Active Lisinopril 40 MG Oral TabletIndications: HTN, goal below 140/90 TAKE 1 TABLET BY MOUTH ONCE DAILY 90 Tablet 1 03/19/2023 Active dilTIAZem HCl ER Beads 360 MG Oral Capsule Extended Release 24 Hour (Tiazac)Indication s:HTN, goal below 140/90 TAKE 1 CAPSULE BY MOUTH ONCE DAILY 90 Capsule 1 05/07/2023 Active Hospital, Clinic, or Other Facility Administered Medication Ordered Dose Route Frequency Start Date End Date Status albuterol sulfate (PROVENTIL) (2.5 MG/3ML) 0.083% inhalation solution 2.5 mgIndications:COPD exacerbation (HCC) 2.5 mg NEBULIZER Q4H PRN 02/18/2019 Active documented as of this encounter (statuses as of 06/10/2023) Active Problems Problem Noted Date Diagnosed Date [...] as of this encounter (statuses as of 06/10/2023) Resolved Problems Problem Noted Date Diagnosed Date [...] Dr. Doran. Lumbosacral spondylosis 12/15/200203/29 DISC DIS [id number] 11/17/200205/29 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 Osteoporosis 06/16/2008 PURE HYPERCHOLESTEROLEM /02/2009 Overview: Per Lipid Taxonomy. DIFFUS CYSTIC MASTOPATHY Osteoporosis 04/22/2017 Overview: Osteopenia HTN, goal to be determined 1 08/20/2008 Overview: Modified per HTN protocol #16. documented as of this encounter (statuses as of 06/10/2023) Immunizations Name Administration Dates Next Due COVID-19 mRNA, LNP-s, No Pre serve, 2-Dose Series ([employer]) 02/15/2022,06/04/2021,09/20/2020,08/30 Covid-19, Mrna, Lnp-s, Pf, B ivalent, [...] Answer Date Recorded PHQ Adult Total Score 1 05/09/2022 Hunger Vital Sign Answer Date Recorded Within [...] encounter Miscellaneous Notes * Telephone Encounter - Martell Simpson MD - 05/08/2023 1:55 PM EDT ordered * Telephone Encounter - Carrie Alejandre RT - 05/08/2023 10:01 AM EDT This is a [place] pt. Can you place new dexa order? Thanks! documented in this encounter Plan of Treatment Upcoming Encounters Date Type Department Care Team (Late st Contact Info) Description 10/22/2023 10:00 AM EDT Office Visit General Internal Medicine [facility] [address] [place], [place] [address] Albino Magaña MD [address] [facility] [place], [place] [address] 12/10/2023 3:00 PM EDT Office Visit Rheumatology [place] [id number] [facility] [place], [place] [address] Trudy Jeffers CRNP [address] [facility] [place] [address] 05/13/2024 9:00 AM EDT Nurse Only [facility] [employer] [address] [facility] [place] [address] Im, Nurse Annual Wellness [facility] [address] [place] [address] Health Maintenance Due Date Last Done Comments Hepatitis B (1 of 3 - Risk 3-dose series) 1995 Diabetic Eye Exam 06/06/2023 06/06/2022, , 04/18/2021, Additional history exists Albumin/Creatinine Ratio 09/09/2023 023, 04/05/2022, 01/22/2021, Additional history exists HbA1c 10/08/2023 04/09/2023, 08/28, 05/09/2022, Additional history exists CKD HGB USE SMARTSET 19667 04/09/202404/09, 04/09/2023, 04/05/2022, Additional history exists CKD PHOS USE SMARTSET 66352 04/09/202403/28, 04/05/2022, 08/02/2020, Additional history exists Depression [...] D LEVEL ONCE IN A LIFETIME-USE SMARTSET# 24058 Completed 08/08/2021, 10/19/2009 COVID-19 Vaccine Completed 05/14/2023, [...] this encounter Medical Devices Implanted Type Area Bull Gang Worker Device Identifier Shelf Expiration Date Model / Serial / Lot Graft Ant 10mm [id number] - [id number] Implanted:Qt y: 1 on 11/26/2007 [place] [facility] [place] - Human N/A: Spine Lumbar Lif[employer] Co 08/19/2011 [id number] / [id number] / [place] Nt [id number] - [id number] Implanted:Qt y: 1 on 12/02/2006 at [place] [facility] N/A: Spine Cervical REGALADO [id number] / / Amos 480mm [id number] - [id number] Implanted:Qt y: 1 on 11/26/2007 at [place] [facility] N/A: Spine Lumbar ELODIA & ELODIA DEPUY [id number] / / documented as of this encounter Procedures Procedure Name Priority Date/Time Associated Diagnosis Comments DEXA SCAN/BONE MINERAL AXIAL Routine 05/26/2023 1:15 PM EDT Senile osteoporosis documented in this encounter Results * DEXA SCAN/BONE MINERAL AXIAL (05/26/2023 1:15 PM EDT) Anatomical Region Laterality Modality Dexa, Vertebra, Spine, Hip, Pelvis Nuclear Medicine Impressions 05/28/2023 7:38 AM EDT S: Fracture risk is based on current National Osteoporosis Foundation (www.nof.org) Clinicians Guide and [place] Association of Clinical Endocrinology (AACE) Guidelines (www.aace.com) and the application of current WHO FRAX tool (https://www.taras.ac.uk/FRAX/) as well as the 2017 [place] [employer]umat[employer] Glucocorticoid Induced Osteoporosis (GIOP) Guidelines (rheumatology.org/Practice-Quality/Clinical-Support/Kxzrbtwq-Habmvyjf-Gccbo lines) using Bone mineral density derived T-scores and clinical risk factors obtained from the patient questionnaire. 1. The fracture risk is HIGH (remains HIGH) 2. The quality of the examination is GOOD. 3. No previous study for comparison. DEXA machine was recently upgraded so comparison study can not be made SUGGESTIONS: Information concerning the evaluation and treatment of osteoporosis can be found at the National Osteoporosis Foundation website (www.nof.org) and [place] Association of Clinical Endocrinology (AACE-www.aace.com). Osteoporosis prevention and treatment begins by modifying risk factors (such as smoking cessation and avoiding alcohol excess) and by participating in weight-bearing activities and exercise. Issues related to fall prevention and home safety should be addressed. Current NOF guidelines suggest 1200 to 1500 mg of calcium from diet and or supplemental sources. It is generally felt best to get calcium from one s diet. Calcium carbonate and calcium citrate are common calcium supplement choices in most local pharmacies. If the patient is taking a proton pump inhibitor, then calcium citrate should be the preferred supplement, if that is necessary. NOF guidelines for vitamin D are 800 to 1000 units of vitamin D3 daily. However, this may best be guided by measurement of 25-OH vitamin-D level, aiming for a level between 30 to 50 units (ng/ml). Additional information can be found at the FRAX website (https://www.taras.ac.uk/FRAX/), and the [place] College [employer] Rheumatology website (https://www.rheumatology.org/Practice-Quality/Clinical-Support/Clinical-Pr actice-Guidelines). 1. The present treatment with Prolia/Denosumab may be helping to maintain bone mineral density. in this patient and should be continued. 2. A repeat study should be considered in 2 years, while on therapy MARTELL SIMPSON M.D. ISCD Certified Clinical Responder Department of Rheumatology [facility] Narrative 05/28/2023 7:38 AM EDT Radiology, [facility] DXA Performed: 05/26/23 DXA Resulted: 05/28/2023 Sheila Todd Reason for testing: monitoring to assess efficacy of therapy Osteoporosis treatment (per questionnaire): A. Previous treatment: Fosamax/Alendronate B. Current treatment: Prolia/Denosumab Major risk factors: none Using a Hologic Discovery Unit [place] images of the left hip were obtained using DXA.. The bone mineral density and T scores [standard, young, normal, female population] are as follows: RESULTS: Left total hip: 0.603 gms/cm2 T-score: -2.8 FRAX not indicated. Martell Simpson MD RADIOLOGY (RAD GENE [facility]) documented in this encounter Visit Diagnoses Diagnosis Senile osteoporosis- Primary documented in this encounter Advance Directives Latest Code Status on File Code Status Date Activated Date Inactivated Comments Full Code 12/24/2007 4:07 PM 12/30/2007 12:19 PM Code Status History Code Status Date Activated Date Inactivated Comments Full Code 12/23/2007 4:52 PM 12/24/2007 4:07 PM Full Code 11/26/2007 2:41 PM 12/11/2007 3:07 PM Full Code 11/26/2007 6:01 AM 11/26/2007 2:41 PM Care Teams Shrimp Peeler Relationship Specialty Start Date End Date Albino Magaña MD [address] [place] [facility] [place] [address] PCP - General Internal Medicine 01/17/12 documented as of this encounter
--- OUTSIDE RECORDS SUMMARY | 2023-09-22 21:25 | External Medical Summary | Summary of Care ---
Author Name Unknown Organization [facility] Address [address] [place] [address] Phone [phone] Care Team Providers Care Seismic Interpreter Name Role Phone Albino Magaña MD Primary Care Provider + Reason for Referral * Evaluate & Treat - Unlimited Visits (Within 30 days (routine)) - Authorized Specialty Diagnoses / Procedures Referred By Kvng lentz Referred To Contact Ophthalmology Diagnoses Ptosis of both eyelids Venancio Cunha MD [address] [facility] [address] [place] [address] Referral ID Status Reason Start Date Expiration Date Visits Requested Visits Authorized [id number] Authorized Specialty Services Required 09/08/[phone] Question Answer Referral Priority Within 30 days (routine) Where should this appointment be scheduled? Manuel Referring for: Ophthalmology Conditions Ophthalmology Conditions Other Ophthalmology (comment) Encounter Details Date Type Department Care Team (Late st Contact Info) Description 09/08/2023 Orders Only Access Center, [facility] [address] [facility] *DO NOT REMOVE THIS DEPARTMENT* [place] [address] Request, External Referral Ptosis of both eyelids* Allergies Active Allergy Reactions Criticality Noted Date [...] hemoglobin A1c goal of less than 7.5% ([facility]) Use as directed daily. 1 Box Dosing Unit 5 08/05/2016 Active glucagon (GLUCAGON EMERGENCY) 1 MG KITIndications:Type 1 diabetes mellitus with hemoglobin A1c goal of less than 7.5% ([facility]) As directed 1 Kit 5 01/20/2019 Active [...] DM with CKD stage 3 and hypertension ([facility]) Inject 6 prior to breakfast, 5 units [...] ONCE DAILY 90 Tablet 2 09/08/2023 Active Hospital, Clinic, or Other Facility Administered [...] Dr. Doran. Lumbosacral spondylosis 12/15/200203/29 DISC DIS [id number] 11/17/200205/29 DIABETES MELLITUS WITHOUT ME NTION OF [...] mRNA, LNP-s, No Pre serve, 2-Dose Series ([employer]) 02/15/2022,06/04/2021,09/20/2020,08/30 COVID-19, MRNA-LNP, 23-24, P F, 30 MCG/0.3 mL, 12 YRS AND ABOVE, IM ([employer]) 05/14/2023 Covid-19, Mrna, Lnp-s, Pf, B ivalent, 30 Mcg, IM, 12 yrs and above ([employer]) 10/04/2022 H1N1 2009 Influenza, IM 07/24/2009 Pneumococcal [...] on file documented as of this encounter Plan of Treatment Upcoming Encounters Date Type Department Care Team (Late st Contact Info) Description 10/22/2023 10:00 AM EDT Office Visit General Internal Medicine [facility] [place] [address] [place], [place] [address] Albino Magaña MD [address] COUNT INCLUDES [facility] [place] [address] 12/10/2023 3:00 PM EDT Office Visit Rheumatology [facility] [address] [place] [address] Trudy Jeffers CRNP [address] [place] [address] 01/12/2024 12:00 PM EDT Office Visit Ophthalmology, [facility] [address] [place] [address] Neeraj Celis, DO [address] [place] [address] 05/13/2024 9:00 AM EDT Nurse Only Ancillary [facility] [address] [place] [address] Im, Nurse Annual Wellness [facility] [address] [place] [address] Scheduled Referrals Name Type Priority Associated Diagnoses Orde r Schedule ADULT/PEDS OPHTHALMOLOGY/OPTOM ETRY REFERRAL OP Referral Within 30 days (routine) Ptosis of both eyelids Ordered: 09/08/2023 Health Maintenance Due Date Last Done Comments Hepatitis B (1 of 3 - Risk 3-dose series) 1995 Diabetic Eye Exam 06/06/2023 06/06/2022, , 04/18/2021, Additional history exists Albumin/Creatinine Ratio 09/09/2023 023, 04/05/2022, 01/22/2021, Additional history exists HbA1c 10/08/2023 04/09/2023, 08/28, 05/09/2022, Additional history exists CKD HGB USE SMARTSET 77745 04/09/202404/09, 04/09/2023, 04/05/2022, Additional history exists CKD PHOS USE SMARTSET 38790 04/09/202403/28, 04/05/2022, 08/02/2020, Additional history exists Depression [...] D LEVEL ONCE IN A LIFETIME-USE SMARTSET# 41648 Completed 08/08/2021, 10/19/2009 COVID-19 Vaccine Completed 05/14/2023, [...] this encounter Medical Devices Implanted Type Area Hand Wrapper Operator Device Identifier Shelf Expiration Date Model / Serial / Lot Graft Ant 10mm [id number] - [id number] Implanted:Qt y: 1 on 11/26/2007 at [place] [facility] [place] Tissue - Human N/A: Spine Lumbar [employer] Co 08/19/2011 [id number] / [id number] / [place] Nt [id number] - [id number] Implanted:Qt y: 1 on 12/02/2006 at OR [facility] [place] N/A: Spine Cervical REGALADO [id number] / / Amos 480mm [id number] - [id number] Implanted:Qt y: 1 on 11/26/2007 at [place] [facility] [place] N/A: Spine Lumbar ELODIA & ELODIA DEPUY [id number] / / documented as of this encounter Visit Diagnoses Diagnosis Ptosis of both eyelids- Primary Unspecified ptosis of eyelid documented in this encounter Advance Directives Latest Code Status on File Code Status Date Activated Date Inactivated Comments Full Code 12/24/2007 4:07 PM 12/30/2007 12:19 PM Code Status History Code Status Date Activated Date Inactivated Comments Full Code 12/23/2007 4:52 PM 12/24/2007 4:07 PM Full Code 11/26/2007 2:41 PM 12/11/2007 3:07 PM Full Code 11/26/2007 6:01 AM 11/26/2007 2:41 PM Care Teams Seismic Interpreter Relationship Specialty Start Date End Date Albino Magaña MD [address] [place] [address] PCP - General Internal Medicine 01/17/12 documented as of this encounter
--- OUTSIDE RECORDS SUMMARY | 2023-09-22 21:26 | External Medical Summary | Summary of Care ---
Author Name Unknown Organization [facility] Address [address] [place] [address] Phone [phone] Care Team Providers Care Employment Appeals Examiner Name Role Phone Albino Castillo MD Primary Care Provider + Reason for Visit * Reason Comments eRx-Medication Refill Encounter Details Date Type Department Care Team Description 05/07/2023 Refill General Internal Medicine [facility] [address] [facility] [place] [address] Albino Castillo MD [address] [place] [address] HTN, goal below 140/90 Allergies Active Allergy Reactions Severity Noted Date Comments Penicillins Hives 05/04/2000 documented as of this encounter (statuses as of 05/07/2023) Medications Medication Sig Dispensed Refills Start Date End Date Status B-D ULTRAFINE III (8MM) SHORT PEN MISCIndications:D M type 1, goal A1c below 7 for use with Novolog flex pen. use 3 times daily. 270 Each 3 4 Active Insulin Syringes, Disposable, U-100 1 ML MISCIndications:T ype 1 diabetes mellitus with hemoglobin A1c goal of less than 7.5% (HCC) Use as directed daily. 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 Apply to right elbow as needed 0 Active Simvastatin 10 MG Oral Tablet (Zocor)Indication s:Dyslipidemia, goal LDL below 100 TAKE 1 TABLET BY MOUTH AT BEDTIME 90 Tablet 1 3 Active Lisinopril 40 MG Oral TabletIndications :HTN, goal below 140/90 TAKE 1 TABLET BY MOUTH ONCE DAILY 90 Tablet 1 3 Active dilTIAZem HCl ER Beads 360 MG Oral Capsule Extended Release 24 Hour (Tiazac)Indicatio ns:HTN, goal below 140/90 TAKE 1 CAPSULE BY MOUTH ONCE DAILY 90 Capsule 1 3 Active dilTIAZem HCl ER Beads 360 MG Oral Capsule Extended Release 24 Hour (Tiazac)Indicatio ns:HTN, goal below 140/90 TAKE 1 CAPSULE BY MOUTH ONCE DAILY 90 Capsule 2 3 05/07/20 23 Discontinued Hospital, Clinic, or Other Facility Administered Medication Ordered Dose Route Frequency Start Date End Date Status albuterol sulfate (PROVENTIL) (2.5 MG/3ML) 0.083% inhalation solution 2.5 mgIndications:COPD exacerbation (HCC) 2.5 mg NEBULIZER Q4H PRN 02/18/2019 Active documented as of this encounter (statuses as of 05/07/2023) Active Problems Problem Noted Date Neovascular age-related [...] as of this encounter (statuses as of 05/07/2023) Resolved Problems Problem Noted Date Resolved Date [...] Lumbosacral spondylosis 12/15/2002 04/22/20 17 DISC DIS [id number] 11/17/2002 06/16/20 08 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 Osteoporosis 06/16/2008 PURE HYPERCHOLESTEROLEM 07/04/20 09 Overview: Per Lipid Taxonomy. 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 documented as of this encounter (statuses as of 05/07/2023) Immunizations Name Administration Dates Next Due COVID-19 mRNA, LNP-s, No Pre serve, 2-Dose Series ([employer]) 02/15/2022,06/04/2021,09/20/2020,08/30 Covid-19, Mrna, Lnp-s, Pf, B ivalent, [...] encounter Miscellaneous Notes * Telephone Encounter - Izzy Oconnor RPh - 05/07/2023 7:16 PM EDT Signed Prescriptions: Disp Refills dilTIAZem HCl ER Beads 360 MG Oral Capsule*90 Cap*1 Sig: TAKE 1 CAPSULE BY MOUTH ONCE DAILYAuthorizing Provider: ALBINO CASTILLO User: IZZY OCONNOR documented in this encounter Plan of Treatment Upcoming Encounters Date Type Specialty Care Team Description 2023 Nurse Only Ancillary Im, Nurse Annual Wellness [place] [address] [place] [address] 05/26/2023 Imaging Radiology 05/26/2023 Nurse Only Rheumatology Pf, Nurse Rheum [facility] [place] [address] 10/22/2023 Office Visit Internal Medicine [place], Albino Marie MD [address] [facility], [place] [address] Health Maintenance Due Date Last Done Comments Diabetic Foot Exam 07/15/2019 07/15/2018, 0 10/08/2017, 08/28/2016, Additional history exists COVID-19 Vaccine ( season) 2023 10/04/2022, 02/15/2022, 06/04/2021, Additional history exists DXA Scan 04/30/2023 04/30/2021, 0708/2017, 01/22/2016, Additional history exists Depression Screening 05/09/2023 05/09/2022, 03/22/20 15 Albumin/Creatinine Ratio 09/09/2023 023, 04/05/2022, 01/22/2021, Additional history exists HbA1c 10/08/2023 04/09/2023, 08/28, 05/09/2022, Additional history exists CKD HGB USE SMARTSET 99351 04/09/202404/09, 04/09/2023, 04/05/2022, Additional history exists CKD PHOS USE SMARTSET 60580 04/09/202403/28, 04/05/2022, 08/02/2020, Additional history exists DTaP,Tdap,and Td Vaccines (2 - Td or Tdap) 03/03/2025 03/03/2015, 11/02/2007 Pneumococcal Vaccine: 65+ Years Completed 09/01/2014, 04/23/2010 Zoster Vaccines Completed 08/29/2018, 05/30, 05/29/2012 VITAMIN D LEVEL ONCE IN A LIFETIME-USE SMARTSET# [id number] Completed 08/08/2021, 10/19/2009 Influenza Vaccine (FLU shot) [...] this encounter Medical Devices Implanted Type Area Supervisor Packing Device Identifier Shelf Expiration Date Model / Serial / Lot Graft Ant 10mm [id number] - [id number] Implanted:Qt y: 1 on 11/26/2007 at OR [facility] Tissue - Human N/A: Spine Lumbar Lif[employer] Co 08/19/2011 [id number] / [id number] / [place] Nt [id number] - [id number] Implanted:Qt y: 1 on 12/02/2006 at OR [facility] N/A: Spine Cervical REGALADO [id number] / / Amos 480mm [id number] - [id number] Implanted:Qt y: 1 on 11/26/2007 at OR [facility] N/A: Spine Lumbar ELODIA & ELODIA DEPUY [id number] / / documented as of this encounter Visit Diagnoses Diagnosis HTN, goal below 140/90 Unspecified essential hypertension [...] 6:01 AM 11/26/2007 2:41 PM Care Teams Employment Appeals Examiner Relationship Specialty Start Date End Date Albino Castillo MD [address] [place] [address] PCP - General Internal Medicine 01/17/12 documented as of this encounter
--- OUTSIDE RECORDS SUMMARY | 2023-09-22 21:26 | External Medical Summary | Summary of Care ---
Author Name Unknown Organization [facility] Address [address] [place] [address] Phone [phone] Care Team Providers Care Hand Drawer In Helper Name Role Phone Albino Magaña MD Primary Care Provider + Reason for Visit * Reason Onset Date Comments Order Request 05/08/2023 Encounter Details Date Type Department Care Team Description 05/08/2023 Telephone Radiology [facility] [address] [facility] [place] [address] Dexa, Bone Density [address] [place] [address] Order Request Allergies Active Allergy Reactions Severity Noted Date Comments Penicillins Hives 05/04/2000 documented as of this encounter (statuses as of 05/08/2023) Medications Medication Sig Dispensed Refills Start Date [...] as of this encounter (statuses as of 05/08/2023) Active Problems Problem Noted Date Neovascular age-related [...] as of this encounter (statuses as of 05/08/2023) Resolved Problems Problem Noted Date Resolved Date [...] Lumbosacral spondylosis 12/15/2002 04/22/20 17 DISC DIS [id number] 11/17/2002 06/16/20 08 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 Osteoporosis 06/16/2008 PURE HYPERCHOLESTEROLEM 07/04/20 09 Overview: Per Lipid Taxonomy. 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 documented as of this encounter (statuses as of 05/08/2023) Immunizations Name Administration Dates Next Due COVID-19 mRNA, LNP-s, No Pre serve, 2-Dose Series ([employer]) 02/15/2022,06/04/2021,09/20/2020,08/30 Covid-19, Mrna, Lnp-s, Pf, B ivalent, [...] Miscellaneous Notes * Telephone Encounter - Martell Andres MD - 05/08/2023 1:55 PM EDT ordered * Telephone Encounter - RT Rebekah - 05/08/2023 10:01 AM EDT This is a [place] pt. Can you place new dexa order? Thanks! documented in this encounter Plan of Treatment Upcoming Encounters Date Type Specialty Care Team Description 2023 Nurse Only Ancillary Im, Nurse Annual Wellness [facility] [address] [facility] [place] [address] 05/26/2023 Imaging Radiology 05/26/2023 Nurse Only Rheumatology Pf, Nurse Rheum [address] [place] [address] 10/22/2023 Office Visit Internal Medicine Albino Magaña MD [address] [facility] [place] [address] Scheduled Orders Name Type Priority Associated Diagnoses Orde r Schedule DEXA SCAN/BONE MINERAL AXIAL Medical Imaging Routine Senile osteoporosis Ordered: 05/08/2023 Health Maintenance Due Date Last Done Comments Diabetic Foot Exam 07/15/2019 07/15/2018, 0 10/08/2017, 08/28/2016, Additional history exists COVID-19 Vaccine (24 season) 2023 10/04/2022, 02/15/2022, 06/04/2021, Additional history exists DXA Scan 04/30/2023 04/30/2021, 0708/2017, 01/22/2016, Additional history exists Depression Screening 05/09/2023 05/09/2022, 03/22/20 15 Albumin/Creatinine Ratio 09/09/2023 023, 04/05/2022, 01/22/2021, Additional history exists HbA1c 10/08/2023 04/09/2023, 08/28, 05/09/2022, Additional history exists CKD HGB USE SMARTSET 72918 04/09/202404/09, 04/09/2023, 04/05/2022, Additional history exists CKD PHOS USE SMARTSET 53487 04/09/202403/28, 04/05/2022, 08/02/2020, Additional history exists DTaP,Tdap,and Td Vaccines (2 - Td or Tdap) 03/03/2025 03/03/2015, 11/02/2007 Pneumococcal Vaccine: 65+ Years Completed 09/01/2014, 04/23/2010 Zoster Vaccines Completed 08/29/2018, 05/30, 05/29/2012 VITAMIN D LEVEL ONCE IN A LIFETIME-USE SMARTSET# [id number] Completed 08/08/2021, 10/19/2009 Influenza Vaccine (FLU shot) [...] this encounter Medical Devices Implanted Type Area Geological Scout Device Identifier Shelf Expiration Date Model / Serial / Lot Graft Ant 10mm [id number] - [id number] Implanted:Qt y: 1 on 11/26/2007 at OR [facility] Tissue - Human N/A: Spine Lumbar [employer] 08/19/2011 [id number] / [id number] / [place] Nt [id number] - [id number] Implanted:Qt y: 1 on 12/02/2006 [place] [facility] [place]: Spine Cervical REGALADO [id number] / / Amos 480mm [id number] - [id number] Implanted:Qt y: 1 on 11/26/2007 [place] [facility] [place]/A: Spine Lumbar ELODIA & ELODIA DEPUY [id number] / / documented as of this encounter [...] 6:01 AM 11/26/2007 2:41 PM Care Teams Hand Drawer In Helper Relationship Specialty Start Date End Date Albino Magaña MD [address] [place] [address] PCP - General Internal Medicine 01/17/12 documented as of this encounter
--- OUTSIDE RECORDS SUMMARY | 2023-09-22 21:26 | External Medical Summary | Summary of Care ---
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); Hypertension goal BP (blood pressure) < 140/90; DYSLIPIDEMIA, GOAL LDL BELOW 100 Allergies Active Allergy Reactions Severity Noted Date Comments Penicillins Hives 05/04/2000 documented as of this encounter (statuses as of 04/09/2023) Medications Medication Sig Dispensed Refills Start Date [...] X 5/16" 1 ML 0 05/04/2021 Active dilTIAZem HCl ER Beads 360 MG Oral Capsule Extended Release 24 Hour (Tiazac)Indication s:HTN, goal below 140/90 TAKE 1 CAPSULE BY MOUTH ONCE DAILY 90 Capsule 2 08/15/2022 Active Levemir 100 UNIT/ML Subcutaneous SolutionIndication s:Type [...] ONCE DAILY 90 Tablet 1 03/19/2023 Active Hospital, Clinic, or Other Facility Administered Medication Ordered Dose Route Frequency Start Date End Date Status albuterol sulfate (PROVENTIL) (2.5 MG/3ML) 0.083% inhalation solution 2.5 mgIndications:COPD exacerbation (HCC) 2.5 mg NEBULIZER Q4H PRN 02/18/2019 Active documented as of this encounter (statuses as of 04/09/2023) Active Problems Problem Noted Date Neovascular age-related [...] as of this encounter (statuses as of 04/09/2023) Resolved Problems Problem Noted Date Resolved Date [...] Lumbosacral spondylosis 12/15/2002 04/22/20 17 DISC DIS [id number] 11/17/2002 06/16/20 08 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 Osteoporosis 06/16/2008 PURE HYPERCHOLESTEROLEM 07/04/20 09 Overview: Per Lipid Taxonomy. 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 documented as of this encounter (statuses as of 04/09/2023) Immunizations Name Administration Dates Next Due COVID-19 [...] Unspecified Formulation 04/18/2022 Seasonal Influenza, PF, 6 mo ns & Above, IM , (Flulaval) 04/14/2019,04/02/2018,04/22/2017 Seasonal Influenza, Quadriva lent Hd (Fluzone [...] Nurse Only Ancillary Im, Nurse Annual Wellness [facility] [address] [facility] [address] [place] [address] 05/26/2023 Imaging Radiology 05/26/2023 Nurse Only Rheumatology Pf, Nurse Rheum [facility] [facility] [address] [place] [address] 10/22/2023 Office Visit Internal Medicine Albino Magaña MD [address] [facility] [place] [address] Pending Results Name Type Priority Associated Diagnoses Date /Time HEMOGLOBIN A1C Lab Routine 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) 04/09/2023 3:50 PM EDT COMPREHENSIVE METABOLIC PANEL Lab Routine Hypertension goal BP (blood pressure) < 140/90 04/09/2023 3:50 PM EDT PHOSPHORUS Lab Routine Hypertension goal BP (blood pressure) < 140/90 04/09/2023 3:50 PM EDT LIPID PANEL WITH DIRECT LDL IF TG IS HIGH Lab Routine DYSLIPIDEMIA, GOAL LDL BELOW 100 04/09/2023 3:50 PM EDT Health Maintenance Due Date Last Done Comments Diabetic Foot Exam 07/15/2019 07/15/2018, 0 10/08/2017, 08/28/2016, Additional history exists HbA1c 03/09/2023 09/09/2022, 04/27, 11/06/2021, Additional history exists CKD HGB USE SMARTSET 99621 04/05/202304/09, 04/09/2023, 04/05/2022, Additional history exists CKD PHOS USE SMARTSET 79239 04/05/2023 090 03/2022, 08/02/2020, 08/04/2019, Additional history exists DXA Scan 04/30/2023 04/30/2021, 08/2017, 01/22/2016, Additional history exists Depression Screening 05/09/2023 05/09/2022, 03/22/20 15 Albumin/Creatinine Ratio 09/09/2023 023, 04/05/2022, 01/22/2021, Additional history exists DTaP,Tdap,and Td Vaccines (2 - Td or Tdap) 03/03/2025 03/03/2015, 11/02/2007 Pneumococcal Vaccine: 65+ Years Completed 09/01/2014, 04/23/2010 Zoster Vaccines Completed 08/29/2018, 05/30, 05/29/2012 VITAMIN D LEVEL ONCE IN A LIFETIME-USE SMARTSET# [id number] Completed 08/08/2021, 10/19/2009 COVID-19 Vaccine Completed 10/04/2022, , 06/04/2021, Additional history exists Influenza Vaccine (FLU shot) Completed , 04/18/2022, [...] this encounter Medical Devices Implanted Type Area Loan Operations Specialist Device Identifier Shelf Expiration Date Model / Serial / Lot Graft Ant 10mm [id number] - [id number] Implanted:Qt y: 1 on 11/26/2007 [place] [facility] [place] - Human N/A: Spine Lumbar [employer] 08/19/2011 [id number] / [id number] / [place]ose[place] Nt [id number] - [id number] Implanted:Qt y: 1 on 12/02/2006 [place] [facility] [place]A: Spine Cervical REGALADO [id number] / / Amos 480mm [id number] - [id number] Implanted:Qt y: 1 on 11/26/2007 at [place] [facility] [place]/A: Spine Lumbar ELODIA & ELODIA DEPUY [id number] / / documented as of this encounter Procedures Procedure Name Priority Date/Time Associated Diagnosis Comments DIFFERENTIAL, AUTOMATED Routine 04/09/2023 3:50 PM EDT Hypertension goal BP (blood pressure) < 140/90 CBC WITH WBC DIFFERENTIAL Routine 04/09/2023 3:50 PM EDT Hypertension goal BP (blood pressure) < 140/90 CBC Routine 04/09/2023 3:50 PM EDT Hypertension goal BP (blood pressure) < 140/90 documented in this encounter Results * (ABNORMAL) DIFFERENTIAL, AUTOMATED (04/09/2023 3:50 PM EDT) WBC 6.15 4.00 - 10.80 K/uL 04/09/2023 3:57 PM EDT [facility] [place] 56-02 Neutrophils % 76.6(H) 40.0 - 75.0 % 04/09/2023 3:57 PM EDT [facility] [place] [facility] 56-02 Lymphocytes % 12.8(L) 18.0 - 42.0 % 04/09/2023 3:57 PM EDT [facility] [place] [facility] 56-02 Monocytes % 8.9 1.0 - 11.0 % 04/09/2023 3:57 PM EDT [facility] [place] [facility] 56-02 Eosinophils % 1.5 0.0 - 6.0 % 04/09/2023 3:57 PM EDT [facility] [place] [facility] 56-02 Basophils % 0.2 0.0 - 2.0 % 04/09/2023 3:57 PM EDT [facility] [place] [facility] 56-02 Absolute Neutrophils 4.71 1.80 - 7.70 K/uL 04/09/2023 3:57 PM EDT [facility] [place] [facility] 56-02 Absolute Lymphocytes 0.79(L) 1.00 - 4.80 K/ul 04/09/2023 3:57 PM EDT [facility] [place] [facility] 56-02 Absolute Monocytes 0.55 0.00 - 1.10 K/uL 04/09/2023 3:57 PM EDT [facility] 56 Absolute Eosinophils 0.09 0.00 - 0.70 K/uL 04/09/2023 3:57 PM EDT [facility] 56 Absolute Basophils 0.01 0.00 - 0.20 K/uL 04/09/2023 3:57 PM EDT [facility] 56 Blood Venous blood specimen / Unknown Venipuncture / Unknown 04/09/2023 3:50 PM EDT 04/09/2023 3:50 PM EDT Albino Magaña MD LAB BLOOD [facility] [address] [place] [address] * CBC (04/09/2023 3:50 PM EDT) WBC 6.15 4.00 - 10.80 K/uL 04/09/2023 3:57 PM EDT [facility] 56 RBC 4.40 3.85 - 5.15 M/uL 04/09/2023 3:57 PM EDT [facility] 56 HGB 14.1 12.0 - 15.3 g/dL 04/09/2023 3:57 PM EDT [facility] 56 HCT 42.5 36.0 - 45.2 % 04/09/2023 3:57 PM EDT [facility] 56 MCV 96.6 81.5 - 97.5 fL 04/09/2023 3:57 PM EDT [facility] 56 MCH 32.0 27.0 - 34.0 pg 04/09/2023 3:57 PM EDT [facility] 56 MCHC 33.2 32.0 - 36.0 g/dL 04/09/2023 3:57 PM EDT [facility] 56 RDW 13.5 11.5 - 15.5 % 04/09/2023 3:57 PM EDT [facility] 56- PLT 195 140 - 400 K/uL 04/09/2023 3:57 PM EDT [facility] 56 MPV 9.7 6.6 - 11.1 fL 04/09/2023 3:57 PM EDT [facility] 56-02 Blood Venous blood specimen / Unknown Venipuncture / Unknown 04/09/2023 3:50 PM EDT 04/09/2023 3:50 PM EDT Albino Magaña MD LAB BLOOD [facility]- [address] [facility] [address] documented in this encounter Visit Diagnoses Diagnosis 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) Hypertension goal BP (blood pressure) < 140/90 Unspecified essential hypertension DYSLIPIDEMIA, GOAL LDL BELOW 100 Other and unspecified hyperlipidemia documented in this encounter Advance Directives Latest Code Status on File Code Status Date Activated Date Inactivated Comments Full Code 12/24/2007 4:07 PM 12/30/2007 12:19 PM Code Status History Code Status Date Activated Date Inactivated Comments Full Code 12/23/2007 4:52 PM 12/24/2007 4:07 PM Full Code 11/26/2007 2:41 PM 12/11/2007 3:07 PM Full Code 11/26/2007 6:01 AM 11/26/2007 2:41 PM Care Teams Watch Band Assembler Relationship Specialty Start Date End Date [facility]ino Magaña MD [address] [facility] [address] PCP - General Internal Medicine 01/17/12 documented as of this encounter
[2023-09-22] MEDS: INSULIN ASPART PER UNIT CHARGE SC SCH (22:52)
[2023-09-22] MEDS: LANTUS PER UNIT CHARGE SQ SCH (22:53)
[2023-09-22] MEDS: GADOBUTROL 65ML VIAL IV ONE (23:49)
--- NOTE | 2023-09-23 00:21 | Magnetic Resonance Report ---
Exam(s): MRI RIGHT HAND W/WO Contrast IV Amt: 4.4 CC FILIBERTO EXAM: MR Right Upper Extremity Without and With Intravenous Contrast, Hand CLINICAL HISTORY: Reason for exam: Suspected osteomyelitis. TECHNIQUE: Multiplanar magnetic resonance images of the right hand without and with intravenous contrast. CONTRAST: Patient received 4.4 CC FILIBERTO of IV contrast COMPARISON: x-ray 09/22/2023 FINDINGS: Ulcer at the tip of the second digit. Marrow signal abnormality within the second distal phalanx the appearance of which is consistent with acute osteomyelitis. No other focus of acute osteomyelitis identified. No acute fracture. Cellulitis of the second digit. No abscess. Advanced degenerative changes at the first MCP joint. Extensor and flexor tendons are intact. No tenosynovitis. IMPRESSION: Acute osteomyelitis of the second distal phalanx. Electronically signed by: Pb Hernández MD 09/23/23 00:19 AM
[2023-09-23] MEDS ORDERED: DICLOFENAC SOD 1% GEL 100 GM TUBE EXT PRN (00:54)
[2023-09-23] MEDS: DEXTROSE 50% 50 ML SYRINGE IV ONE (06:37)
[2023-09-23 07:48] LABS: Hematocrit (blood only) 35.4 % (37.0-47.0); Hemoglobin 12.2 g/dl (12.0-16.0); Mean Corpuscular Hemoglobin 31.9 pg (25.0-34.0); Mean Corpuscular Hgb Conc 34.5 g/dL (32.0-36.0); Mean Corpuscular Volume 92.7 fL (80.0-100.0); Mean Platelet Volume 9.6 fL (9.4-12.4); Platelet Count 177 K/uL (130-400); RDW Standard Deviation 44.1 fL (36.4-46.3); Red Blood Count 3.82 M/uL (4.20-5.40); White Blood Count 4.96 K/ul (4.8-10.8)
[2023-09-23] MEDS ORDERED: CEFEPIME 1,000 MG in SYRINGE 0 ML IV SCH (08:00)
[2023-09-23 08:04] LABS: BUN Creatinine Ratio 19.3 (10-20); Calcium 8.5 mg/dl (8.6-10.3); Creatinine Clr Calc Pharmacy 32.5 ml/min; Potassium 4.3 mmol/L (3.5-5.1)
[2023-09-23] MEDS: CHOLECALCIFEROL 125 MCG (5,000 UNITS) TAB PO SCH (08:38)
[2023-09-23] MEDS: CEFEPIME 1,000 MG in SYRINGE 0 ML IV SCH (08:38)
[2023-09-23] MEDS: VANCOMYCIN HCL 1,000 MG in SODIUM CHLORIDE 0.9% 250 ML IV ONE (09:10)
[2023-09-23] MEDS: SIMVASTATIN 10 MG TAB PO SCH (09:28)
[2023-09-23] MEDS: dilTIAZem HCL 180 MG CAPCR PO SCH (09:28)
[2023-09-23] MEDS: CEROVITE ADV FORMULA TAB PO SCH (10:19)
[2023-09-23] MEDS: lisinopril 40 MG TAB PO SCH (10:19)
[2023-09-23] MEDS ORDERED: Nursing to Pharmacy Communication SCH (10:45)
--- NOTE | 2023-09-23 12:02 | Hospitalist Progress Note ---
Date of Service September 23, 2023 Assessment & Plan (1) Osteomyelitis of finger of right hand: (2) Acute kidney injury superimposed on CKD: (3) DM type 1 (diabetes mellitus, type 1): (4) Hypertension: (5) Dyslipidemia: Plan 88-year-old female with PMH of type 1 diabetes, dyslipidemia, hypertension, macular degeneration and other medical problems listed below who presents with worsening infection of right index finger with findings consistent with osteomyelitis. She is being managed for the following: Osteomyelitis of finger of right hand Had cracked opening at the tip of her right index finger that became infected, started on Bactrim 09/20 with increased edema and purulent drainage since Finger XR with evidence of osteomyelitis involving the tuft of the second distal phalanx with significant surrounding soft tissue edema. 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 Wound culture obtained in the ED, ID consult placed, await recommendation. Continue empiric vanco, cefepime 09/22 --> Rocephin and vancomycin 09/23. Ortho consulted, await further recommendation. JUAN superimposed on CKD Cr 1.26 (baseline 0.8-0.9) in setting of recent Bactrim use Likely secondary to recent Bactrim use. Now resolved. Continue home lisinopril for BP control. Continue to follow labs as needed. DM I Follows with [facility] endocrinology Basal/bolus insulin while admitted Glycemic consult placed BSG AC HS HTN: Fairly under control, continue with home lisinopril/Cardizem. Monitor. Dyslipidemia : Continue statin DVT Ppx: Heparin subcu Code status: FULL PCP: Gómez Dispo: Admitted to med/surg Admission and Anticipated Discharge Date Admission Date: September 22, 2023 Subjective Patient was seen and examined at bedside. Patient was lying in bed, on room air, resting comfortably, not in any acute distress. Patient's daughter at bedside was also updated on plan of care. Patient was n.p.o. awaiting Ortho eval, will resume diet until definite plan placed. Patient denies any fever/headache/chest pain/abdominal pain. Patient reports moving bowels okay. Physical Exam Physical Exam: GENERAL: Alert and oriented x3. NAD, on RA. HEENT: No pallor, no icterus. Pupils equal, round and reactive to light. Oral mucosa moist. NECK: No JVD, no neck masses. HEART: S1 and S2 heard. Regular rate and rhythm. No murmur, no gallop. RESPIRATORY SYSTEM: Normal AP diameter. No accessory muscle use. No wheezing, no crackles. ABDOMEN: Soft, bowel sounds present, nontender, no distention. CENTRAL NERVOUS SYSTEM: No facial droop. Speech is clear. Obeys simple commands. Moves extremities. EXTREMITIES: No edema, no erythema seen. Right index finger with clean dressing without soakage. Extending erythema has improved. Results & Data Results & Data Vital Signs (Past 12 Hours) Vital Signs Temp Pulse Resp BP Pulse Ox O2 Del Method 09/23/23 11:29 36.5 C 88 18 151/82 H 96 Room Air 09/23/23 07:14 36.5 C 85 14 139/72 98 Room Air
[2023-09-23] MEDS: LANTUS PER UNIT CHARGE SC ONE (12:21)
[2023-09-23] MEDS: INSULIN ASPART PER UNIT CHARGE SC SCH (12:22)
--- NOTE | 2023-09-23 13:29 | Pharmacy Report ---
Pharmacy Glycemic Short Note 2 - Date of Service September 23, 2023 - Glycemic Short BSG Results (Last 24 hours): 09/22/23 09/22/23 09/22/23 13:33 16:07 21:45 Glucose 102 H POC Glucose 99 147 H 09/23/23 09/23/23 09/23/23 00:30 05:59 06:01 Glucose POC Glucose 291 H 67 L* 63 L* 09/23/23 09/23/23 09/23/23 07:23 07:25 11:43 Glucose 222 H POC Glucose 204 H 129 H OUTPATIENT ANTIDIABETIC REGIMEN: * Levemir 9 units SC qAM, 5 units SC qPM * Novolog 5 units SC w/ breakfast, 5 units SC w/ lunch, and 8 units SC w/ dinner HbA1c: 6.8% (04/11/23), repeat ordered for 09/24/23 ASSESSMENT: * MY is an 88 year old female with T1DM admitted for IV antibiotic treatment of right hand osteomyelitis * Receiving broad spectrum antibiotics with vancomycin and ceftriaxone * Labile BSGs since time of admission, ranging 63-291 mg/dL * Received D50W x 1 this morning for hypoglycemia * Diet advanced from NPO to T1DM * Per Diabetes visit note (04/22/23): * Patient with long-standing T1DM, diagnosed at age 27 * Has always been managed with MDI (no pump) and has hypoglycemia unawareness PLAN FOR INPATIENT GLYCEMIC CONTROL: * Basal insulin * Lantus 5 units SC x 1 today * Lantus 0-3-5 units SC HS (see EHR for details) * Reassess daily * Bolus insulin * NovoLog per scale ACHS or Q6hrs while NPO * Goal Range: Low 110 mg/dL - High 150 mg/dL * Correction Factor: 50 mg/dL/unit * Nutritional / Prandial insulin per carb ratio of 1 unit per 17 grams CHO consumed
--- NOTE | 2023-09-23 14:02 | Pharmacy Report ---
Pharmacy PK ABX Note - Date of Service September 23, 2023 - Assessment and Plan Assessment 88 year old F receiving empiric vancomycin and ceftriaxone for treatment of osteomyelitis involving second finger on right hand. Hand MRI confirms acute osteomyelitis of second distal phalanx. Pertinent microbiologic data includes: right finger culture (09/22) shows no growth to date w/ no organisms seen on gram-stain. Patient originally receiving vancomycin and cefepime, the latter de-escalated to ceftriaxone today. Infectious diseases and orthopedics consulted. Patient with low body weight, advanced age, and labile renal function (SCr much improved today 1.26 -> 0.83 mg/dL). Afebrile w/ no overt leukocytosis. Day # 2 of antimicrobial therapy. Plan Vancomycin * Patient received 1 g IV x 1 load yesterday w/ level this morning * Random level obtained 09/23/23 resulted as 6.8 mcg/mL. This is predicted to achieve target AUC/YUE of 400-600 mg/L.hr * Change to 1000 mg IV every 24 hours * Predicted AUC at steady state: 537 mg/L.hr * Will repeat level in the next 48-72 hours if therapy is continued and/or change in patient clinical status Ceftriaxone * 2 g IV q24h - appropriate based on indication Pharmacy will continue to follow and will adjust dose/frequency as necessary. Thank you. Pharmacy has transitioned to AUC monitoring for vancomycin. AUC/YUE is the preferred PK/PD target and is associated with decreased risk of nephrotoxicity compared to traditional trough targets.
--- NOTE | 2023-09-23 15:05 | Infectious Disease Consult ---
<Statement entered by Jeannine Rayo MD - 09/23/23 15:16> Attending addendum This 88 y/o female w/ malnutrition (BMI 16.6), HTN, DM1 and macular degener ation, presented to [facility] on 09/22/23 for worsening infection on R index finger. The patient initially had a cracked opening at the tip of her R index finger which was subsequently infected w/ worsening swelling and purulent drainage. The patient was placed on bactrim but without improvement. On presentation, no fever or leukocytosis was noted. Cr 0.83 (CrCl 32.5). CRP <0.5. However, MRI of hand showed acute OM of the second distal phalanx. Currently on CTX 2 gm iv qd and vancomycin iv. Culture was obtained from the purulent drainage from R index finger cx (09/22/23): not sure if this will represent the pathogen(s) or contamination. As the patient is scheduled for OR, please, obtain bacterial cultures from OR. I am not against continuing CTX and vancomycin iv as the patient is scheduled for OR tomorrow already. The duration and choice of abx regimen will depend on culture result and the level of amputation. CTX and vancomycin iv seem to be reasoable as there is no obvious risk factor for MDRO. I saw and evaluated the patient today. I have reviewed the trainee note and agree. I spent a total of 60 minutes coordinating, documenting, and providing care for this patient excluding time spent in performance of separately billed services. Date of Service September 23, 2023 Telehealth Information I performed this visit using a real-time telehealth connection between my location and the patients location ([facility]). After connecting through interactive tele-video, patient was identified by name and date of and/or wristband check.Patient (or authorized healthcare solar sales representative) was informed that this was a telemedicine visit and it was being conducted confidentially over secure lines. My office door was closed and no one else was present in the room with me.Patient (or authorized healthcare solar sales representative) provided consent to proceed with the visit, expressed an understanding of privacy and security of the telemedicine visit, and gave permission to have a hospital solar sales representative in the room in order to assist with the visit and to conduct portions of the visit, as needed. I informed the patient (or authorized healthcare solar sales representative) that I reviewed their record and presented the opportunity for them to ask any questions regarding the visit today. The patient agreed to participate. Assessment & Plan (1) Osteomyelitis of finger of right hand: (2) DM type 1 (diabetes mellitus, type 1): Plan Reviewed Xray and MRI findings which are suggestive of Osteomyelitis, plan noted from ortho, Scheduled to go to OR tomorrow We recommend obtaining Bacterial cultures in OR Superficial swab sent from the right index finger may not be appropriate as it may represent contamination with skin luis m Patient is stable, we are not against holding or continuing IV antibiotics Final duration and course of antibiotics to be determined based on the OR findings and extent of surgery/debridement History of Present Illness History of Present Illness 88-year-old female with significant history of type 1 diabetes, hyperlipidemia, hypertension, macular degeneration admitted with infection of the right index finger with consistent osteomyelitis. Patient had cracked from dry skin and had opening at the tip of her right index finger that became infected, she was started on Bactrim 09/20 which she took for 3 days but had increased edema and purulent drainage, Denies licking, bites from cat. x-ray with evidence of osteomyelitis involving the tuft of the 2nd distal phalanx with significant surrounding soft tissue edema Remained afebrile Tmax:36.5, WBC 3.8 K, Wound Cx:in process. Xray: There is evidence of osteomyelitis involving the tuft of the second distal phalanx with significant surrounding soft tissue edema. MRI right hand: Acute osteomyelitis of the second distal phalanx. Allergies Allergy/AdvReac Type Severity Reaction Status Date / Time Penicillins Allergy Intermediate HIVES Verified 09/22/23 15:59 Home Medications Medication Instructions Recorded Confirmed Type acetone (urine) test (Ketostix #25 ea 05/18/19 04/22/23 History strips) diltiazem HCl 360 mg capsule,24 360 mg PO QAM 10/03/19 09/22/23 History hr,extended release lisinopril 40 mg tablet 40 mg PO QAM #30 tabs 10/03/19 09/22/23 History simvastatin 10 mg tablet 10 mg PO DAILY #90 tabs 10/03/19 09/22/23 History blood-glucose meter #1 ea 01/22/21 09/22/23 History vit C 250 mg-vit E 90 mg-zinc 40 2 tab PO BID 01/22/21 04/22/23 History mg-copper 1 [id number] capsule (PreserVision AREDS-2) cholecalciferol (vitamin D3) 125 125 mcg PO QAM 01/22/22 09/22/23 History mcg (5,000 unit) capsule denosumab 60 mg/mL subcutaneous 60 mg subcut UD 01/22/22 09/22/23 History syringe (Prolia) pen needle, diabetic 32 gauge x #600 ea 12/27/22 04/22/23 Rx 5/32" (BD Ultra-Fine Briseyda Pen Needle) insulin syringe-needle U-100 1 mL #200 ea 04/23/23 04/23/23 Rx 31 gauge x 5/16" (BD Insulin Syringe Ultra-Fine) insulin glargine 100 unit/mL (3 See Rx Instructions subcut 09/02/23 09/22/23 Rx mL) subcutaneous pen (Basaglar .COMPLEX #30 mL KwikPen U-100 Insulin) insulin aspart U-100 100 unit/mL 0 unit subcut DAILY 09/22/23 09/22/23 History (3 mL) subcutaneous pen (Novolog FlexPen U-100 Insulin aspart) sulfamethoxazole 800 1 tab PO BID 09/22/23 09/22/23 History mg-trimethoprim 160 mg tablet vit C 250 mg-vit E 90 mg-zinc 40 1 cap PO BID 09/23/23 09/23/23 History mg-copper 1 [id number] capsule (PreserVision AREDS-2) Patient History Medical History Diabetic neuropathy CKD (chronic kidney disease), stage III DM type 1 (diabetes mellitus, type 1) Hypertension Dyslipidemia Surgical History Hx of breast biopsy History of trabeculectomy S/P cervical spinal fusion History of lumbar fusion History of cataract surgery Family History Mother Heart disease Father Heart disease Cancer Social History Smoking Status: Former smoker Smoking End Date: 2005; Hx Alcohol Use: Yes Alcohol Intake Frequency: Monthly or Less Hx Substance Use: No Preferred Language: Turkmen Communication Ability: Effective Hand Woven Carpet And Rug Mender Required: No Beliefs That Will Affect Care: None Current Living Situation: Alone Current Living Situation Comment: [facility]. lives at [facility]. Other Information That Helps Us Care for You: No Feels Safe at Home: Yes Safety Concerns: Feels Safe At This Time Assistive Devices: Cane Review of Systems All other ROS were negative except as mentioned above Physical Exam Physical exam limited Right index finger swollen with open area near the nailbed, erythema extending upto mid phalanx of right finger Results & Data Vital Signs (Past 12 Hours) Vital Signs Temp Pulse Resp BP Pulse Ox O2 Del Method 09/23/23 11:29 36.5 C 88 18 151/82 H 96 Room Air 09/23/23 07:14 36.5 C 85 14 139/72 98 Room Air Laboratory Results Abnormal Lab Results 09/22/23 09/22/23 09/22/23 13:33 16:07 21:45 WBC RBC Hgb Hct MCV MCH MCHC RDW Std Deviation RDW Coeff of Chuy Plt Count MPV Sodium Potassium Chloride Carbon Dioxide Anion Gap BUN Creatinine Est Cr Clr Drug Dosing Est GFR ( Amer) Est GFR (Non-Af Amer) BUN/Creatinine Ratio Glucose POC Glucose 99 147 H Calcium C-Reactive Protein < 0.50 Random Vancomycin 09/23/23 09/23/23 09/23/23 00:30 05:59 06:01 WBC RBC Hgb Hct MCV MCH MCHC RDW Std Deviation RDW Coeff of Chuy Plt Count MPV Sodium Potassium Chloride Carbon Dioxide Anion Gap BUN Creatinine Est Cr Clr Drug Dosing Est GFR ( Amer) Est GFR (Non-Af Amer) BUN/Creatinine Ratio Glucose POC Glucose 291 H 67 L* 63 L* Calcium C-Reactive Protein Random Vancomycin 09/23/23 09/23/23 09/23/23 07:23 07:25 11:43 WBC 4.96 RBC 3.82 L Hgb 12.2 Hct 35.4 L MCV 92.7 MCH 31.9 MCHC 34.5 RDW Std Deviation 44.1 RDW Coeff of Chuy 13.0 Plt Count 177 MPV 9.6 Sodium 134 L Potassium 4.3 Chloride 106 Carbon Dioxide 23 Anion Gap 5 BUN 16 Creatinine 0.83 D Est Cr Clr Drug Dosing 32.5 Est GFR ( Amer) 73.0 Est GFR (Non-Af Amer) 63.0 BUN/Creatinine Ratio 19.3 Glucose 222 H POC Glucose 204 H 129 H Calcium 8.5 L C-Reactive Protein Random Vancomycin 6.8 L Diagnostic Findings Finger X-Ray 09/22/23 14:47 RIGHT SECOND FINGER 3 VIEWS CLINICAL HISTORY: Second finger infection. FINDINGS: 3 views of the right second finger are obtained. No prior studies are available for comparison at the time of dictation. The skeletal structures are osteopenic. No acute fracture is seen. There is no dislocation. There is bony erosion involving the tuft of the second distal phalanx typical for osteomyelitis. Surrounding soft tissue edema is seen throughout the second digit, greatest distally. No soft tissue gas or radiodense foreign body is sagar ntified. Arthritic change is noted throughout the imaged fingers. Soft tissue calcifications are seen around the metacarpophalangeal joints and the third proximal interphalangeal joint. IMPRESSION: There is evidence of osteomyelitis involving the tuft of the second distal phalanx with significant surrounding soft tissue edema. Electronically signed by: Blaze Chery M.D. 09/22/2023 3:05 PM Hand MRI 09/22/23 21:10 Exam(s): MRI RIGHT HAND W/WO Contrast IV Amt: 4.4 CC FILIBERTO EXAM: MR Right Upper Extremity Without and With Intravenous Contrast, Hand CLINICAL HISTORY: Reason for exam: Suspected osteomyelitis. TECHNIQUE: Multiplanar magnetic resonance images of the right hand without and with intravenous contrast. CONTRAST: Patient received 4.4 CC FILIBERTO of IV contrast COMPARISON: x-ray 09/22/2023 FINDINGS: Ulcer at the tip of the second digit. Marrow signal abnormality within the second distal phalanx the appearance of which is consistent with acute osteomyelitis. No other focus of acute osteomyelitis identified. No acute fracture. Cellulitis of the second digit. No abscess. Advanced degenerative changes at the first MCP joint. Extensor and flexor tendons are intact. No tenosynovitis. IMPRESSION: Acute osteomyelitis of the second distal phalanx. Electronically signed by: Pb Hernández MD 09/23/23 00:19 AM Medications Administered Home Medications Medication Instructions Recorded Confirmed Last Taken acetone (urine) test (Ketostix #25 ea 05/18/19 04/22/23 Unknown strips) diltiazem HCl 360 mg capsule,24 360 mg PO QAM 10/03/19 09/22/23 09/22/23 hr,extended release lisinopril 40 mg tablet 40 mg PO QAM #30 tabs 10/03/19 09/22/23 09/22/23 simvastatin 10 mg tablet 10 mg PO DAILY #90 tabs 10/03/19 09/22/23 09/22/23 blood-glucose meter #1 ea 01/22/21 09/22/23 Unknown vit C 250 mg-vit E 90 mg-zinc 40 2 tab PO BID 01/22/21 04/22/23 Unknown mg-copper 1 [id number] capsule (PreserVision AREDS-2) cholecalciferol (vitamin D3) 125 125 mcg PO QAM 01/22/22 09/22/23 09/22/23 mcg (5,000 unit) capsule denosumab 60 mg/mL subcutaneous 60 mg subcut UD 01/22/22 09/22/23 Unknown syringe (Prolia) pen needle, diabetic 32 gauge x #600 ea 12/27/22 04/22/23 Unknown 5/32" (BD Ultra-Fine Briseyda Pen Needle) insulin syringe-needle U-100 1 mL #200 ea 04/23/23 04/23/23 Unknown 31 gauge x 5/16" (BD Insulin Syringe Ultra-Fine) insulin glargine 100 unit/mL (3 See Rx Instructions subcut 09/02/23 09/22/23 Unknown mL) subcutaneous pen (Basaglar .COMPLEX #30 mL KwikPen U-100 Insulin) insulin aspart U-100 100 unit/mL 0 unit subcut DAILY 09/22/23 09/22/23 09/22/23 (3 mL) subcutaneous pen (Novolog FlexPen U-100 Insulin aspart) sulfamethoxazole 800 1 tab PO BID 09/22/23 09/22/23 Unknown mg-trimethoprim 160 mg tablet vit C 250 mg-vit E 90 mg-zinc 40 1 cap PO BID 09/23/23 09/23/23 09/22/23 mg-copper 1 [id number] capsule (PreserVision AREDS-2) Active Medications Generic Name Dose Route Start Last Admin Trade Name Freq PRN Reason Stop Dose Admin Diltiazem HCl 360 mg 09/23/23 09:00 09/23/23 09:28 Diltiazem Hcl 180 Mg Capcr PO 10/23/23 08:59 360 mg QAM ERNST Administration Insulin Aspart 0 units 09/23/23 11:30 09/23/23 12:22 Insulin Aspart Per Unit Charge SC 10/22/23 20:59 2 units ACHS ERNST Administration Lisinopril 40 mg 09/23/23 09:30 09/23/23 10:19 Lisinopril 40 Mg Tab PO 10/23/23 09:29 40 mg QAM ERNST Administration Multivitamins/Minerals 1 tab 09/23/23 09:30 09/23/23 10:19 Cerovite Adv Formula Tab PO 10/23/23 09:29 1 tab DAILY ERNST Administration Simvastatin 10 mg 09/23/23 09:00 09/23/23 09:28 Simvastatin 10 Mg Tab PO 10/23/23 08:59 10 mg DAILY ERNST Administration Vitamin D 125 mcg 09/23/23 09:00 09/23/23 08:38 Cholecalciferol 125 Mcg (5,000 Units) Tab PO 10/23/23 08:59 125 mcg QAM ERNST Administration
[2023-09-23] MEDS: cefTRIAXone SODIUM 2,000 MG in DEXTROSE 5 % MINI-B 50 ML IV SCH (17:40)
[2023-09-23] MEDS: LANTUS PER UNIT CHARGE SQ SCH (21:34)
[2023-09-23] MEDS: HEPARIN SOD 5,000 UNIT/0.5 ML VIAL SQ SCH (21:36)
[2023-09-24] MEDS: INSULIN ASPART PER UNIT CHARGE SC SCH (00:04)
[2023-09-24] MEDS: DEXTROSE 50% 50 ML SYRINGE IV PRN (04:18)
--- NOTE | 2023-09-24 08:23 | Pharmacy Report ---
Pharmacy Glycemic Short Note 2 - Date of Service September 24, 2023 - Glycemic Short BSG Results (Last 24 hours): 09/23/23 09/23/23 09/23/23 11:43 16:42 20:57 POC Glucose 129 H 243 H 444 H* 09/23/23 09/23/23 09/23/23 20:58 23:56 23:59 POC Glucose 477 H* 341 H* 289 H 09/24/23 09/24/23 09/24/23 04:05 04:07 04:36 POC Glucose 53 L* 51 L* 186 H 09/24/23 07:38 POC Glucose 80 OUTPATIENT ANTIDIABETIC REGIMEN: * Levemir 9 units SC qAM, 5 units SC qPM * Novolog 5 units SC w/ breakfast, 5 units SC w/ lunch, and 8 units SC w/ dinner HbA1c: 6.8% (04/11/23), repeat ordered for 09/24/23 ASSESSMENT: 09/24/23: * BSGs trended up significantly throughout the day yesterday, but with episode of hypoglycemia this morning (54 mg/dL) * Received 34 units of insulin (15 units of basal and 19 units of prandial/correctional bolus) * I believe that hypoglycemia was likely the result of accumulation of correctional insulin overnight w/ overnight checks * Will avoid overnight checks w/ multiple Novolog administrations, in light of lows and in light of T1DM status * Will defer morning basal until lunchtime to ensure correction of low 09/23/23: * MY is an 88 year old female with T1DM admitted for IV antibiotic treatment of right hand osteomyelitis * Receiving broad spectrum antibiotics with vancomycin and ceftriaxone * Labile BSGs since time of admission, ranging 63-291 mg/dL * Received D50W x 1 this morning for hypoglycemia * Diet advanced from NPO to T1DM * Per Diabetes visit note (04/22/23): * Patient with long-standing T1DM, diagnosed at age 27 * Has always been managed with MDI (no pump) and has hypoglycemia unawareness PLAN FOR INPATIENT GLYCEMIC CONTROL: * Basal insulin * Lantus 12 units SC x 1 * Plan to use once daily Lantus in place of BID Levemir * Bolus insulin * NovoLog per scale ACHS or Q6hrs while NPO * Goal Range: Low 110 mg/dL - High 150 mg/dL * Correction Factor: 50 mg/dL/unit * Nutritional / Prandial insulin per carb ratio of 1 unit per 15 grams CHO consumed
[2023-09-24 08:40] LABS: Hematocrit (blood only) 41.2 % (37.0-47.0); Hemoglobin 13.7 g/dl (12.0-16.0); Mean Corpuscular Hemoglobin 31.4 pg (25.0-34.0); Mean Corpuscular Hgb Conc 33.3 g/dL (32.0-36.0); Mean Corpuscular Volume 94.5 fL (80.0-100.0); Mean Platelet Volume 9.6 fL (9.4-12.4); Platelet Count 213 K/uL (130-400); RDW Coefficient of Variation 12.9 % (11.5-14.5); RDW Standard Deviation 44.8 fL (36.4-46.3); Red Blood Count 4.36 M/uL (4.20-5.40); White Blood Count 5.97 K/ul (4.8-10.8)
[2023-09-24] MEDS: VANCOMYCIN HCL 1,000 MG in SODIUM CHLORIDE 0.9% 250 ML IV SCH (08:54)
[2023-09-24 08:58] LABS: BUN Creatinine Ratio 23.8 (10-20); Calcium 9.7 mg/dl (8.6-10.3); Creatinine Clr Calc Pharmacy 32.1 ml/min; Est GFR (African American) 71.9 ml/min; Est GFR (Non-African American) 62.1 ml/min; Magnesium 1.9 mg/dl (1.7-2.4); Phosphorus 3.3 mg/dl (2.5-4.9); Potassium 4.5 mmol/L (3.5-5.1)
[2023-09-24 09:35] LABS: Estimated Average Glucose 169 mg/dl; Hemoglobin A1C 7.5 % (4.5-5.6)
[2023-09-24] MEDS: LANTUS PER UNIT CHARGE SC ONE (12:44)
--- NOTE | 2023-09-24 13:30 | Infectious Disease Progress Nt ---
Date of Service September 24, 2023 Telehealth Information I performed this visit using a real-time telehealth connection between my location and the patients location ([facility]). After connecting through interactive tele-video, patient was identified by name and date of and/or wristband check.Patient (or authorized healthcare product support sales representative) was informed that this was a telemedicine visit and it was being conducted confidentially over secure lines. My office door was closed and no one else was present in the room with me.Patient (or authorized healthcare product support sales representative) provided consent to proceed with the visit, expressed an understanding of privacy and security of the telemedicine visit, and gave permission to have a hospital product support sales representative in the room in order to assist with the visit and to conduct portions of the visit, as needed. I informed the patient (or authorized healthcare product support sales representative) that I reviewed their record and presented the opportunity for them to ask any questions regarding the visit today. The patient agreed to participate. Assessment & Plan (1) Osteomyelitis of finger of right hand: Plan Osteomyelitis of right index finger: Superficial wound swab Gram stain has GPC (Cx report prelim) and it may not be appropriate (can include contaminants) and Ortho recommended outpatient surgery as there is no availability of hand surgeon Since patient is getting discharged, we recommend to start PO linezolid 600mg BId for 10 days for now until she gets the surgery, less concern for gram negative infection and PO linezolid is sufficient to cover usual pathogens Staph /MRSA/strep Recommending to get CBC, CMP and CRP while being on antibiotics and also to take probiotics while being on antibiotics Recommend to obtain cultures when surgery is done to guide us with antibiotics and depending on the extent of amputation she may need termite helper antibiotics Infectious disease will stop following, please call us if cultures return or if patient is getting procedure now. Subjective Patient did not had fever, Discussed with , Ortho is planning on doing surgery as outpatient Review of Systems Can not assess Physical Exam Physical exam limited Results & Data Vital Signs (Past 12 Hours) Vital Signs Temp Pulse Resp BP Pulse Ox O2 Del Method 09/24/23 07:34 36.4 C L 67 16 114/72 96 Room Air Laboratory Results Abnormal Lab Results 09/23/23 09/23/23 09/23/23 16:42 20:57 20:58 WBC RBC Hgb Hct MCV MCH MCHC RDW Std Deviation RDW Coeff of Chuy Plt Count MPV Sodium Potassium Chloride Carbon Dioxide Anion Gap BUN Creatinine Est Cr Clr Drug Dosing Est GFR ( Amer) Est GFR (Non-Af Amer) BUN/Creatinine Ratio Glucose POC Glucose 243 H 444 H* 477 H* Estimat Average Glucose Hemoglobin A1c Calcium Phosphorus Magnesium 09/23/23 09/23/23 09/24/23 23:56 23:59 04:05 WBC RBC Hgb Hct MCV MCH MCHC RDW Std Deviation RDW Coeff of Chuy Plt Count MPV Sodium Potassium Chloride Carbon Dioxide Anion Gap BUN Creatinine Est Cr Clr Drug Dosing Est GFR ( Amer) Est GFR (Non-Af Amer) BUN/Creatinine Ratio Glucose POC Glucose 341 H* 289 H 53 L* Estimat Average Glucose Hemoglobin A1c Calcium Phosphorus Magnesium 09/24/23 09/24/23 09/24/23 04:07 04:36 07:38 WBC RBC Hgb Hct MCV MCH MCHC RDW Std Deviation RDW Coeff of Chuy Plt Count MPV Sodium Potassium Chloride Carbon Dioxide Anion Gap BUN Creatinine Est Cr Clr Drug Dosing Est GFR ( Amer) Est GFR (Non-Af Amer) BUN/Creatinine Ratio Glucose POC Glucose 51 L* 186 H 80 Estimat Average Glucose Hemoglobin A1c Calcium Phosphorus Magnesium 09/24/23 09/24/23 09/24/23 08:22 11:26 11:28 WBC 5.97 RBC 4.36 Hgb 13.7 Hct 41.2 MCV 94.5 MCH 31.4 MCHC 33.3 RDW Std Deviation 44.8 RDW Coeff of Chuy 12.9 Plt Count 213 MPV 9.6 Sodium 135 L Potassium 4.5 Chloride 103 Carbon Dioxide 27 Anion Gap 5 BUN 20 Creatinine 0.84 Est Cr Clr Drug Dosing 32.1 Est GFR ( Amer) 71.9 Est GFR (Non-Af Amer) 62.1 BUN/Creatinine Ratio 23.8 H Glucose 93 POC Glucose 261 H 253 H Estimat Average Glucose 169 Hemoglobin A1c 7.5 H Calcium 9.7 Phosphorus 3.3 Magnesium 1.9 Diagnostic Findings Xray: There is evidence of osteomyelitis involving the tuft of the second distal phalanx with significant surrounding soft tissue edema. MRI right hand: Acute osteomyelitis of the second distal phalanx. Medications Administered Home Medications Medication Instructions Recorded Confirmed Last Taken acetone (urine) test (Ketostix #25 ea 05/18/19 04/22/23 Unknown strips) diltiazem HCl 360 mg capsule,24 360 mg PO QAM 10/03/19 09/22/23 09/22/23 hr,extended release lisinopril 40 mg tablet 40 mg PO QAM #30 tabs 10/03/19 09/22/23 09/22/23 simvastatin 10 mg tablet 10 mg PO DAILY #90 tabs 10/03/19 09/22/23 09/22/23 blood-glucose meter #1 ea 01/22/21 09/22/23 Unknown vit C 250 mg-vit E 90 mg-zinc 40 2 tab PO BID 01/22/21 04/22/23 Unknown mg-copper 1 [id number] capsule (PreserVision AREDS-2) cholecalciferol (vitamin D3) 125 125 mcg PO QAM 01/22/22 09/22/23 09/22/23 mcg (5,000 unit) capsule denosumab 60 mg/mL subcutaneous 60 mg subcut UD 01/22/22 09/22/23 Unknown syringe (Prolia) pen needle, diabetic 32 gauge x #600 ea 12/27/22 04/22/23 Unknown 5/32" (BD Ultra-Fine Briseyda Pen Needle) insulin syringe-needle U-100 1 mL #200 ea 04/23/23 04/23/23 Unknown 31 gauge x 5/16" (BD Insulin Syringe Ultra-Fine) insulin glargine 100 unit/mL (3 See Rx Instructions subcut 09/02/23 09/22/23 Unknown mL) subcutaneous pen (Basaglar .COMPLEX #30 mL KwikPen U-100 Insulin) insulin aspart U-100 100 unit/mL 0 unit subcut DAILY 09/22/23 09/22/23 09/22/23 (3 mL) subcutaneous pen (Novolog FlexPen U-100 Insulin aspart) sulfamethoxazole 800 1 tab PO BID 09/22/23 09/22/23 Unknown mg-trimethoprim 160 mg tablet vit C 250 mg-vit E 90 mg-zinc 40 1 cap PO BID 09/23/23 09/23/23 09/22/23 mg-copper 1 [id number] capsule (PreserVision AREDS-2) Active Medications Generic Name Dose Route Start Last Admin Trade Name Freq PRN Reason Stop Dose Admin Dextrose 25 - 50 ml 09/22/23 19:04 09/24/23 04:18 Dextrose 50% 50 Ml Syringe IV 10/22/23 19:03 50 ml UD PRN Administration Hypoglycemia Protocol Protocol Diltiazem HCl 360 mg 09/23/23 09:00 09/24/23 08:48 Diltiazem Hcl 180 Mg Capcr PO 10/23/23 08:59 360 mg QAM ERNST Administration Heparin Sodium (Porcine) 5,000 units 09/23/23 21:00 09/24/23 08:49 Heparin Sod 5,000 Unit/0.5 Ml Vial SQ 10/23/23 20:59 5,000 units Q12 ERNST Administration Insulin Aspart 0 units 09/23/23 11:30 09/24/23 12:41 Insulin Aspart Per Unit Charge SC 10/22/23 20:59 5 units ACHS ERNST Administration Lisinopril 40 mg 09/23/23 09:30 09/24/23 08:49 Lisinopril 40 Mg Tab PO 10/23/23 09:29 40 mg QAM ERNST Administration Multivitamins/Minerals 1 tab 09/23/23 09:30 09/24/23 08:49 Cerovite Adv Formula Tab PO 10/23/23 09:29 1 tab DAILY ERNST Administration Simvastatin 10 mg 09/23/23 09:00 09/24/23 08:48 Simvastatin 10 Mg Tab PO 10/23/23 08:59 10 mg DAILY ERNST Administration Vitamin D 125 mcg 09/23/23 09:00 09/24/23 08:48 Cholecalciferol 125 Mcg (5,000 Units) Tab PO 10/23/23 08:59 125 mcg QAM ERNST Administration
[2023-09-24] MEDS: LINEZOLID 600 MG TAB PO SCH (14:14)
--- NOTE | 2023-09-24 15:11 | Hospitalist Progress Note ---
Date of Service September 24, 2023 Assessment & Plan (1) Osteomyelitis of finger of right hand: (2) Acute kidney injury superimposed on CKD: (3) DM type 1 (diabetes mellitus, type 1): (4) Hypertension: (5) Dyslipidemia: Plan 88-year-old female with PMH of type 1 diabetes, dyslipidemia, hypertension, macular degeneration and other medical problems listed below who presents with worsening infection of right index finger with findings consistent with osteomyelitis. She is being managed for the following: Osteomyelitis of finger of right hand Had cracked opening at the tip of her right index finger that became infected, started on Bactrim 09/20 with increased edema and purulent drainage since Finger XR with evidence of osteomyelitis involving the tuft of the second distal phalanx with significant surrounding soft tissue edema. 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 Admitting wound culture with gram-positive cocci. ID evaluated 09/23, agreed with ceftriaxone and vancomycin and is awaiting for OR results. Per orthopedics, possible outpatient debridement/amputation as appropriate. Follow-up with Ortho within a week time upon discharge. Communicated with ID again 09/24 as Sx not happening, recommends linezolid 600 mg BID x 10 days; f/u w/ Ortho within a week for Sx; f/u w/ ID in 7 to 10 days before antibiotics run out. Rocephin and vancomycin discontinued, linezolid restarted. Probiotics continue. Weekly CBC/CMP/CRP while on antibiotics upon discharge. Wound care consult placed. JUAN superimposed on CKD Cr 1.26 (baseline 0.8-0.9) in setting of recent Bactrim use Likely secondary to recent Bactrim use. Now resolved. Continue home lisinopril for BP control. Continue to follow labs as needed. DM I Follows with [facility] endocrinology Basal/bolus insulin while admitted Glycemic consult placed BSG AC HS HTN: Fairly under control, continue with home lisinopril/Cardizem. Monitor. Dyslipidemia : Continue statin DVT Ppx: Heparin subcu Code status: FULL PCP: Gómez Dispo: Admitted to med/surg. Likely DC tomorrow. Patient's daughter would like to see wound care nurse prior to discharge and would like to go home tomorrow. Wound care consult has been placed. Admission and Anticipated Discharge Date Admission Date: September 22, 2023 Subjective Patient was seen and examined at bedside. Patient was lying in bed, on room air, resting comfortably, not in any acute distress. Patient's daughter at bedside was also updated on plan of care. Patient denies any fever/headache/chest pain/abdominal pain. Patient reports moving bowels okay. Physical Exam Physical Exam: GENERAL: Alert and oriented x3. NAD, on RA. HEENT: No pallor, no icterus. Pupils equal, round and reactive to light. Oral mucosa moist. NECK: No JVD, no neck masses. HEART: S1 and S2 heard. Regular rate and rhythm. No murmur, no gallop. RESPIRATORY SYSTEM: Normal AP diameter. No accessory muscle use. No wheezing, no crackles. ABDOMEN: Soft, bowel sounds present, nontender, no distention. CENTRAL NERVOUS SYSTEM: No facial droop. Speech is clear. Obeys simple commands. Moves extremities. EXTREMITIES: No edema, no erythema seen. Right index finger with clean dressing without soakage. Extending erythema has improved. Results & Data Results & Data Vital Signs (Past 12 Hours) Vital Signs Temp Pulse Resp BP Pulse Ox O2 Del Method 09/24/23 07:34 36.4 C L 67 16 114/72 96 Room Air
[2023-09-24] MEDS: ADVANCED PROBIOTIC 650 MG CAPSULE PO SCH (16:07)
[2023-09-25] MEDS: LANTUS PER UNIT CHARGE SC SCH (08:45)
[2023-09-25 08:58] LABS: Hematocrit (blood only) 42.4 % (37.0-47.0); Hemoglobin 14.1 g/dl (12.0-16.0); Mean Corpuscular Hemoglobin 31.5 pg (25.0-34.0); Mean Corpuscular Hgb Conc 33.3 g/dL (32.0-36.0); Mean Corpuscular Volume 94.9 fL (80.0-100.0); Mean Platelet Volume 9.7 fL (9.4-12.4); Platelet Count 208 K/uL (130-400); RDW Coefficient of Variation 12.7 % (11.5-14.5); RDW Standard Deviation 43.9 fL (36.4-46.3); Red Blood Count 4.47 M/uL (4.20-5.40); White Blood Count 8.51 K/ul (4.8-10.8)
[2023-09-25 09:18] LABS: Calcium 10.2 mg/dl (8.6-10.3); Creatinine Clr Calc Pharmacy 26.9 ml/min; Est GFR (African American) 58.3 ml/min; Est GFR (Non-African American) 50.3 ml/min; Potassium 4.8 mmol/L (3.5-5.1)
--- NOTE | 2023-09-25 13:54 | Discharge Summary ---
Discharge Summary Date of Service September 25, 2023 Notes For Next Care Provider R index finger osteromyelitis Medication Changes From Visit Linezolid 600mg by mouth twice daily x 10 days for bone infection of R index finger (will need follow up with ID by 10/01 to determine need for continued treatment) Probiotic daily x 10 days for GI Health. Admission HPI Per Admitting Provider This is a 88-year-old female with PMH of type 1 diabetes, dyslipidemia, hypertension, macular degeneration and other medical problems listed below who presents with worsening infection of right index finger. Noted cracked skin that had opened on the finger 1 week ago that then developed redness and looked infected by last Friday. Redness and swelling increased and went to [facility] on Friday, 09/20. Has noted some improvement of the redness near knuckles and dorsum of hand but worsening swelling noted at the tip of her right index finger as well as some blood-tinged drainage. Denies any fever or chills. No lightheadedness, chest pain, shortness of breath, nausea, vomiting, abdominal pain, dysuria, diarrhea or constipation. Admission Exam Per Admitting Provider General Appearance: WD/WN, vitals as above, NAD, sitting up in bed, pleasant, conversing easily Head: normocephalic, atraumatic Eyes: normal inspection, PERRL, conjunctivae normal, anicteric sclerae ENT: external ear and nose normal, oropharynx normal Neck: normal visual inspection, trachea midline, no thyromegaly Respiratory: normal respiratory effort, lungs clear to auscultation, no wheeze, rales, rhonchi. No accessory muscle use Cardiovascular: regular rate, rhythm, no murmur, normal peripheral pulses, no BLE edema. Vessels: no JVD Chest: normal inspection of chest Abdomen/GI: normal bowel sounds, soft, nontender, no hepatosplenomegaly Extremities/Musculoskeletal: R index finger with dressing c/d/i. No cyanosis or clubbing, extremities motor strength 5/5 Neurologic: PERRL, EOMI, accommodation nl, no face palsy, no dysarthria, CN's II-XI intact bilaterally and moves all extremities Psychiatric: A+Ox3, euthymic affect Skin: no rashes, normal color, warm/dry Principal Dx & Hospital Course #1 = Principal Diagnosis (1) Osteomyelitis of finger of right hand: (2) Acute kidney injury superimposed on CKD: (3) DM type 1 (diabetes mellitus, type 1): (4) Hypertension: (5) Dyslipidemia: Plan This is an 88-year-old female with PMH of type 1 diabetes, dyslipidemia, hypertension, macular degeneration and other medical problems listed below who presents with worsening infection of right index finger with findings consistent with osteomyelitis. She is being managed for the following: Osteomyelitis of finger of right hand Had cracked opening at the tip of her right index finger that became infected, started on Bactrim 09/20 with increased edema and purulent drainage since Finger XR with evidence of osteomyelitis involving the tuft of the second distal phalanx with significant surrounding soft tissue edema. 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 Admitting wound culture with gram-positive cocci. Per orthopedics, possible outpatient debridement/amputation as appropriate. Follow-up with Ortho within a week time upon discharge. Communicated with ID again 09/24 as surgery not happening while admitted, recommends linezolid 600 mg BID x 10 days; f/u w/ Ortho within a week for Sx; f/u w/ ID in 7 to 10 days before antibiotics run out. Rocephin and vancomycin discontinued, linezolid restarted. Probiotics continue. Weekly CBC/CMP/CRP while on antibiotics upon discharge. Wound care recommendations per ortho : Daily dressing change with Xeroform, 4x4 gauze, kerlex - discussed with daughter over the phone, who will be aiding patient with wound care Follow up with ID at [facility] on 09/29 at 11AM JUAN superimposed on CKD -> resolved Cr 1.26 (baseline 0.8-0.9) in setting of recent Bactrim use Likely secondary to recent Bactrim use. Now resolved. Continue home lisinopril for BP control. Continue to follow labs as needed. DM I Follows with [facility] endocrinology Basal/bolus insulin while admitted Glycemic consult placed BSG AC HS HTN: Continue with home lisinopril/Cardizem. Monitor. Dyslipidemia : Continue statin Per discussion with daughter, will ask CM to assess home health options to assist with wound care at home but daughter has been working with nursing to learn process. Discharge Exam Gen: WD/WN, NAD, sitting up in bed, pleasant, A&Ox3 HEENT: Normocephalic, atraumatic, conjunctivae moist, sclerae anicteric, mucous membranes moist Lung: Clear to Auscultation bilaterally, no wheezes/rales/rhonchi Heart: Regular rate, regular rhythm, no murmurs, rubs, or gallops Abdomen: Soft, NT, ND +BS x 4 Extremities: R index finger with dressing c/d/i. No edema Skin: Warm, no rash Updated Medication List Medication Instructions Recorded Confirmed Type acetone (urine) test (Ketostix #25 ea 05/18/19 04/22/23 History strips) diltiazem HCl 360 mg capsule,24 360 mg PO QAM 10/03/19 09/22/23 History hr,extended release lisinopril 40 mg tablet 40 mg PO QAM #30 tabs 10/03/19 09/22/23 History simvastatin 10 mg tablet 10 mg PO DAILY #90 tabs 10/03/19 09/22/23 History blood-glucose meter #1 ea 01/22/21 09/22/23 History vit C 250 mg-vit E 90 mg-zinc 40 2 tab PO BID 01/22/21 04/22/23 History mg-copper 1 [id number] capsule (PreserVision AREDS-2) cholecalciferol (vitamin D3) 125 125 mcg PO QAM 01/22/22 09/22/23 History mcg (5,000 unit) capsule denosumab 60 mg/mL subcutaneous 60 mg subcut UD 01/22/22 09/22/23 History syringe (Prolia) pen needle, diabetic 32 gauge x #600 ea 12/27/22 04/22/23 Rx 5/32" (BD Ultra-Fine Briseyda Pen Needle) insulin syringe-needle U-100 1 mL #200 ea 04/23/23 04/23/23 Rx 31 gauge x 5/16" (BD Insulin Syringe Ultra-Fine) insulin glargine 100 unit/mL (3 See Rx Instructions subcut 09/02/23 09/22/23 Rx mL) subcutaneous pen (Basaglar .COMPLEX #30 mL KwikPen U-100 Insulin) insulin aspart U-100 100 unit/mL 0 unit subcut DAILY 09/22/23 09/22/23 History (3 mL) subcutaneous pen (Novolog FlexPen U-100 Insulin aspart) vit C 250 mg-vit E 90 mg-zinc 40 1 cap PO BID 09/23/23 09/23/23 History mg-copper 1 kz-nvuzee-vswqsd capsule (PreserVision AREDS-2) L.acidop,casei,lactis,rham-B.lact,jian 2 cap PO DAILY #30 caps 09/25/23 Rx 625 mg (10 billion cell) capsule (Advanced Probiotic) linezolid 600 mg tablet 600 mg PO BID #19 tabs 09/25/23 Rx Hospital Stay Data Consultations 09/22/23 15:33 ED Decision to Admit Stat 09/22/23 15:50 Consult Orthopedic Surgery Routine 09/22/23 19:40 Consult Infectious Diseases Routine Diagnostic Imagining Performed 09/22/23 21:10 MRI Hand [MR hand RT wo/w con] Routine Pending Results Patient Have Any Pending Studies at Discharge: No Discharge Instructions Given to Patient (Per Discharging Provider) MEDICATION CHANGES: Linezolid 600mg by mouth twice daily x 10 days for bone infection of R index finger (will need follow up with ID by 10/01 to determine need for continued treatment) Probiotic daily x 10 days for GI Health. SUMMARY OF TEST RESULTS: You were admitted to the hospital for worsening infection of R index finger. 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 Infectious disease recommending antibiotic as above with follow up for possible prolonged course. RECOMMENDATIONS FOR FOLLOW-UP: Follow up with PCP as scheduled. Follow up with orthopedic surgery on 09/28 as above. Complete antibiotic in its entirety. Will need weekly labs (CBC/CMP/CRP) while on antibiotics upon discharge. Daily wound care with Xeroform, 4x4 gauze, kerlex per orthopedic surgery with follow-up on 09/29/23. Surgical cultures to be obtained to determine continued antibiotic treatment. Continue medication regimen as scheduled aside from changes noted above. OTHER INSTRUCTIONS: Seek medical attention if you have: * temperature above 101 * chest pain or trouble breathing * abdominal pain, nausea, vomiting * diarrhea, dark stools or bloody stools * any unanswered questions or concerns Call 911 if symptoms are severe. Please take good care of yourself. Call if you have any questions or problems. You can reach a [facility] hospitalist on duty at [facility] 24 hours a day by calling [phone]. Herminia Terrazas PA-C [facility] Hospitalist Total Time Total Time Spent Total Time Spent (In Minutes): 60 Supervising Physician Co-Signing Physician Notes Patient was seen and examined at bedside as a follow-up of right index finger osteomyelitis of distal phalanx. ID evaluated, patient being discharged on linezolid, patient to follow-up with orthopedics within a week time and ID about a week time. The importance of it has been explained to the patient and her daughter several times. Antibiotic course is not complete and it needs to be determined based on the operative culture results by ID evaluation, patient's daughter is aware of it. Wound care per orthopedic recommendation. On examination: Patient on room air, right index finger with clean dressing without soakage. Rest of the examination as above. I have seen and examined the patient and have discussed the case with the provider above. I agree with the assessment and plan as stated.
[2023-09-25] MEDS: INSULIN ASPART PER UNIT CHARGE SC ONE (14:54)
== END 2023-09-25 15:10 | disposition home health service (06) | DRG 638 ==
LOC: ED 12:54 → EDINP 15:50 → 3N 18:01

== ENCOUNTER 2024-06-10 09:03 | Inpatient (IN) ==
--- NOTE | 2024-06-10 09:35 | Emergency Department Note ---
Impression & Plan Acute dyspnea, Rhinovirus infection, Cough, Generalized weakness ED Provider Note HISTORY OF PRESENT ILLNESS: Patient is a 89-year-old female presenting with cough and shortness of breath. Patient reports she was visiting her 5 days ago who had some respiratory congestion and was recently just diagnosed with pneumonia. States that starting 3 days ago she just had some nasal congestion but over the last 3 days that has progressed to increasing shortness of breath and a cough. Reports the cough is occasionally productive of a white sputum. She denies any notable fevers, but has not taken her temperature. Denies any subjective fevers or chills. She denies any chest pain. Reports has been taking cefv-skr-lktixvu medications with little relief in her symptoms. Reports feeling very winded with minimal activity. She is ambulatory with a cane at baseline. Denies any abdominal pain, nausea or vomiting. ROS: as above PHYSICAL EXAM: Constitutional: Patient appears in no acute distress. HENT: Head: Normocephalic and atraumatic. Eyes: EOMI, PERRL Mouth/Throat: Mucous membranes moist. Neck: Trachea midline. Neck supple. Cardiovascular: Tachycardic with regular rhythm. No murmurs, rubs or gallops. Intact distal pulses. Pulmonary/Chest: No respiratory distress. Breath sounds clear and equal bilaterally. Coarse breath sounds bilaterally Abdominal: Abdomen soft, no tenderness, rebound or guarding. Musculoskeletal: No edema, tenderness or deformity noted. Skin: Warm and dry. No rash, erythema, pallor or cyanosis Psychiatric: Appropriate mood and affect for situation. Neurological: Alert and keenly responsive. CN II-XII grossly intact, moving all extremities equally and fully. MDM: - Vitals signs showed hypertension and tachycardia. - History obtained via patient. History as above. - Chronic conditions affecting care: HLD; DM-1; CKD; HTN - Differential diagnoses include, but are not limited to: Congestive heart failure; acute coronary syndrome; COPD/asthma exacerbation; pulmonary edema; pulmonary embolism; pneumonia; pneumothorax; viral syndrome - Order placed for continuous cardiac monitoring. At this time, monitor showed rate of 78 bpm with normal sinus rhythm, per my interpretation. - External medical records reviewed. Diabetes visit note dated 02/03/2024 was reviewed. Patient is on Levemir and NovoLog. - EKG interpreted by myself showed normal sinus rhythm. Rate tachycardic at 104 bpm. QT 340. No acute ischemic changes. - Laboratory workup interpreted by myself showed normal WBC; normal PT/INR; slight hyponatremia (Na 132); hyperglycemia (glucose 235); normal troponin - CXR negative for pneumonia, per my interpretation - Viral respiratory panel positive for rhinovirus/enterovirus infection - Patient given duoneb in ER. - Patient has had borderline oxygen levels while in the emergency department. Oxygen saturations anywhere from 93 to 94% on room air. Attempted to ambulate the patient, though she did not become hypoxic, she became very short of breath and started having a coughing fit. Also concerned about her being weak with nursing staff while ambulating with her cane. Daughter is concerned about patient's safety going home. Do think patient may benefit from some steroids, but will need close monitoring given her type 1 diabetes history. - Discussion was had with case hardener about patient's case and need for admission - Hospitalist consulted for admission - Patient admitted to [facility] for further evaluation and management. ASSESSMENT AND PLAN: Diagnosis: Acute dyspnea; rhinovirus infection; cough; generalized weakness Plan: Admit Past Med/Surg History Problem List (Updated 06/10/24 @ 13:25 by Emily Underwood MD) Generalized weakness (Acute) Cough (Acute) Rhinovirus infection (Acute) Acute dyspnea (Acute) Contusion, back Acute kidney injury superimposed on CKD CKD (chronic kidney disease), stage III (Chronic) DM type 1 (diabetes mellitus, type 1) (Chronic) Diabetic neuropathy Hypertension Dyslipidemia Osteomyelitis of finger of right hand (Acute) Loss of protective sensation of skin of foot Hypoglycemia unawareness in type 1 diabetes mellitus Albuminuria Spinal stenosis (Chronic) Dyslipidemia (Chronic) Medical History Diabetic neuropathy CKD (chronic kidney disease), stage III DM type 1 (diabetes mellitus, type 1) Hypertension Dyslipidemia Surgical History Hx of breast biopsy History of trabeculectomy S/P cervical spinal fusion History of lumbar fusion History of cataract surgery Family History Mother Heart disease Father Heart disease Cancer Social History Smoking Status: Former smoker Hx Alcohol Use: Yes Alcohol Intake Frequency: Monthly or Less Hx Substance Use: No Preferred Language: Bots[place] Communication Ability: Effective International Marketing Coordinator Required: No Beliefs That Will Affect Care: None Current Living Situation: Alone Current Living Situation Comment: [facility]. [facility]. Feels Safe at Home: Yes Assistive Devices: Cane Allergies Allergies Allergy/AdvReac Type Severity Reaction Status Date / Time Penicillins Allergy Intermediate HIVES Verified 06/10/24 10:38 Home Meds Home Medications Medication Instructions Recorded Confirmed acetone (urine) test (Ketostix #25 ea 05/18/19 02/03/24 strips) diltiazem HCl 360 mg capsule,24 360 mg PO QAM 10/03/19 06/10/24 hr,extended release lisinopril 40 mg tablet 40 mg PO QAM #30 tabs 10/03/19 06/10/24 simvastatin 10 mg tablet 10 mg PO HS #90 tabs 10/03/19 06/10/24 blood-glucose meter #1 ea 01/22/21 02/03/24 vit C 250 mg-vit E 90 mg-zinc 40 2 tab PO BID 01/22/21 06/10/24 mg-copper 1 aq-lzjoso-tdwgyl capsule (PreserVision AREDS-2) denosumab 60 mg/mL subcutaneous 60 mg subcut UD 01/22/22 06/10/24 syringe (Prolia) cholecalciferol (vitamin D3) 125 125 mcg PO 3XWK 02/03/24 06/10/24 mcg (5,000 unit) capsule insulin glargine 100 unit/mL (3 See Rx Instructions subcut QPM 02/03/24 06/10/24 mL) subcutaneous pen (Lantus Solostar U-100 Insulin) aspirin 81 mg tablet,delayed 81 mg PO QAM 06/10/24 06/10/24 release Previous Rx's Medication Instructions Recorded insulin lispro 100 unit/mL See Rx Instructions subcut 10/22/23 subcutaneous pen (Humalog KwikPen .COMPLEX #30 mL (U-100) Insulin) pen needle, diabetic 32 gauge x #600 ea 02/02/24 532" (BD Ultra-Fine Briseyda Pen Needle) Results & Data (ED) Vital Signs Vital Signs - 24 hr 06/10/24 09:11 06/10/24 09:17 06/10/24 09:56 Temperature 36.5 C Temperature Source Temporal Artery Scan Pulse Rate 119 H 98 H 104 H Pulse Rate [Exercises] Pulse Rate [Left Finger] Pulse Rhythm Regular Pulse Rhythm [Left Finger] Pulse Strength [Left Finger] Respiratory Rate 16 20 Respiratory Rate [Exercises] Respiratory Effort / Characteristics Non-Labored Spontaneous Respiratory Depth Normal Respiratory Pattern Blood Pressure 159/79 H Blood Pressure [Right Arm] Blood Pressure Mean 105 Blood Pressure Mean [Right Arm] Blood Pressure Position [Right Arm] Pulse Oximetry 97 90 Pulse Oximetry [Exercises] Oxygen Delivery Method Room Air Room Air Sepsis Recent Fever Within 48 Hours No Sepsis New/Unexplained Change in Mental Status No Sepsis Action Taken by Nursing No Action Required 06/10/24 10:00 06/10/24 11:35 Temperature Temperature Source Pulse Rate Pulse Rate [Exercises] 78 Pulse Rate [Left Finger] 105 H Pulse Rhythm Pulse Rhythm [Left Finger] Regular Pulse Strength [Left Finger] Normal Respiratory Rate 20 Respiratory Rate [Exercises] 20 Respiratory Effort / Characteristics Non-Labored Respiratory Depth Normal Respiratory Pattern Regular Blood Pressure Blood Pressure [Right Arm] 154/74 H Blood Pressure Mean Blood Pressure Mean [Right Arm] 100 Blood Pressure Position [Right Arm] Lying Pulse Oximetry 93 Pulse Oximetry [Exercises] 93 Oxygen Delivery Method Room Air Room Air Sepsis Recent Fever Within 48 Hours Sepsis New/Unexplained Change in Mental Status Sepsis Action Taken by Nursing Laboratory Data 06/10/24 09:49 06/10/24 09:49 Lab Results 06/10/24 06/10/24 06/10/24 Range/Units 09:49 10:00 11:45 WBC 8.75 (4.8-10.8) K/ul RBC 3.94 L (4.20-5.40) M/uL Hgb 12.6 (12.0-16.0) g/dl Hct 37.1 (37.0-47.0) % MCV 94.2 (80.0-100.0) fL MCH 32.0 (25.0-34.0) pg MCHC 34.0 (32.0-36.0) g/dL RDW Std Deviation 46.1 (36.4-46.3) fL RDW Coeff of Chuy 13.4 (11.5-14.5) % Plt Count 166 (130-400) K/uL MPV 10.1 (9.4-12.4) fL Immature Gran % (Auto) 0.3 % Neut % (Auto) 91.0 % Lymph % (Auto) 2.7 % [place] % (Auto) 5.1 % Eos % (Auto) 0.8 % Baso % (Auto) 0.1 % Neut # (Auto) 7.95 H (1.40-6.50) K/uL Lymph # (Auto) 0.24 L (1.20-3.40) K/uL Winston # (Auto) 0.45 (0.11-0.59) K/uL Eos # (Auto) 0.07 (0.00-0.50) K/uL Baso # (Auto) 0.01 (0.00-0.20) K/uL Immature Gran # (Auto) 0.03 (0.01-0.20) K/uL Polychromasia 1+ Ovalocytes 1+ PT 10.7 (9.0-12.0) Seconds INR 1.0 (0.9-1.1) Sodium 132 L (136-145) mmol/L Potassium 4.5 (3.5-5.1) mmol/L Chloride 101 (98-107) mmol/L Carbon Dioxide 24 (21-32) mmol/L Anion Gap 7 (3-11) BUN 19 (6-23) mg/dl Creatinine 0.83 (0.6-1.2) mg/dl Est Cr Clr Drug Dosing 31.4 ml/min eGFR 67.34 BUN/Creatinine Ratio 22.9 H (10-20) Glucose 235 H (70-99(Fasting)) mg/dl Calcium 9.3 (8.6-10.3) mg/dl Magnesium 1.7 (1.7-2.4) mg/dl Total Bilirubin 0.4 (0.2-1.0) mg/dl AST 20 (13-39) U/L ALT 14 (7-52) U/L Alkaline Phosphatase 62 (34-104) U/L Troponin I High Sens 8.6 (0-14) pg/ml Total Protein 6.4 (6.0-8.3) gm/dl Albumin 3.8 (3.4-5.0) gm/dl Globulin 2.6 (2.5-4.0) gm/dl Albumin/Globulin Ratio 1.5 (0.9-2) Urine Color Yellow Urine Appearance Clear (Clear) Urine pH 6.0 (4.5-7.5) Ur Specific [place] 1.018 (1.000-1.030) Urine Protein Trace H (Negative) Urine Glucose (UA) Negative (Negative) Urine Ketones 1+ H (Negative) Urine Blood Negative (Negative) Urine Nitrite Negative (Negative) Urine Bilirubin Negative (Negative) Urine Urobilinogen Negative (Negative) Ur Leukocyte Esterase Negative (Negative) Urine WBC (Auto) 0-5 (0-5) /hpf Urine RBC (Auto) 3-5 H (0-2) /hpf U Hyaline Cast (Auto) 0-2 (0-2) /lpf U Epithel Cells (Auto) 0-2 (0-2) /hpf Urine Bacteria (Auto) None Seen (None Seen) Adenovirus (PCR) Not Detected (NotDetected) B. pertussis DNA (PCR) Not Detected (NotDetected) B.parapertussis DNA PCR Not Detected (NotDetected) C. pneumoniae DNA (PCR) Not Detected (NotDetected) Coronavirus OC43 (PCR) Not Detected (NotDetected) Coronavirus HKU1 (PCR) Not Detected (NotDetected) Coronavirus 229E (PCR) Not Detected (NotDetected) SARS-CoV-2 (PCR) Not Detected (NotDetected) Coronavirus NL63 (PCR) Not Detected (NotDetected) Human Metapneumovir PCR Not Detected (NotDetected) Influenza Type A (PCR) Not Detected (NotDetected) Influenza Type B (PCR) Not Detected (NotDetected) M. pneumoniae (PCR) Not Detected (NotDetected) Parainfluenza 1 (PCR) Not Detected (NotDetected) Parainfluenza 2 (PCR) Not Detected (NotDetected) Parainfluenza 3 (PCR) Not Detected (NotDetected) Parainfluenza 4 (PCR) Not Detected (NotDetected) RSV (PCR) Not Detected (NotDetected) Entero/Rhino (PCR) DETECTED A (NotDetected) Imaging Data Radiologist's Impression: Chest X-Ray 06/10/24 09:17 XR chest 1V portable CLINICAL HISTORY: Dyspnea COMPARISON STUDY: Chest radiograph October 01, 2017. Chest CT October 02, 2017. FINDINGS: Lung volumes are normal. The left basilar densities represent atelectasis. There is no pneumothorax or pleural effusion. Cardiac size is normal. Mediastinal contours are normal. There is no evidence for pulmonary edema. Postoperative findings within the spine are partially imaged. IMPRESSION: No acute cardiopulmonary findings. No change in appearance of the chest. ACT 112: Negative or not required by law. Electronically signed by: Saeed Valadez M.D. 06/10/2024 10:04 AM Discharge Plan Visit Data Chief Complaint: Flu Like Symptoms Stated Complaint: CONGESTION, SOB, COUGH ED Provider: Emily Underwood Discharge Problem: Acute dyspnea, Rhinovirus infection, Cough, Generalized weakness Forms Stand Alone Forms: [facility] DocDep Prescriptions Prescriptions: No Action insulin lispro [Humalog KwikPen Insulin] 100 unit/mL insulin pen See Rx Instructions subcut .COMPLEX MDD 30 units Qty: 30 3RF Rx Instructions: subcutaneously; Inject 5 units before breakfast, 4 units before lunch and 9 units before supper, plus sliding scale PLEASE NOTE DOSE CHANGE AT LUNCH AND SUPPER. (DME) pen needle, diabetic [BD Ultra-Fine Briseyda Pen Needle] 32 gauge x 5/32" needle See Dose Instructions .ROUTE .MEDSUPPLY Qty: 600 3RF Rx Instructions: use 6 needles daily (DME) Ketostix strip See Dose Instructions .ROUTE .MEDSUPPLY Qty: 25 Rx Instructions: as needed diltiazem HCl 360 mg capsule,extended release 24 hr 360 mg PO QAM simvastatin 10 mg tablet 10 mg PO HS Qty: 90 lisinopril 40 mg tablet 40 mg PO QAM Qty: 30 (DME) blood-glucose meter [facility] See Rx Instructions .ROUTE .MEDSUPPLY Qty: 1 Rx Instructions: Reli-On brand. Test blood sugar four times daily Prolia 60 mg/mL syringe 60 mg subcut UD Rx Instructions: Every 6 months cholecalciferol (vitamin D3) 125 mcg (5,000 unit) capsule 125 mcg PO 3XWK Rx Instructions: 125 mcg orally M-W-; breakfast PreserVision AREDS-2 250-90-40-1 mg capsule 2 tab PO BID Rx Instructions: administer with meals insulin glargine [Lantus Solostar U-100 Insulin] 100 unit/mL (3 mL) insulin pen See Rx Instructions subcut QPM Rx Instructions: Inject subcutaneously twice daily for basal insulin coverage. Inject 10 units in AM and 5 units in PM aspirin 81 mg Tablet,Delayed Release (Dr/Ec) 81 mg PO QAM Referrals Referrals: Albino Magaña MD [Primary Care Provider] -
--- NOTE | 2024-06-10 10:06 | XRay Report ---
XR chest 1V portable CLINICAL HISTORY: Dyspnea COMPARISON STUDY: Chest radiograph October 01, 2017. Chest CT October 02, 2017. FINDINGS: Lung volumes are normal. The left basilar densities represent atelectasis. There is no pneu mothorax or pleural effusion. Cardiac size is normal. Mediastinal contours are normal. There is no ev idence for pulmonary edema. Postoperative findings within the spine are partially imaged. IMPRESSION: No acute cardiopulmonary findings. No change in appearance of the chest. ACT 112: Negative or not required by law. Electronically signed by: Saeed Valadez M.D. 06/10/2024 10:04 AM
[2024-06-10 10:31] LABS: Hematocrit (blood only) 37.1 % (37.0-47.0); Hemoglobin 12.6 g/dl (12.0-16.0); Mean Corpuscular Volume 94.2 fL (80.0-100.0); Mean Platelet Volume 10.1 fL (9.4-12.4); Platelet Count 166 K/uL (130-400); RDW Coefficient of Variation 13.4 % (11.5-14.5); RDW Standard Deviation 46.1 fL (36.4-46.3); Red Blood Count 3.94 M/uL (4.20-5.40); White Blood Count 8.75 K/ul (4.8-10.8)
[2024-06-10 10:47] LABS: Albumin Globulin Ratio 1.5 (0.9-2); Albumin Level 3.8 gm/dl (3.4-5.0); BUN Creatinine Ratio 22.9 (10-20); Bilirubin,Total 0.4 mg/dl (0.2-1.0); Calcium 9.3 mg/dl (8.6-10.3); Creatinine Clr Calc Pharmacy 31.4 ml/min; Globulin 2.6 gm/dl (2.5-4.0); Magnesium 1.7 mg/dl (1.7-2.4); Potassium 4.5 mmol/L (3.5-5.1); Total Protein 6.4 gm/dl (6.0-8.3)
[2024-06-10 11:11] LABS: Basophils # (auto) 0.01 K/uL (0.00-0.20); Basophils % (auto) 0.1 %; Eosinophils # (auto) 0.07 K/uL (0.00-0.50); Eosinophils % (auto) 0.8 %; Immature Granulocytes # (auto) 0.03 K/uL (0.01-0.20); Immature Granulocytes % (auto) 0.3 %; Lymphocytes # (auto) 0.24 K/uL (1.20-3.40); Lymphocytes % (auto) 2.7 %; Monocytes # (auto) 0.45 K/uL (0.11-0.59); Monocytes % (auto) 5.1 %; Neutrophils # (auto) 7.95 K/uL (1.40-6.50); Ovalocytes 1+; Polychromasia 1+
[2024-06-10 11:21] LABS: Adenovirus PCR Not Detected (NotDetected); Bordetella parapertussis PCR Not Detected (NotDetected); Bordetella pertussis PCR Not Detected (NotDetected); Chlamydia pneumoniae PCR Not Detected (NotDetected); Coronavirus 229E PCR Not Detected (NotDetected); Coronavirus CoV-2 (COVID19)PCR Not Detected (NotDetected); Coronavirus HKU1 PCR Not Detected (NotDetected); Coronavirus NL63 PCR Not Detected (NotDetected); Coronavirus OC43PCR Not Detected (NotDetected); Human Metapneumovirus PCR Not Detected (NotDetected); Influenza A PCR Not Detected (NotDetected); Influenza B PCR Not Detected (NotDetected); Mycoplasma pneumoniae PCR Not Detected (NotDetected); Parainfluenza Virus 1 PCR Not Detected (NotDetected); Parainfluenza Virus 2 PCR Not Detected (NotDetected); Parainfluenza Virus 3 PCR Not Detected (NotDetected); Parainfluenza Virus 4 PCR Not Detected (NotDetected); Respiratory Syncytial VirusPCR Not Detected (NotDetected); Rhinovirus/Enterovirus PCR DETECTED (NotDetected)
[2024-06-10 11:38] LABS: Prothrombin Time 10.7 Seconds (9.0-12.0)
[2024-06-10 13:03] LABS: Appearance Urine Clear (Clear); Bacteria Urine Automated None Seen (None Seen); Bilirubin Urine Negative (Negative); Blood Urine Negative (Negative); Cast Urine Automated 0-2 /lpf (0-2); Color Urine Yellow; Epithelial Cell Urine Auto 0-2 /hpf (0-2); Glucose Urine UA Negative (Negative); Ketones Urine 1+ (Negative); Leukocyte Esterase Urine Negative (Negative); Nitrite Urine Negative (Negative); Protein Urine Trace (Negative); Specific Gravity Urine 1.018 (1.000-1.030); Urobilinogen Urine Negative (Negative); WBC Urine Automated 0-5 /hpf (0-5)
[2024-06-10] MEDS: ALBUT/IPRATROP 3MG/0.5MG NEB 3 ML VIAL NEB STA (13:35)
--- NOTE | 2024-06-10 14:29 | History & Physical Report ---
Date of Service June 10, 2024 Assessment & Plan (1) Acute bronchitis: (2) Rhinovirus infection: (3) Generalized weakness: (4) DM type 1 (diabetes mellitus, type 1): (5) CKD (chronic kidney disease), stage III: (6) Hypertension: Plan This is an 89-year-old female who has a significant past medical history of type 1 diabetes mellitus, pulmonary hypertension, CKD stage III, mild mitral regurgitation, osteoporosis, macular degeneration, lumbar spinal stenosis and history of tobacco use who who presents to ED secondary to increasing shortness of breath and cough. Acute bronchitis Rhinovirus infection Generalized weakness Admit to medical prednisone 40 mg orally daily for 5 days scheduled lev albuterol every 6 hours, incentive spirometry, as needed antitussives PT/OT monitor oxygen saturation for possible oxygen need no indication for antibiotics check procalciton type 1 diabetes mellitus: A1c on 05/20 was 6.9, follows [facility] endocrinology, well-controlled, Lantus/NovoLog per protocol, glycemic pharmacy secondary to steroid use, appreciate their assistance hypertension: Chronic, stable continue lisinopril and diltiazem Hyperlipidemia: Chronic, stable continue statin macular degeneration: Follows ophthalmology, continue AREDS DVT prophylaxis: Subcu heparin every 12 FULL CODE PCP: Gómez dispo: Admit to medical, likely remain hospitalized for 48 hours, PT OT, likely discharge to home with possible home health Patient was seen and examined in collaboration with Dr. Ross mitchell, please see addendum I spent a total of 76 minutes reviewing notes, outpatient records, labs, medication, coordinating, documenting and providing care for this patient excluding time spent in the performance of separately billed services. History of Present Illness Primary Care Provider: Albino Magaña MD This is an 89-year-old female who has a significant past medical history of type 1 diabetes mellitus, pulmonary hypertension, CKD stage III, mild mitral regurgitation, osteoporosis, macular degeneration, lumbar spinal stenosis and history of tobacco use who who presents to ED secondary to increasing shortness of breath and cough. History is provided by patient and daughter at bedside. Outpatient chart reviewed as well. She reports visiting her in a retirement on Friday who came down with respiratory symptoms and was recently diagnosed with pneumonia. Her symptoms started shortly after including a wet occasionally productive cough, increasing shortness of breath, wheezing and generally feeling unwell. She also complains of a generalized weakness. She lives alone at home with her cat. Her daughter does check in on her regularly. She ambulates with a cane. She does not currently smoke but did 20 years ago. She denies any prior history any asthma or COPD, but states when she gets a cold it always, "goes to her lungs. She has been using evcl-vfr-ubpnanc Delsym and Coricidin with minimal relief. Last evening she was unable to sleep due to the chest congestion. In ED patient remained hemodynamically stable although mildly hypertensive. Her CBC and CMP was generally unremarkable except for mild hyperglycemia at 235. Her respiratory bio fire was positive for entero-/rhinovirus. Her chest x-ray was negative for pneumonia. She was not requiring any oxygen but her oxygen saturations were borderline low around 90 to 92% on room air. In ED she received an albuterol nebulizer treatment. She was recommended for hospitalization due to living alone, generalized weakness and concern for progressing symptoms. Allergies Allergy/AdvReac Type Severity Reaction Status Date / Time Penicillins Allergy Intermediate HIVES Verified 06/10/24 10:38 Home Medications Medication Instructions Recorded Confirmed Type diltiazem HCl 360 mg capsule,24 360 mg PO QAM 10/03/19 06/10/24 History hr,extended release lisinopril 40 mg tablet 40 mg PO QAM #30 tabs 10/03/19 06/10/24 History simvastatin 10 mg tablet 10 mg PO HS #90 tabs 10/03/19 06/10/24 History vit C 250 mg-vit E 90 mg-zinc 40 2 tab PO BID 01/22/21 06/10/24 History mg-copper 1 or-rrybdt-mehydl capsule (PreserVision AREDS-2) denosumab 60 mg/mL subcutaneous 60 mg subcut UD 01/22/22 06/10/24 History syringe (Prolia) insulin lispro 100 unit/mL See Rx Instructions subcut 10/22/23 06/10/24 Rx subcutaneous pen (Humalog KwikPen .COMPLEX #30 mL (U-100) Insulin) cholecalciferol (vitamin D3) 125 125 mcg PO 3XWK 02/03/24 06/10/24 History mcg (5,000 unit) capsule insulin glargine 100 unit/mL (3 See Rx Instructions subcut QPM 07/09/24 11/14/24 History mL) subcutaneous pen (Lantus Solostar U-100 Insulin) aspirin 81 mg tablet,delayed 81 mg PO QAM 06/10/24 06/10/24 History release Past Med/Surg History Problem List (Updated 06/10/24 @ 14:23 by Chitra Hoffmann PA-C) Acute bronchitis Generalized weakness (Acute) Cough (Acute) Rhinovirus infection (Acute) Acute dyspnea (Acute) Contusion, back Acute kidney injury superimposed on CKD CKD (chronic kidney disease), stage III (Chronic) DM type 1 (diabetes mellitus, type 1) (Chronic) Diabetic neuropathy Hypertension Dyslipidemia Osteomyelitis of finger of right hand (Acute) Loss of protective sensation of skin of foot Hypoglycemia unawareness in type 1 diabetes mellitus Albuminuria Spinal stenosis (Chronic) Dyslipidemia (Chronic) Surgical History Hx of breast biopsy History of trabeculectomy S/P cervical spinal fusion History of lumbar fusion History of cataract surgery Family History Mother Heart disease Father Heart disease Cancer Social History Smoking Status: Former smoker Hx Alcohol Use: Yes Alcohol Intake Frequency: Monthly or Less Hx Substance Use: No Preferred Language: Georgian Communication Ability: Effective 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 lives at [facility]. Feels Safe at Home: Yes Assistive Devices: Cane Review of Systems Review of Systems: All systems reviewed & are unremarkable except as noted in HPI & below Physical Exam Physical Exam: Constitutional: thin, barrel chested, elderly female, alert and oriented x 3 and very conversive, mildly hard of hearing, no acute distress and sitting up in bed Head: Normocephalic, Atraumatic Eyes: PERRL, conjunctivae normal, anicteric sclerae ENMT: external ear and nose normal, oropharynx normal Neck: trachea midline, no thyromegaly normal visual inspection Respiratory: normal respiratory effort, bilateral scattered wheezing, minimal inspiration exacerbated cough, no rales or rhonchi . no accessory muscle use Cardiovascular: RRR, 1/6 KYLEIGH noted LUSB, no edema Vessels: no JVD or carotid bruit Chest: normal inspection of chest Abdomen: normal bowel sounds, soft, nontender, no hepatosplenomegaly Musculoskeletal: no cyanosis or clubbing, extremities motor strength 5/5 Skin: no rashes, warm and dry normal turgor Neurologic: PERRL, EOMI, accommodation nl, no face palsy, no dysarthria CN's II-XI intact bilaterally and moves all extremities Psychiatric: A+Ox3, euthymic affect Lymphatic: no cervical or axillary lymphadenopathy : deferred Results & Data Results & Data Vital Signs (Past 12 Hours) Vital Signs Temp Pulse Pulse Pulse Resp Resp BP 06/10/24 13:57 81 06/10/24 11:35 78 20 06/10/24 10:00 105 H 20 06/10/24 09:56 104 H 06/10/24 09:17 98 H 20 06/10/24 09:11 36.5 C 119 H 16 159/79 H BP Pulse Ox Pulse Ox O2 Del Method 06/10/24 13:57 06/10/24 11:35 93 Room Air 06/10/24 10:00 154/74 H 93 Room Air 06/10/24 09:56 06/10/24 09:17 90 Room Air 06/10/24 09:11 97 Room Air Laboratory Results I have independently reviewed and interpreted patient's admitting labs including CBC, CMP,bnp ,resp biofire, ua, pt/inr, mag, trop Diagnostic Findings Chest X-Ray 06/10/24 09:17 XR chest 1V portable CLINICAL HISTORY: Dyspnea COMPARISON STUDY: Chest radiograph October 01, 2017. Chest CT October 02, 2017. FINDINGS: Lung volumes are normal. The left basilar densities represent atelectasis. There is no pneumothorax or pleural effusion. Cardiac size is normal. Mediastinal contours are normal. There is no evidence for pulmonary edema. Postoperative findings within the spine are partially imaged. IMPRESSION: No acute cardiopulmonary findings. No change in appearance of the chest. ACT 112: Negative or not required by law. Electronically signed by: Saeed Valadez M.D. 06/10/2024 10:04 AM Medications Administered Medication List Discontinued Medications Albuterol (Albut/Ipratrop 3mg/0.5mg Neb 3 Ml Vial) 3 ml NEB NOW STA; Protocol Stop: 06/10/24 13:22 Last Admin: 06/10/24 13:35 Dose: 3 ml Documented By: VME ECG Additional Comments: I have independently reviewed and interpreted patient's admitting EKG which revealed: 104 bpm, sinus tachycardia, no ST or T wave changes, left anterior fascicular block COVID-19 Results Results COVID-19 Adm Lab Results: RBC 3.94 M/uL (4.20-5.40) L 06/10/24 WBC 8.75 K/ul (4.8-10.8) 06/10/24 Hgb 12.6 g/dl (12.0-16.0) 06/10/24 Hct 37.1 % (37.0-47.0) 06/10/24 Plt Count 166 K/uL (130-400) 06/10/24 Neutrophils (%) (Auto) 91.0 % 06/10/24 Lymphocytes (%) (Auto) 2.7 % 06/10/24 Monocytes # (Auto) 0.45 K/uL (0.11-0.59) 06/10/24 Eosinophils # (Auto) 0.07 K/uL (0.00-0.50) 06/10/24 Immature Granulocyte % (Auto) 0.3 % 06/10/24 Neutrophils # (Auto) 7.95 K/uL (1.40-6.50) H 06/10/24 Lymphocytes # (Auto) 0.24 K/uL (1.20-3.40) L 06/10/24 Monocytes # (Auto) 0.45 K/uL (0.11-0.59) 06/10/24 Eosinophils # (Auto) 0.07 K/uL (0.00-0.50) 06/10/24 Basophils # (Auto) 0.01 K/uL (0.00-0.20) 06/10/24 Immature Granulocyte # (Auto) 0.03 K/uL (0.01-0.20) 4 Polychromasia 1+ 06/10/24 Ovalocytes 1+ 06/10/24 Na 132 mmol/L (136-145) L 06/10/24 K 4.5 mmol/L (3.5-5.1) 06/10/24 Cl 101 mmol/L (98-107) 06/10/24 CO2 24 mmol/L (21-32) 06/10/24 Anion Gap 7 (3-11) 06/10/24 BUN 19 mg/dl (6-23) 06/10/24 Creatinine 0.83 mg/dl (0.6-1.2) 06/10/24 BUN/Creatinine Ratio 22.9 (10-20) H 06/10/24 Glucose Level 235 mg/dl (70-99(Fasting)) H 06/10/24 Ca 9.3 mg/dl (8.6-10.3) 06/10/24 Total Bilirubin 0.4 mg/dl (0.2-1.0) 06/10/24 AST/SGOT 20 U/L (13-39) 06/10/24 ALT/SGPT 14 U/L (7-52) 06/10/24 Alkaline Phosphatase 62 U/L (34-104) 06/10/24 Total Protein 6.4 gm/dl (6.0-8.3) 06/10/24 Albumin 3.8 gm/dl (3.4-5.0) 06/10/24 Globulin 2.6 gm/dl (2.5-4.0) 06/10/24 Albumin/Globulin Ratio 1.5 (0.9-2) 06/10/24 Procalcitonin 0.06 ng/ml (0-0.5) 06/10/24 INR 1.0 (0.9-1.1) 06/10/24 Adenovirus (PCR) Not Detected (NotDetected) 06/10/24 B. parapertussis DNA (PCR) Not Detected (NotDetected) 05/28 11/18 B. pertussis DNA (PCR) Not Detected (NotDetected) 06/10/24 C. pneumoniae DNA (PCR) Not Detected (NotDetected) Coronavirus Type OC43 (PCR) Not Detected (NotDetected) Coronavirus Type HKU1 (PCR) Not Detected (NotDetected) Coronavirus Type 229E (PCR) Not Detected (NotDetected) COVID-19 PCR Not Detected (NotDetected) 06/10/24 Coronavirus Type NL63 (PCR) Not Detected (NotDetected) Human Metapneumovirus (PCR) Not Detected (NotDetected) Influenza Virus Type A (PCR) Not Detected (NotDetected) Influenza Virus Type B (PCR) Not Detected (NotDetected) M. pneumoniae (PCR) Not Detected (NotDetected) 06/10/24 Parainfluenza Type 1 (PCR) Not Detected (NotDetected) 05/28 11/18 Parainfluenza Type 2 (PCR) Not Detected (NotDetected) 05/28 11/18 Parainfluenza Type 3 (PCR) Not Detected (NotDetected) 05/28 11/18 Parainfluenza Type 4 (PCR) Not Detected (NotDetected) 05/28 11/18 RSV (PCR) Not Detected (NotDetected) 06/10/24 Enterovirus/Rhinovirus (PCR) DETECTED (NotDetected) A 05/28 11/18 Chest X-Ray 06/10/24 Code Status & VTE Plan Code Status full code VTE Prophylaxis Plan VTE Prophylaxis will be ordered: Yes Supervising Physician Co-Signing Physician Notes 89-year-old lady with PMH of T1DM, pulmonary hypertension, CKD stage III, osteoporosis, macular degeneration, lumbar spinal stenosis and tobacco use presents to the ED with increasing shortness of breath and cough since last few days 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 Patient reports cough with clear sputum, denies sore throat/nausea/vomiting/fever. Patient reports having diarrhea a few days ago but has already improved. Patient reports progressively not feeling well and hence decided to presented to the ED. Labs and imagings reviewed. Labs fairly WNL, sodium level closer to her baseline.UA negative for UTI, respiratory pathogen panel positive for enterovirus. CXR with no acute finding. Acute problem: Rhinovirus upper respiratory tract infection/bronchitis: Patient with rhonchi on exam. Prednisone. Nebulizations. Incentive spirometer. Monitor off antibiotic. On exam: GENERAL: Alert and oriented x3. NAD, on RA. [place]. HEENT: No pallor, no icterus. Pupils equal, round and reactive to light. Oral mucosa moist. NECK: No JVD, no neck masses. HEART: S1 and S2 heard. Regular rate and rhythm. No murmur, no gallop. RESPIRATORY SYSTEM: Normal AP diameter. No accessory muscle use. bl crackles and rhonchi noted. ABDOMEN: Soft, bowel sounds present, nontender, no distention. CENTRAL NERVOUS SYSTEM: No facial droop. Speech is clear. Obeys simple commands. Moves extremities. EXTREMITIES: No edema, no erythema seen. I have seen and examined the patient and have discussed the case with the provider above. I agree with the assessment and plan as stated. time spent: 30 min.
[2024-06-10] MEDS: predniSONE 20 MG TAB PO STA (14:53)
[2024-06-10] MEDS ORDERED: GLUCAGON FOR INJ 1 MG VIAL SQ PRN (16:19)
[2024-06-10] MEDS ORDERED: MELATONIN 3 MG TAB PO PRN (16:19)
[2024-06-10] MEDS ORDERED: GLUCOSE 40% GEL 15 GM TUBE PO PRN (16:19)
[2024-06-10] MEDS ORDERED: ONDANSETRON INJ 2 MG/ML 2 ML VIAL IV PRN (16:19)
[2024-06-10] MEDS ORDERED: PHARMACY GLYCEMIC MGMT CONSULT PRN (16:19)
[2024-06-10] MEDS ORDERED: GLUCOSE 10 TAB/TUBE PO PRN (16:19)
[2024-06-10] MEDS ORDERED: MAGNESIUM HYDROXIDE SUSP 30 ML UDC PO PRN (16:19)
[2024-06-10] MEDS ORDERED: DEXTROSE 50% 50 ML SYRINGE IV PRN (16:19)
[2024-06-10] MEDS ORDERED: POLYETHYLENE (MIRALAX) 17 GM PACK PO PRN (16:19)
--- NOTE | 2024-06-10 17:13 | Electrocardiogram Report ---
Test Reason : Blood Pressure : */* mmHG Vent. Rate : 104 BPM Atrial Rate : 104 BPM P-R Int : 168 ms QRS Dur : 84 ms QT Int : 340 ms P-R-T Axes : 77 -45 77 degrees QTcB Int : 447 ms Sinus tachycardia Left atrial enlargement Left anterior fascicular block Abnormal ECG When compared with ECG of 12-Oct-2023 10:49, No significant change was found Confirmed by Tony Slavador ([id number]) on 06/10/2024 5:13:17 PM Referred By: REFERRED SELF Confirmed By: Tony Salvador
[2024-06-10] MEDS: INSULIN ASPART PER UNIT CHARGE SC SCH (18:31)
[2024-06-10] MEDS: LANTUS PER UNIT CHARGE SQ ONE (18:32)
[2024-06-10] MEDS: CEROVITE ADV FORMULA TAB PO SCH (18:55)
--- OUTSIDE RECORDS SUMMARY | 2024-06-10 19:20 | External Medical Summary ---
Author Name Unknown Address Unknown Organization [id number]:[facility] [place] - [address] [facility] [id number] Laboratory Report Ordering Provider Test Date Status ANNA VILLEGAS 05/20/2024 09:17:51 Final Observation Date Value Abnormality Reference (Units ) Status HbA1C 05/20/2024 09:17:51 6.9 Above high normal 4. 0-5.6 (%) Final The use of HbA1c to monitor glycemic status is based on normal hemoglobin and HbA composition. This test should not be used in patients with abnormal hemoglobin that affects the half life of the red blood cell or the in vivo glycation rates. Glucose, estimated average 05/20/2024 09:17:51 151 Above high normal <126 (mg/dL) Chan hayden Performing Location [facility] [place] - [address] [facility] [id number]
--- OUTSIDE RECORDS SUMMARY | 2024-06-10 19:20 | External Medical Summary | Summary of Care ---
Author Name Unknown Organization [facility] Address [address] [place] [address] Phone [phone] Care Team Providers Care Mascara Molder Name Role Phone Albino Magaña MD Primary Care Provider + Reason for Visit * Reason Comments Follow Up 6 month follow up. P atient denies any concerns. 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 use 3 times daily. 270 Each 3 01/18/2014 Active Insulin Syringes, Disposable, U-100 1 ML MISCIndications:Ty pe 1 diabetes mellitus with hemoglobin A1c goal of less than 7.5% ([facility]) Use as directed daily. 1 Box Dosing Unit 5 08/05/2016 Active glucagon (GLUCAGON EMERGENCY) 1 MG KITIndications:Typ e 1 diabetes mellitus with hemoglobin A1c goal of less than 7.5% ([facility]) As directed 1 Kit 5 01/20/2019 Active Blood Glucose Monitoring Suppl (RELION PREMIER COMPACT SYSTEM) w/Device KIT Use as directed. Test 4 times daily as directed. Active Glucose Blood In Vitro Strip Test 4 times daily as directed. Active ReliOn Lancets Micro-Thin 33G MISC Use as directed. Test 4 times daily as directed. Active Multiple Vitamins-Minerals (PRESERVISION AREDS 2+MULTI VIT) CAPS Take 1 Cap by mouth 2 times a day. 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 Apply to right elbow as needed Active Simvastatin 10 MG Oral Tablet (Zocor)Indications :Dyslipidemia, goal LDL below 100 TAKE ONE TABLET BY MOUTH ONCE DAILY AT BEDTIME 90 Tablet 2 09/08/2023 Active Lisinopril 40 MG Oral TabletIndications: HTN, goal below 140/90 TAKE 1 TABLET BY MOUTH ONCE DAILY 90 Tablet 2 09/08/2023 Active Aspirin 81 MG Oral Tablet Delayed Release Take 1 Tablet by mouth in the morning. 12/09/2023 Active Lantus SoloStar 100 UNIT/ML Subcutaneous Solution Pen-injector 10 units in the morning and 5 units in the evening 10/22/2023 Active Insulin Lispro (1 Unit Dial) 100 UNIT/ML Subcutaneous Solution Pen-injector (Admelog) 10/22/2023 Active dilTIAZem HCl ER Beads 360 MG Oral Capsule Extended Release 24 Hour (Tiazac)Indication s:HTN, goal below 140/90 TAKE 1 CAPSULE BY MOUTH ONCE DAILY 90 Capsule 1 04/10/2024 Active Erythromycin 5 MG/GM Ophthalmic Ointment Apply 0.25 inch ribbon of ointment to both eyelid incisions four times daily for two weeks then at bedtime for four weeks 3.5 g 3 03/31/2024 4 Discontinue d(Patient preference/ discontinua tion) Ciprofloxacin HCl 500 MG Oral Tablet (Cipro)Indications :Cellulitis of toe of left foot Take 1 Tablet by mouth in the morning and 1 Tablet before bedtime. Do all this for 10 days. 20 Tablet 05/05/2024 4 Discontinue d(Patient preference/ discontinua tion) Linezolid 600 MG Oral Tablet (Zyvox)Indications :Cellulitis of toe of left foot Take 1 Tablet by mouth in the morning and 1 Tablet before bedtime. 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 SPINAL STENOSIS-LUMBAR 09/05/2005 Spondylolisthesis 09/05/2005 documented as of this encounter (statuses as of 05/20/2024) Resolved Problems Problem Noted Date Diagnosed Date [...] Dr. Doran. Lumbosacral spondylosis 12/15/200203/29 DISC DIS [id number] 11/17/200205/29 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 Osteoporosis 06/16/2008 PURE HYPERCHOLESTEROLEM /02/2009 Overview: Per Lipid Taxonomy. DIFFUS CYSTIC MASTOPATHY Osteoporosis 04/22/2017 Overview: Osteopenia HTN, goal to be determined 1 08/20/2008 Overview: Modified per HTN protocol #16. documented as of this encounter (statuses as of 05/20/2024) Immunizations Name Administration Dates Next Due COVID-19 mRNA, LNP-s, No Pre serve, 2-Dose Series (Logi-Serve) 02/15/2022,06/04/2021,09/20/2020,08/30 COVID-19, LNP-s, No Preserve , [place]-sucrose, Ages 12+ (Pfizer) 02/15/2022 COVID-19, MRNA-LNP, 23-24, P F, 30 MCG/0.3 mL, 12 YRS AND ABOVE, IM (PFIZER-Comirnaty) 06/15/2023,05/14/2023 COVID-19, MRNA-LNP, 24-25, P R, 30MCG/0.3ML, IM, 12YRS AND ABOVE (Pfizer-Comirnaty) 06/15/2023,05/14/2023 Covid-19, Mrna, Lnp-s, Pf, B ivalent, 30 Mcg, IM, 12 yrs and above (Pfizer) 10/04/2022 H1N1 2009 Influenza, IM 07/24/2009 Pneumococcal Conjugate Vacc, 13 Valent (Prevnar) 09/01/2014 Pneumococcal Polysaccharide PPV23 (Pneumovax) 04/23/2010 Season Influenza, Quad, PF, Adjuvanted, 65+ Yrs, IM (FLUAD) 05/14/2023,04/19/2022,04/05/2021,03/30 Seasonal Influenza Vac., MDV , IM, 0.5 mL (Fluzone) 04/22/2014,05/24/2013,04/24/2012,04/15,04/23/2010,04/20/2009,05/02/2008 ,05/14/2007,04/28/2006 Seasonal Influenza Virus Vac cine, Unspecified Formulation 05/19/2024,04/18/2022 Seasonal Influenza, PF, 6 M & above, IM , (FluLaval or Fluzone) 04/14/2019,04/02/2018,04/22/2017 Seasonal Influenza, Quadriva lent Hd (Fluzone Hd) 04/09/2023 Seasonal Influenza, Quadriva lent, No Preserve, IM 04/09/2016,05/02/2015 TD, Preservative Free 11/02/2007 TDAP (age 10 and older)(Boostrix) 03/03/2015 Varicella Zoster Vaccine (Adult) 05/29/2012 Zoster Vaccine Recombinant (Shingrix) 08/29/2018 ,06/26/2018 documented as of this encounter Social History Tobacco Use Types Packs/Day Years Used Date Smoking Tobacco: Former Cigarettes 0.5 48 1 - 05/02/2006 Smokeless Tobacco: Never Alcohol Use Standard Drinks/Week Comments Not Currently 0 (1 standard drink = 0.6 oz pur e alcohol) seldom AUDIT-C Answer Date Recorded Frequency of Alcohol Consumption Monthly or less 06/05/2020 Average Number of Drinks 1 or 2 020 Frequency of Binge Drinking Not asked 03/2020 PHQ-2 Answer Date Recorded PHQ Adult Total Score 0 05/13/2024 Hunger Vital Sign Answer Date Recorded Within the past 12 months, y ou worried that your food would run out before you got the money to buy more. Never true 05/13/20 24 Within the past 12 months, t he food you bought just didn't last and you didn't have money to get more. Never true 05/13/2024 Childcare Answer Date Recorded Do you feel overwhelmed with taking care of a child, family member or friend? No 05/13/2024 Does your family need help f inding childcare? (Household - for ages 0-17 years) Not on file 05/13/2024 Clothing Answer Date Recorded Have you been unable to get clothing when it was really needed? No 05/13/2024 Is your family able to get c lothes or diapers when needed? (Household - for ages 0-17 years) Not on file 05/13/2024 Personal Safety Answer Date Recorded Do you feel unsafe or have concerns for your saf ety? No 05/13/2024 Do you have concerns for you r family's safety? (Household - for ages 0-17 years) Not on file 05/13/2024 Utilities Answer Date Recorded Do you have trouble paying y our heating, water, or electric bill? No 05/13/2024 Is your family able to pay t he heat, water, or electric bill? (Household - for ages 0-17 years) Not on file 05/13/2024 Does your family have access to good internet? (Household - for ages 0-17 years) Not on file 05/13/2024 Employment Status Answer Date Recorded Are you unemployed or without regular income? No 05/13/2024 Does the household have a re gular source of income? (Household - for ages 0-17 years) Not on file 05/13/2024 Social Connections Answer Date Recorded How often do you feel lonely or isolated from th ose around you? Never 05/13/2024 Financial Resource Strain Answer Date R ecorded Do you have any trouble payi ng for your medications, or do you think you might in the future? No 05/13/2024 Does your family have troubl e paying for medicine? (Household - for ages 0-17 years) Not on file 05/13/2024 Transportation Needs Answer Date Record ed Do you have trouble getting a ride to medical visits or work? (Adult - for ages 18 years and over) Not on file 05/13/2024 Does your family have a hard time getting a ride to doctors visits? (Household - for ages 0-17 years) Not on file 05/13/2024 Has lack of transportation k ept you from medical appointments, meetings, work, or from getting things needed for daily living? Check all that apply. No 05/13/2024 Do you (or your family) have trouble finding or paying for a ride (transportation)? (Household - for ages 0-17 years) Not on file 05/13/2024 Housing Stability Answer Date Recorded Do you currently live in a s helter or have no steady place to sleep at night? No 05/13/2024 Do you think you are at risk of becoming homeless? (Adult - for ages 18 years and over) Not on file 05/13/2024 Does your family worry about paying for your home or becoming homeless? (Household - for ages 0-17 years) Not on file 1 Are you homeless or worried that you might be in the future? No 05/13/2024 Are you (or your family) janice eless or worried that you might be in the future? (Household - for ages 0-17 years) Not on file Food Insecurity Answer Date Recorded Do you need food for this week? No 05/13/2024 Are you able to get enough f ood for your family? (Household - for ages 0-17 years) Not on file 05/13/2024 Does your family need food t his week? (Household - for ages 0-17 years) Not on file 05/13/2024 Do you always have enough fo od for your family? (Household - for ages 0-17 years) Not on file 05/13/2024 Sex and Gender Information Value Date Recorded Sex Assigned at Female 01/20/2019 9:23 AM EDT Gender Identity Female 01/20/2019 9:23 AM EDT Sexual Orientation Straight 01/20/2019 9: 23 AM EDT Job Start Date Occupation Industry Not on file Not on file Not on file documented as of this encounter Last Filed Vital Signs Vital Sign Reading Time Taken Comments Blood Pressure 116/60 05/20/2024 8:54 AM EDT Pulse 116 05/20/2024 8:54 AM EDT Temperature 36.4 C (97.6 F) 05/20/2024 8:54 AM ED T Respiratory Rate - - Oxygen Saturation 99% 05/20/2024 8:54 AM EDT Inhaled Oxygen Concentration - - Weight 44 kg (97 lb 1.6 oz) 05/20/2024 8:54 AM E DT Height - - Body Mass Index 19.61 05/13/2024 8:42 AM EDT documented in this encounter Progress Notes * Albino Magaña MD - 05/20/2024 9:14 AM EDT Chief Complaint Patient presents with Follow Up 6 month follow up. Patient denies any concerns. SUBJECTIVE: Sheila Todd is a 89 year old female with PMH as below who presents for follow up IDDM, htn, lipids. No cp, sob ,carter, feels good. Toe healed from last ov. Sugars being checked, follows with endocrine on this. No hospitalizations. Mood is good. 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 Lantus SoloStar 100 UNIT/ML Subcutaneous Solution Pen-injector 10 units in the morning and 5 units in the evening dilTIAZem HCl ER Beads 360 MG Oral Capsule Extended Release 24 Hour (Tiazac) TAKE 1 CAPSULE BY MOUTH ONCE DAILY 90 Capsule 1 Linezolid 600 MG Oral Tablet (Zyvox) Take 1 Tablet by mouth in the morning and 1 Tablet before bedtime. 20 Tablet 0 Denosumab 60 MG/ML Subcutaneous Solution Prefilled Syringe (Prolia) Insulin Lispro (1 Unit Dial) 100 UNIT/ML Subcutaneous Solution Pen-injector (Admelog) (Patient not taking: Reported on 05/05/2024) Erythromycin 5 MG/GM Ophthalmic Ointment Apply 0.25 inch ribbon of ointment to both eyelid incisions four times daily for two weeks then at bedtime for four weeks (Patient not taking: Reported on 05/20/2024) 3.5 g 3 Current Facility-Administered Medications Medication Dose Route Frequency Provider Last Rate Last Admin albuterol sulfate (PROVENTIL) (2.5 MG/3ML) 0.083% inhalation solution 2.5 mg 2.5 mg Nebulizer Q4H PRN Deann Valencia DO Review of patient's allergies indicates: Allergen Reactions Penicillins Hives Other Reaction(s): HIVES Health Maintenance Due Topic Date Due CKD PHOS USE SMARTSET 10098 04/09/2024 ROS: CONSTITUTIONAL: No change in weight, No weakness, and No fevers, sweats, or chills PULMONARY: No cough, sputum, or hemoptysis, No wheezing, No rales, No shortness of breath, and No recent change in breathing CARDIOVASCULAR: No chest pain, No shortness of breath, No dyspnea on exertion, No orthopnea, No paroxysmal nocturnal dyspnea, No edema, No palpitations, and No syncope ALL OTHER SYSTEMS NEGATIVE I reviewed social, PMH, PSH, and family history and updated where needed. 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 Moved to [place] 13 years ago. 50 years to second . 2 daughters to first who at 35 Lives alone in senior apartments. is in prison in [facility]. Social Determinants of Health Financial Resource Strain: Low Risk (05/13/2024) Financial Resource Strain Do you have any trouble paying for your medications, or do you think you might in the future? (Adult - for ages 18 years and over): No Does your family have trouble paying for medicine? (Household - for ages 0-17 years): Not on file Food Insecurity: No Food Insecurity (05/13/2024) Food Insecurity Do you need food for this week? (Adult - for ages 18 years and over): No Are you able to get enough food for your family? (Household - for ages 0-17 years): Not on file Does your family need food this week? (Household - for ages 0-17 years): Not on file Do you always have enough food for your family? (Household - for ages 0-17 years): Not on file Transportation Needs: No Transportation Needs (05/13/2024) Transportation Needs Do you have trouble getting a ride to medical visits or work? (Adult - for ages 18 years and over):Not on file Does your family have a hard time getting a ride to doctors visits? (Household - for ages 0-17 years): Not on file Has lack of transportation kept you from medical appointments, meetings, work, or from getting things needed for daily living? Check all that apply. (Adult - for ages 18 years and over): No Do you (or your family) have trouble finding or paying for a ride (transportation)? (Household - for ages 0-17 years): Not on file Social Connections: Socially Integrated (05/13/2024) Social Connections How often do you feel lonely or isolated from those around you? (Adult - for ages 18 years and over): Never Housing Stability: Low Risk (05/13/2024) Housing Stability Do you currently live in a skilled nursing or have no steady place to sleep at night? (Adult - for ages 18 years and over): No Do you think you are at risk of becoming homeless? (Adult - for ages 18 years and over): Not on file Does your family worry about paying for your home or becoming homeless? (Household - for ages 0-17 years): Not on file Are you homeless or worried that you might be in the future? (Adult - for ages 18 years and over): No Are you (or your family) homeless or worried that you might be in the future? (Household - for ages0-17 years): Not on file Past Medical History: Diagnosis Date Carpal tunnel syndrome 02/26/2012 CKD stage 3 due to type 1 diabetes mellitus ([facility]) 04/22/2017 Current use of insulin ([facility]) 04/22/2017 Diffuse cystic mastopathy Breast, Fibrocystic DM type 1, not at goal ([facility]) dx 1961 Diabetes Type I, Uncontrolled Dyslipidemia, [...] hemoglobin A1c goal of less than 7.0% ([facility]) 04/22/2017 Vertebral fracture, osteoporotic ([facility]) 07/04/2008 Per Osteoporotic Vertebral Fracture Protocol # 9 Past Surgical History: Procedure Laterality Date ALLOGRAFT, MORSELIZED, FOR SPINE SURGERY 12/02/2006 ALLOGRAFT FOR SPINE SURGERY MORSELIZED performed by SRINIVASA DIEGO at [facility] AMPUTATION OF FINGER/THUMB Right 10/03/2023 BIOPSY OF BREAST, OPEN Breast Biopsy, Benign Disease COLONOSCOPY W/ BIOPSY (RECTUM) 08/20/2011 polyps ENDO DECOMPRESS SPINAL CORD W/LAMINOTOMY, CERVICAL 12/02/2006 LAMINECTOMY DECOMPRESSION SPINAL CORD CERVICAL performed by SRINIVASA DIEGO at [facility] INJECT/TREAT EYE W/MEDICATION 06/01/2020 LASER TRABECULOPLASTY 04/08/12, 04/15/12 Repair of scar tissue from cataract surgery LUMBAR SPINE FUSION W/BONE GRAFT 11/26/2007 ARTHRODESIS SPINE ANTERIOR LUMBAR performed by ZA REYES [facility] LUMBAR SPINE FUSION, POST INTERBODY 11/26/2007 ARTHRODESIS SPINE POSTERIOR INTERBODY WITH LAMINECTOMY LUMBAR performed by ZA REYES [facility] LUMBAR SPINE FUSION, POSTEROLATERAL 11/26/2007 ARTHRODESIS SPINE POSTERIOR LUMBAR performed by ZA REYES [facility] NECK SPINE FUSION (CERV, BELOW C2) 12/02/2006 ARTHRODESIS SPINE POSTERIOR CERVICAL performed by SRINIVASA DIEGO [place] [facility] BLEPHAROPLASTY UPPER EYELID W/EXCESSIVE SKIN Bilateral 03/31/2024 Bleph OU- Dr Vanegas REINSERT SPINAL FIXATION DEVICE 12/24/2007 REINSERTION OF SPINAL INSTRUMENTATION performed by ZA REYES at [facility] REMOVE CATARACT, INSERT LENS PROSTH both 2008 Cataract Removal REMOVE NECK SPINE DISK, SINGLE 12/02/2006 DISKECTOMY ANTERIOR CERVICAL performed by SRINIVASA DIEGO at [facility] REMOVE VERTEBR SEG FOR SPINE TUMOR 12/02/2006 CORPECTOMY EXCISION INTRASPINAL LESION EXTRADURAL CERVICAL performed by SRINIVASA DIEGO at [facility] SPINAL FUSION, 7-12 VERT, POST 12/02/2006 ARTHRODESIS SPINE POSTERIOR FOR DEFORMITY 7 TO 12 VERTEBRAE performed by SRINIVASA DIEGO at [facility] THORAX SPINE FUSION, POSTEROLATERAL 12/07/2007 ARTHRODESIS SPINE POSTERIOR THORACIC performed by ZA REYES at [facility] Family History Problem Relation Name Age of Onset Heart Disorder Mother Heart Disorder Father AAA, age 77 Cancer Father Stroke Sister Diabetes Sister Lung Disorder Brother Heart Disorder Sister AAA age 67 OBJECTIVE: PHYSICAL EXAM: BP 116/60 | Pulse 116 | Temp 36.4 C (97.6 F) (Tympanic) | Wt 44 kg (97 lb 1.6 oz) | SpO2 99% | BMI 19.61 kg/m | BSA 1.35 m General: alert, healthy, and no distress Head: Normocephalic, No masses, lesions, tenderness or abnormalities Eye Exam: conjunctiva are pink and non-injected, sclera clear Heart: regular rate & rhythm, no murmur, and no gallops Lungs: normal respiratory rate and rhythm, lungs clear to auscultation Psych: normal affect, no flight of ideas or tangential thought, good eye contact, no pressured speech ASSESSMENT: (E10.22, I12.9, N18.30) 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) (primary encounter diagnosis) (I10) Hypertension goal BP (blood pressure) < 140/90 (E78.5) DYSLIPIDEMIA, GOAL LDL BELOW 100 PLAN: 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 | For: Labs Today discussed rsv vaccine Albino Magaña MD documented in this encounter Nursing Notes * Christina Wolff MED ASSIST - 05/20/2024 8:57 AM EDT Chief Complaint Patient presents with Follow Up 6 month follow up. Patient denies any concerns. 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); Hypertension goal BP (blood pressure) < 140/90 05/24/2024 11:00 AM EDT Office Visit Ophthalmology, [facility] [address] [place] [address] Neeraj Celis, DO [address] [place] [address] 06/14/2024 11:00 AM EST Office Visit Cardiology, [facility] [address] [place] [address] Rajni Alejandre PA-C [address] [place] [address] 06/15/2024 10:30 AM EST Nurse Only Rheumatology [place] [id number] [facility] [place] [address] Pf, Nurse Rheum [facility] [place] [address] 06/21/2024 1:10 PM EST Office Visit Ophthalmology, [facility] [address] [facility] [address] Neeraj Celis, DO [address] [place] [address] 03/10/2025 9:20 AM EDT Office Visit [facility] [facility] [address] [place] [address] Albino Magaña MD 200 [facility] [place] [address] 05/19/2025 9:00 AM EDT Nurse Only Ancillary [facility] [place] [address] [place] [address] [place] Nurse Annual Wellness [facility] 200 [facility] [place] [address] Pending Results Name Type Priority Associated Diagnoses Date /Time COMPREHENSIVE METABOLIC PANEL Lab Routine 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) Hypertension goal BP (blood pressure) < 140/90 05/20/2024 9:17 AM EDT HEMOGLOBIN A1C Lab Routine 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) 05/20/2024 9:17 AM EDT PHOSPHORUS Lab Routine 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) 05/20/2024 9:17 AM EDT Scheduled Orders Name Type Priority Associated Diagnoses Orde r Schedule COMPREHENSIVE METABOLIC PANEL Lab Routine 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) Hypertension goal BP (blood pressure) < 140/90 Expected: 05/20/2024 (Approximate), Expires: 05/20/2025 HEMOGLOBIN A1C Lab Routine 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) Expected: 05/20/2024 (Approximate), Expires: 05/20/2025 PHOSPHORUS Lab Routine 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) Expected: 05/20/2024 (Approximate), Expires: 05/20/2025 Health Maintenance Due Date Last Done Comments CKD PHOS USE SMARTSET 05847 04/09/202403/28, 04/05/2022, 08/02/2020, Additional history exists COVID-19 Vaccine ( season) 2024 06/15/2023, 06/15/2023, 05/14/2023, Additional history exists Postponed from 03/28/2024 (Unavailable) HbA1c 07/28/2024 01/26/2024, 09/26, 04/09/2023, Additional history exists Albumin/Creatinine Ratio 10/21/2024 024, 09/09/2022, 04/05/2022, Additional history exists DTap/Tdap Vaccines (2 - Td or Tdap) 03/03/2025 03/03/2015, 11/02/2007 CKD HGB USE SMARTSET 49480 05/06/202505/06, 05/06/2024, 11/24/2023, Additional history exists Diabetic Eye Exam 05/06/2025 05/06/2024, , 01/19/2024, Additional history exists Adult Wellness Visit 05/13/2025 05/13/2024, 2023, 05/09/2022, Additional history exists Depression Screening 05/13/2025 05/13/2024, 03/22/20 15 Diabetic Foot Exam 05/13/2025 05/13/2024, 1 , 07/15/2018, Additional history exists DXA Scan 05/26/2025 05/26/2023, 04/29, 04/30/2021, Additional history exists Pneumococcal Vaccine: 65+ Years Completed 09/01/2014, 04/23/2010 Zoster Vaccines Completed 08/29/2018, 05/30, 05/29/2012 VITAMIN D LEVEL ONCE IN A LIFETIME-USE SMARTSET# [id number] Completed 12/09/2023, 08/08/2021, 10/19/2009 Influenza Vaccine (FLU shot) Completed 05/19/2024, 05/14/2023, 04/09/2023, Additional history exists HPV (Gardasil) Vaccine Aged Out No lo nger eligible based on patient's age to complete this topic Hepatitis B Vaccine Aged Out No longe r eligible based on patient's age to complete this topic MENINGOCOCCAL (MENACTRA/MENVEO) Aged Out No longer eligible based on patient's age to complete this topic documented as of this encounter Medical Devices Implanted Type Area Scullion Chief Device Identifier Shelf Expiration Date Model / Serial / Lot Graft Ant Lat 12mm [id number] - [id number] Implanted:Qt y: 1 on [place] [facility] [place] Human N/A: Spine Lumbar Lifenet Co 06/09/2011 [id number] / [id number] / Graft Ant Lat 14mm Bc6j-90ea - [id number] Implanted:Qt y: 1 on [place]26[place]2007 [place] [facility] [place] - Human N/A: Spine Lumbar Lifenet Co 08/08/2011 CY7O-[id number] / [id number] / Graft Ant Lat 14mm Nc6e-83bg - [id number] Implanted:Qt y: 1 on 11/26/2007 [place] [facility] [place] - Human N/A: Spine Lumbar Lifenet Co 07/23/2009 CI5C-38T / [id number] / Graft Ant Lat 14mm Xo2a-65ju - [id number] Implanted:Qt y: 1 on 11/26/2007 [place] [facility] [place] - Human N/A: Spine Lumbar Lifenet Co 03/10/2012 LL7K-45A / [id number] / Graft Ant 10mm Lr6x-75w - [id number] Implanted:Qt y: 1 on 11/26/2007 [place] [facility] [place] - Human N/A: Spine Lumbar Lifenet Co 08/19/2011 [id number] / [id number] / [place] Nt [id number] - [id number] Implanted:Qt y: 1 on 12/02/2006 [place] [facility] [place] N/A: Spine Cervical REGALADO [id number] / / [id number] [place] Nt 140296 - [id number] Implanted:Qt y: 1 on 12/02/2006 [place] [facility] [place] N/A: Spine Cervical REGALADO [id number] / / Graft Cervical 6x8 Eu1s-M20 - [id number] Implanted:Qt y: 1 on 12/02/2006 [place] [facility] [place] N/A: Spine Cervical Lifenet Co NG5R-U38 / / [id number] Graft Cervical 5x7 Cd7w-R10 - [id number] Implanted:Qt y: 1 on 12/02/2006 [place] [facility] [place]/A: Spine Cervical Lifenet Co JR2H-B28 / / [id number] Graft Cervical 7x9 Bc4g-P98 - [id number] Implanted:Qt y: 1 on 12/02/2006 [place] [facility] [place] N/A: Spine Cervical Lifenet Co UZ8D-P59 / / [id number] Screw 3.5x14 Mntr Fa [id number] - [id number] Implanted:Qt y: 8 on 12/02/2006 [place] [facility] [place] N/A: Neck ELODIA & ELODIA DEPUY [id number] / / Screw Inner Mntr [id number] - [id number] Implanted:Qt y: 11 on 12/02/2006 [place] [facility] [place] N/A: Neck ELODIA & ELODIA DEPUY [id number] / / Screw 4.35x25 Mntrml [id number] - [id number] Implanted:Qt y: 2 on 12/02/2006 [place] [facility] [place] N/A: Neck ELODIA & ELODIA DEPUY [id number] / / Amos [id number] - [id number] Implanted:Qt y: 2 on 12/02/2006 at [place] [facility] [place] N/A: Neck ELODIA & ELODIA DEPUY [id number] / / Screw 3.5x20 Mntr Fa [id number] - [id number] Implanted:Qt y: 1 on 12/02/2006 [place] [facility] [place] N/A: Neck ELODIA & ELODIA DEPUY [id number] / / Graft Infus Bone Lg Ii [id number] - [id number] Implanted:Qt y: 1 on 11/26/2007 [place] [facility] [place] N/A: Spine Lumbar Medtronic Sofamor Danek 12/26/2009 [id number] / / [id number] Graft Infuse Bone Sm [id number] - [id number] Implanted:Qt y: 1 on 11/26/2007 [place] [facility] [place] N/A: Spine Lumbar Medtronic Sofamor Danek 03/28/2010 [id number] / / [id number] Screw 6x40 Poly Si [id number] - [id number] Implanted:Qt y: 5 on 11/26/2007 [place] [facility] [place] N/A: Spine Lumbar ELODIA & ELODIA DEPUY [id number] / / Screw 6x45 Poly Si [id number] - [id number] Implanted:Qt y: 4 on 11/26/2007 [place] [facility] [place] N/A: Spine Lumbar ELODIA & ELODIA DEPUY [id number] / / Screw Set Sng Inner [id number] - [id number] Implanted:Qt y: 13 on 11/26/2007 [place] [facility] [place] N/A: Spine Lumbar ELODIA & ELODIA DEPUY [id number] / / Screw 7x35 Poly Si [id number] - [id number] Implanted:Qt y: 2 on 11/26/2007 [place] [facility] [place]/A: Spine Lumbar ELODIA & ELODIA DEPUY [id number] / / Screw 5x40 Poly Si [id number] - [id number] Implanted:Qt y: 1 on 11/26/2007 [place] [facility] [place]/A: Spine Lumbar ELODIA & ELODIA DEPUY [id number] / / Screw 5x45 Poly Si [id number] - [id number] Implanted:Qt y: 1 on 11/26/2007 [place] [facility] [place] N/A: Spine Lumbar ELODIA & ELODIA DEPUY [id number] / / Amos 480mm [id number] - [id number] Implanted:Qt y: 1 on 11/26/2007 [place] [facility] [place] N/A: Spine Lumbar ELODIA & ELODIA DEPUY [id number] / / documented as of this encounter Visit Diagnoses Diagnosis 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)- Primary Hypertension goal BP (blood pressure) < 140/90 Unspecified essential hypertension DYSLIPIDEMIA, GOAL LDL BELOW 100 Other and unspecified hyperlipidemia Cellulitis of toe of left foot Cellulitis and abscess of toe, unspecified Senile 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) Hypertension goal BP (blood pressure) < 140/90 Unspecified essential hypertension documented in this encounter Advance Directives * Full Code (Latest Code Status on File) Date Activated Date Inactivated Comments 12/24/2007 4:07 PM 12/30/2007 12:19 PM * Full Code Date Activated Date Inactivated Comments 12/23/2007 4:52 PM 12/24/2007 4:07 PM * Full Code Date Activated Date Inactivated Comments 11/26/2007 2:41 PM 12/11/2007 3:07 PM * Full Code Date Activated Date Inactivated Comments 11/26/2007 6:01 AM 11/26/2007 2:41 PM Care Teams Mascara Molder Relationship Specialty Start Date End Date Albino Magaña MD [address] [place] [address] PCP - General Internal Medicine 01/17/12 documented as of this encounter
--- OUTSIDE RECORDS SUMMARY | 2024-06-10 19:20 | External Medical Summary ---
Author Name Unknown Address Unknown Organization K09:[facility] [address] [place] [address] Laboratory Report Ordering Provider Test Date Status ANNA VILLEGAS 05/20/2024 09:17:51 Final Observation Date Value Abnormality Reference (Units ) Status BUN 05/20/2024 09:17:51 20 6-20 (mg/dL) Final Creatinine 05/20/2024 09:17:51 0.9 0.5-1.0 (mg/dL) Final Glomerular filtration rate/1.73 sq M.predicted [Volume Rate/Area] in Serum, Plasma or Blood by Creatinine-based formula (CKD-EPI) 05/20/2024 09:17:51 64 >=60 (mL/min) Final eGFR is calculated based on the CKD-EPI 2020 equation. Sodium 05/20/2024 09:17:51 135 135-146 (m mol/L) Final Potassium 05/20/2024 09:17:51 4.2 3.5-5.1 (m mol/L) Final Cl 05/20/2024 09:17:51 100 98-107 (mm ol/L) Final CO2 05/20/2024 09:17:51 25 22-32 (mmo l/L) Final Anion gap 05/20/2024 09:17:51 10 7-15 (mmol /L) Final Glucose 05/20/2024 09:17:51 229 Above high normal 70 -120 (mg/dL) Final Albumin 05/20/2024 09:17:51 4.0 3.8-5.0 (g /dL) Final AST (Aspartate aminotransferase) 05/20/2024 09:17:51 24 10-35 (U/L) Fin al Alk Phos 05/20/2024 09:17:51 71 35-130 (U/ L) Final Bilirubin, Total 05/20/2024 09:17:51 0.3 <=1 .2 (mg/dL) Final Calcium 05/20/2024 09:17:51 8.9 8.4-10.2 ( mg/dL) Final Protein 05/20/2024 09:17:51 6.2 6.0-8.3 (g /dL) Final ALT (Alanine aminotransferase) 05/20/2024 09:17:51 17 10-35 (U/L) Chan hayden Performing Location [facility] [address] [place] [address]
--- OUTSIDE RECORDS SUMMARY | 2024-06-10 19:20 | External Medical Summary | Summary of Care ---
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 Active UltiCare Insulin Syringe 31G X 5/16" 1 ML 05/04/2021 Active NovoLOG FlexPen 100 UNIT/ML Subcutaneous Solution Pen-injector (insulin aspart)Indications: 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 ([facility]) Inject 6 prior to breakfast, 5 units [...] needed Active Simvastatin 10 MG Oral Tablet (Zocor)Indications: [...] ONCE DAILY 90 Capsule 1 04/10/2024 Active Hospital, Clinic, or Other Facility Administered [...] Dr. Doran. 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 Osteoporosis 06/16/2008 PURE HYPERCHOLESTEROLEM 02/2009 Overview: Per Lipid Taxonomy. DIFFUS CYSTIC MASTOPATHY Osteoporosis 04/22/2017 Overview: Osteopenia HTN, goal to be determined 1 08/20/2008 Overview: Modified per HTN protocol #16. documented as of this encounter (statuses as of 05/20/2024) Immunizations Name Administration Dates Next Due COVID-19 mRNA, LNP-s, No Pre serve, 2-Dose Series ([employer]) 02/15/2022,06/04/2021,09/20/2020,08/30 COVID-19, LNP-s, No Preserve , [place]-sucrose, Ages 12+ ([employer]) 02/15/2022 COVID-19, MRNA-LNP, 23-24, P F, 30 MCG/0.3 mL, 12 YRS AND ABOVE, IM ([employer]) 06/15/2023,05/14/2023 COVID-19, MRNA-LNP, 24-25, P R, 30MCG/0.3ML, IM, 12YRS AND ABOVE ([employer]) 06/15/2023,05/14/2023 Covid-19, Mrna, Lnp-s, Pf, B ivalent, 30 Mcg, IM, 12 yrs and above ([employer]) 10/04/2022 H1N1 2009 Influenza, IM 07/24/2009 Pneumococcal [...] 05/13/2024 Does the household have a re lar source of income? (Household - for ages [...] Care Team (Late st Contact Info) Description 05/24/2024 11:00 AM EDT Office Visit Ophthalmology, [facility] [address] [facility] [place] [address] Neeraj Celis T, DO [address] [place] [address] 06/14/2024 11:00 AM EST Office Visit Cardiology, [facility] [address] [facility] [place] [phone] Rajni Alejandre PA-C [address] [place], [place] [address] [address] 06/15/2024 10:30 AM EST Nurse Only Rheumatology [place] [phone] [place] [address] Pf, Nurse Rheum [facility] [address] [place] [address] 06/21/2024 1:10 PM EST Office Visit Ophthalmology, [facility] [address] [facility] [place] [address] Neeraj Celis, DO [facility] [address] 03/10/2025 9:20 AM EDT Office Visit General Internal Medicine [facility] [address] [place] [address] Albino Magaña MD [address] [place] [address] 05/19/2025 9:00 AM EDT Nurse Only Ancillary [facility] [address] [facility] [place] [address] [place], Nurse Annual Wellness [facility] [address] [facility] [place] [address] Pending Results Name Type Priority Associated Diagnoses Date /Time 25-HYDROXY VITAMIN D Lab Routine Senile osteoporosis 05/20/2024 9:17 AM EDT COMPREHENSIVE METABOLIC PANEL Lab Routine 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) Hypertension goal BP (blood pressure) < 140/90 05/20/2024 9:17 AM EDT HEMOGLOBIN A1C Lab Routine 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) 05/20/2024 9:17 AM EDT PHOSPHORUS Lab Routine 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) 05/20/2024 9:17 AM EDT Health Maintenance Due Date Last Done Comments CKD PHOS USE SMARTSET 38613 04/09/202403/28, 04/05/2022, 08/02/2020, Additional history exists COVID-19 Vaccine ( season) 2024 06/15/2023, 06/15/2023, 05/14/2023, Additional history exists Postponed from 03/28/2024 (Unavailable) HbA1c 07/28/2024 01/26/2024, 09/26, 04/09/2023, Additional history exists Albumin/Creatinine Ratio 10/21/2024 024, 09/09/2022, 04/05/2022, Additional history exists DTap/Tdap Vaccines (2 - Td or Tdap) 03/03/2025 03/03/2015, 11/02/2007 CKD HGB USE SMARTSET 73688 05/06/202505/06, 05/06/2024, 11/24/2023, Additional history exists Diabetic [...] D LEVEL ONCE IN A LIFETIME-USE SMARTSET# 70249 Completed 12/09/2023, 08/08/2021, 10/19/2009 Influenza Vaccine (FLU [...] this encounter Medical Devices Implanted Type Area Milking Worker Device Identifier Shelf Expiration Date Model / Serial / Lot Graft Ant Lat 12mm [id number] - [id number] Implanted:Qt y: 1 on 11/26/2007 [place] [facility] [place] - Human N/A: Spine Lumbar Lifenet Co 06/09/2011 [id number] / [id number] / Graft Ant Lat 14mm Ha0d-80nt - [id number] Implanted:Qt y: 1 on 11/26/2007 [place] [facility] [place] Tissue - Human N/A: Spine Lumbar Lifenet Co 08/08/2011 LR6Z-38A / [id number] / Graft Ant Lat 14mm Lg9f-53bz - [id number] Implanted:Qt y: 1 on 11/26/2007 [place] [facility] [place] - Human N/A: Spine Lumbar Lifenet Co 07/23/2009 GT0F-93P / [id number] / Graft Ant Lat 14mm On6c-96si - [id number] Implanted:Qt y: 1 on 11/26/2007 at [place] [facility] [place] Tissue - Human N/A: Spine Lumbar Lifenet Co 03/10/2012 OF5O-55K / [id number] / Graft Ant 10mm Wn9v-45h - [id number] Implanted:Qt y: 1 on 11/26/2007 at [place] [facility] [place] Tissue - Human N/A: Spine Lumbar Lifenet Co 08/19/2011 LM7T-44J / [id number] / [place]t 887146 - [id number] Implanted:Qt y: 1 on 12/02/2006 at [place] [facility] [place] N/A: Spine Cervical REGALADO [id number] / / [id number] [place] 351806 - [id number] Implanted:Qt y: 1 on 12/02/2006 at [place] [facility] [place] N/A: Spine Cervical REGALADO [id number] / / Graft Cervical 6x8 Zs7m-A34 - [id number] Implanted:Qt y: 1 on 12/02/2006 at [place] [facility] [place] N/A: Spine Cervical Lifenet Co UT3T-E25 / / [id number] Graft Cervical 5x7 Rh4k-I67 - [id number] Implanted:Qt y: 1 on 12/02/2006 at [place] [facility] [place] N/A: Spine Cervical Lifenet Co YG9P-K55 / / [id number] Graft Cervical 7x9 Np9q-W06 - [id number] Implanted:Qt y: 1 on 12/02/2006 at [place] [facility] [place] N/A: Spine Cervical Lifenet Co YU2Q-E80 / / [id number] Screw 3.5x14 Mntr Fa [id number] - [id number] Implanted:Qt y: 8 on 12/02/2006 at [place] [facility] [place] N/A: Neck ELODIA & ELODIA DEPUY [id number] / / Screw Inner Mntr [id number] - [id number] Implanted:Qt y: 11 on 12/02/2006 at [place] [facility] [place] N/A: Neck ELODIA & ELODIA DEPUY [id number] / / Screw 4.35x25 Mntrml [id number] - [id number] Implanted:Qt y: 2 on 12/02/2006 at [place] [facility] [place] N/A: Neck ELODIA & ELODIA DEPUY [id number] / / Amos [id number] - [id number] Implanted:Qt y: 2 on 12/02/2006 at [place] [facility] [place] N/A: Neck ELODIA & ELODIA DEPUY [id number] / / Screw 3.5x20 Mntr Fa [id number] - [id number] Implanted:Qt y: 1 on 12/02/2006 at [place] [facility] [place] N/A: Neck ELODIA & ELODIA DEPUY [id number] / / Graft Infus Bone Lg Ii [id number] - [id number] Implanted:Qt y: 1 on 11/26/2007 at [place] [facility] [place] N/A: Spine Lumbar Medtronic Sofamor Danek 12/26/2009 [id number] / / [id number] Graft Infuse Bone Sm [id number] - [id number] Implanted:Qt y: 1 on 11/26/2007 at [place] [facility] [place] N/A: Spine Lumbar Medtronic Sofamor Danek 03/28/2010 [id number] / / [id number] Screw 6x40 Poly Si [id number] - [id number] Implanted:Qt y: 5 on 11/26/2007 at [place] [facility] [place] N/A: Spine Lumbar ELODIA & ELODIA DEPUY [id number] / / Screw 6x45 Poly Si [id number] - [id number] Implanted:Qt y: 4 on 11/26/2007 at [place] [facility] [place] N/A: Spine Lumbar ELODIA & ELODIA DEPUY [id number] / / Screw Set Sng Inner [id number] - [id number] Implanted:Qt y: 13 on 11/26/2007 at [place] [facility] [place] N/A: Spine Lumbar ELODIA & ELODIA DEPUY [id number] / / Screw 7x35 Poly Si [id number] - [id number] Implanted:Qt y: 2 on 11/26/2007 at [place] [facility] [place] N/A: Spine Lumbar ELODIA & ELODIA DEPUY [id number] / / Screw 5x40 Poly Si [id number] - [id number] Implanted:Qt y: 1 on 11/26/2007 at [place] [facility] [place] N/A: Spine Lumbar ELODIA & ELODIA DEPUY [id number] / / Screw 5x45 Poly Si - Implanted:Qt y: 1 on 11/26/2007 at [place] [facility] [place] N/A: Spine Lumbar ELODIA & ELODIA DEPUY [id number] / / Amos 480mm [id number] - [id number] Implanted:Qt y: 1 on 11/26/2007 at [place] [facility] [place] N/A: Spine Lumbar ELODIA & ELODIA DEPUY [id number] / / documented as of this encounter Visit Diagnoses Diagnosis Senile osteoporosis Type 1 DM with CKD [...] 6:01 AM 11/26/2007 2:41 PM Care Teams Urban Anthropologist Relationship Specialty Start Date End Date Albino Magaña MD [address] [facility] [address] PCP - General Internal Medicine 01/17/12 documented as of this encounter
--- OUTSIDE RECORDS SUMMARY | 2024-06-10 19:20 | External Medical Summary | Summary of Care ---
Author Name Unknown Organization [facility] Address [address] [place] [address] Phone [phone] Care Team Providers Care Block Splitter Operator Name Role Phone Albino Magaña MD Primary Care Provider + Reason for Visit * Reason Comments Outpatient Testing Encounter Details Date Type Department Care Team (Late st Contact Info) Description 05/20/2024 9:40 AM EDT Laboratory Laboratory [facility] [place] [address] [place] [address] [place], [address] Scen[address] [place] [address] Senile osteoporosis; Type 1 DM with CKD [...] hemoglobin A1c goal of less than 7.5% ([facility]) As directed 1 Kit 5 01/20/2019 [...] DM with CKD stage 3 and hypertension ([facility]) Inject 6 prior to breakfast, 5 [...] Dr. Doran. Lumbosacral spondylosis 12/15/200203/29 DISC DIS [id number]-[id number]-FBLRTD 11/17/200205/29 DIABETES MELLITUS WITHOUT ME NTION OF [...] mRNA, LNP-s, No Pre serve, 2-Dose Series ([employer] 02/15/2022,06/04/2021,09/20/2020,08/30 COVID-19, LNP-s, No Preserve , [place]-sucrose, Ages 12+ ([employer] 02/15/2022 COVID-19, MRNA-LNP, 23-24, P F, 30 MCG/0.3 mL, 12 YRS AND ABOVE, IM ([employer]) 06/15/2023,05/14/2023 COVID-19, MRNA-LNP, 24-25, P R, 30MCG/0.3ML, IM, 12YRS AND ABOVE ([employer]) 06/15/2023,05/14/2023 Covid-19, Mrna, Lnp-s, Pf, B ivalent, 30 Mcg, IM, 12 yrs and above ([employer] 10/04/2022 H1N1 2009 Influenza, IM 07/24/2009 Pneumococcal [...] 05/24/2024 11:00 AM EDT Office Visit Ophthalmology, [facility] [address] [facility] [place] [address] Neeraj Celis T, DO [address] [place] [address] 06/14/2024 11:00 AM EST Office Visit Cardiology, [facility] [address] [facility] [place] [address] Rajni Alejandre PA-C [address] [place], [place] [address] [address] 06/15/2024 10:30 AM EST Nurse Only Rheumatology [place] [address] [place] [address] Pf, Nurse Rheum [facility] [address] [place] [address] 06/21/2024 1:10 PM EST Office Visit Ophthalmology, [facility] [address] [facility] [place] [address] Neeraj Celis, DO [facility] [address] 03/10/2025 9:20 AM EDT Office Visit General Internal Medicine [facility] [address] [place] [address] Albino Magaañ MD [address] [place] [address] 05/19/2025 9:00 AM EDT Nurse Only Ancillary [facility] [address] [facility] [place] [address] [place], Nurse Annual Wellness [facility] [address] [facility] [place] [address] Pending Results Name Type Priority Associated Diagnoses [...] Last Done Comments CKD PHOS USE SMARTSET 44849 04/09/202403/28, 04/05/2022, 08/02/2020, Additional history exists COVID-19 Vaccine ( season) 2024 06/15/2023, 06/15/2023, 05/14/2023, Additional history exists Postponed from 03/28/2024 (Unavailable) HbA1c 07/28/2024 01/26/2024, 09/26, 04/09/2023, Additional history exists Albumin/Creatinine Ratio 10/21/2024 024, 09/09/2022, 04/05/2022, Additional history exists DTap/Tdap Vaccines (2 - Td or Tdap) 03/03/2025 03/03/2015, 11/02/2007 CKD HGB USE SMARTSET 45014 05/06/202505/06, 05/06/2024, 11/24/2023, Additional history exists Diabetic [...] D LEVEL ONCE IN A LIFETIME-USE SMARTSET# 17783 Completed 12/09/2023, 08/08/2021, 10/19/2009 Influenza Vaccine (FLU [...] this encounter Medical Devices Implanted Type Area Underground Supervisor Device Identifier Shelf Expiration Date Model / Serial / Lot Graft Ant Lat 12mm Ou2b-[id number] - [id number] Implanted:Qt y: 1 on 11[place]2007 [place] [facility] [place] - Human N/A: Spine Lumbar [employer] 06/09/2011 [id number] / [id number] / Graft Ant Lat 14mm Sm1t-31ub - [id number] Implanted:Qt y: 1 on 11/26/2007 [place] [facility] [place] - Human N/A: Spine Lumbar [employer] 08/08/2011 OD5E-[id number] / [id number] / Graft Ant Lat 14mm Nr6i-83va - [id number] Implanted:Qt y: 1 on 11/26/2007 [place] [facility] [place] - Human N/A: Spine Lumbar [employer] 07/23/2009 BM3N-79L / [id number] / Graft Ant Lat 14mm Bq7o-24ad - [id number] Implanted:Qt y: 1 on 11/26/2007 [place] [facility] [place] - Human N/A: Spine Lumbar [employer] 03/10/2012 EI7T-77G / [id number] / Graft Ant 10mm Ik0i-37z - [id number] Implanted:Qt y: 1 on 11/26/2007 [place] [facility] [place] - Human N/A: Spine Lumbar [employer] Co 08/19/2011 CJ8C-[id number] / -[id number] / Flose[place] Nt [id number] - [id number] Implanted:Qt y: 1 on 12/02/2006 at [place] [facility] [place] N/A: Spine Cervical REGALADO [id number] / / [id number] [place] Nt [id number] - [id number] Implanted:Qt y: 1 on 12/02/2006 at [place] [facility] [place] N/A: Spine Cervical REGALADO [id number] / / Graft Cervical 6x8 Cm5q-T01 - [id number] Implanted:Qt y: 1 on 12/02/2006 at [place] [facility] [place] N/A: Spine Cervical Lif[employer] DU3Y-F08 / / [id number] Graft Cervical 5x7 Il3f-I68 - [id number] Implanted:Qt y: 1 on 12/02/2006 at [place] [facility] [place] N/A: Spine Cervical Lif[employer] Co VF2S-P14 / / [id number] Graft Cervical 7x9 Ky0i-V82 - [id number] Implanted:Qt y: 1 on 12/02/2006 at [place] [facility] [place] N/A: Spine Cervical Lif[employer] Co IC2X-X20 / / [id number] Screw 3.5x14 Mntr Fa [id number] - [id number] Implanted:Qt y: 8 on 12/02/2006 at [place] [facility] [place] N/A: Neck ELODIA & ELODIA DEPUY [id number] / / Screw Inner Mntr [id number] - [id number] Implanted:Qt y: 11 on 12/02/2006 at [place] [facility] [place] N/A: Neck ELODIA & ELODIA DEPUY [id number] / / Screw 4.35x25 Mntrml [id number] - [id number] Implanted:Qt y: 2 on 12/02/2006 at [place] [facility] [place] N/A: Neck ELODIA & ELODIA DEPUY [id number] / / Amos 3.8l581hm [id number] - [id number] Implanted:Qt y: 2 on 12/02/2006 at [place] [facility] [place] N/A: Neck ELODIA & ELODIA DEPUY [id number] / / Screw 3.5x20 Mntr Fa [id number] - [id number] Implanted:Qt y: 1 on 12/02/2006 at [place] [facility] [place] N/A: Neck ELODIA & ELODIA DEPUY [id number] / / Graft Infus Bone Lg Ii 6441301 - [id number] Implanted:Qt y: 1 on 11/26/2007 at [place] [facility] [place] N/A: Spine Lumbar Medtronic Sofamor Danek 12/26/2009 [id number] / / [id number] Graft Infuse Bone Sm [id number] - [id number] Implanted:Qt y: 1 on 11/26/2007 at [place] [facility] [place] N/A: Spine Lumbar Medtronic Sofamor Danek 03/28/2010 [id number] / / [id number] Screw 6x40 Poly Si [id number] - [id number] Implanted:Qt y: 5 on 11/26/2007 at [place] [facility] [place] N/A: Spine Lumbar ELODIA & ELODIA DEPUY [id number] / / Screw 6x45 Poly Si [id number] - [id number] Implanted:Qt y: 4 on 11/26/2007 at [place] [facility] [place] N/A: Spine Lumbar ELODIA & ELODIA DEPUY [id number] / / Screw Set Sng Inner [id number] - [id number] Implanted:Qt y: 13 on 11/26/2007 at [place] [facility] [place] N/A: Spine Lumbar ELODIA & ELODIA DEPUY [id number] / / Screw 7x35 Poly Si [id number] - [id number] Implanted:Qt y: 2 on 11/26/2007 at [place] [facility] [place] N/A: Spine Lumbar ELODIA & ELODIA DEPUY [id number] / / Screw 5x40 Poly Si [id number] - [id number] Implanted:Qt y: 1 on 11/26/2007 at [place] [facility] [place] N/A: Spine Lumbar ELODIA & ELODIA DEPUY [id number] / / Screw 5x45 Poly Si - Implanted:Qt y: 1 on 11/26/2007 at [place] [facility] [place] N/A: Spine Lumbar ELODIA & ELODIA DEPUY [id number] / / Amos 480mm [id number] - [id number] Implanted:Qt y: 1 on 11/26/2007 at [place] [facility] [place] N/A: Spine Lumbar ELODIA & ELODIA DEPUY [id number] / / documented as of this encounter [...] 6:01 AM 11/26/2007 2:41 PM Care Teams Block Splitter Operator Relationship Specialty Start Date End Date Albino Magaña MD [address] [facility] [address] PCP - General Internal Medicine 01/17/12 documented as of this encounter
--- OUTSIDE RECORDS SUMMARY | 2024-06-10 19:20 | External Medical Summary ---
Author Name Unknown Address Unknown Organization K01:LABORATORY [facility] - [address] [place] [address] Laboratory Report Ordering Provider Test Date Status BECKY LONDON 05/20/2024 09:17:51 Final Deficient: <20 ng/mL
Ins ufficient: 20-29 ng/mL
Recommended/Optimum:30-50 ng/mL

Vitamin D intoxication is rare. If suspicious of Vitamin D toxicity, evaluation of serum Calcium and PTH is recommended. Observation Date Value Abnormality Reference (Units ) Status 25-OH Vitamin D total 05/20/2024 09:17:51 86 >19 (ng/mL) Final Performing Location LABORATORY [facility] - [address] [place] [address]
--- OUTSIDE RECORDS SUMMARY | 2024-06-10 19:20 | External Medical Summary | Summary of Care ---
Author Name Unknown Organization [facility] Address [address] [place] [address] Phone [phone] Care Team Providers Care Medical Specialist Name Role Phone Albino Magaña MD Primary Care Provider + Reason for Visit * Reason Onset Date Comments Test Results 05/24/2024 Encounter Details Date Type Department Care Team (Late st Contact Info) Description 05/24/2024 Telephone Rheumatology [address] [place] [phone] Trudy Jeffers CRNP [address] [place] [address] [place], [place] [address] Test Results Allergies Active Allergy Reactions Criticality Noted Date Comments Penicillins Hives High 05/04/2000 Other Reaction(s): HIVES documented as of this encounter (statuses as of 05/24/2024) Medications Medication Sig Dispensed Refills Start Date [...] as of this encounter (statuses as of 05/24/2024) Active Problems Problem Noted Date Diagnosed Date [...] as of this encounter (statuses as of 05/24/2024) Resolved Problems Problem Noted Date Diagnosed Date [...] Dr. Doran. 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 Osteoporosis 06/16/2008 PURE HYPERCHOLESTEROLEM 12/0 02/2009 Overview: Per Lipid Taxonomy. DIFFUS CYSTIC MASTOPATHY Osteoporosis 04/22/2017 Overview: Osteopenia HTN, goal to be determined 1 08/20/2008 Overview: Modified per HTN protocol #16. documented as of this encounter (statuses as of 05/24/2024) Immunizations Name Administration Dates Next Due COVID-19 mRNA, LNP-s, No Pre serve, 2-Dose Series ([employer]) 02/15/2022,06/04/2021,09/20/2020,08/30 COVID-19, LNP-s, No Preserve , [place]-sucrose, Ages 12+ ([employer]) 02/15/2022 COVID-19, MRNA-LNP, 23-24, P F, 30 MCG/0.3 mL, 12 YRS AND ABOVE, IM ([employer]) 06/15/2023,05/14/2023 COVID-19, MRNA-LNP, 24-25, P R, 30MCG/0.3ML, IM, 12YRS AND ABOVE ([employer]) 06/15/2023,05/14/2023 Covid-19, Mrna, Lnp-s, Pf, B ivalent, 30 Mcg, IM, 12 yrs and above ([employer]) 10/04/2022 H1N1 2009 Influenza, IM 07/24/2009 Pneumococcal [...] encounter Miscellaneous Notes * Telephone Encounter - Trudy Jeffers CRNP - 05/24/2024 12:41 PM EDT Spoke to the patient at this time. Discussed vitamin-D, kidney function, back in January so calcium level is normal. Advised patient to continue vitamin-D 5000 units Friday. Advised patient to contact clinic with any questions or concerns. documented in this encounter Plan of Treatment Upcoming Encounters Date Type Department Care Team (Late st Contact Info) Description 06/14/2024 11:00 AM EST Office Visit Cardiology, [facility] [address] [facility] [place] [address] Rajni Alejandre PA-C [address] [place] [address] [place] [address] 06/15/2024 10:30 AM EST Nurse Only Rheumatology [facility] [address] [place] [address] Pf, Nurse Rheum [address] [place] [address] 06/21/2024 1:10 PM EST Office Visit Ophthalmology, [facility] [address] [place] [address] Neeraj Celis, DO 16 [place] [address] 03/10/2025 9:20 AM EDT Office Visit General Internal Medicine [facility] [address] [place] [address] Albino Magaña MD [address] [place] [address] 05/19/2025 9:00 AM EDT Nurse Only Ancillary [facility] [address] [place] [address] [place], Nurse Annual Wellness [facility] [address] [facility] [place] [address] Health Maintenance Due Date Last Done Comments COVID-19 Vaccine ( season) 2024 06/15/2023, 06/15/2023, 05/14/2023, Additional history exists Albumin/Creatinine Ratio 10/21/202410/21/ 024, 09/09/2022, 04/05/2022, Additional history exists HbA1c 11/18/2024 05/20/2024, 07/0 07/2023, 10/22/2023, Additional history exists DTap/Tdap Vaccines (2 - Td or Tdap) 03/03/2025 03/03/2015, 11/02/2007 CKD HGB USE SMARTSET 61005 05/06/202505/06, 05/06/2024, 11/24/2023, Additional history exists Diabetic Eye Exam 05/06/2025 05/06/2024, , 01/19/2024, Additional history exists Adult Wellness Visit 05/13/2025 05/13/2024, 2023, 05/09/2022, Additional history exists Depression Screening 05/13/2025 05/13/2024, 03/22/20 15 Diabetic Foot Exam 05/13/2025 05/13/2024, 1 , 07/15/2018, Additional history exists CKD PHOS USE SMARTSET 86311 05/20/202504/28, 04/09/2023, 04/05/2022, Additional history exists DXA Scan 05/26/2025 05/26/2023, 04/29, 04/30/2021, Additional history exists Pneumococcal Vaccine: 65+ Years Completed 09/01/2014, 04/23/2010 Zoster Vaccines Completed 08/29/2018, 05/30, 05/29/2012 Influenza Vaccine (FLU shot) Completed , 05/14/2023, 04/09/2023, Additional history exists VITAMIN D LEVEL ONCE IN A LIFETIME-USE SMARTSET# 38237 Completed 05/20/2024, 12/09/2023, 08/08/2021, Additional history exists HPV (Gardasil) Vaccine Aged Out No lo nger eligible based on patient's age to complete this topic Hepatitis B Vaccine Aged Out No longe r eligible based on patient's age to complete this topic MENINGOCOCCAL (MENACTRA/MENVEO) Aged Out No longer eligible based on patient's age to complete this topic documented as of this encounter Medical Devices Implanted Type Area Glove Cutter Device Identifier Shelf Expiration Date Model / Serial / Lot Graft Ant Lat 12mm Em6k-60wt - [id number] Implanted:Qt y: 1 on 11/26/2007 [place] [facility] [place] - Human N/A: Spine Lumbar [employer] 06/09/2011 SD2D-[id number] / [id number] / Graft Ant Lat 14mm Tg3p-16dr - [id number] Implanted:Qt y: 1 on 11/26/2007 at [place] [facility] [place] Tissue - Human N/A: Spine Lumbar [employer] Co 08/08/2011 KB3C-82R [id number] / Graft Ant Lat 14mm Be5r-51ba - [id number] Implanted:Qt y: 1 on 11/26/2007 at [place] [facility] [place] - Human N/A: Spine Lumbar [employer] 07/23/2009 TO7G-28S / [id number] / Graft Ant Lat 14mm Eg1g-93uy - [id number] Implanted:Qt y: 1 on 11/26/2007 at [place] [facility] [place] Tissue - Human N/A: Spine Lumbar Lif[employer] Co 03/10/2012 UP3Q-57D / -[id number] / Graft Ant 10mm Lw7p-15i - [id number] Implanted:Qt y: 1 on 11/26/2007 at [place] [facility] [place] Tissue - Human N/A: Spine Lumbar [facility] Co 08/19/2011 FB1T-92P / [id number] / [place]t 348016 - [id number] Implanted:Qt y: 1 on 12/02/2006 at [place] [facility] [place] N/A: Spine Cervical REGALADO [id number] / / [id number] [place] [id number] - [id number] Implanted:Qt y: 1 on 12/02/2006 at [place] [facility] [place] N/A: Spine Cervical REGALADO [id number] / / Graft Cervical 6x8 Jm2q-W04 - [id number] Implanted:Qt y: 1 on 12/02/2006 at [place] [facility] [place] N/A: Spine Cervical [facility] SZ3N-O57 / / -[id number] Graft Cervical 5x7 Zx6g-M17 - [id number] Implanted:Qt y: 1 on 12/02/2006 at [place] [facility] [place] N/A: Spine Cervical [facility] OS3M-B40 / / -[id number] Graft Cervical 7x9 Tc9n-J38 - [id number] Implanted:Qt y: 1 on 12/02/2006 at [place] [facility] [place] N/A: Spine Cervical [facility] HM3E-O14 / / -[id number] Screw 3.5x14 Mntr Fa [id number] - [id number] Implanted:Qt y: 8 on 12/02/2006 at [place] [facility] [place] N/A: Neck ELODIA & ELODIA DEPUY [id number] / / Screw Inner Mntr [id number] - [id number] Implanted:Qt y: 11 on 12/02/2006 at [place] [facility] [place] N/A: Neck ELODIA & ELODIA DEPUY [id number] / / Screw 4.35x25 Mntrml [id number] - [id number] Implanted:Qt y: 2 on 12/02/2006 at [place] [facility] [place] N/A: Neck ELODIA & ELODIA DEPUY [id number] / / Amos [id number] - [id number] Implanted:Qt y: 2 on 12/02/2006 at [place] [facility] [place] N/A: Neck ELODIA & ELODIA DEPUY [id number] / / Screw 3.5x20 Mntr Fa [id number] - [id number] Implanted:Qt y: 1 on 12/02/2006 at [place] [facility] [place] N/A: Neck ELODIA & ELODIA DEPUY [id number] / / Graft Infus Bone Lg Ii [id number] - [id number] Implanted:Qt y: 1 on 11/26/2007 at [place] [facility] [place] N/A: Spine Lumbar Medtronic Sofamor Danek 12/26/2009 [id number] / / [id number] Graft Infuse Bone Sm [id number] - [id number] Implanted:Qt y: 1 on 11/26/2007 at [place] [facility] [place] N/A: Spine Lumbar Medtronic Sofamor Danek 03/28/2010 [id number] / / [id number] Screw 6x40 Poly Si [id number] - [id number] Implanted:Qt y: 5 on 11/26/2007 at [place] [facility] [place] N/A: Spine Lumbar ELODIA & ELODIA DEPUY [id number] / / Screw 6x45 Poly Si [id number] - [id number] Implanted:Qt y: 4 on 11/26/2007 at [place] [facility] [place] N/A: Spine Lumbar ELODIA & ELODIA DEPUY [id number] / / Screw Set Sng Inner [id number] - [id number] Implanted:Qt y: 13 on 11/26/2007 at [place] [facility] [place] N/A: Spine Lumbar ELODIA & ELODIA DEPUY [id number] / / Screw 7x35 Poly Si [id number] - [id number] Implanted:Qt y: 2 on 11/26/2007 at [place] [facility] [place] N/A: Spine Lumbar ELODIA & ELODIA DEPUY [id number] / / Screw 5x40 Poly Si [id number] - [id number] Implanted:Qt y: 1 on 11/26/2007 at [place] [facility] [place] N/A: Spine Lumbar ELODIA & ELODIA DEPUY [id number] / / Screw 5x45 Poly Si [id number] - [id number] Implanted:Qt y: 1 on 11/26/2007 at [place] [facility] [place] N/A: Spine Lumbar ELODIA & ELODIA DEPUY [id number] / / Amos 480mm [id number] - [id number] Implanted:Qt y: 1 on 11/26/2007 at [place] [facility] [place] N/A: Spine Lumbar ELODIA & ELODIA DEPUY [id number] / / documented as of this encounter Advance Directives * Full Code [...] 6:01 AM 11/26/2007 2:41 PM Care Teams Medical Specialist Relationship Specialty Start Date End Date Albino Magaña MD [address] [place] [address], [place] [address] PCP - General Internal Medicine 01/17/12 documented as of this encounter
--- OUTSIDE RECORDS SUMMARY | 2024-06-10 19:20 | External Medical Summary | Summary of Care ---
Author Name Unknown Organization [facility] Address [address] [place] [address] Phone [phone] Care Team Providers Care Chief Investigator Name Role Phone Albino Magaña MD Primary Care Provider + Reason for Visit * Reason Comments Post-Op Encounter Details Date Type Department Care Team (Late st Contact Info) Description 05/24/2024 11:00 AM EDT Office Visit Ophthalmology, [facility] [address] [place] [address] Neeraj Celis, DO [address] [place] [id number] Myogenic ptosis of right eyelid*; Dermatochalasis of both upper eyelids Allergies Active Allergy Reactions Criticality Noted Date [...] DM with CKD stage 3 and hypertension ([facility]) Inject 6 prior to breakfast, [...] Dr. Doran. Lumbosacral spondylosis 12/15/200203/29 DISC DIS RKL-MRE-[facility] 11/17/200205/29 DIABETES MELLITUS WITHOUT ME NTION OF [...] mRNA, LNP-s, No Pre serve, 2-Dose Series ([employer]) 02/15/2022,06/04/2021,09/20/2020,08/30 COVID-19, LNP-s, No Preserve , [place]-sucrose, Ages 12+ ([employer]) 02/15/2022 COVID-19, MRNA-LNP, 23-24, P F, 30 MCG/0.3 mL, 12 YRS AND ABOVE, IM ([employer]) 06/15/2023,05/14/2023 COVID-19, MRNA-LNP, 24-25, P R, 30MCG/0.3ML, IM, 12YRS AND ABOVE ([employer]) 06/15/2023,05/14/2023 Covid-19, Mrna, Lnp-s, Pf, B ivalent, 30 Mcg, IM, 12 yrs and above ([employer]) 10/04/2022 H1N1 2009 Influenza, IM 07/24/2009 Pneumococcal [...] on file documented as of this encounter Progress Notes * Neeraj Celis DO - 05/24/2024 11:06 AM EDT Sheila Todd returns 8 weeks post bilateral blepharoplasties with levator OU. Tolerated well but unable to tolerate her Bill. Healing well now. Base Eye Exam Visual Acuity (Snellen - Linear) Right Left Dist cc 20/30 -1 20/30 -1 Correction: Glasses Neuro/Psych Oriented x3: Yes Mood/Affect: Normal LLL: incisions intact good elevation on the left maybe too much consider suture lysis if still an issue. C/S: Normal Cornea: Clear Assessment: 8 weeks S/P blepharoplasties with levator Both Eyes. Looks very good. Plan: Reassurance Compresses and baby shampoo hygiene discussed RTC PRN Pt. advised to RTC sooner if there are any problems. Neeraj Celis DO documented in this encounter Nursing Notes * Tami Plasencia, INDERJIT - 05/24/2024 10:58 AM EDT Sheila Todd is a 89 year old female who presents for post op. Last Visit: 2024 (in office), Visit date not found (telemedicine) She currently states "I think they look good" Are you diabetic? Yes. Do you check your sugar daily? YES. Fasting BS this mornin mg/dl. LastHemoglobin A1C: Lab Results Component Value Date/Time HGBA1C 6.9 (H) 05/20/2024 09:17 AM HGBA1C 7.2 (H) 01/26/2024 09:01 AM HGBA1C 7.8 (H) 10/22/2023 10:22 AM HGBA1C 6.1 (A) 01/22/2021 12:00 AM HGBA1C 7.6 (H) 08/02/2020 08:46 AM HGBA1C 6.5 (H) 02/02/2020 03:16 PM HGBA1C 6.3 (H) 10/11/2019 10:47 AM HGBA1C 7.9 (H) 10/28/1996 10:06 AM HGBA1C 8.1 (H) 07/01/1996 09:05 AM HGBA1C 8.3 (H) 04/06/1996 09:22 AM Current Ophthalmic Medications: None [facility], IOP, current eyeglass Rx, and pupil check and dilation if needed can be found in ophth exam. documented in this encounter Plan of Treatment Upcoming Encounters Date Type Department Care Team (Late st Contact Info) Description 06/14/2024 11:00 AM EST Office Visit Cardiology, [facility] 132 [facility] [place] [address] Rajni Alejandre PA-C [address] [place] [address] [place] [address] 06/15/2024 10:30 AM EST Nurse Only Rheumatology [place] [phone] Lydia [place] [address] Pf, Nurse Rheum [facility] [place] [address] 06/21/2024 1:10 PM EST Office Visit Ophthalmology, [facility] [address] [facility] [place] [address] Neeraj Celis, DO [facility] [address] 03/10/2025 9:20 AM EDT Office Visit General Internal Medicine [facility] 200 [facility] [place] [address] Albino Magaña MD 200 [facility] [place] [address] 05/19/2025 9:00 AM EDT Nurse Only Ancillary [facility] 200 [facility] [place] [address] Viridiana, Nurse Annual Wellness [facility] 200 [facility] [place] [address] Health Maintenance Due Date Last Done Comments COVID-19 Vaccine ( season) 2024 06/15/2023, 06/15/2023, 05/14/2023, Additional history exists Albumin/Creatinine Ratio 10/21/202410/21/2 024, 09/09/2022, 04/05/2022, Additional history exists HbA1c 11/18/2024 05/20/2024, 07/0 07/2023, 10/22/2023, Additional history exists DTap/Tdap Vaccines (2 - Td or Tdap) 03/03/2025 03/03/2015, 11/02/2007 CKD HGB USE SMARTSET 16574 05/06/202505/06, 05/06/2024, 11/24/2023, Additional history exists Diabetic Eye Exam 05/06/2025 05/06/2024, , 01/19/2024, Additional history exists Adult Wellness Visit 05/13/2025 05/13/2024, 2023, 05/09/2022, Additional history exists Depression Screening 05/13/2025 05/13/2024, 03/22/20 15 Diabetic Foot Exam 05/13/2025 05/13/2024, 1 , 07/15/2018, Additional history exists CKD PHOS USE SMARTSET 00653 05/20/202504/28, 04/09/2023, 04/05/2022, Additional history exists DXA Scan 05/26/2025 05/26/2023, 04/29, 04/30/2021, Additional history exists Pneumococcal Vaccine: 65+ Years Completed 09/01/2014, 04/23/2010 Zoster Vaccines Completed 08/29/2018, 05/30, 05/29/2012 Influenza Vaccine (FLU shot) Completed , 05/14/2023, 04/09/2023, Additional history exists VITAMIN D LEVEL ONCE IN A LIFETIME-USE SMARTSET# 77524 Completed 05/20/2024, 12/09/2023, 08/08/2021, Additional history exists [...] this encounter Medical Devices Implanted Type Area Progress Clerk Device Identifier Shelf Expiration Date Model / Serial / Lot Graft Ant Lat 12mm [id number] - [id number] Implanted:Qt y: 1 on 11/26/2007 at [place] [facility] Tissue - Human N/A: Spine Lumbar Lif[employer]et Co 06/09/2011 [id number] / [id number] / Graft Ant Lat 14mm Ez4t-[id number] - [id number] Implanted:Qt y: 1 on 11/26/2007 at [place] [facility] Tissue - Human N/A: Spine Lumbar Lif[employer] Co 08/08/2011 ZC2P-[id number] / [id number] / Graft Ant Lat 14mm Pm8h-48zs - [id number] Implanted:Qt y: 1 on 11/26/2007 at [place] [facility] Tissue - Human N/A: Spine Lumbar Lif[employer] Co 07/23/2009 WI2D-92L / [id number] / Graft Ant Lat 14mm Se3e-86vt - [id number] Implanted:Qt y: 1 on 11/26/2007 at [place] [facility] Tissue - Human N/A: Spine Lumbar Lif[employer]et Co 03/10/2012 TG3X-21D / [id number] / Graft Ant 10mm Ie9g-65x - [id number] Implanted:Qt y: 1 on 11/26/2007 at [place] [facility] Tissue - Human N/A: Spine Lumbar Lif[employer]et Co 08/19/2011 KT1T-[id number] / [id number] / [place]t [id number] - [id number] Implanted:Qt y: 1 on 12/02/2006 at [place] [facility] N/A: Spine Cervical REGALADO [id number] / / [id number] [place] [id number] - [id number] Implanted:Qt y: 1 on 12/02/2006 at [place] [facility] N/A: Spine Cervical REGALADO [id number] / / Graft Cervical 6x8 Eh1t-B24 - [id number] Implanted:Qt y: 1 on 12/02/2006 at [place] [facility] N/A: Spine Cervical Lif[employer] Co UL2I-F27 / / -[id number] Graft Cervical 5x7 Rs6e-I28 - [id number] Implanted:Qt y: 1 on 12/02/2006 at [place] [facility] N/A: Spine Cervical [facility] BR6D-F39 / / -[id number] Graft Cervical 7x9 Ox2o-I36 - [id number] Implanted:Qt y: 1 on 12/02/2006 at [place] [facility] N/A: Spine Cervical Lif[employer]et Co WK2Q-B18 / / -[id number] Screw 3.5x14 Mntr Fa [id number] - [id number] Implanted:Qt y: 8 on 12/02/2006 at [place] [facility] N/A: Neck ELODIA & ELODIA DEPUY [id number] / / Screw Inner Mntr [id number] - [id number] Implanted:Qt y: 11 on 12/02/2006 at [place] [facility] N/A: Neck ELODIA & ELODIA DEPUY [id number] / / Screw 4.35x25 Mntrml [id number] - [id number] Implanted:Qt y: 2 on 12/02/2006 at [place] [facility] N/A: Neck ELODIA & ELODIA DEPUY [id number] / / Amos [id number] - [id number] Implanted:Qt y: 2 on 12/02/2006 at [place] [facility] N/A: Neck ELODIA & ELODIA DEPUY [id number] / / Screw 3.5x20 Mntr Fa [id number] - [id number] Implanted:Qt y: 1 on 12/02/2006 at [place] [facility] N/A: Neck ELODIA & ELODIA DEPUY [id number] / / Graft Infus Bone Lg Ii [id number] - [id number] Implanted:Qt y: 1 on 11/26/2007 at [place] [facility] N/A: Spine Lumbar Medtronic Sofamor Danek 12/26/2009 [id number] / / [id number] Graft Infuse Bone Sm [id number] - [id number] Implanted:Qt y: 1 on 11/26/2007 at [place] [facility] N/A: Spine Lumbar Medtronic Sofamor Danek 03/28/2010 [id number] / / [id number] Screw 6x40 Poly Si [id number] - [id number] Implanted:Qt y: 5 on 11/26/2007 at [place] [facility] N/A: Spine Lumbar ELODIA & ELODIA DEPUY [id number] / / Screw 6x45 Poly Si [id number] - [id number] Implanted:Qt y: 4 on 11/26/2007 at [place] [facility] N/A: Spine Lumbar ELODIA & ELODIA DEPUY [id number] / / Screw Set Sng Inner [id number] - [id number] Implanted:Qt y: 13 on 11/26/2007 at [place] [facility] N/A: Spine Lumbar ELODIA & ELODIA DEPUY [id number] / / Screw 7x35 Poly Si [id number] - [id number] Implanted:Qt y: 2 on 11/26/2007 at [place] [facility] N/A: Spine Lumbar ELODIA & ELODIA DEPUY [id number] / / Screw 5x40 Poly Si [id number] - [id number] Implanted:Qt y: 1 on 11/26/2007 at [place] [facility] N/A: Spine Lumbar ELODIA & ELODIA DEPUY [id number] / / Screw 5x45 Poly Si [id number] - [id number] Implanted:Qt y: 1 on 11/26/2007 at [place] [facility] N/A: Spine Lumbar ELODIA & ELODIA DEPUY [id number] / / Amos 480mm [id number] - [id number] Implanted:Qt y: 1 on 11/26/2007 at [place] [facility] N/A: Spine Lumbar ELODIA & ELODIA DEPUY [id number] / / documented as of this encounter Visit Diagnoses Diagnosis Myogenic ptosis of right eyelid- Primary Myogenic ptosis Dermatochalasis of both upper eyelids documented in this encounter Advance Directives * [...] 6:01 AM 11/26/2007 2:41 PM Care Teams Chief Investigator Relationship Specialty Start Date End Date Albino Magaña MD [address] [place] [address] PCP - General Internal Medicine 01/17/12 documented as of this encounter
--- OUTSIDE RECORDS SUMMARY | 2024-06-10 19:21 | External Medical Summary | Summary of Care ---
Author Name Unknown Organization [facility] Address [address] [place] [address] Phone [phone] Care Team Providers Care Ocular Care Technologist Name Role Phone Albino Magaña MD Primary Care Provider + Reason for Visit * Reason Comments Post-Op Encounter Details Date Type Department Care Team (Late st Contact Info) Description 04/12/2024 1:40 PM EDT Office Visit Ophthalmology, [facility] [address] [place] [address] Neeraj Celis, DO [address] [place] [address] [phone] Myogenic ptosis of right eyelid*; Dermatochalasis of both upper eyelids Allergies Active Allergy Reactions Criticality Noted Date Comments Penicillins Hives High 05/04/2000 Other Reaction(s): HIVES documented as of this encounter (statuses as of 04/12/2024) Medications Medication Sig Dispensed Refills Start Date [...] with CKD stage 3 and hypertension ([facility]) Inject 6 prior to breakfast, 5 units [...] Lantus SoloStar 100 UNIT/ML Subcutaneous Solution Pen-injector 10/22/2023 Active Insulin Lispro (1 Unit Dial) 100 UNIT/ML Subcutaneous Solution Pen-injector (Admelog) 10/22/2023 Active Erythromycin 5 MG/GM Ophthalmic Ointment Apply 0.25 inch ribbon of ointment to both eyelid incisions four times daily for two weeks then at bedtime for four weeks 3.5 g 3 03/31/2024 Active dilTIAZem HCl ER Beads 360 MG [...] as of this encounter (statuses as of 04/12/2024) Active Problems Problem Noted Date Diagnosed Date [...] as of this encounter (statuses as of 04/12/2024) Resolved Problems Problem Noted Date Diagnosed Date [...] Dr. Doran. 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 Osteoporosis 06/16/2008 PURE HYPERCHOLESTEROLEM 02/2009 Overview: Per Lipid Taxonomy. DIFFUS CYSTIC MASTOPATHY Osteoporosis 04/22/2017 Overview: Osteopenia HTN, goal to be determined 1 08/20/2008 Overview: Modified per HTN protocol #16. documented as of this encounter (statuses as of 04/12/2024) Immunizations Name Administration Dates Next Due COVID-19 mRNA, LNP-s, No Pre serve, 2-Dose Series ([facility]) 02/15/2022,06/04/2021,09/20/2020,08/30 COVID-19, LNP-s, No Preserve , Orlando-sucrose, Ages 12+ ([employer]izer) 02/15/2022 COVID-19, MRNA-LNP, 23-24, P F, 30 MCG/0.3 mL, 12 YRS AND ABOVE, IM ([facility]) 06/15/2023,05/14/2023 Covid-19, Mrna, Lnp-s, Pf, B ivalent, 30 Mcg, IM, 12 yrs and above ([facility]) 10/04/2022 H1N1 2009 Influenza, IM 07/24/2009 Pneumococcal [...] lent, No Preserve, IM 04/09/2016,05/02/2015 Seasonal Influenza, Trivalen t, (IIV3), with Preserv, (Fluzone) 04/22/2014,05/24/2013,04/24/2012,04/15,04/23/2010,04/20/2009,05/02/2008 ,05/14/2007,04/28/2006 TD, Preservative Free 11/02/2007 TDAP [...] money to get more. Never true 05/09/2022 Utilities Answer Date Recorded Do you have trouble paying y our heating, water, or electric bill? (Adult - for ages 18 years and over) Not on file 01/13/2024 Is your family able to pay t he heat, water, or electric bill? (Household - for ages 0-17 years) Not on file 01/13/2024 Does your family have access to good internet? (Household - for ages 0-17 years) Not on file 01/13/2024 Social Connections Answer Date Recorded How often do you feel lonely or isolated from those around you? (Adult - for ages 18 years and over) Not on file 01/13/2024 Sex and Gender Information Value Date Recorded Sex Assigned at Female 01/20/2019 9:23 AM EDT Gender Identity Female 01/20/2019 9:23 AM EDT Sexual Orientation Straight 01/20/2019 9: 23 AM EDT Job Start Date Occupation Industry Not on file Not on file Not on file documented as of this encounter Progress Notes * Neeraj Celis DO - 04/12/2024 11:09 AM EDT Sheila Todd seen for 2 weeks post bilateral blepharoplasties with levator OU. Tolerated well but unable to tolerate her Bill and wore her old glasses. LLL: incisions intact medial disruption OU left eye worse than the right less than 1 centimeter in length good elevation on the left slightly ptotic lateral slope on the right C/S: Normal Cornea: Clear Assessment: 2 weeks S/P blepharoplasties with levator Both Eyes. Looks very good. Plan: Erythromycin ointment QHS Return visit 4 week returned possible revision right upper lid if desired. Pt. advised to RTC sooner if there are any problems. Neeraj Celis DO documented in this encounter Nursing Notes * Brenda Kilgore LPN - 04/12/2024 10:54 AM EDT Sheila Todd is a 88 year old female who presents for PO follow up. Last Visit: 03/31/2024 (in office), Visit date not found (telemedicine) She currently states no change in vision. Are you diabetic? Yes. Do you check your sugar daily? YES. Fasting BS this mornin mg/dl. LastHemoglobin A1C: Lab Results Component Value Date/Time HGBA1C 7.2 (H) 01/26/2024 09:01 AM HGBA1C 7.8 (H) 10/22/2023 10:22 AM HGBA1C 6.8 (H) 04/09/2023 03:50 PM HGBA1C 6.1 (A) 01/22/2021 12:00 AM HGBA1C 7.6 (H) 08/02/2020 08:46 AM HGBA1C 6.5 (H) 02/02/2020 03:16 PM HGBA1C 6.3 (H) 10/11/2019 10:47 AM HGBA1C 7.9 (H) 10/28/1996 10:06 AM HGBA1C 8.1 (H) 07/01/1996 09:05 AM HGBA1C 8.3 (H) 04/06/1996 09:22 AM Current Ophthalmic Medications: Erythromycin Ointment apply to both eyes QID [facility], IOP, current eyeglass Rx, and pupil check and dilation if needed can be found in ophth exam. documented in this encounter Plan of Treatment Upcoming Encounters Date Type Department Care Team (Late st Contact Info) Description 2024 1:30 PM EDT Office Visit Ophthalmology, [facility] 132 [facility] [place] [address] Neeraj Celis, DO [address] [place] [address] 05/13/2024 9:00 AM EDT Nurse Only Ancillary [facility] [place] 200 [facility] [place] [address] [place], Nurse Annual Wellness [address] [facility] [place] [address] 05/20/2024 9:00 AM EDT Office Visit General Internal Medicine [facility] 200 [facility] [place] [address] Albino Magaña MD [address] [facility] [place] [address] 05/24/2024 11:00 AM EDT Office Visit Ophthalmology, [facility] 132 [facility] [place] [address] Neeraj Celis, DO [address] [place] [address] 06/14/2024 11:00 AM EST Office Visit Cardiology, [address] [place] [address] Rajni Alejandre PA-C [address] [place] [address] [place] [address] 06/15/2024 10:30 AM EST Nurse Only Rheumatology [address] [place] [address] Pf, Nurse Rheum [address] [place] [address] [place] [address] Health Maintenance Due Date Last Done Comments COVID-19 Vaccine ( season) 2024 06/15/2023, 05/14/2023, 10/04/2022, Additional history exists Influenza Vaccine (FLU shot) (#1) 2024 05/14/2023, 04/09/2023, 04/19/2022, Additional history exists CKD PHOS USE SMARTSET 87615 04/09/202403/28, 04/05/2022, 08/02/2020, Additional history exists Adult Wellness Visit 2024 2023, 05/09/2022, 05/07/2021 Depression Screening 2024 2023, 03/22/20 15 Diabetic Foot Exam 2024 2023, 1 09/15/2017, 10/08/2017, Additional history exists HbA1c 07/28/2024 01/26/2024, 09/26, 04/09/2023, Additional history exists Diabetic Eye Exam 10/15/2024 10/16/2023, , 10/16/2023, Additional history exists Albumin/Creatinine Ratio 10/21/2024 024, 09/09/2022, 04/05/2022, Additional history exists CKD HGB USE SMARTSET 65190 11/23/202411/23, 11/24/2023, 10/22/2023, Additional history exists DTap/Tdap Vaccines (2 - Td or Tdap) 03/03/2025 03/03/2015, 11/02/2007 DXA Scan 05/26/2025 05/26/2023, 04/29, 04/30/2021, Additional history exists Pneumococcal Vaccine: 65+ Years Completed 09/01/2014, 04/23/2010 Zoster Vaccines Completed 08/29/2018, 05/30, 05/29/2012 VITAMIN D LEVEL ONCE IN A LIFETIME-USE SMARTSET# 34132 Completed 12/09/2023, 08/08/2021, 10/19/2009 HPV (Gardasil) Vaccine Aged Out No lo nger eligible based on patient's age to complete this topic Hepatitis B Vaccine Aged Out No longe r eligible based on patient's age to complete this topic MENINGOCOCCAL (MENACTRA/MENVEO) Aged Out No longer eligible based on patient's age to complete this topic documented as of this encounter Medical Devices Implanted Type Area Dietetics Director Device Identifier Shelf Expiration Date Model / Serial / Lot Graft Ant Lat 12mm [id number] - [id number] Implanted:Qt y: 1 on 11/26/2007 at [place] [facility] Tissue - Human N/A: Spine Lumbar [facility] [employer] 06/09/2011 [id number] / [id number] / Graft Ant Lat 14mm Np5u-03hx - [id number] Implanted:Qt y: 1 on 11/26/2007 at [place] [facility] Tissue - Human N/A: Spine Lumbar [facility] Co 08/08/2011 KQ8J-22R / [id number] / Graft Ant Lat 14mm Fh4u-58ux - [id number] Implanted:Qt y: 1 on 11/26/2007 at [place] [facility] Tissue - Human N/A: Spine Lumbar [facility] Co 07/23/2009 PK0H-11X / [id number] / Graft Ant Lat 14mm Uo0s-61rs - [id number] Implanted:Qt y: 1 on 11/26/2007 at [place] [facility] Tissue - Human N/A: Spine Lumbar [facility] Co 03/10/2012 WA3K-34A / [id number] / Graft Ant 10mm Gj7p-05n - [id number] Implanted:Qt y: 1 on 11/26/2007 at [place] [facility] Tissue - Human N/A: Spine Lumbar [facility] Co 08/19/2011 EV9B-84B / [id number] / [place] 181728 - [id number] Implanted:Qt y: 1 on 12/02/2006 at [place] [facility] N/A: Spine Cervical REGALADO [id number] / / [id number] [place] N[place] 016720 - [id number] Implanted:Qt y: 1 on 12/02/2006 at OR [facility] N/A: Spine Cervical REGALADO [id number] / / Graft Cervical 6x8 Nc9k-X02 - [id number] Implanted:Qt y: 1 on 12/02/2006 at OR [facility] N/A: Spine Cervical [facility] Co HU1T-C73 / / -[id number] Graft Cervical 5x7 Mt9g-N06 - [id number] Implanted:Qt y: 1 on 12/02/2006 at OR [facility] N/A: Spine Cervical [facility] CD0I-H88 / / -[id number] Graft Cervical 7x9 Ca6l-G75 - [id number] Implanted:Qt y: 1 on 12/02/2006 at [place] [facility] N/A: Spine Cervical [facility] TD8O-V52 / / -[id number] Screw 3.5x14 Mntr Fa [id number] - [id number] Implanted:Qt y: 8 on 12/02/2006 at [place] [facility] N/A: Neck ELODIA & ELODIA DEPUY [id number] / / Screw Inner Mntr [id number] - [id number] Implanted:Qt y: 11 on 12/02/2006 at OR [facility] N/A: Neck ELODIA & ELODIA DEPUY [id number] / / Screw 4.35x25 Mntrml [id number] - [id number] Implanted:Qt y: 2 on 12/02/2006 at OR [facility] N/A: Neck ELODIA & ELODIA DEPUY [id number] / / Amos [id number] - [id number] Implanted:Qt y: 2 on 12/02/2006 at OR [facility] N/A: Neck ELODIA & ELODIA DEPUY [id number] / / Screw 3.5x20 Mntr Fa [id number] - [id number] Implanted:Qt y: 1 on 12/02/2006 at [place] [facility] N/A: Neck ELODIA & ELODIA DEPUY [id number] / / Graft Infus Bone Lg Ii [id number] - [id number] Implanted:Qt y: 1 on 11/26/2007 at [place] [facility] N/A: Spine Lumbar Medtronic Sofamor Danek 12/26/2009 [id number] / / [id number] Graft Infuse Bone Sm [id number] - [id number] Implanted:Qt y: 1 on 11/26/2007 at [place] [facility] N/A: Spine Lumbar Medtronic Sofamor Danek 03/28/2010 [id number] / / [id number] Screw 6x40 Poly Si [id number] - [id number] Implanted:Qt y: 5 on 11/26/2007 at [place] [facility] N/A: Spine Lumbar ELODIA & ELODIA DEPUY [id number] / / Screw 6x45 Poly Si [id number] - [id number] Implanted:Qt y: 4 on 11/26/2007 at [place] [facility] N/A: Spine Lumbar ELODIA & ELODIA DEPUY [id number] / / Screw Set Sng Inner [id number] - [id number] Implanted:Qt y: 13 on 11/26/2007 at [place] [facility] N/A: Spine Lumbar ELODIA & ELODIA DEPUY [id number] / / Screw 7x35 Poly Si [id number] - [id number] Implanted:Qt y: 2 on 11/26/2007 at [place] [facility] N/A: Spine Lumbar ELODIA & ELODIA DEPUY [id number] / / Screw 5x40 Poly Si [id number] - [id number] Implanted:Qt y: 1 on 11/26/2007 at OR [facility] N/A: Spine Lumbar ELODIA & ELODIA DEPUY [id number] / / Screw 5x45 Poly Si [id number] - [id number] Implanted:Qt y: 1 on 11/26/2007 at OR [facility] N/A: Spine Lumbar ELODIA & ELDOIA DEPUY [id number] / / Amos 480mm [id number] - [id number] Implanted:Qt y: 1 on 11/26/2007 at [place] [facility] N/A: Spine Lumbar ELODIA & ELODIA DEPUY [id number] / / documented as of this encounter [...] 6:01 AM 11/26/2007 2:41 PM Care Teams Ocular Care Technologist Relationship Specialty Start Date End Date Doberstein, Albino F, MD [address] [place] [address] PCP - General Internal Medicine 01/17/12 documented as of this encounter
--- OUTSIDE RECORDS SUMMARY | 2024-06-10 19:21 | External Medical Summary | Summary of Care ---
Author Name Unknown Organization [facility] Address [address] [place] [address] Phone [phone] Care Team Providers Care Dock Associate Name Role Phone Albino Magaña MD Primary Care Provider + Encounter Details Date Type Department Care Team (Late st Contact Info) Description 04/13/2024 Orders Only Outcomes Research Department [address] [place] [address] Yolande Murphy CHRA [employer] Research Other*[id number] Allergies Active Allergy Reactions Criticality Noted Date Comments Penicillins Hives High 05/04/2000 Other Reaction(s): HIVES documented as of this encounter (statuses as of 04/13/2024) Medications Medication Sig Dispensed Refills Start Date [...] as of this encounter (statuses as of 04/13/2024) Active Problems Problem Noted Date Diagnosed Date [...] as of this encounter (statuses as of 04/13/2024) Resolved Problems Problem Noted Date Diagnosed Date [...] Dr. Doran. 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 Osteoporosis 06/16/2008 PURE HYPERCHOLESTEROLEM 02/2009 Overview: Per Lipid Taxonomy. DIFFUS CYSTIC MASTOPATHY Osteoporosis 04/22/2017 Overview: Osteopenia HTN, goal to be determined 1 08/20/2008 Overview: Modified per HTN protocol #16. documented as of this encounter (statuses as of 04/13/2024) Immunizations Name Administration Dates Next Due COVID-19 mRNA, LNP-s, No Pre serve, 2-Dose Series (TunePatrol) 02/15/2022,06/04/2021,09/20/2020,08/30 COVID-19, LNP-s, No Preserve , [place]-sucrose, Ages 12+ (Pfizer) 02/15/2022 COVID-19, MRNA-LNP, 23-24, P F, 30 MCG/0.3 mL, 12 YRS AND ABOVE, IM ([facility]) 06/15/2023,05/14/2023 Covid-19, Mrna, Lnp-s, Pf, B ivalent, 30 Mcg, IM, 12 yrs and above (TunePatrol) 10/04/2022 H1N1 2009 Influenza, IM 07/24/2009 Pneumococcal [...] 2024 1:30 PM EDT Office Visit Ophthalmology, [address] [place] [address] Neeraj Celis, DO [address] [place] [address] 05/13/2024 9:00 AM EDT Nurse Only Ancillary [facility] [address] [place] [address] Viridiana, Nurse Annual Wellness [facility] [address] [place] [address] 05/20/2024 9:00 AM EDT Office Visit General Internal Medicine [facility] [address] [place] [address] Albino Magaña MD 200 [facility] [place] [address] 05/24/2024 11:00 AM EDT Office Visit Ophthalmology, [address] [address] Neeraj Celis, DO [address] [place] [address] 06/14/2024 11:00 AM EST Office Visit Cardiology, [facility] [address] [place] [address] Rajni Alejandre PA-C [address] [place] [address] 06/15/2024 10:30 AM EST Nurse Only Rheumatology [place] [address] [facility] [place] [address] Pf, Nurse Rheum [facility] [place], [place] [address] Scheduled Orders Name Type Priority Associated Diagnoses Orde r Schedule MYCODE SUBSEQUENT ADULT Lab Routine [employer] Research Other*[id number] Every 6 Months for 2 Occurrences starting 04/13/2024 until 05/03/2025 Health Maintenance Due Date Last Done Comments COVID-19 Vaccine ( season) 2024 06/15/2023, 05/14/2023, 10/04/2022, Additional history exists Influenza Vaccine (FLU shot) (#1) 2024 05/14/2023, 04/09/2023, 04/19/2022, Additional history exists CKD PHOS USE SMARTSET 63566 04/09/202403/28, 04/05/2022, 08/02/2020, Additional history exists Adult Wellness Visit 2024 2023, 05/09/2022, 05/07/2021 Depression Screening 2024 2023, 03/22/20 15 Diabetic Foot Exam 2024 2023, 1 09/15/2017, 10/08/2017, Additional history exists HbA1c 07/28/2024 01/26/2024, 09/26, 04/09/2023, Additional history exists Diabetic Eye Exam 10/15/2024 10/16/2023, , 10/16/2023, Additional history exists Albumin/Creatinine Ratio 10/21/2024 024, 09/09/2022, 04/05/2022, Additional history exists CKD HGB USE SMARTSET 93652 11/23/202411/23, 11/24/2023, 10/22/2023, Additional history exists DTap/Tdap Vaccines (2 - Td or Tdap) 03/03/2025 03/03/2015, 11/02/2007 DXA Scan 05/26/2025 05/26/2023, 04/29, 04/30/2021, Additional history exists Pneumococcal Vaccine: 65+ Years Completed 09/01/2014, 04/23/2010 Zoster Vaccines Completed 08/29/2018, 05/30, 05/29/2012 VITAMIN D LEVEL ONCE IN A LIFETIME-USE SMARTSET# 63135 Completed 12/09/2023, 08/08/2021, 10/19/2009 HPV (Gardasil) Vaccine Aged Out No lo nger eligible based on patient's age to complete this topic Hepatitis B Vaccine Aged Out No longe r eligible based on patient's age to complete this topic MENINGOCOCCAL (MENACTRA/MENVEO) Aged Out No longer eligible based on patient's age to complete this topic documented as of this encounter Medical Devices Implanted Type Area Buckle Attacher Device Identifier Shelf Expiration Date Model / Serial / Lot Graft Ant Lat 12mm [id number] - [id number] Implanted:Qt y: 1 [place] [facility] [place]/A: Spine Lumbar [employer] Co 06/09/2011 [id number] / -[id number] / Graft Ant Lat 14mm Nb6j-34zg - [id number] Implanted:Qt y: 1 on 11[place]26[place]2007 [place] [facility] [place] - Human N/A: Spine Lumbar [employer] Co 08/08/2011 XG9Z-[id number] / -[id number] / Graft Ant Lat 14mm Hw1u-03ig - [id number] Implanted:Qt y: 1 on 11/26/2007 [place] [facility] [place] - Human N/A: Spine Lumbar [employer] Co 07/23/2009 XA5U-33P / [id number] / Graft Ant Lat 14mm Tl6i-06tu - [id number] Implanted:Qt y: 1 on 11/26/2007 [place] [facility] [place] - Human N/A: Spine Lumbar Lif[employer] Co 03/10/2012 RL9U-44C / [id number] / Graft Ant 10mm Nu3j-30a - [id number] Implanted:Qt y: 1 on 11/26/2007 [place] [facility] [place] - Human N/A: Spine Lumbar Lif[employer]et Co 08/19/2011 YN7T-39U / [id number] / [place] N[place] [id number] - [id number] Implanted:Qt y: 1 on 12/02/2006 [place] [facility] [place]A: Spine Cervical REGALADO [id number] / / [id number] [place] 682887 - [id number] Implanted:Qt y: 1 on 12/02/2006 [place] [facility] [place]A: Spine Cervical REGALADO [id number] / / Graft Cervical 6x8 Mz9m-H91 - [id number] Implanted:Qt y: 1 on 12/02/2006 [place] [facility] [place]/A: Spine Cervical [employer] SA1Y-R33 / / [id number] Graft Cervical 5x7 Og2v-P95 - [id number] Implanted:Qt y: 1 on 12/02/2006 [place] [facility] [place]/A: Spine Cervical Lif[employer]et [employer] AC7I-K37 / / -[id number] Graft Cervical 7x9 Ic5i-K57 - [id number] Implanted:Qt y: 1 on 12/02/2006 [place] [facility] [place]A: Spine Cervical Lif[employer] Co OM3N-W02 / / -[id number] Screw 3.5x14 Mntr Fa [id number] - [id number] Implanted:Qt y: 8 on 12/02/2006 [place] [facility] [place]A: Neck ELODIA & ELODIA DEPUY [id number] / / Screw Inner Mntr [id number] - [id number] Implanted:Qt y: 11 on 12/02/2006 at [place] [facility] [place]/A: Neck ELODIA & ELODIA DEPUY [id number] / / Screw 4.35x25 Mntrml [id number] - [id number] Implanted:Qt y: 2 on 12/02/2006 [place] [facility] [place]/A: Neck ELODIA & ELODIA DEPUY [id number] / / Amos [id number] - [id number] Implanted:Qt y: 2 on 12/02/2006 [place] [facility] [place]A: Neck ELODIA & ELODIA DEPUY [id number] / / Screw 3.5x20 Mntr Fa [id number] - [id number] Implanted:Qt y: 1 on 12/02/2006 [place] [facility] [place]A: Neck ELODIA & ELODIA DEPUY [id number] / / Graft Infus Bone Lg Ii [id number] - [id number] Implanted:Qt y: 1 on 11/26/2007 [place] [facility] [place]/A: Spine Lumbar Medtronic Sofamor Danek 12/26/2009 [id number] / / [id number] Graft Infuse Bone Sm [id number] - [id number] Implanted:Qt y: 1 on 11/26/2007 [place] [facility] [place]/A: Spine Lumbar Medtronic Sofamor [place]anek 03/28/2010 [id number] / / [id number] Screw 6x40 Poly Si [id number] - [id number] Implanted:Qt y: 5 on 11/26/2007 [place] [facility] [place]A: Spine Lumbar ELODIA & ELODIA DEPUY [id number] / / Screw 6x45 Poly Si [id number] - [id number] Implanted:Qt y: 4 on 11/26/2007 [place] [facility] [place]A: Spine Lumbar ELODIA & ELODIA DEPUY [id number] / / Screw Set Sng Inner [id number] - [id number] Implanted:Qt y: 13 on 11/26/2007 [place] [facility] [place]A: Spine Lumbar ELODIA & ELODIA DEPUY [id number] / / Screw 7x35 Poly Si [id number] - [id number] Implanted:Qt y: 2 on 11/26/2007 [place] [facility] [place]/A: Spine Lumbar ELODIA & ELODIA DEPUY [id number] / / Screw 5x40 Poly Si [id number] - [id number] Implanted:Qt y: 1 on 11/26/2007 [place] [facility] [place]A: Spine Lumbar ELODIA & ELODIA DEPUY [id number] / / Screw 5x45 Poly Si [id number] - [id number] Implanted:Qt y: 1 on 11/26/2007 [place] [facility] [place]/A: Spine Lumbar ELODIA & ELODIA DEPUY [id number] / / Amos 480mm [id number] - [id number] Implanted:Qt y: 1 on 11/26/2007 [place] [facility] [place]/A: Spine Lumbar ELODIA & ELODIA DEPUY [id number] / / documented as of this encounter Visit Diagnoses Diagnosis MyCode Research Other*[id number] documented in this encounter Advance Directives * [...] 6:01 AM 11/26/2007 2:41 PM Care Teams Dock Associate Relationship Specialty Start Date End Date Albino Magaña MD 200 [facility], [place] [address] PCP - General Internal Medicine 01/17/12 documented as of this encounter
--- OUTSIDE RECORDS SUMMARY | 2024-06-10 19:21 | External Medical Summary ---
Author Name Unknown Address Unknown Organization K09:[place] [address] Laboratory Report Ordering Provider Test Date Status ANNA VILLEGAS 05/06/2024 10:55:20 Final Observation Date Value Abnormality Reference (Units ) Status WBC, Total 05/06/2024 10:55:20 6.64 4.00-10.8 0 (K/uL) Final RBC 05/06/2024 10:55:20 3.96 3.85-5.15 (M/uL) Final Hemoglobin 05/06/2024 10:55:20 12.9 12.0-15.3 (g/dL) Final HCT 05/06/2024 10:55:20 39.2 36.0-45.2 (%) Final MCV 05/06/2024 10:55:20 99.0 81.5-97.5 (fL) Final MCH 05/06/2024 10:55:20 32.6 27.0-34.0 (pg) Final MCHC 05/06/2024 10:55:20 32.9 32.0-36.0 (g/dL) Final RDW 05/06/2024 10:55:20 13.4 11.5-15.5 (%) Final Platelets 05/06/2024 10:55:20 188 140-400 (K /uL) Final MPV 05/06/2024 10:55:20 9.4 6.6-11.1 ( fL) Final Performing Location [place] [address]
--- OUTSIDE RECORDS SUMMARY | 2024-06-10 19:21 | External Medical Summary | Summary of Care ---
Author Name Unknown Organization [facility] Address [address] [place] [address] Phone [phone] Care Team Providers Care Traveling Missionary Name Role Phone Albino Magaña MD Primary Care Provider + Encounter Details Date Type Department Care Team (Late st Contact Info) Description 05/07/2024 Orders Only General Internal Medicine [facility] [place] [address] [facility] [place] [phone] Albino Magaña MD 200 [place] [address] Allergies Active Allergy Reactions Criticality Noted Date Comments Penicillins Hives High 05/04/2000 Other Reaction(s): HIVES documented as of this encounter (statuses as of 05/07/2024) Medications Medication Sig Dispensed Refills Start Date [...] TIMES A DAY 45 g 10/14/2022 Active Additional Information Patient not taking.Reported on 05/05/2024 Cholecalciferol 125 MCG (5000 UT) Oral Capsule [...] ONCE DAILY 90 Capsule 1 04/10/2024 Active Ciprofloxacin HCl 500 MG Oral Tablet (Cipro)Indications :Cellulitis of toe of left foot Take 1 Tablet by mouth in the morning and 1 Tablet before bedtime. Do all this for 10 days. 20 Tablet 05/05/2024 Active Linezolid 600 MG Oral Tablet (Zyvox)Indications :Cellulitis of toe of left foot Take 1 Tablet by mouth in the morning and 1 Tablet before bedtime. 20 Tablet 05/05/2024 Active Hospital, Clinic, or Other Facility Administered Medication Ordered Dose Route Frequency Start Date End Date Status albuterol sulfate (PROVENTIL) (2.5 MG/3ML) 0.083% inhalation solution 2.5 mgIndications:COPD exacerbation (HCC) 2.5 mg NEBULIZER Q4H PRN 02/18/2019 Active documented as of this encounter (statuses as of 05/07/2024) Active Problems Problem Noted Date Diagnosed Date [...] as of this encounter (statuses as of 05/07/2024) Resolved Problems Problem Noted Date Diagnosed Date [...] Dr. Doran. Lumbosacral spondylosis 12/15/200203/29 DISC DIS [id number] 11/17/200205/29 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 Osteoporosis 06/16/2008 PURE HYPERCHOLESTEROLEM /02/2009 Overview: Per Lipid Taxonomy. DIFFUS CYSTIC MASTOPATHY Osteoporosis 04/22/2017 Overview: Osteopenia HTN, goal to be determined 1 08/20/2008 Overview: Modified per HTN protocol #16. documented as of this encounter (statuses as of 05/07/2024) Immunizations Name Administration Dates Next Due COVID-19 mRNA, LNP-s, No Pre serve, 2-Dose Series (Text[employer]) 02/15/2022,06/04/2021,09/20/2020,08/30 COVID-19, LNP-s, No Preserve , Orlando-sucrose, Ages 12+ (Textádo) 02/15/2022 COVID-19, MRNA-LNP, 23-24, P F, 30 MCG/0.3 mL, 12 YRS AND ABOVE, IM ([facility]) 06/15/2023,05/14/2023 Covid-19, Mrna, Lnp-s, Pf, B ivalent, 30 Mcg, IM, 12 yrs and above (Pfizer) 10/04/2022 H1N1 2009 Influenza, IM 07/24/2009 Pneumococcal Conjugate Vacc, 13 Valent (Prevnar) 09/01/2014 Pneumococcal Polysaccharide PPV23 (Pneumovax) 04/23/2010 Season Influenza, Quad, PF, Adjuvanted, 65+ Yrs, IM (FLUAD) 05/14/2023,04/05/2021,03/30/2020 Seasonal Influenza Vac., MDV , IM, 0.5 [...] 2024 1:30 PM EDT Office Visit Ophthalmology, [facility] [address] [facility] [address] Neeraj Celis, DO [address] [place] [address] 05/13/2024 9:00 AM EDT Nurse Only Ancillary [facility] [place] [address] [facility] [place] [address] [place], Nurse Annual Wellness [facility] [address] [facility] [place] [address] 05/20/2024 9:00 AM EDT Office Visit General Internal Medicine [facility] [place] [address] [facility] [place] [address] Albino Magaña MD 200 [facility] [place] [address] 05/24/2024 11:00 AM EDT Office Visit Ophthalmology, [facility] 132 [facility] [place] [address] Neeraj Celis, DO [address] [place] [address] 06/14/2024 11:00 AM EST Office Visit Cardiology, [address] [place] [address] Rajni Alejandre PA-C [address] [place] [address] [place] [address] 06/15/2024 10:30 AM EST Nurse Only Rheumatology [place] [phone] [facility] [place] [address] Pf, Nurse Rheum [facility] [place] [address] Health Maintenance Due Date Last Done Comments COVID-19 Vaccine ( season) 2024 06/15/2023, 06/15/2023, 05/14/2023, Additional history exists Influenza Vaccine (FLU shot) (#1) 2024 05/14/2023, 04/09/2023, 04/19/2022, Additional history exists CKD PHOS USE SMARTSET 94168 04/09/202403/28, 04/05/2022, 08/02/2020, Additional history exists Adult Wellness Visit 2024 2023, 05/09/2022, 05/07/2021 Depression Screening 2024 2023, 03/22/20 15 Diabetic Foot Exam 2024 2023, 1 09/15/2017, 10/08/2017, Additional history exists HbA1c 07/28/2024 01/26/2024, 09/26, 04/09/2023, Additional history exists Albumin/Creatinine Ratio 10/21/2024 024, 09/09/2022, 04/05/2022, Additional history exists DTap/Tdap Vaccines (2 - Td or Tdap) 03/03/2025 03/03/2015, 11/02/2007 CKD HGB USE SMARTSET 26180 05/06/202505/06, 05/06/2024, 11/24/2023, Additional history exists Diabetic Eye Exam 05/07/2025 05/06/2024, , 01/19/2024, Additional history exists DXA Scan 05/26/2025 05/26/2023, 04/29, 04/30/2021, Additional history exists Pneumococcal Vaccine: 65+ Years Completed 09/01/2014, 04/23/2010 Zoster Vaccines Completed 08/29/2018, 05/30, 05/29/2012 VITAMIN D LEVEL ONCE IN A LIFETIME-USE SMARTSET# 60858 Completed 12/09/2023, 08/08/2021, 10/19/2009 HPV (Gardasil) Vaccine Aged Out No lo nger eligible based on patient's age to complete this topic Hepatitis B Vaccine Aged Out No longe r eligible based on patient's age to complete this topic MENINGOCOCCAL (MENACTRA/MENVEO) Aged Out No longer eligible based on patient's age to complete this topic documented as of this encounter Medical Devices Implanted Type Area Journeyman Apprentice [employer] Device Identifier Shelf Expiration Date Model / Serial / Lot Graft Ant Lat 12mm [id number] - [id number] Implanted:Qt y: 1 [place] [facility] [place]/A: Spine Lumbar [employer] 06/09/2011 [id number] / -[id number] / Graft Ant Lat 14mm Mv2z-40kr - [id number] Implanted:Qt y: 1 on 11[place]26/2007 [place] [facility] [place] - Human N/A: Spine Lumbar [employer] 08/08/2011 WE4R-89R / [id number] / Graft Ant Lat 14mm Gw9e-10rc - [id number] Implanted:Qt y: 1 on 11[place]2007 [place] [facility] [place] - Human N/A: Spine Lumbar [employer] 07/23/2009 LK4H-28N / [id number] / Graft Ant Lat 14mm Xk1u-15pp - [id number] Implanted:Qt y: 1 on 11[place]26/2007 [place] [facility] [place] - Human N/A: Spine Lumbar [employer] 03/10/2012 OP2S-06F / [id number] / Graft Ant 10mm Pz3x-68j - [id number] Implanted:Qt y: 1 on 11[place]26/2007 [place] [facility] [place] - Human N/A: Spine Lumbar [employer] Co 08/19/2011 IC1T-56N / -[id number] / [place] 229994 - [id number] Implanted:Qt y: 1 on 12/02/2006 [place] [facility] [place]/A: Spine Cervical REGALADO 955535 / / [id number] [place] 755820 - [id number] Implanted:Qt y: 1 on 12/02/2006 [place] [facility] [place]/A: Spine Cervical REGALADO [id number] / / Graft Cervical 6x8 Ot2r-R94 - [id number] Implanted:Qt y: 1 on 12/02/2006 [place] [facility] [place]/A: Spine Cervical [facility] Co NW6C-C66 / / -[id number] Graft Cervical 5x7 Gd1i-I78 - [id number] Implanted:Qt y: 1 on 12/02/2006 [place] [facility] [place]/A: Spine Cervical [facility] GO7Z-R29 / / -[id number] Graft Cervical 7x9 Fb3m-A94 - [id number] Implanted:Qt y: 1 on 12/02/2006 [place] [facility] [place]A: Spine Cervical [facility] IV9T-I26 / / -[id number] Screw 3.5x14 Mntr Fa [id number] - [id number] Implanted:Qt y: 8 on 12/02/2006 [place] [facility] [place]A: Neck ELODIA & ELODIA DEPUY [id number] / / Screw Inner Mntr [id number] - [id number] Implanted:Qt y: 11 on 12/02/2006 [place] [facility] [place]/A: Neck ELODIA & ELODIA DEPUY [id number] / / Screw 4.35x25 Mntrml [id number] - [id number] Implanted:Qt y: 2 on 12/02/2006 [place] [facility] [place]/A: Neck ELODIA & ELODIA DEPUY [id number] / / Amos [id number] - [id number] Implanted:Qt y: 2 on 12/02/2006 [place] [facility] [place]A: Neck ELODIA & ELODIA DEPUY [id number] / / Screw 3.5x20 Mntr Fa [id number] - [id number] Implanted:Qt y: 1 on 12/02/2006 [place] [facility] [place]/A: Neck ELODIA & ELODIA DEPUY [id number] / / Graft Infus Bone Lg Ii [id number] - [id number] Implanted:Qt y: 1 on 11/26/2007 [place] [facility] [place]/A: Spine Lumbar Medtronic Sofamor Danek 12/26/2009 [id number] / / [id number] Graft Infuse Bone Sm [id number] - [id number] Implanted:Qt y: 1 on 11/26/2007 [place] [facility] [place]A: Spine Lumbar Medtronic Sofamor [employer]anek 03/28/2010 [id number] / / [id number] Screw 6x40 Poly Si [id number] - [id number] Implanted:Qt y: 5 on 11/26/2007 [place] [facility] [place]A: Spine Lumbar ELODIA & ELODIA DEPUY [id number] / / Screw 6x45 Poly Si [id number] - [id number] Implanted:Qt y: 4 on 11/26/2007 [place] [facility] [place]/A: Spine Lumbar ELODIA & ELODIA DEPUY [id number] / / Screw Set Sng Inner [id number] - [id number] Implanted:Qt y: 13 on 11/26/2007 [place] [facility] [place]A: Spine Lumbar ELODIA & ELODIA DEPUY [id number] / / Screw 7x35 Poly Si [id number] - [id number] Implanted:Qt y: 2 on 11/26/2007 [place] [facility] [place]/A: Spine Lumbar ELODIA & ELODIA DEPUY [id number] / / Screw 5x40 Poly Si [id number] - [id number] Implanted:Qt y: 1 on 11/26/2007 [place] [facility] [place]/A: Spine Lumbar ELODIA & ELODIA DEPUY [id number] / / Screw 5x45 Poly Si [id number] - [id number] Implanted:Qt y: 1 on 11/26/2007 [place] [facility] [place]/A: Spine Lumbar ELODIA & ELODIA DEPUY [id number] / / Amos 480mm [id number] - [id number] Implanted:Qt y: 1 on 11/26/2007 [place] [facility] [place]/A: Spine Lumbar ELODIA & ELODIA DEPUY [id number] / / documented as of this encounter Procedures Procedure Name Priority Date/Time Associated Diagnosis Comments DIABETIC EYE EXAM Routine 05/06/2024 documented in this encounter Results * DIABETIC EYE EXAM (05/06/2024) 05/06/2024 Trevon Shelton MD OTHER OUTSIDE LAB (SEE SCANNED REPORT) documented in this encounter Advance Directives * [...] 6:01 AM 11/26/2007 2:41 PM Care Teams Traveling Missionary Relationship Specialty Start Date End Date Albino Magaña MD [address] [place] [address] PCP - General Internal Medicine 01/17/12 documented as of this encounter
--- OUTSIDE RECORDS SUMMARY | 2024-06-10 19:21 | External Medical Summary | Summary of Care ---
Author Name Unknown Organization [facility] Address [address] [place] [address] Phone [phone] Care Team Providers Care Ping Pong Table Assembler Name Role Phone Albino Magaña MD Primary Care Provider + Reason for Visit * Reason Onset Date Comments Post-Op 04/12/2024 Encounter Details Date Type Department Care Team (Late st Contact Info) Description 04/12/2024 Telephone Access Center, [place] [address] [facility] *DO NOT REMOVE THIS DEPARTMENT* [place] [phone] Services, Scheduling [address] [place] [address] Post-Op Allergies Active Allergy Reactions Criticality Noted Date [...] Dr. Doran. Lumbosacral spondylosis 12/15/200203/29 DISC DIS [id number] 11/17/200205/29 DIABETES MELLITUS WITHOUT ME NTION OF [...] mRNA, LNP-s, No Pre serve, 2-Dose Series ([employer]) 02/15/2022,06/04/2021,09/20/2020,08/30 COVID-19, LNP-s, No Preserve , [place]-sucrose, Ages 12+ ([employer]) 02/15/2022 COVID-19, MRNA-LNP, 23-24, P F, 30 MCG/0.3 mL, 12 YRS AND ABOVE, IM ([facility]) 06/15/2023,05/14/2023 Covid-19, Mrna, Lnp-s, Pf, B ivalent, 30 Mcg, IM, 12 yrs and above ([employer]) 10/04/2022 H1N1 2009 Influenza, IM 07/24/2009 Pneumococcal [...] encounter Miscellaneous Notes * Telephone Encounter - Nelda Jacome RN - 04/12/2024 10:13 AM EDT LVM for pt. That she can come in anytime today. Nelda Jacome RN 04/12/2024 10:13 AM * Telephone Encounter - Nadege Ewing OSA - 04/12/2024 9:06 AM EDT Patient said she received a call to come in earlier today with but she can't rememberwhat time. Please call patient back to let her know. documented in this encounter Plan of Treatment Upcoming Encounters Date Type Department Care Team (Late st Contact Info) Description 04/12/2024 1:40 PM EDT Office Visit Ophthalmology, [address] [address] Neeraj Celis, DO [address] [place] [address] 05/13/2024 9:00 AM EDT Nurse Only Ancillary [facility] [address] [place] [address] Viridiana, Nurse Annual Wellness [facility] [address] [place] [address] 05/20/2024 9:00 AM EDT Office Visit General Internal Medicine [facility] [address] [facility] [place] [address] Albino Magaña MD [address] [place], [place] [address] 05/24/2024 11:00 AM EDT Office Visit Ophthalmology, [facility] [address] [place] [address] Neeraj Celis, [address] [place] [address] 06/14/2024 11:00 AM EST Office Visit Cardiology, [facility] [address] [place] [address] Rajni Alejandre PA-C [address] [place] [address] 06/15/2024 10:30 AM EST Nurse Only Rheumatology [place] [phone] [facility] [place] [address] Pf, Nurse Rheum [address] [facility] [place] [id number] Health Maintenance Due Date Last Done Comments COVID-19 Vaccine ( season) 2024 06/15/2023, 05/14/2023, 10/04/2022, Additional history exists Influenza Vaccine (FLU shot) (#1) 2024 05/14/2023, 04/09/2023, 04/19/2022, Additional history exists CKD PHOS USE SMARTSET 26412 04/09/202403/28, 04/05/2022, 08/02/2020, Additional history exists Adult Wellness Visit 2024 2023, 05/09/2022, 05/07/2021 Depression Screening 2024 2023, 03/22/20 15 Diabetic Foot Exam 2024 2023, 1 09/15/2017, 10/08/2017, Additional history exists HbA1c 07/28/2024 01/26/2024, 09/26, 04/09/2023, Additional history exists Diabetic Eye Exam 10/15/2024 10/16/2023, , 10/16/2023, Additional history exists Albumin/Creatinine Ratio 10/21/2024 024, 09/09/2022, 04/05/2022, Additional history exists CKD HGB USE SMARTSET 39409 11/23/202411/23, 11/24/2023, 10/22/2023, Additional history exists DTap/Tdap Vaccines (2 - Td or Tdap) 03/03/2025 03/03/2015, 11/02/2007 DXA Scan 05/26/2025 05/26/2023, 04/29, 04/30/2021, Additional history exists Pneumococcal Vaccine: 65+ Years Completed 09/01/2014, 04/23/2010 Zoster Vaccines Completed 08/29/2018, 05/30, 05/29/2012 VITAMIN D LEVEL ONCE IN A LIFETIME-USE SMARTSET# 39373 Completed 12/09/2023, 08/08/2021, 10/19/2009 HPV (Gardasil) Vaccine Aged Out No lo nger eligible based on patient's age to complete this topic Hepatitis B Vaccine Aged Out No longe r eligible based on patient's age to complete this topic MENINGOCOCCAL (MENACTRA/MENVEO) Aged Out No longer eligible based on patient's age to complete this topic documented as of this encounter Medical Devices Implanted Type Area Blender / Cook Device Identifier Shelf Expiration Date Model / Serial / Lot Graft Ant Lat 12mm [id number] - [id number] Implanted:Qt y: 1 on 11/26/2007 at [place] [facility] Tissue - Human N/A: Spine Lumbar [employer] 06/09/2011 [id number] / -[id number] / Graft Ant Lat 14mm [id number] - [id number] Implanted:Qt y: 1 on 11/26/2007 at [place] [facility] Tissue - Human N/A: Spine Lumbar [employer] 08/08/2011 [id number] / [id number] / Graft Ant Lat 14mm [id number] - [id number] Implanted:Qt y: 1 on 11/26/2007 at [place] [facility] Tissue - Human N/A: Spine Lumbar [employer] 07/23/2009 [id number] / [id number] / Graft Ant Lat 14mm [id number] - [id number] Implanted:Qt y: 1 on 11/26/2007 at [place] [facility] Tissue - Human N/A: Spine Lumbar [employer] 03/10/2012 [id number] / -[id number] / Graft Ant 10mm Bg6g-95w - [id number] Implanted:Qt y: 1 on 11/26/2007 at [place] [facility] Tissue - Human N/A: Spine Lumbar [employer] 08/19/2011 [id number] / [id number] / Flose[place] Nt [id number] - [id number] Implanted:Qt y: 1 on 12/02/2006 at [place] [facility] N/A: Spine Cervical REGALADO [id number] / / [id number] [place] Nt [id number] - [id number] Implanted:Qt y: 1 on 12/02/2006 at [place] [facility] N/A: Spine Cervical REGALADO [id number] / / Graft Cervical 6x8 Nw9k-R84 - [id number] Implanted:Qt y: 1 on 12/02/2006 at [place] [facility] N/A: Spine Cervical [employer] [id number] / / -[id number] Graft Cervical 5x7 Vr5b-U53 - [id number] Implanted:Qt y: 1 on 12/02/2006 at [place] [facility] N/A: Spine Cervical [employer] [id number] / / -[id number] Graft Cervical 7x9 Mw2m-M62 - [id number] Implanted:Qt y: 1 on 12/02/2006 at [place] [facility] N/A: Spine Cervical [employer] [id number] / / -[id number] Screw 3.5x14 Mntr Fa [id number] - [id number] Implanted:Qt y: 8 on 12/02/2006 at [place] [facility] N/A: Neck [employer]IA [employer] [id number] / / Screw Inner Mntr [id number] - [id number] Implanted:Qt y: 11 on 12/02/2006 at [place] [facility] N/A: Neck [employer] [id number] / / Screw 4.35x25 Mntrml [id number] - [id number] Implanted:Qt y: 2 on 12/02/2006 at [place] [facility] N/A: Neck [employer] [id number] / / Amos 3.2l758ph [id number] - [id number] Implanted:Qt y: 2 on 12/02/2006 at [place] [facility] N/A: Neck [employer] [id number] / / Screw 3.5x20 Mntr Fa [id number] - [id number] Implanted:Qt y: 1 on 12/02/2006 at [place] [facility] N/A: Neck [employer] [id number] / / Graft Infus Bone Lg Ii [id number] - [id number] Implanted:Qt y: 1 on 11/26/2007 at [place] [facility] N/A: Spine Lumbar [employer] 12/26/2009 [id number] / / [id number] Graft Infuse Bone Sm [id number] - [id number] Implanted:Qt y: 1 on 11/26/2007 at [place] [facility] N/A: Spine Lumbar [employer] 03/28/2010 [id number] / / [id number] Screw 6x40 Poly Si [id number] - [id number] Implanted:Qt y: 5 on 11/26/2007 at [place] [facility] N/A: Spine Lumbar [employer] [id number] / / Screw 6x45 Poly Si [id number] - [id number] Implanted:Qt y: 4 on 11/26/2007 at [place] [facility] N/A: Spine Lumbar [employer] [id number] / / Screw Set Sng Inner [id number] - [id number] Implanted:Qt y: 13 on 11/26/2007 at [place] [facility] N/A: Spine Lumbar [employer] [id number] / / Screw 7x35 Poly Si [id number] - [id number] Implanted:Qt y: 2 on 11/26/2007 at [place] [facility] N/A: Spine Lumbar [employer] [id number] / / Screw 5x40 Poly Si [id number] - [id number] Implanted:Qt y: 1 on 11/26/2007 at [place] [facility] N/A: Spine Lumbar [employer] [id number] / / Screw 5x45 Poly Si [id number] - [id number] Implanted:Qt y: 1 on 11/26/2007 at [place] [facility] N/A: Spine Lumbar [employer] [id number] / / Amos 480mm [id number] - [id number] Implanted:Qt y: 1 on 11/26/2007 at [place] [facility] N/A: Spine Lumbar [employer] [id number] / / documented as of this encounter [...] 6:01 AM 11/26/2007 2:41 PM Care Teams Ping Pong Table Assembler Relationship Specialty Start Date End Date Albino Magaña MD [address] [facility], [facility]01 PCP - General Internal Medicine 01/17/12 documented as of this encounter
--- OUTSIDE RECORDS SUMMARY | 2024-06-10 19:21 | External Medical Summary | Summary of Care ---
Author Name Unknown Organization [facility] Address [address] [place] [address] Phone [phone] Care Team Providers Care Research Librarian Name Role Phone Albino Magaña MD Primary Care Provider + Reason for Visit * Reason Comments Adult Annual Wellness Visit, Subsequent Visit Encounter Details Date Type Department Care Team (Late st Contact Info) Description 05/13/2024 9:00 AM EDT Nurse Only Ancillary [facility] [place] [address] [place] [address] [place], Nurse Annual Wellness [facility] [address] [place] [id number] Adult Annual Wellness Visit, Subsequent Visit Allergies Active Allergy Reactions Criticality Noted Date Comments Penicillins Hives High 05/04/2000 Other Reaction(s): HIVES documented as of this encounter (statuses as of 05/13/2024) Medications Medication Sig Dispensed Refills Start Date [...] Active Ciprofloxacin HCl 500 MG Oral Tablet (Cipro)Indications: Cellulitis of toe of left foot Take 1 Tablet by mouth in the morning and 1 Tablet before bedtime. Do all this for 10 days. 20 Tablet 05/05/2024 05/15/2024 Active Linezolid 600 MG Oral Tablet (Zyvox)Indications: Cellulitis of toe of left foot Take 1 [...] as of this encounter (statuses as of 05/13/2024) Active Problems Problem Noted Date Diagnosed Date [...] as of this encounter (statuses as of 05/13/2024) Resolved Problems Problem Noted Date Diagnosed Date [...] Dr. Doran. Lumbosacral spondylosis 12/15/200203/29 DISC DIS [id number]-NMUMQC 11/17/200205/29 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 Osteoporosis 06/16/2008 PURE HYPERCHOLESTEROLEM /0 02/2009 Overview: Per Lipid Taxonomy. DIFFUS CYSTIC MASTOPATHY Osteoporosis 04/22/2017 Overview: Osteopenia HTN, goal to be determined 1 08/20/2008 Overview: Modified per HTN protocol #16. documented as of this encounter (statuses as of 05/13/2024) Immunizations Name Administration Dates Next Due COVID-19 mRNA, LNP-s, No Pre serve, 2-Dose Series (OptiNose) 02/15/2022,06/04/2021,09/20/2020,08/30 COVID-19, LNP-s, No Preserve , [place]-sucrose, Ages 12+ (Pfizer) 02/15/2022 COVID-19, MRNA-LNP, 23-24, P F, 30 MCG/0.3 mL, 12 YRS AND ABOVE, IM (TranZfinity-ComirnatAnke) 06/15/2023,05/14/2023 COVID-19, MRNA-LNP, 24-25, P R, 30MCG/0.3ML, IM, 12YRS AND ABOVE (OptiNose-ComirnatAnke) 06/15/2023,05/14/2023 Covid-19, Mrna, Lnp-s, Pf, B ivalent, 30 Mcg, IM, 12 yrs and above (OptiNose) 10/04/2022 H1N1 2009 Influenza, IM 07/24/2009 Pneumococcal [...] Sign Reading Time Taken Comments Blood Pressure 122/64 05/13/2024 8:42 AM EDT Pulse 96 05/13/2024 8:42 AM EDT Temperature 36.6 C (97.8 F) 05/13/2024 8:42 AM ED T Respiratory Rate - - Oxygen Saturation 100% 05/13/2024 8:42 AM EDT Inhaled Oxygen Concentration - - Weight 44 kg (97 lb) 05/13/2024 8:42 AM EDT Height 149.9 cm (4' 11") 05/13/2024 8:42 AM EDT Body Mass Index 19.59 05/13/2024 8:42 AM EDT documented in this encounter Patient Instructions * Patient Instructions* Chitra Hare RN - 05/13/2024 8:41 AM EDT Diabetes: Keeping Feet Healthy Inspect your feet [...] calluses yourself. Talk to your doctor or ornamental metal erector (a doctor who specializes in foot care) [...] the area doesnt appear to be healing. [phone] [employer], [address] [place] [address], [place] [address]. All rights reserved. This information is not intended as a substitute for professional medical care. Always follow your healthcare professional's instructions. Hi Perez, As your primary care physician, I know [...] Due: Health Maintenance Due Topic Date Due Influenza Vaccine (FLU shot) (1) 03/28/2024 COVID-19 Vaccine ( season) 2024 CKD PHOS USE SMARTSET 15259 04/09/2024 Diabetic Foot Exam 2024 Current Medication List: (as of Visit date not found (in office), Visit date not found (telemedicine) ) Current Outpatient Medications Medication Sig Dispense Refill Multiple Vitamins-Minerals (PRESERVISION AREDS 2+MULTI VIT) CAPS Take 1 Cap by mouth 2 times a day. Clobetasol Propionate 0.05 % External Ointment (Temovate) APPLY TOPICALLY TO AFFECTED AREA 2 TIMES A DAY 45 g 0 Cholecalciferol 125 MCG (5000 UT) Oral Capsule DAILY Denosumab 60 MG/ML Subcutaneous Solution Prefilled Syringe (Prolia) Simvastatin 10 MG Oral Tablet (Zocor) TAKE [...] 1 Tablet before bedtime. 20 Tablet 0 B-D ULTRAFINE III (8MM) SHORT PEN MISC [...] directed. Test 4 times daily as directed. UltiCare Insulin Syringe 31G X 5/16" 1 ML NovoLOG FlexPen 100 UNIT/ML Subcutaneous Solution Pen-injector (insulin aspart) Inject 6 prior to breakfast, 5 units prior to lunch and 8 units prior to dinner, can apply pre meal scale if glucose out of range 15 mL 5 Diclofenac Sodium 1 % External Gel Apply topically to affected area. Apply to right elbow as needed Insulin Lispro (1 Unit Dial) 100 UNIT/ML Subcutaneous Solution Pen-injector (Admelog) (Patient not taking: Reported on 05/05/2024) Erythromycin 5 MG/GM Ophthalmic Ointment Apply 0.25 inch ribbon of ointment to both eyelid incisions four times daily for two weeks then at bedtime for four weeks 3.5 g 3 Ciprofloxacin HCl 500 MG Oral Tablet (Cipro) Take 1 Tablet by mouth in the morning and 1 Tabletbefore bedtime. Do all this for 10 days. 20 Tablet 0 Current Facility-Administered Medications Medication Dose Route Frequency Provider Last Rate Last Admin albuterol sulfate (PROVENTIL) (2.5 MG/3ML) 0.083% inhalation solution 2.5 mg 2.5 mg Nebulizer Q4H PRN Deann Valencia DO Current List of Allergies: (as of Visit date not found (in office), Visit date not found (telemedicine) ) Review of patient's allergies indicates: Allergen Reactions Penicillins Hives Other Reaction(s): HIVES Most Recent Lab Results: Results for orders placed or performed in visit on 05/06/24 CBC Result Value Ref Range WBC 6.64 4.00 - 10.80 K/uL RBC 3.96 3.85 - 5.15 M/uL HGB 12.9 12.0 - 15.3 g/dL HCT 39.2 36.0 - 45.2 % MCV 99.0 81.5 - 97.5 fL MCH 32.6 27.0 - 34.0 pg MCHC 32.9 32.0 - 36.0 g/dL RDW 13.4 11.5 - 15.5 % PLT 188 140 - 400 K/uL MPV 9.4 6.6 - 11.1 fL DIFFERENTIAL, AUTOMATED Result Value Ref Range WBC 6.64 4.00 - 10.80 K/uL Neutrophils % 78.1 (H) 40.0 - 75.0 % Lymphocytes % 11.6 (L) 18.0 - 42.0 % Monocytes % 8.9 1.0 - 11.0 % Eosinophils % 1.1 0.0 - 6.0 % Basophils % 0.3 0.0 - 2.0 % Absolute Neutrophils 5.19 1.80 - 7.70 K/uL Absolute Lymphocytes 0.77 (L) 1.00 - 4.80 K/ul Absolute Monocytes 0.59 0.00 - 1.10 K/uL Absolute Eosinophils 0.07 0.00 - 0.70 K/uL Absolute Basophils 0.02 0.00 - 0.20 K/uL *Note: Due to a large number of results and/or encounters for the requested time period, some results have not been displayed. A complete set of results can be found in Results Review. Sincerely, Albino Magaña MD 05/13/2024 [facility] Calendar (as of Visit date not found (in office), Visit date not found (telemedicine) ) Care needs Care needs Last completed Due next Flu vaccine (recommended) (1) 05/14/2023 03/28/2024 COVID-19 Vaccine ( season) 2023 03/28/2024 Diabetic Foot Exam 2023 2024 A1C blood sugar test 01/26/2024 07/28/2024 Urine albumin/creatinine test 10/22/2023 10/21/2024 Diphtheria, tetanus & pertussis vaccines (2 - Td or Tdap) 03/03/2015 03/03/2025 Diabetic Eye Exam 05/06/2024 05/06/2025 Adult Wellness Visit 05/13/2024 05/13/2025 Bone Density 05/26/2023 05/26/2025 As you look over the recommended services, be sure to check with your insurance company to determine what's covered. [employer] is a great tool that helps you review your medical record online, including test results, doctor notes and your health summary. You can also schedule appointments with me and other members of your care team, request prescription refills and ask for advice related to your medical conditions at [email or web address]. documented in this encounter Progress Notes * Chitra Hare RN - 05/13/2024 8:37 AM EDT AD8 Dementia Screening Interview Person [...] Daily problems with thinking and/or memory. No (1) TOTAL AD8: 1 - AD8 Dementia Screening Score The final score is a sum of the number items marked "Yes, A Change". 0 - 1: Normal cognition; 2 or greater: Cognitive impairments is likely to be present - further testing required Adult Annual Wellness Visit: Sheila Todd is a 89 year old female who presents for an Adult Annual Wellness Visit. Depression Screening: Did the patient complete the screening questionnaire for Depression? Yes Is the patient's total score for Depression 15 or greater? No, no further intervention needed, unless requested by patient. Did the patient answer positively to the suicide question? No, no further intervention needed, unless requested by patient. In general, compared to other people your age, what would you say that your health is? Very Good Ht Readings from Last 1 Encounters: 05/13/24 1.499 m (4' 11") Wt Readings from Last 1 Encounters: 05/13/24 44 kg (97 lb) Body Mass Index: BMI Less than 30 Body mass index is 19.59 kg/m. BP Readings from Last 1 Encounters: 05/13/24 122/64 Medical/Surgical/Family History Reviewed: Yes Past Medical History: Diagnosis Date Carpal tunnel syndrome 02/26/2012 CKD stage 3 due to type 1 diabetes mellitus ([facility]) 04/22/2017 Current use of insulin ([facility]) 04/22/2017 Diffuse cystic mastopathy Breast, Fibrocystic DM type 1, not at goal ([facility]) dx 1961 Diabetes Type I, Uncontrolled Dyslipidemia, [...] hemoglobin A1c goal of less than 7.0% ([facility]) 04/22/2017 Vertebral fracture, osteoporotic ([facility]) 07/04/2008 Per Osteoporotic Vertebral Fracture Protocol # 9 Past Surgical History: Procedure Laterality Date ALLOGRAFT, MORSELIZED, FOR SPINE SURGERY 12/02/2006 ALLOGRAFT FOR SPINE SURGERY MORSELIZED performed by SRINIVASA DIEGO at [facility] AMPUTATION OF FINGER/THUMB Right 10/03/2023 BIOPSY OF BREAST, OPEN Breast Biopsy, Benign Disease COLONOSCOPY W/ BIOPSY (RECTUM) 08/20/2011 polyps ENDO DECOMPRESS SPINAL CORD W/LAMINOTOMY, CERVICAL 12/02/2006 LAMINECTOMY DECOMPRESSION SPINAL CORD CERVICAL performed by SRINIVASA DIEGO at OR [facility] INJECT/TREAT EYE W/MEDICATION 06/01/2020 LASER TRABECULOPLASTY 04/08/12, 04/15/12 Repair of scar tissue from cataract surgery LUMBAR SPINE FUSION W/BONE GRAFT 11/26/2007 ARTHRODESIS SPINE ANTERIOR LUMBAR performed by ZA REYES [facility] LUMBAR SPINE FUSION, POST INTERBODY 11/26/2007 ARTHRODESIS SPINE POSTERIOR INTERBODY WITH LAMINECTOMY LUMBAR performed by ZA REYES [facility] LUMBAR SPINE FUSION, POSTEROLATERAL 11/26/2007 ARTHRODESIS SPINE POSTERIOR LUMBAR performed by ZA REYES [facility] NECK SPINE FUSION (CERV, BELOW C2) 12/02/2006 ARTHRODESIS SPINE POSTERIOR CERVICAL performed by SRINIVASA DIEGO OR [facility] [place] BLEPHAROPLASTY UPPER EYELID W/EXCESSIVE SKIN Bilateral 03/31/2024 Bleph OU- Dr Vanegas REINSERT SPINAL FIXATION DEVICE 12/24/2007 REINSERTION OF SPINAL INSTRUMENTATION performed by ZA REYES at OR [facility] REMOVE CATARACT, INSERT LENS PROSTH both 2008 Cataract Removal REMOVE NECK SPINE DISK, SINGLE 12/02/2006 DISKECTOMY ANTERIOR CERVICAL performed by SRINIVASA IDEGO at OR [facility] REMOVE VERTEBR SEG FOR SPINE TUMOR 12/02/2006 CORPECTOMY EXCISION INTRASPINAL LESION EXTRADURAL CERVICAL performed by SRINIVASA DIEGO at [facility] SPINAL FUSION, 7-12 VERT, POST 12/02/2006 ARTHRODESIS SPINE POSTERIOR FOR DEFORMITY 7 TO 12 VERTEBRAE performed by SRINIVASA DIEGO at [facility] THORAX SPINE FUSION, POSTEROLATERAL 12/07/2007 ARTHRODESIS SPINE POSTERIOR THORACIC performed by ZA REYES at OR [facility] Family History Problem Relation Name Age of Onset Heart Disorder Mother Heart Disorder Father AAA, age 77 Cancer Father Stroke Sister Diabetes Sister Lung Disorder Brother Heart Disorder Sister AAA age 67 Has patient ever had cancer? No Social History Tobacco Use Smoking status: Former Current packs/day: [...] the patient have an Advance Directives/Living Will? Yes daughter mya raymond is healthcare public relations representative, has completed this in the past, is unsure where the copy is at home Last Physical Exam: Last physical exam: 05/05/2024 Does patient see primary provider regularly? Yes Does patient see other providers? Yes, Specialist Patient Care Team updated? Yes Review of patient's allergies indicates: Allergen Reactions Penicillins Hives Other Reaction(s): HIVES Immunization History Administered Date(s) Administered COVID-19 mRNA, LNP-s, No Preserve, 2-Dose Series (OptiNose) 08/30/2020, 09/20/2020, 06/04/2021, 02/15/2022 COVID-19, LNP-s, No Preserve, [place]-sucrose, Ages 12+ (Pfizer) 02/15/2022 COVID-19, MRNA-LNP, 23-24, PF, 30 MCG/0.3 mL, 12 YRS AND ABOVE, IM (PFIZER- Comirnaty) 05/14/2023, 06/15/2023 COVID-19, MRNA-LNP, 24-25, [place], 30MCG/0.3ML, IM, 12YRS AND ABOVE (Pfizer- Comirnaty) 05/14/2023, 06/15/2023 Covid-19, Mrna, Lnp-s, Pf, Bivalent, 30 Mcg, IM, 12 yrs and above (OptiNose) 10/04/2022 H1N1 2009 Influenza, IM 07/24/2009 Pneumococcal Conjugate Vacc, 13 Valent (Prevnar) 09/01/2014 Pneumococcal Conjugate Vaccine, 7 Valent 03/08/2004 Pneumococcal Polysaccharide PPV23 (Pneumovax) 04/23/2010 Season Influenza, Quad, PF, Adjuvanted, 65+ Yrs, IM (FLUAD) 03/30/2020, 04/05/2021, 04/19/2022, 05/14/2023 Seasonal Influenza Vac., MDV, IM, 0.5 mL (Fluzone) 05/03/2002, 05/24/2003, 05/28/2005, 04/28/2006, 05/14/2007, 05/02/2008, 04/20/2009, 04/23/2010, 04/15/2011, 04/24/2012, 05/24/2013, 04/22/2014 Seasonal Influenza Virus Vaccine, Unspecified Formulation 04/18/2022 Seasonal Influenza, PF, 6 M & above, IM , (FluLaval or Fluzone) 04/22/2017, 04/02/2018, 04/14/2019 Seasonal Influenza, Quadrivalent Hd (Fluzone Hd) 04/09/2023 Seasonal Influenza, Quadrivalent, No Preserve, IM 05/02/2015, 04/09/2016 TD, Preservative Free 11/02/2007 TDAP (age 10 and older)(Boostrix) 03/03/2015 Varicella Zoster Vaccine (Adult) 05/29/2012 Zoster Vaccine Recombinant (Shingrix) 06/26/2018, 08/29/2018 Current Outpatient Medications Medication Sig Dispense Refill Multiple Vitamins-Minerals (PRESERVISION AREDS 2+MULTI VIT) CAPS Take 1 Cap by mouth 2 times a day. NovoLOG FlexPen 100 UNIT/ML Subcutaneous Solution Pen-injector [...] 125 MCG (5000 UT) Oral Capsule DAILY Denosumab 60 MG/ML Subcutaneous Solution Prefilled Syringe (Prolia) Diclofenac Sodium 1 % External Gel Apply [...] morning and 5 units in the evening Erythromycin 5 MG/GM Ophthalmic Ointment Apply 0.25 inch ribbon of ointment to both eyelid incisions four times daily for two weeks then at bedtime for four weeks 3.5 g 3 dilTIAZem HCl ER Beads 360 MG Oral Capsule Extended Release 24 Hour (Tiazac) TAKE 1 CAPSULE BY MOUTH ONCE DAILY 90 Capsule 1 Ciprofloxacin HCl 500 MG Oral Tablet (Cipro) Take 1 Tablet by mouth in the morning and 1 Tablet before bedtime. Do all this for 10 days. 20 Tablet 0 Linezolid 600 MG Oral Tablet (Zyvox) Take 1 Tablet by mouth in the morning and 1 Tablet before bedtime. 20 Tablet 0 B-D ULTRAFINE III (8MM) SHORT PEN MISC [...] directed. Test 4 times daily as directed. UltiCare Insulin Syringe 31G X 5/16" 1 ML Insulin Lispro (1 Unit Dial) 100 UNIT/ML Subcutaneous Solution Pen-injector (Admelog) (Patient not taking: Reported on 05/05/2024) Current Facility-Administered Medications Medication Dose Route Frequency Provider Last Rate Last Admin albuterol sulfate (PROVENTIL) (2.5 MG/3ML) 0.083% inhalation solution 2.5 mg 2.5 mg Nebulizer Q4H PRN Deann Valencia DO Patient Active Problem List Diagnosis SPINAL STENOSIS-LUMBAR Spondylolisthesis DYSLIPIDEMIA, GOAL LDL BELOW 100 Hypertension goal BP (blood pressure) < 140/90 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) Right carotid bruit 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 Yes Patient takes medications as prescribed? Yes Patient manages own medications: Yes Patient uses a pill box? No, uses a basket to organize Dental Exam: No has not gone in years, does not have dental insurance Eye Screening: Yes: Every 6 + months Are you having trouble with hearing? A little hard of hearing Do you use an assistive device to help your hearing? No Exercise Screening: exercises 1-2 times per week, enjoys walking Nutrition Assessment: Eats three meals a day, has a good appetite, small portions at a time Pain Screening: Are you having any pain? Yes has arthritis in knees, worse in the cold weather . Uses Voltaren for relief Sleep Screening Tool 'STOP': Do you snore? [...] System: Patient lives alone Means of Transportation: Family transports and [facility] transportation Patient lives in [place] [facility] [place] Resources: [employer], [employer] transportation if daughter is not available Functional Status and ADL Skills: Has patient ever had an amputation? Yes: Limb: R pointer finger, due to infection Functional Assessment: 90- Able to carry on [...] continent of bowel Feeding: Self Bathing: Self; Shower Chair and walk in shower with grab bars, uses a gripper mat on floor of tub Requires none assistance with ADLs. Instrumental ADL's: Shopping: Independent [...] Factors Present: Uses more than 4 medications Balance or gait disturbances Visually impaired Older than age 70 Maw-Mz-ywk-Go Test: Time began at 0830. Patient stood from sitting position and walked approximately 10 feet, returned and sat down. Total time for chb-bj-egm-go test was 13 seconds. Rrt-Oy-orr-Go Test completed? Yes Gender Specific Preventative Plan: Health Maintenance Topic Date Due Influenza Vaccine (FLU shot) (1) 03/28/2024 COVID-19 Vaccine ( season) 2024 CKD PHOS USE SMARTSET 24969 04/09/2024 HbA1c 07/28/2024 Albumin/Creatinine Ratio 10/21/2024 DTap/Tdap Vaccines (2 - Td or Tdap) 03/03/2025 Diabetic Eye Exam 05/06/2025 CKD HGB USE SMARTSET 37556 05/06/2025 Diabetic Foot Exam 05/13/2025 Depression Screening 05/13/2025 Adult Wellness Visit 05/13/2025 DXA Scan 05/26/2025 VITAMIN D LEVEL ONCE IN A LIFETIME-USE SMARTSET# 78984 Completed Zoster Vaccines Completed Pneumococcal Vaccine: 65+ Years Completed Hepatitis B Vaccine Aged Out MENINGOCOCCAL (MENACTRA/MENVEO) Aged Out HPV (Gardasil) Vaccine Aged Out Follow Up/ Referrals/Handouts: Depression screening - completed Functional assessment - Doing well, independent with all ADLs and iADLs. Lives alone in apartment with her cat. Daughter nearby. in a SNF in [place], she also visits with sister who is in [facility]. Falls Risk screening - completed, handouts given Exercise screening - provide exercise handouts, walks when able, walts to [email or web address] grocery store with grocery cart Nutrition assessment -. Handouts Provided Pain screening - has some arthritis in knees, worse with cold weather. Uses voltaren for relief Incontinence screening - no concerns Routine general medical examination at a health care facility (Primary) Type 2 diabetes mellitus with hemoglobin A1c goal of less than 7.0% ([facility]) - DIABETES FOOT EXAM Hypertension goal BP (blood pressure) < 140/90 - Med reconciliation completed and compliance discussed. - pt to continue present medications. Continue to follow with PCP. BP Readings from Last 3 Encounters: 05/13/24 122/64 05/05/24 140/60 12/09/23 118/60 DYSLIPIDEMIA, GOAL LDL BELOW 100 - Med reconciliation completed and compliance discussed. - pt to continue present medications. Continue to follow with PCP. Lipid Panel Results: Results for orders placed or performed in visit on 01/20/19 LIPID PANEL Result Value Ref Range HOURS FASTING NOT FASTING hours Triglycerides 103 <200 mg/dL Cholesterol 155 <200 mg/dL HDL Cholesterol 71 >39 mg/dL Cholesterol-HDL Ratio 2.2 LDL Cholesterol 63 0 - 129 mg/dL Results for orders placed or performed in visit on 01/26/24 LIPID PANEL WITH DIRECT LDL IF TG IS HIGH Result Value Ref Range Triglycerides 47 <=174 mg/dL Cholesterol 156 <200 mg/dL HDL Cholesterol 70 >49 mg/dL Non-HDL Cholesterol 86 <=159 mg/dL LDL Cholesterol 77 <=129 mg/dL Follow Up: Return in 1 year (on 05/13/2025) for 12 month Subsequent Adult Wellness Visit. | For: 12month Subsequent Adult Wellness Visit | Check-out note: 12 month Subsequent Adult Wellness Visit Patient has been verbally educated on the need or importance of Diabetic Foot Exam and Flu Vaccine Is scheduled to get FLU shot at [facility] on 05/19/24 Foot exam completed today Pt has completed the covid vaccines: Yes, plans to get additional in the near future Would patient like to schedule next AWV visit? Yes Chitra Hare RN Socks and Shoes Removed for Annual [...] Notes * Pt Handout (on AVS) - Chitar Hare RN - 05/13/2024 9:16 AM EDT [id number] Fall Prevention Falls often take place due to slipping, tripping, or losing your balance. Millions of people fall every year and injure themselves. Among older adults in the [place] falls are the most common cause of traumatic brain injuries. Every 20 minutes, an older adult dies from a fall. Here are ways to reduceyour risk of falling again: Think about your fall. Was there anything that caused your fall that can be fixed, removed, or replaced? Make your home safe by keeping walkways clear of objects you may trip over, such as electrical cords. Use nonslip pads under rugs. Don't use area rugs or small throw rugs. Use nonslip mats in bathtubs and showers. Hang grab rails by the toilet and inside and outside the shower. Install handrails and lights on staircases. The handrails should be on both sides of the stairs. Use night lights. Don't walk in poorly lit areas. Don't stand on chairs or wobbly ladders. Use care when reaching overhead or looking up. This position can cause a loss of balance. Be sure your shoes fit well, are in good condition, and have nonslip bottoms. Wear shoes both inside and outside of your home. Don't go barefoot or wear slippers. Be cautious when going up and down stairs, curbs, and when walking on uneven sidewalks. If your balance is poor, consider using a cane or walker. Talk with your healthcare provider about having a balance assessment. If your fall was related to alcohol use, stop or limit alcohol intake. Ask your provider for help if you think you may overuse alcohol and can't stop. If your fall was related to use of sleeping medicines, talk with your provider about this. You may need to reduce your dosage at bedtime if you wake up during the night to go to the bathroom. To reduce the need for nighttime bathroom trips: o Don't drink fluids for several hours before going to bed o Empty your bladder before going to bed o Men can keep a urinal at the bedside Stay as active as you can. Balance, flexibility, strength, and endurance all come from exercise.They all play a role in preventing falls. Ask your provider which types of activity are right for you. Try to do some type of exercise every day. Get your eyes checked once a year or more often if your vision changes If you have pets, know where they are before you stand up or walk so you don't trip over them. Go over all your medicines with a pharmacist or other provider. This is to see if any of them could make you more likely to fall. Have this type of medicine review at least once every year. If your provider advises a new medicine, ask if the side effects will affect your balance. Don't move quickly from one position to another. For instance, don't stand up fast from sitting.This can cause dizziness and may lead to a fall. Sit down when putting on pants, socks, and shoes. This will make you less likely to lose your balance and fall. Always let your provider know if you have fallen since your last visit. Contact your provider right away if you're having balance problems or falling more often. Last Reviewed Date: 2021 00:00:00 [id number] [employer]. All rights reserved. This information is not intended as a substitute for professional medical care. Always follow your healthcare professional's instructions. documented in this encounter Plan of Treatment Upcoming Encounters Date Type Department Care Team (Late st Contact Info) Description 05/20/2024 9:00 AM EDT Office Visit General Internal Medicine [facility] [address] [place] [address] Albino Magaña MD [address] [place] [address] 05/24/2024 11:00 AM EDT Office Visit Ophthalmology, [facility] [address] [place] [address] Neeraj Celis, DO [address] [place] [address] 06/14/2024 11:00 AM EST Office Visit Cardiology, [address] [address] aRjni Alejandre PA-C [address] [place] [address] 06/15/2024 10:30 AM EST Nurse Only Rheumatology [address] [place] [address] Pf, Nurse Rheum [address] [place] [address] [place] [address] 06/21/2024 1:10 PM EST Office Visit Ophthalmology, [address] [address] Neeraj Celis, DO [address] [place] [address] 05/19/2025 9:00 AM EDT Nurse Only Ancillary [facility] [place] [address] [place] [address] Viridiana Nurse Annual Wellness [facility] [address] [facility] [place] [address] Health Maintenance Due Date Last Done Comments COVID-19 Vaccine ( season) 2024 06/15/2023, 06/15/2023, 05/14/2023, Additional history exists Influenza Vaccine (FLU shot) (#1) 2024 05/14/2023, 04/09/2023, 04/19/2022, Additional history exists CKD PHOS USE SMARTSET 52835 04/09/202403/28, 04/05/2022, 08/02/2020, Additional history exists HbA1c 07/28/2024 01/26/2024, 09/26, 04/09/2023, Additional history exists Albumin/Creatinine Ratio 10/21/2024 024, 09/09/2022, 04/05/2022, Additional history exists DTap/Tdap Vaccines (2 - Td or Tdap) 03/03/2025 03/03/2015, 11/02/2007 CKD HGB USE SMARTSET 05697 05/06/202505/06, 05/06/2024, 11/24/2023, Additional history exists Diabetic [...] D LEVEL ONCE IN A LIFETIME-USE SMARTSET# 64384 Completed 12/09/2023, 08/08/2021, 10/19/2009 HPV (Gardasil) Vaccine Aged Out No lo nger eligible based on patient's age to complete this topic Hepatitis B Vaccine Aged Out No longe r eligible based on patient's age to complete this topic MENINGOCOCCAL (MENACTRA/MENVEO) Aged Out No longer eligible based on patient's age to complete this topic documented as of this encounter Medical Devices Implanted Type Area Grounds Maintenance Manager Device Identifier Shelf Expiration Date Model / Serial / Lot Graft Ant Lat 12mm [id number]-[id number] - [id number] Implanted:Qt y: 1 on 11/26/2007 at [place] [facility] Tissue - Human N/A: Spine Lumbar [employer] 06/09/2011 [id number] / -[id number] / Graft Ant Lat 14mm Fd9m-44pp - [id number] Implanted:Qt y: 1 on 11/26/2007 at OR [facility] Tissue - Human N/A: Spine Lumbar [employer] 08/08/2011 BS5W-69L / -[id number] / Graft Ant Lat 14mm Le0n-53hp - [id number] Implanted:Qt y: 1 on 11/26/2007 at OR [facility] Tissue - Human N/A: Spine Lumbar [employer] 07/23/2009 [id number] / [id number] / Graft Ant Lat 14mm Bo6y-82vd - [id number] Implanted:Qt y: 1 on 11/26/2007 at OR [facility] Tissue - Human N/A: Spine Lumbar [employer] 03/10/2012 KC6J-[id number] / [id number] / Graft Ant 10mm Ch9l-33y - [id number] Implanted:Qt y: 1 on 11/26/2007 at OR [facility] Tissue - Human N/A: Spine Lumbar [employer] 08/19/2011 YH3F-[id number] / [id number] / [place] Nt [id number] - [id number] Implanted:Qt y: 1 on 12/02/2006 at OR [facility] N/A: Spine Cervical REGALADO [id number] / / [id number] [place] 672825 - [id number] Implanted:Qt y: 1 on 12/02/2006 at OR [facility] N/A: Spine Cervical REGALADO [id number] / / Graft Cervical 6x8 Go9k-F89 - [id number] Implanted:Qt y: 1 on 12/02/2006 at OR [facility] N/A: Spine Cervical [employer] CX9B-R23 / / [id number] Graft Cervical 5x7 Up5v-Z80 - [id number] Implanted:Qt y: 1 on 12/02/2006 at OR [facility] N/A: Spine Cervical [employer] VF2K-R14 / / -[id number] Graft Cervical 7x9 Ds6z-P83 - [id number] Implanted:Qt y: 1 on 12/02/2006 at OR [facility] N/A: Spine Cervical [employer] AV0D-U33 / / -[id number] Screw 3.5x14 Mntr Fa [id number] - [id number] Implanted:Qt y: 8 on 12/02/2006 at OR [facility] N/A: Neck ELODIA & ELODIA DEPUY [id number] / / Screw Inner Mntr [id number] - [id number] Implanted:Qt y: 11 on 12/02/2006 at OR [facility] N/A: Neck ELODIA & ELODIA DEPUY [id number] / / Screw 4.35x25 Mntrml [id number] - [id number] Implanted:Qt y: 2 on 12/02/2006 at OR [facility] N/A: Neck ELODIA & ELODIA DEPUY [id number] / / Amos 3.7p794om [id number] - [id number] Implanted:Qt y: 2 on 12/02/2006 at OR [facility] N/A: Neck ELODIA & ELODIA DEPUY [id number] / / Screw 3.5x20 Mntr Fa [id number] - [id number] Implanted:Qt y: 1 on 12/02/2006 at OR [facility] N/A: Neck ELODIA & ELODIA DEPUY [id number] / / Graft Infus Bone Lg Ii [id number] - [id number] Implanted:Qt y: 1 on 11/26/2007 at OR [facility] N/A: Spine Lumbar Medtronic Sof[employer] Danek 12/26/2009 [id number] / / [id number] Graft Infuse Bone Sm [id number] - [id number] Implanted:Qt y: 1 on 11/26/2007 at [place] [facility] N/A: Spine Lumbar Medtronic [employer]ane[employer] 03/28/2010 [id number] / / [id number] Screw 6x40 Poly Si [id number] - [id number] Implanted:Qt y: 5 on 11/26/2007 at OR [facility] N/A: Spine Lumbar ELODIA [employer] ELOD[employer] DEPUY [id number] / / Screw 6x45 Poly Si [id number] - [id number] Implanted:Qt y: 4 on 11/26/2007 at [place] [facility] N/A: Spine Lumbar ELODIA [employer] ELOD[employer] DEPUY [id number] / / Screw Set Sng Inner [id number] - [id number] Implanted:Qt y: 13 on 11/26/2007 at [place] [facility] N/A: Spine Lumbar ELODIA [employer] ELODIA DEPUY [id number] / / Screw 7x35 Poly Si [id number] - [id number] Implanted:Qt y: 2 on 11/26/2007 at [place] [facility] N/A: Spine Lumbar ELODIA [employer] ELOD[employer] DEPUY [id number] / / Screw 5x40 Poly Si [id number] - [id number] Implanted:Qt y: 1 on 11/26/2007 at [place] [facility] N/A: Spine Lumbar ELODIA [employer] ELODIA DEPUY [id number] / / Screw 5x45 Poly Si [id number] - [id number] Implanted:Qt y: 1 on 11/26/2007 at [place] [facility] N/A: Spine Lumbar ELODIA [employer] ELODIA DEPUY [id number] / / Amos 480mm [id number] - [id number] Implanted:Qt y: 1 on 11/26/2007 at [place] [facility] N/A: Spine Lumbar ELODIA & ELODIA DEPUY [id number] / / documented as of this encounter Visit Diagnoses Diagnosis Routine general medical examination at a health care facility- Primary Type 2 diabetes mellitus with hemoglobin A1c goal of less than 7.0% ([facility]) Hypertension goal BP (blood pressure) < 140/90 Unspecified essential hypertension DYSLIPIDEMIA, GOAL LDL BELOW 100 Other and unspecified hyperlipidemia documented in this encounter Advance Directives * [...] 6:01 AM 11/26/2007 2:41 PM Care Teams Research Librarian Relationship Specialty Start Date End Date Albino Magaña MD [address] [facility], [place] [address] PCP - General Internal Medicine 01/17/12 documented as of this encounter
--- OUTSIDE RECORDS SUMMARY | 2024-06-10 19:21 | External Medical Summary | Summary of Care ---
Author Name Unknown Organization [facility] Address [address] [place] [address] Phone [phone] Care Team Providers Care Electric Range Servicer Name Role Phone Albino Magaña MD Primary Care Provider + Reason for Visit * Reason Comments Outpatient Testing Encounter Details Date Type Department Care Team (Late st Contact Info) Description 05/06/2024 11:00 AM EDT Laboratory Laboratory [facility] [place] [address] [place] [phone] Antoine, Lab Scenery [address] [place] [address] Ecchymosis Allergies Active Allergy Reactions Criticality Noted Date Comments Penicillins Hives High 05/04/2000 Other Reaction(s): HIVES documented as of this encounter (statuses as of 05/06/2024) Medications Medication Sig Dispensed Refills Start Date [...] as of this encounter (statuses as of 05/06/2024) Active Problems Problem Noted Date Diagnosed Date [...] as of this encounter (statuses as of 05/06/2024) Resolved Problems Problem Noted Date Diagnosed Date [...] Dr. Doran. 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 Osteoporosis 06/16/2008 PURE HYPERCHOLESTEROLEM /0 02/2009 Overview: Per Lipid Taxonomy. DIFFUS CYSTIC MASTOPATHY Osteoporosis 04/22/2017 Overview: Osteopenia HTN, goal to be determined 1 08/20/2008 Overview: Modified per HTN protocol #16. documented as of this encounter (statuses as of 05/06/2024) Immunizations Name Administration Dates Next Due COVID-19 mRNA, LNP-s, No Pre serve, 2-Dose Series ([employer]) 02/15/2022,06/04/2021,09/20/2020,08/30 COVID-19, LNP-s, No Preserve , [place]-sucrose, Ages 12+ (Pfizer) 02/15/2022 COVID-19, MRNA-LNP, 23-24, P F, 30 MCG/0.3 mL, 12 YRS AND ABOVE, IM ([employer]) 06/15/2023,05/14/2023 Covid-19, Mrna, Lnp-s, Pf, B ivalent, 30 Mcg, IM, 12 yrs and above ([employer]) 10/04/2022 H1N1 2009 Influenza, IM 07/24/2009 Pneumococcal [...] 2024 1:30 PM EDT Office Visit Ophthalmology, [facility] [address] [place] [address] Neeraj Celis, [address] [facility] [place] [address] 05/13/2024 9:00 AM EDT Nurse Only Ancillary [facility] [address] [facility] [place] [address] Virdiiana, Nurse Annual Wellness [facility] [address] [facility] [place] [address] 05/20/2024 9:00 AM EDT Office Visit General Internal Medicine [facility] [address] [facility] [place] [id number] Albino Magaña MD [address] [place] [address] 05/24/2024 11:00 AM EDT Office Visit Ophthalmology, [facility] [address] [facility] [place] [address] Neeraj Celis, [address] [place] [address] 06/14/2024 11:00 AM EST Office Visit Cardiology, [facility] [address] [facility] [place] [address] Rajni Alejandre PA-C [address] [place] [address] [place] [address] 06/15/2024 10:30 AM EST Nurse Only Rheumatology [address] [place] [address] Pf, Nurse Rheum [address] [place] [address] [place] [address] Health Maintenance Due Date Last Done Comments COVID-19 Vaccine ( season) 2024 06/15/2023, 06/15/2023, 05/14/2023, Additional history exists Influenza Vaccine (FLU shot) (#1) 2024 05/14/2023, 04/09/2023, 04/19/2022, Additional history exists CKD PHOS USE SMARTSET 36096 04/09/202403/28, 04/05/2022, 08/02/2020, Additional history exists Adult Wellness Visit 2024 2023, 05/09/2022, 05/07/2021 Depression Screening 2024 2023, 03/22/20 15 Diabetic Foot Exam 2024 2023, 1 09/15/2017, 10/08/2017, Additional history exists HbA1c 07/28/2024 01/26/2024, 09/26, 04/09/2023, Additional history exists Albumin/Creatinine Ratio 10/21/2024 024, 09/09/2022, 04/05/2022, Additional history exists CKD HGB USE SMARTSET 06422 11/23/202405/06, 05/06/2024, 11/24/2023, Additional history exists Diabetic Eye Exam 01/18/2025 01/19/2024, , 10/16/2023, Additional history exists DTap/Tdap Vaccines (2 - Td or Tdap) 03/03/2025 03/03/2015, 11/02/2007 DXA Scan 05/26/2025 05/26/2023, 04/29, 04/30/2021, Additional history exists Pneumococcal Vaccine: 65+ Years Completed 09/01/2014, 04/23/2010 Zoster Vaccines Completed 08/29/2018, 05/30, 05/29/2012 VITAMIN D LEVEL ONCE IN A LIFETIME-USE SMARTSET# 28995 Completed 12/09/2023, 08/08/2021, 10/19/2009 HPV (Gardasil) Vaccine Aged Out No lo nger eligible based on patient's age to complete this topic Hepatitis B Vaccine Aged Out No longe r eligible based on patient's age to complete this topic MENINGOCOCCAL (MENACTRA/MENVEO) Aged Out No longer eligible based on patient's age to complete this topic documented as of this encounter Medical Devices Implanted Type Area Felt Cementer Device Identifier Shelf Expiration Date Model / Serial / Lot Graft Ant Lat 12mm Tz5s-14ib - [id number] Implanted:Qt y: 1 on 11/26/2007 at [place] [facility] [place] Tissue - Human N/A: Spine Lumbar [facility] 06/09/2011 [id number]-[id number] / -[id number] / Graft Ant Lat 14mm Lo1l-17hi - [id number] Implanted:Qt y: 1 on 11/26/2007 at [place] [facility] [place] Tissue - Human N/A: Spine Lumbar [employer] 08/08/2011 XN0F-96D / -[id number] / Graft Ant Lat 14mm Kz9h-12qq - [id number] Implanted:Qt y: 1 on 11/26/2007 at [place] [facility] [place] Tissue - Human N/A: Spine Lumbar [facility] [employer] 07/23/2009 AB1S-89H / [id number] / Graft Ant Lat 14mm Ua3v-40ke - [id number] Implanted:Qt y: 1 on 11/26/2007 at [place] [facility] [place] Tissue - Human N/A: Spine Lumbar [employer] 03/10/2012 FB2C-46Z / [id number] / Graft Ant 10mm Ni2d-23k - [id number] Implanted:Qt y: 1 on 11/26/2007 at [place] [facility] [place] Tissue - Human N/A: Spine Lumbar [facility] Co 08/19/2011 PG7R-00L / [id number] / [place] Nt 411699 - [id number] Implanted:Qt y: 1 on 12/02/2006 at [place] [facility] [place] N/A: Spine Cervical REGALADO [id number] / / [id number] [place] N[place] 277067 - [id number] Implanted:Qt y: 1 on 12/02/2006 at [place] [facility] [place] N/A: Spine Cervical REGALADO [id number] / / Graft Cervical 6x8 Ip4u-B69 - [id number] Implanted:Qt y: 1 on 12/02/2006 at [place] [facility] [place] N/A: Spine Cervical Lif[employer] JK9M-W29 / / -[id number] Graft Cervical 5x7 Tl4y-J34 - [id number] Implanted:Qt y: 1 on 12/02/2006 at [place] [facility] [place] N/A: Spine Cervical [facility] Co BF5Y-F64 / / -[id number] Graft Cervical 7x9 Db4o-K35 - [id number] Implanted:Qt y: 1 on 12/02/2006 at [place] [facility] [place] N/A: Spine Cervical [facility] Co EF9A-X48 / / -[id number] Screw 3.5x14 Mntr Fa [id number] - [id number] Implanted:Qt y: 8 on 12/02/2006 at [place] [facility] [place] N/A: Neck ELODIA & ELODIA DEPUY [id number] / / Screw Inner Mntr [id number] - [id number] Implanted:Qt y: 11 on 12/02/2006 at [place] [facility] [place] N/A: Neck ELODIA [employer] ELODIA DEPUY [id number] / / Screw 4.35x25 Mntrml [id number] - [id number] Implanted:Qt y: 2 on 12/02/2006 at [place] [facility] [place] N/A: Neck ELODIA & ELODIA DEPUY [id number] / / Amos [id number] - [id number] Implanted:Qt y: 2 on 12/02/2006 at [place] [facility] [place] N/A: Neck ELODIA & ELODIA DEPUY [id number] / / Screw 3.5x20 Mntr Fa [id number] - [id number] Implanted:Qt y: 1 on 12/02/2006 at [place] [facility] [place] N/A: Neck ELODIA & ELODIA DEPUY [id number] / / Graft Infus Bone Lg Ii 8552906 - [id number] Implanted:Qt y: 1 on 11/26/2007 at [place] [facility] [place] N/A: Spine Lumbar Medtronic Sofamor Danek 12/26/2009 [id number] / / [id number] Graft Infuse Bone Sm 2101534 - [id number] Implanted:Qt y: 1 on 11/26/2007 at [place] [facility] [place] N/A: Spine Lumbar Medtr[employer] Sof[employer]or Danek 03/28/2010 [id number] / / [id number] Screw 6x40 Poly Si [id number] - [id number] Implanted:Qt y: 5 on 11/26/2007 at [place] [facility] [place] N/A: Spine Lumbar ELODIA [employer] ELODIA DEPUY [id number] / / Screw 6x45 Poly Si [id number] - [id number] Implanted:Qt y: 4 on 11/26/2007 at [place] [facility] [place] N/A: Spine Lumbar ELODIA [employer] ELODIA DEPUY [id number] / / Screw Set Sng Inner [id number] - [id number] Implanted:Qt y: 13 on 11/26/2007 at [place] [facility] [place] N/A: Spine Lumbar ELODIA & ELODIA DEPUY [id number] / / Screw 7x35 Poly Si [id number] - [id number] Implanted:Qt y: 2 on 11/26/2007 at [place] [facility] [place] N/A: Spine Lumbar ELODIA [employer] ELODIA DEPUY [id number] / / Screw 5x40 Poly Si [id number] - [id number] Implanted:Qt y: 1 on 11/26/2007 at [place] [facility] [place] N/A: Spine Lumbar ELODIA & ELODIA DEPUY [id number] / / Screw 5x45 Poly Si [id number] - [id number] Implanted:Qt y: 1 on 11/26/2007 at [place] [facility] [place] N/A: Spine Lumbar ELODIA & ELODIA DEPUY [id number] / / Amos 480mm [id number] - [id number] Implanted:Qt y: 1 on 11/26/2007 at [place] [facility] [place] N/A: Spine Lumbar ELODIA & ELODIA DEPUY [id number] / / documented as of this encounter Procedures Procedure Name Priority Date/Time Associated Diagnosis Comments DIFFERENTIAL, AUTOMATED Routine 05/06/2024 10:55 AM EDT Ecchymosis CBC Routine 05/06/2024 10:55 AM EDT Ecchymosis CBC Routine 05/06/2024 10:55 AM EDT Ecchymosis documented in this encounter Results * (ABNORMAL) DIFFERENTIAL, AUTOMATED (05/06/2024 10:55 AM EDT) WBC 6.64 4.00 - 10.80 K/uL 05/06/2024 11:02 AM EDT [facility] 56-02 Neutrophils % 78.1(H) 40.0 - 75.0 % 05/06/2024 11:02 AM EDT [facility] 56-02 Lymphocytes % 11.6(L) 18.0 - 42.0 % 05/06/2024 11:02 AM EDT [facility] 56-02 Monocytes % 8.9 1.0 - 11.0 % 05/06/2024 11:02 AM EDT [facility] 56-02 Eosinophils % 1.1 0.0 - 6.0 % 05/06/2024 11:02 AM EDT [facility] 56-02 Basophils % 0.3 0.0 - 2.0 % 05/06/2024 11:02 AM EDT [facility] 56-02 Absolute Neutrophils 5.19 1.80 - 7.70 K/uL 05/06/2024 11:02 AM EDT [facility] 56-02 Absolute Lymphocytes 0.77(L) 1.00 - 4.80 K/ul 05/06/2024 11:02 AM EDT [facility] 56-02 Absolute Monocytes 0.59 0.00 - 1.10 K/uL 05/06/2024 11:02 AM EDT [facility] 56-02 Absolute Eosinophils 0.07 0.00 - 0.70 K/uL 05/06/2024 11:02 AM EDT [facility] 56-02 Absolute Basophils 0.02 0.00 - 0.20 K/uL 05/06/2024 11:02 AM EDT [facility] 56-02 Blood Venous blood specimen / Unknown Venipuncture / Unknown 05/06/2024 10:55 AM EDT 05/06/2024 10:55 AM EDT Albino Magaña MD LAB BLOOD ORDERA BLES [facility] [address] [place] [address] * CBC (05/06/2024 10:55 AM EDT) WBC 6.64 4.00 - 10.80 K/uL 05/06/2024 11:02 AM EDT [facility] 56-02 RBC 3.96 3.85 - 5.15 M/uL 05/06/2024 11:02 AM EDT [facility] 56-02 HGB 12.9 12.0 - 15.3 g/dL 05/06/2024 11:02 AM EDT [facility] 56-02 HCT 39.2 36.0 - 45.2 % 05/06/2024 11:02 AM EDT [facility] 56-02 MCV 99.0 81.5 - 97.5 fL 05/06/2024 11:02 AM EDT [facility] 56-02 MCH 32.6 27.0 - 34.0 pg 05/06/2024 11:02 AM EDT [facility] 5602 MCHC 32.9 32.0 - 36.0 g/dL 05/06/2024 11:02 AM EDT [facility] 5602 RDW 13.4 11.5 - 15.5 % 05/06/2024 11:02 AM EDT [facility] 56-02 PLT 188 140 - 400 K/uL 05/06/2024 11:02 AM T [facility] 56-02 MPV 9.4 6.6 - 11.1 fL 05/06/2024 11:02 AM T [facility] 56-02 Blood Venous blood specimen / Unknown Venipuncture / Unknown 05/06/2024 10:55 AM EDT 05/06/2024 10:55 AM EDT Albino Magaña MD LAB BLOOD ORDERA BLES [facility] [address] [place] [address] documented in this encounter Visit Diagnoses Diagnosis Ecchymosis Other specified circulatory system disorders documented in this encounter Advance Directives * [...] 6:01 AM 11/26/2007 2:41 PM Care Teams Electric Range Servicer Relationship Specialty Start Date End Date Albino Magaña MD [address] [facility], [place] [address] PCP - General Internal Medicine 01/17/12 documented as of this encounter
--- OUTSIDE RECORDS SUMMARY | 2024-06-10 19:21 | External Medical Summary | Summary of Care ---
Author Name Unknown Organization [facility] Address [address] [place] [address] Phone [phone] Care Team Providers Care Guest Relations Associate Name Role Phone Albino Magaña MD Primary Care Provider + Reason for Visit * Reason Onset Date Comments Pre Cert/Prior Auth 01/14/2024 Encounter Details Date Type Department Care Team (Late st Contact Info) Description 01/14/[address] [phone] Neeraj Celis, [address] [place] [address] Pre Cert/Prior Auth Allergies Active Allergy Reactions Criticality Noted Date Comments Penicillins Hives High 05/04/2000 Other Reaction(s): HIVES documented as of this encounter (statuses as of 04/14/2024) Medications Medication Sig Dispensed Refills Start Date [...] needed Active Simvastatin 10 MG Oral Tablet (Zocor)Indication [...] CAPSULE BY MOUTH ONCE DAILY 90 Capsule 11/06/2023 Discontinued Hospital, Clinic, or Other Facility Administered Medication Ordered Dose Route Frequency Start Date End Date Status albuterol sulfate (PROVENTIL) (2.5 MG/3ML) 0.083% inhalation solution 2.5 mgIndications:COPD exacerbation (HCC) 2.5 mg NEBULIZER Q4H PRN 02/18/2019 Active documented as of this encounter (statuses as of 04/14/2024) Active Problems Problem Noted Date Diagnosed Date [...] as of this encounter (statuses as of 04/14/2024) Resolved Problems Problem Noted Date Diagnosed Date [...] Dr. Doran. 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 Osteoporosis 06/16/2008 PURE HYPERCHOLESTEROLEM 12/0 02/2009 Overview: Per Lipid Taxonomy. DIFFUS CYSTIC MASTOPATHY Osteoporosis 04/22/2017 Overview: Osteopenia HTN, goal to be determined 1 08/20/2008 Overview: Modified per HTN protocol #16. documented as of this encounter (statuses as of 04/14/2024) Immunizations Name Administration Dates Next Due COVID-19 mRNA, LNP-s, No Pre serve, 2-Dose Series ([facility]) 02/15/2022,06/04/2021,09/20/2020,08/30 COVID-19, LNP-s, No Preserve , [place]-sucrose, Ages 12+ ([facility]) 02/15/2022 COVID-19, MRNA-LNP, 23-24, P F, 30 MCG/0.3 mL, 12 YRS AND ABOVE, IM ([facility]) 06/15/2023,05/14/2023 Covid-19, Mrna, Lnp-s, Pf, B ivalent, 30 Mcg, IM, 12 yrs and above ([facility]) 10/04/2022 H1N1 2009 Influenza, IM 07/24/2009 Pneumococcal [...] encounter Miscellaneous Notes * Telephone Encounter - Janneth Babb OSA - 01/30/2024 10:59 AM EDT Received partial approval from Medicare. Procedure code 47072 is approved and 30172 is not approved. See scanned documents. ABHIJIT Hwang 01/30/2024 11:00 AM * Telephone Encounter - Janneth Babb OSA - 01/14/2024 12:01 PM EDT Submitted clinic notes, photos, HVF to insurance company via mail. ABHIJIT Hwang 01/14/2024 12:13 PM documented in this encounter Plan of Treatment Upcoming Encounters Date Type Department Care Team (Late st Contact Info) Description 2024 1:30 PM EDT Office Visit Ophthalmology, [address] [address] Neeraj Celis, DO [address] [place] [address] 05/13/2024 9:00 AM EDT Nurse Only Ancillary [facility] [place] [address] [facility] [place] [address] [place], Nurse Annual Wellness [facility] [address] [facility] [place] [address] 05/20/2024 9:00 AM EDT Office Visit General Internal Medicine [facility] [place] [address] [place] [address] Albino Magaña MD [address] [place] [address] 05/24/2024 11:00 AM EDT Office Visit Ophthalmology, [facility] [address] [place] [address] Neeraj Celis, DO [address] [place] [address] 06/14/2024 11:00 AM EST Office Visit Cardiology, [facility] [address] [place] [address] Rajni Alejandre PA-C [address] [place] [address] 06/15/2024 10:30 AM EST Nurse Only Rheumatology [place] [phone] [facility] [place] [address] Pf, Nurse Rheum [facility] [place] [address] Health Maintenance Due Date Last Done Comments COVID-19 Vaccine ( season) 2024 06/15/2023, 05/14/2023, 10/04/2022, Additional history exists Influenza Vaccine (FLU shot) (#1) 2024 05/14/2023, 04/09/2023, 04/19/2022, Additional history exists CKD PHOS USE SMARTSET 69074 04/09/202403/28, 04/05/2022, 08/02/2020, Additional history exists Adult Wellness Visit 2024 2023, 05/09/2022, 05/07/2021 Depression Screening 2024 2023, 03/22/20 15 Diabetic Foot Exam 2024 2023, 1 09/15/2017, 10/08/2017, Additional history exists HbA1c 07/28/2024 01/26/2024, 09/26, 04/09/2023, Additional history exists Diabetic Eye Exam 10/15/2024 10/16/2023, , 10/16/2023, Additional history exists Albumin/Creatinine Ratio 10/21/2024 024, 09/09/2022, 04/05/2022, Additional history exists CKD HGB USE SMARTSET 89944 11/23/202411/23, 11/24/2023, 10/22/2023, Additional history exists DTap/Tdap Vaccines (2 - Td or Tdap) 03/03/2025 03/03/2015, 11/02/2007 DXA Scan 05/26/2025 05/26/2023, 04/29, 04/30/2021, Additional history exists Pneumococcal Vaccine: 65+ Years Completed 09/01/2014, 04/23/2010 Zoster Vaccines Completed 08/29/2018, 05/30, 05/29/2012 VITAMIN D LEVEL ONCE IN A LIFETIME-USE SMARTSET# 94273 Completed 12/09/2023, 08/08/2021, 10/19/2009 HPV (Gardasil) Vaccine Aged Out No lo nger eligible based on patient's age to complete this topic Hepatitis B Vaccine Aged Out No longe r eligible based on patient's age to complete this topic MENINGOCOCCAL (MENACTRA/MENVEO) Aged Out No longer eligible based on patient's age to complete this topic documented as of this encounter Medical Devices Implanted Type Area Vinyl Cutter Device Identifier Shelf Expiration Date Model / Serial / Lot Graft Ant Lat 12mm [id number] - [id number] Implanted:Qt y: 1 on 11/26/2007 at OR [facility] Tissue - Human N/A: Spine Lumbar [employer] 06/09/2011 [id number] / -[id number] / Graft Ant Lat 14mm Uu3j-68uw - [id number] Implanted:Qt y: 1 on 11/26/2007 at OR [facility] Tissue - Human N/A: Spine Lumbar [employer] 08/08/2011 TE3H-68C / [id number] / Graft Ant Lat 14mm Ag4i-09ch - [id number] Implanted:Qt y: 1 on 11/26/2007 at OR [facility] Tissue - Human N/A: Spine Lumbar [employer] 07/23/2009 SZ6J-[id number] / [id number] / Graft Ant Lat 14mm Tn5a-85yb - [id number] Implanted:Qt y: 1 on 11/26/2007 at OR [facility] Tissue - Human N/A: Spine Lumbar [employer] 03/10/2012 SM7I-61T / [id number] / Graft Ant 10mm Sv0w-66c - [id number] Implanted:Qt y: 1 on 11/26/2007 at OR [facility] Tissue - Human N/A: Spine Lumbar Lif[employer] Co 08/19/2011 [id number]-[id number] / [id number] / Flose[place] Nt [id number] - [id number] Implanted:Qt y: 1 on 12/02/2006 at OR [facility] N/A: Spine Cervical REGALADO [id number] / / [id number] [place] Nt [id number] - [id number] Implanted:Qt y: 1 on 12/02/2006 at OR [facility] N/A: Spine Cervical REGALADO [id number] / / Graft Cervical 6x8 Fc7m-B79 - [id number] Implanted:Qt y: 1 on 12/02/2006 at OR [facility] N/A: Spine Cervical [employer] PM5I-R42 / / -[id number] Graft Cervical 5x7 Re3n-R06 - [id number] Implanted:Qt y: 1 on 12/02/2006 at OR [facility] N/A: Spine Cervical [employer] RN1R-Z22 / / -[id number] Graft Cervical 7x9 Ji1z-H28 - [id number] Implanted:Qt y: 1 on 12/02/2006 at OR [facility] N/A: Spine Cervical [employer] RS3D-G52 / / -[id number] Screw 3.5x14 Mntr Fa [id number] - [id number] Implanted:Qt y: 8 on 12/02/2006 at OR [facility] N/A: Neck ELODIA & ELODIA DEPUY [id number] / / Screw Inner Mntr [id number] - [id number] Implanted:Qt y: 11 on 12/02/2006 at OR [facility] N/A: Neck ELODIA & ELODIA DEPUY [id number] / / Screw 4.35x25 Mntrml [id number] - [id number] Implanted:Qt y: 2 on 12/02/2006 at OR [facility] N/A: Neck ELODIA & ELODIA DEPUY [id number] / / Amos [id number] - [id number] Implanted:Qt y: 2 on 12/02/2006 at OR [facility] N/A: Neck ELODIA & ELODIA DEPUY [id number] / / Screw 3.5x20 Mntr Fa [id number] - [id number] Implanted:Qt y: 1 on 12/02/2006 at OR [facility] N/A: Neck ELODIA & ELODIA DEPUY [id number] / / Graft Infus Bone Lg Ii [id number] - [id number] Implanted:Qt y: 1 on 11/26/2007 at OR [facility] N/A: Spine Lumbar Medtronic Sofamor Danek 12/26/2009 [id number] / / [id number] Graft Infuse Bone Sm [id number] - [id number] Implanted:Qt y: 1 on 11/26/2007 at OR [facility] N/A: Spine Lumbar Medtronic Sofamor Danek 03/28/2010 [id number] / / [id number] Screw 6x40 Poly Si [id number] - [id number] Implanted:Qt y: 5 on 11/26/2007 at OR [facility] N/A: Spine Lumbar ELODIA & ELODIA DEPUY [id number] / / Screw 6x45 Poly Si [id number] - [id number] Implanted:Qt y: 4 on 11/26/2007 at OR [facility] N/A: Spine Lumbar ELODIA & ELODIA DEPUY [id number] / / Screw Set Sng Inner [id number] - [id number] Implanted:Qt y: 13 on 11/26/2007 at OR [facility] N/A: Spine Lumbar ELODIA [employer] ELODIA DEPUY [id number] / / Screw 7x35 Poly Si [id number] - [id number] Implanted:Qt y: 2 on 11/26/2007 at OR [facility] N/A: Spine Lumbar ELODIA [employer] ELODIA DEPUY [id number] / / Screw 5x40 Poly Si [id number] - [id number] Implanted:Qt y: 1 on 11/26/2007 at OR [facility] N/A: Spine Lumbar ELODIA [employer] ELODIA DEPUY [id number] / / Screw 5x45 Poly Si [id number] - [id number] Implanted:Qt y: 1 on 11/26/2007 at OR [facility] N/A: Spine Lumbar ELODIA & ELODIA DEPUY [id number] / / Amos 480mm [id number] - [id number] Implanted:Qt y: 1 on 11/26/2007 at OR [facility] N/A: Spine Lumbar ELODIA & ELODIA DEPUY [id number] / / documented as of this encounter [...] 6:01 AM 11/26/2007 2:41 PM Care Teams Guest Relations Associate Relationship Specialty Start Date End Date Albino Magaña MD [address] [place] [address] PCP - General Internal Medicine 01/17/12 documented as of this encounter
--- OUTSIDE RECORDS SUMMARY | 2024-06-10 19:21 | External Medical Summary | Summary of Care ---
Author Name Unknown Organization [facility] Address [address] [place] [address] Phone [phone] Care Team Providers Care Rough Rice Tender Name Role Phone Albino Castillo MD Primary Care Provider + Reason for Visit * Reason Comments eRx-Medication Refill Encounter Details Date Type Department Care Team (Late st Contact Info) Description 04/09/2024 Refill General Internal Medicine [facility] [address] [place] [address] Albino Castillo MD [address] [place] [facility] [place] [address] HTN, goal below 140/90 Allergies Active Allergy Reactions Criticality Noted Date Comments Penicillins Hives High 05/04/2000 Other Reaction(s): HIVES documented as of this encounter (statuses as of 04/10/2024) Medications Medication Sig Dispensed Refills Start Date [...] ONCE DAILY 90 Capsule 1 04/10/2024 Active dilTIAZem HCl ER Beads 360 MG Oral Capsule Extended Release 24 Hour (Tiazac)Indicatio ns:HTN, goal below 140/90 TAKE 1 CAPSULE BY MOUTH ONCE DAILY 90 Capsule 11/06/2023 4 Discontinued Hospital, Clinic, or Other Facility Administered Medication Ordered Dose Route Frequency Start Date End Date Status albuterol sulfate (PROVENTIL) (2.5 MG/3ML) 0.083% inhalation solution 2.5 mgIndications:COPD exacerbation (HCC) 2.5 mg NEBULIZER Q4H PRN 02/18/2019 Active documented as of this encounter (statuses as of 04/10/2024) Active Problems Problem Noted Date Diagnosed Date [...] as of this encounter (statuses as of 04/10/2024) Resolved Problems Problem Noted Date Diagnosed Date [...] Dr. Doran. 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 Osteoporosis 06/16/2008 PURE HYPERCHOLESTEROLEM 12/0 02/2009 Overview: Per Lipid Taxonomy. DIFFUS CYSTIC MASTOPATHY Osteoporosis 04/22/2017 Overview: Osteopenia HTN, goal to be determined 1 08/20/2008 Overview: Modified per HTN protocol #16. documented as of this encounter (statuses as of 04/10/2024) Immunizations Name Administration Dates Next Due COVID-19 mRNA, LNP-s, No Pre serve, 2-Dose Series ([facility]) 02/15/2022,06/04/2021,09/20/2020,08/30 COVID-19, LNP-s, No Preserve , Orlando-sucrose, Ages 12+ ([facility]) 02/15/2022 COVID-19, MRNA-LNP, 23-24, P F, 30 MCG/0.3 mL, 12 YRS AND ABOVE, IM ([facility]) 06/15/2023,05/14/2023 Covid-19, Mrna, Lnp-s, Pf, B ivalent, 30 Mcg, IM, 12 yrs and above ([facility]) 10/04/2022 H1N1 2009 Influenza, IM 07/24/2009 Pneumococcal [...] encounter Miscellaneous Notes * Telephone Encounter - Tho Monge [facility] - 04/10/2024 6:39 PM EDTSigned Prescriptions: Disp Refills dilTIAZem HCl ER Beads 360 MG Oral Capsule*90 Cap*1 Sig: TAKE 1 CAPSULE BY MOUTH ONCE DAILYAuthorizing Provider: ALBINO CASTILLO User: THO MONGE documented in this encounter Plan of Treatment Upcoming Encounters Date Type Department Care Team (Late st Contact Info) Description 04/12/2024 1:40 PM EDT [facility] [address] [place] [address] Neeraj Celis, [address] [place] [address] 05/13/2024 9:00 AM EDT Nurse Only Ancillary [facility] [address] [place] [address] [place], Nurse Annual Wellness [facility] [address] [place] [address] 05/20/2024 9:00 AM EDT Office Visit General Internal Medicine [facility] [place] [address] [place] [address] Albino Castillo MD [address] [facility] [place] [address] 05/24/2024 11:00 AM EDT Office Visit Ophthalmology [facility] [address] [facility] [place] [address] Neeraj Celis, DO [address] [place] [address] 06/14/2024 11:00 AM EST Office Visit Cardiology, [facility] [address] [facility] [place] [address] Rajni Alejandre PA-C [address] [place] [address] [place] [address] 06/15/2024 10:30 AM EST Nurse Only Rheumatology [address] [place] [address] Pf, Nurse Rheum [address] [place] [address] [place] [address] Health Maintenance Due Date Last Done Comments COVID-19 Vaccine ( season) 2024 06/15/2023, 05/14/2023, 10/04/2022, Additional history exists Influenza Vaccine (FLU shot) (#1) 2024 05/14/2023, 04/09/2023, 04/19/2022, Additional history exists CKD PHOS USE SMARTSET 95584 04/09/202403/28, 04/05/2022, 08/02/2020, Additional history exists Adult Wellness Visit 2024 2023, 05/09/2022, 05/07/2021 Depression Screening 2024 2023, 03/22/20 15 Diabetic Foot Exam 2024 2023, 1 09/15/2017, 10/08/2017, Additional history exists HbA1c 07/28/2024 01/26/2024, 09/26, 04/09/2023, Additional history exists Diabetic Eye Exam 10/15/2024 10/16/2023, , 10/16/2023, Additional history exists Albumin/Creatinine Ratio 10/21/2024 024, 09/09/2022, 04/05/2022, Additional history exists CKD HGB USE SMARTSET 77972 11/23/202411/23, 11/24/2023, 10/22/2023, Additional history exists DTap/Tdap Vaccines (2 - Td or Tdap) 03/03/2025 03/03/2015, 11/02/2007 DXA Scan 05/26/2025 05/26/2023, 04/29, 04/30/2021, Additional history exists Pneumococcal Vaccine: 65+ Years Completed 09/01/2014, 04/23/2010 Zoster Vaccines Completed 08/29/2018, 05/30, 05/29/2012 VITAMIN D LEVEL ONCE IN A LIFETIME-USE SMARTSET# 73017 Completed 12/09/2023, 08/08/2021, 10/19/2009 HPV (Gardasil) Vaccine Aged Out No lo nger eligible based on patient's age to complete this topic Hepatitis B Vaccine Aged Out No longe r eligible based on patient's age to complete this topic MENINGOCOCCAL (MENACTRA/MENVEO) Aged Out No longer eligible based on patient's age to complete this topic documented as of this encounter Medical Devices Implanted Type Area Land Acquisition Specialist Device Identifier Shelf Expiration Date Model / Serial / Lot Graft Ant Lat 12mm Cs1k-20cr - [id number] Implanted:Qt y: 1 on 11/26/2007 at [place] [facility] [place] Tissue - Human N/A: Spine Lumbar [employer] 06/09/2011 [id number] / [id number] / Graft Ant Lat 14mm Gr9l-38bq - [id number] Implanted:Qt y: 1 on 11/26/2007 at OR [facility] [place] Tissue - Human N/A: Spine Lumbar [employer] 08/08/2011 EU9Z-73Z [id number] / Graft Ant Lat 14mm Ba6f-24um - [id number] Implanted:Qt y: 1 on 11/26/2007 at OR [facility] [place] Tissue - Human N/A: Spine Lumbar Lif[employer] 07/23/2009 OC2L-59E [id number] / Graft Ant Lat 14mm Tu7i-80qj - [id number] Implanted:Qt y: 1 on 11/26/2007 at OR [facility] [place] Tissue - Human N/A: Spine Lumbar Lif[employer] Co 03/10/2012 CK2K-76A / [id number] / Graft Ant 10mm Bx9c-07j - [id number] Implanted:Qt y: 1 on 11/26/2007 at OR [facility] [place] Tissue - Human N/A: Spine Lumbar Lif[employer] Co 08/19/2011 WM4I-74B / [id number] / [place] Nt [id number] - [id number] Implanted:Qt y: 1 on 12/02/2006 at OR [facility] [place] N/A: Spine Cervical REGALADO [id number] / / [id number] [place] N[place] 835831 - [id number] Implanted:Qt y: 1 on 12/02/2006 at OR [facility] [place] N/A: Spine Cervical REGALADO [id number] / / Graft Cervical 6x8 Oa7t-F53 - [id number] Implanted:Qt y: 1 on 12/02/2006 at OR [facility] [place] N/A: Spine Cervical Lif[employer] GU2G-N71 / / -[id number] Graft Cervical 5x7 Du7u-D01 - [id number] Implanted:Qt y: 1 on 12/02/2006 at OR [facility] [place] N/A: Spine Cervical Lif[employer] MW0F-O85 / / -[id number] Graft Cervical 7x9 Gs5f-F25 - [id number] Implanted:Qt y: 1 on 12/02/2006 at OR [facility] [place] N/A: Spine Cervical Lif[employer] Co YP3Z-W20 / / -[id number] Screw 3.5x14 Mntr Fa [id number] - [id number] Implanted:Qt y: 8 on 12/02/2006 at OR [facility] [place] N/A: Neck ELODIA & ELODIA DEPUY [id number] / / Screw Inner Mntr [id number] - [id number] Implanted:Qt y: 11 on 12/02/2006 at OR [facility] [place] N/A: Neck ELODIA & ELODIA DEPUY [id number] / / Screw 4.35x25 Mntrml [id number] - [id number] Implanted:Qt y: 2 on 12/02/2006 at OR [facility] [place] N/A: Neck ELODIA & ELODIA DEPUY [id number] / / Amos 3.6q100kk [id number] - [id number] Implanted:Qt y: 2 on 12/02/2006 at OR [facility] [place] N/A: Neck ELODIA & ELODIA DEPUY [id number] / / Screw 3.5x20 Mntr Fa [id number] - [id number] Implanted:Qt y: 1 on 12/02/2006 at OR [facility] [place] N/A: Neck ELODIA & ELODIA DEPUY [id number] / / Graft Infus Bone Lg Ii [id number] - [id number] Implanted:Qt y: 1 on 11/26/2007 at OR [facility] [place] N/A: Spine Lumbar Medtronic Sofamor Danek 12/26/2009 [id number] / / [id number] Graft Infuse Bone Sm 0664638 - [id number] Implanted:Qt y: 1 on 11/26/2007 at OR [facility] [place] N/A: Spine Lumbar Medtronic Sofamor Danek 03/28/2010 [id number] / / [id number] Screw 6x40 Poly Si [id number] - [id number] Implanted:Qt y: 5 on 11/26/2007 at OR [facility] [place] N/A: Spine Lumbar ELODIA & ELODIA DEPUY [id number] / / Screw 6x45 Poly Si [id number] - [id number] Implanted:Qt y: 4 on 11/26/2007 at OR [facility] [place] N/A: Spine Lumbar ELODIA & ELODIA DEPUY [id number] / / Screw Set Sng Inner [id number] - [id number] Implanted:Qt y: 13 on 11/26/2007 at OR [facility] [place] N/A: Spine Lumbar ELODIA & ELODIA DEPUY [id number] / / Screw 7x35 Poly Si [id number] - [id number] Implanted:Qt y: 2 on 11/26/2007 at OR [facility] [place] N/A: Spine Lumbar ELODIA & ELODIA DEPUY [id number] / / Screw 5x40 Poly Si [id number] - [id number] Implanted:Qt y: 1 on 11/26/2007 at OR [facility] [place] N/A: Spine Lumbar ELODIA & ELODIA DEPUY [id number] / / Screw 5x45 Poly Si [id number] - [id number] Implanted:Qt y: 1 on 11/26/2007 at OR [facility] [place] N/A: Spine Lumbar ELODIA & ELODIA DEPUY [id number] / / Amos 480mm [id number] - [id number] Implanted:Qt y: 1 on 11/26/2007 at OR [facility] [place] N/A: Spine Lumbar ELODIA & ELODIA DEPUY [id number] / / documented as of this encounter [...] 6:01 AM 11/26/2007 2:41 PM Care Teams Rough Rice Tender Relationship Specialty Start Date End Date Albino Castillo MD [address] [facility] [place] [address] PCP - General Internal Medicine 01/17/12 documented as of this encounter
--- OUTSIDE RECORDS SUMMARY | 2024-06-10 19:21 | External Medical Summary | Summary of Care ---
Author Name Unknown Organization [facility] Address [address] [place] [address] Phone [phone] Care Team Providers Care Ged Teacher Name Role Phone Albino Magaña MD Primary Care Provider + Reason for Visit * Reason Comments Follow Up Encounter Details Date Type Department Care Team (Late st Contact Info) Description 2024 1:30 PM EDT Office Visit Ophthalmology, [facility] [address] [place] [address] Neeraj Celis, DO [address] [place] [id number] Myogenic ptosis of right eyelid*; Dermatochalasis of both upper eyelids Allergies Active Allergy Reactions Criticality Noted Date Comments Penicillins Hives High 05/04/2000 Other Reaction(s): HIVES documented as of this encounter (statuses as of 2024) Medications Medication Sig Dispensed Refills Start Date [...] with CKD stage 3 and hypertension ([facility]) Inject 6 prior to breakfast, 5 units [...] as of this encounter (statuses as of 2024) Active Problems Problem Noted Date Diagnosed Date [...] as of this encounter (statuses as of 2024) Resolved Problems Problem Noted Date Diagnosed Date [...] Dr. Doran. 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 Osteoporosis 06/16/2008 PURE HYPERCHOLESTEROLEM /02/2009 Overview: Per Lipid Taxonomy. DIFFUS CYSTIC MASTOPATHY Osteoporosis 04/22/2017 Overview: Osteopenia HTN, goal to be determined 1 08/20/2008 Overview: Modified per HTN protocol #16. documented as of this encounter (statuses as of 2024) Immunizations Name Administration Dates Next Due COVID-19 mRNA, LNP-s, No Pre serve, 2-Dose Series ([employer]) 02/15/2022,06/04/2021,09/20/2020,08/30 COVID-19, LNP-s, No Preserve , [place]-sucrose, Ages 12+ (Pfizer) 02/15/2022 COVID-19, MRNA-LNP, 23-24, P F, 30 MCG/0.3 mL, 12 YRS AND ABOVE, IM [facility] 06/15/2023,05/14/2023 Covid-19, Mrna, Lnp-s, Pf, B ivalent, [...] Progress Notes * Neeraj Celis DO - 2024 12:29 PM EDT Sheila Todd seen for 6 weeks post bilateral blepharoplasties with levator OU. Tolerated well but unable to tolerate her Bill. Right eye ptosis and slope improving with time. Left eye reported scratchy sometimes in the morning using ointment to relieve it. LLL: incisions intact good elevation on the left maybe too much consider suture lysis if still an issue. ptotic lateral slope on the right improved C/S: Normal Cornea: Clear Assessment: 6 weeks S/P blepharoplasties with levator Both Eyes. Looks very good. Plan: Erythromycin ointment QHS 2 week return if left eye stays irritated Return visit 6 week returned possible revision if desired. Pt. advised to RTC sooner if there are any problems. Neeraj Celis DO documented in this encounter Nursing Notes * Brenda Kilgore LPN - 2024 12:24 PM EDT Sheila Todd is a 89 year old female who presents for follow up. Last Visit: 04/12/2024 (in office), Visit date not found (telemedicine) [...] 09:22 AM Current Ophthalmic Medications: Erythromycin Ointment PRN VA, IOP, current eyeglass Rx, and pupil check and dilation if needed can be found in ophth exam. documented in this encounter Plan of Treatment Upcoming Encounters Date Type Department Care Team (Late st Contact Info) Description 05/13/2024 9:00 AM EDT Nurse Only Ancillary [facility] [address] [place] [address] [place], Nurse Annual Wellness [facility] [address] [facility] [place] [id number] 05/20/2024 9:00 AM EDT Office Visit General Internal Medicine [facility] [place] [address] [facility] [place] [address] Albino Magaña MD [address] [facility] [place] [address] 05/24/2024 11:00 AM EDT Office Visit Ophthalmology, [facility] [address] [facility] [place] [address] Neeraj Celis, DO [address] [place] [address] 06/14/2024 11:00 AM EST Office Visit Cardiology, [facility] [address] [place] [address] Rajni Alejandre PA-C [address] [place] [address] 06/15/2024 10:30 AM EST Nurse Only Rheumatology [facility] [address] [facility] [place] [address] Pf, Nurse Rheum [address] [facility] [place] [address] Health Maintenance Due Date Last Done Comments COVID-19 Vaccine ( season) 2024 06/15/2023, 06/15/2023, 05/14/2023, Additional history exists Influenza Vaccine (FLU shot) (#1) 2024 05/14/2023, 04/09/2023, 04/19/2022, Additional history exists CKD PHOS USE SMARTSET 86286 04/09/202403/28, 04/05/2022, 08/02/2020, Additional history exists Adult Wellness Visit 2024 2023, 05/09/2022, 05/07/2021 Depression Screening 2024 2023, 03/22/20 15 Diabetic Foot Exam 2024 2023, 1 09/15/2017, 10/08/2017, Additional history exists HbA1c 07/28/2024 01/26/2024, 0301/2024, 04/09/2023, Additional history exists Albumin/Creatinine Ratio 10/21/2024 024, 09/09/2022, 04/05/2022, Additional history exists DTap/Tdap Vaccines (2 - Td or Tdap) 03/03/2025 03/03/2015, 11/02/2007 CKD HGB USE SMARTSET 86853 05/06/202505/06, 05/06/2024, 11/24/2023, Additional history exists Diabetic Eye Exam 05/06/2025 05/06/2024, , 01/19/2024, Additional history exists DXA Scan 05/26/2025 05/26/2023, 04/29, 04/30/2021, Additional history exists Pneumococcal Vaccine: 65+ Years Completed 09/01/2014, 04/23/2010 Zoster Vaccines Completed 08/29/2018, 05/30, 05/29/2012 VITAMIN D LEVEL ONCE IN A LIFETIME-USE SMARTSET# [id number] Completed 12/09/2023, 08/08/2021, 10/19/2009 HPV (Gardasil) Vaccine Aged Out No lo nger eligible based on patient's age to complete this topic Hepatitis B Vaccine Aged Out No longe r eligible based on patient's age to complete this topic MENINGOCOCCAL (MENACTRA/MENVEO) Aged Out No longer eligible based on patient's age to complete this topic documented as of this encounter Medical Devices Implanted Type Area Casing Splitter Device Identifier Shelf Expiration Date Model / Serial / Lot Graft Ant Lat 12mm [id number] - [id number] Implanted:Qt y: 1 on 11/26/2007 at [facility] Tissue - Human N/A: Spine Lumbar [facility] 06/09/2011 [id number] / [id number] / Graft Ant Lat 14mm [id number] - [id number] Implanted:Qt y: 1 on 11/26/2007 at [facility] Tissue - Human N/A: Spine Lumbar [facility] 08/08/2011 [id number] / -[id number] / Graft Ant Lat 14mm [id number] - [id number] Implanted:Qt y: 1 on 11/26/2007 at [facility] Tissue - Human N/A: Spine Lumbar [facility] 07/23/2009 [id number] / [id number] / Graft Ant Lat 14mm [id number] - [id number] Implanted:Qt y: 1 on 11/26/2007 at [facility] Tissue - Human N/A: Spine Lumbar [facility] 03/10/2012 [id number] / [id number] / Graft Ant 10mm Qi8s-[id number] - [id number] Implanted:Qt y: 1 on 11/26/2007 at [facility] Tissue - Human N/A: Spine Lumbar [facility] 08/19/2011 [id number] / -[id number] / Flose[place] Nt [id number] - [id number] Implanted:Qt y: 1 on 12/02/2006 at [facility] N/A: Spine Cervical REGALADO [id number] / / [id number] [place]ose[place] Nt [id number] - [id number] Implanted:Qt y: 1 on 12/02/2006 at [facility] N/A: Spine Cervical REGALADO [id number] / / Graft Cervical 6x8 Oy2u-R21 - [id number] Implanted:Qt y: 1 on 12/02/2006 at [facility] N/A: Spine Cervical [employer] [id number] / / [id number] Graft Cervical 5x7 Be4n-J05 - [id number] Implanted:Qt y: 1 on 12/02/2006 at [facility] N/A: Spine Cervical [facility] [id number] / / [id number] Graft Cervical 7x9 Tq0r-Y20 - [id number] Implanted:Qt y: 1 on 12/02/2006 at [facility] N/A: Spine Cervical [facility] [id number] / / [id number] Screw 3.5x14 Mntr Fa [id number] - [id number] Implanted:Qt y: 8 on 12/02/2006 at [facility] N/A: Neck ELODIA & ELODIA DEPUY [id number] / / Screw Inner Mntr [id number] - [id number] Implanted:Qt y: 11 on 12/02/2006 at [facility] N/A: Neck ELODIA & ELODIA DEPUY [id number] / / Screw 4.35x25 Mntrml [id number] - [id number] Implanted:Qt y: 2 on 12/02/2006 at [facility] N/A: Neck ELODIA & ELODIA DEPUY [id number] / / Amos [id number] - [id number] Implanted:Qt y: 2 on 12/02/2006 at [facility] N/A: Neck ELODIA & ELODIA DEPUY [id number] / / Screw 3.5x20 Mntr Fa [id number] - [id number] Implanted:Qt y: 1 on 12/02/2006 at [facility] N/A: Neck ELODIA & ELODIA DEPUY [id number] / / Graft Infus Bone Lg Ii [id number] - [id number] Implanted:Qt y: 1 on 11/26/2007 at [facility] N/A: Spine Lumbar Medtronic [employer] 12/26/2009 [id number] / / [id number] Graft Infuse Bone Sm [id number] - [id number] Implanted:Qt y: 1 on 11/26/2007 at [facility] N/A: Spine Lumbar Medtronic [employer] 03/28/2010 [id number] / / [id number] Screw 6x40 Poly Si [id number] - [id number] Implanted:Qt y: 5 on 11/26/2007 at [facility] N/A: Spine Lumbar ELDOIA & ELODIA DEPUY [id number] / / Screw 6x45 Poly Si [id number] - [id number] Implanted:Qt y: 4 on 11/26/2007 at [facility] N/A: Spine Lumbar ELOD[employer] EL[employer]PUY [id number] / / Screw Set Sng Inner [id number] - [id number] Implanted:Qt y: 13 on 11/26/2007 at [facility] N/A: Spine Lumbar ELODIA & ELODIA DEPUY [id number] / / Screw 7x35 Poly Si [id number] - [id number] Implanted:Qt y: 2 on 11/26/2007 at [facility] N/A: Spine Lumbar LEODIA & ELODIA DEPUY [id number] / / Screw 5x40 Poly Si [id number] - [id number] Implanted:Qt y: 1 on 11/26/2007 at [facility] N/A: Spine Lumbar ELODIA & ELODIA DEPUY [id number] / / Screw 5x45 Poly Si [id number] - [id number] Implanted:Qt y: 1 on 11/26/2007 at [facility] N/A: Spine Lumbar ELODIA & ELODIA DEPUY [id number] / / Amos 480mm [id number] - [id number] Implanted:Qt y: 1 on 11/26/2007 at [facility] N/A: Spine Lumbar ELODIA & ELODIA DEPUY [id number] / / documented as of this encounter [...] 6:01 AM 11/26/2007 2:41 PM Care Teams Ged Teacher Relationship Specialty Start Date End Date Albino Magaña MD [address] [facility], [place] [address] PCP - General Internal Medicine 01/17/12 documented as of this encounter
--- OUTSIDE RECORDS SUMMARY | 2024-06-10 19:21 | External Medical Summary | Summary of Care ---
Author Name Unknown Organization [facility] Address [address] [place] [address] Phone [phone] Care Team Providers Care Bulb Planter Name Role Phone Albino Magaña MD Primary Care Provider + Reason for Visit * Reason Comments Other Painful left great t oe - toenail is turning black - had toenail cut 04/16/2024 Encounter Details Date Type Department Care Team (Late st Contact Info) Description 05/05/2024 6:00 PM EDT Office Visit General Internal Medicine [facility] [place] [address] [facility] [place] [address] Albino Magaña MD [address] [place] [address] Cellulitis of toe of left foot*; Ecchymosis Allergies Active Allergy Reactions Criticality Noted Date Comments Penicillins Hives High 05/04/2000 Other Reaction(s): HIVES documented as of this encounter (statuses as of 05/05/2024) Medications Medication Sig Dispensed Refills Start Date End Date Status B-D ULTRAFINE III (8MM) SHORT PEN MISCIndications:DM type 1, goal A1c below 7 for use with Novolog flex pen. use 3 times daily. 270 Each 3 01/18/2014 Active Insulin Syringes, Disposable, U-100 1 ML MISCIndications:Ty pe 1 diabetes mellitus with hemoglobin A1c goal of less than 7.5% ([facility]) Use as directed daily. 1 Box Dosing Unit 5 08/05/2016 Active glucagon (GLUCAGON EMERGENCY) 1 MG KITIndications:Typ e 1 diabetes mellitus with hemoglobin A1c goal of less than 7.5% ([facility]) As directed 1 Kit 5 01/20/2019 Active [...] DM with CKD stage 3 and hypertension ([facility]) Inject 6 prior to breakfast, 5 units [...] as of this encounter (statuses as of 05/05/2024) Active Problems Problem Noted Date Diagnosed Date [...] as of this encounter (statuses as of 05/05/2024) Resolved Problems Problem Noted Date Diagnosed Date [...] Dr. Doran. 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 Osteoporosis 06/16/2008 PURE HYPERCHOLESTEROLEM /02/2009 Overview: Per Lipid Taxonomy. DIFFUS CYSTIC MASTOPATHY Osteoporosis 04/22/2017 Overview: Osteopenia HTN, goal to be determined 1 08/20/2008 Overview: Modified per HTN protocol #16. documented as of this encounter (statuses as of 05/05/2024) Immunizations Name Administration Dates Next Due COVID-19 mRNA, LNP-s, No Pre serve, 2-Dose Series ([facility]) 02/15/2022,06/04/2021,09/20/2020,08/30 COVID-19, LNP-s, No Preserve , Oralndo-sucrose, Ages 12+ (Pfizer) 02/15/2022 COVID-19, MRNA-LNP, 23-24, P F, 30 MCG/0.3 mL, 12 YRS AND ABOVE, IM (PFIZER-Comirnaty) 06/15/2023,05/14/2023 Covid-19, Mrna, Lnp-s, Pf, B ivalent, [...] Sign Reading Time Taken Comments Blood Pressure 140/60 05/05/2024 5:44 PM EDT Pulse 72 05/05/2024 5:44 PM EDT Temperature 37.1 C (98.8 F) 05/05/2024 5:44 PM ED T Respiratory Rate 12 05/05/2024 5:44 PM EDT Oxygen Saturation - - Inhaled Oxygen Concentration - - Weight 44.4 kg (97 lb 12.8 oz) 05/05/2024 5:44 P M EDT Height - - Body Mass Index 19.75 10/22/2023 9:47 AM EDT documented in this encounter Progress Notes * Albino Magaña MD - 05/05/2024 6:04 PM EDT Chief Complaint Patient presents with Other Painful left great toe - toenail is turning black - had toenail cut 04/16/2024 SUBJECTIVE: Sheila Todd is a 88 year old female with PMH as below who presents for acute 04/16/24 had toe nails clipped, left big toe nail cut short. Since then nail slightly black, hurts with covers on it, no severe pain, fevers, chills. No discharge. Sugars slightly elevated, but working with endocrine on this for past month Patient Active Problem List Diagnosis SPINAL STENOSIS-LUMBAR [...] glucose out of range 15 mL 5 Cholecalciferol 125 MCG (5000 UT) Oral Capsule [...] 1 Tablet before bedtime. 20 Tablet 0 Clobetasol Propionate 0.05 % External Ointment (Temovate) APPLY TOPICALLY TO AFFECTED AREA 2 TIMES A DAY (Patient not taking: Reported on 05/05/2024) 45 g 0 Insulin Lispro (1 Unit Dial) 100 UNIT/ML [...] HIVES Health Maintenance Due Topic Date Due Influenza Vaccine (FLU shot) (1) 03/28/2024 COVID-19 Vaccine ( season) 2024 CKD PHOS USE SMARTSET 05542 04/09/2024 Diabetic Foot Exam 2024 Depression Screening 2024 Adult Wellness Visit 2024 ROS: CONSTITUTIONAL: No fevers, sweats, or chills EXTREMITIES: as per hpi ALL OTHER SYSTEMS NEGATIVE I reviewed social, PMH, PSH, and family history and updated where needed. Social History Socioeconomic History Marital status: Spouse name: Not on file Number of children: 2 Years of education: Not on file Highest education level: Not on file Occupational History Occupation: [employer] Tobacco Use Smoking status: Former Current packs/day: 0.00 Average packs/day: 0.5 packs/day for 48.0 years (24.0 ttl pk-yrs) Types: Cigarettes Start date: 05/02/1958 Quit date: 05/02/2006 Years since quittin.0 Smokeless tobacco: Never Vaping Use Vaping status: Never Used Substance and Sexual Activity Alcohol use: Yes Comment: seldom Drug use: No Sexual activity: Not Currently Other Topics Concern Not on file Social History Narrative Grew up in [facility]. Moved to [place] 13 years ago. 50 years to second . 2 daughters to first who at 35 Lives alone in senior apartments. is in fdc in [facility]. Social Determinants of Health Financial Resource Strain: Not on file Food Insecurity: No Food Insecurity (05/09/2022) Hunger Vital Sign Worried About Running Out of Food in the Last Year: Never true Ran Out of Food in the Last Year: Never true Transportation Needs: Not on file Social Connections: Unknown (01/13/2024) Social Connections How often do you feel lonely or isolated from those around you? (Adult - for ages 18 years and over): Not on file Housing Stability: Not on file Past Medical History: Diagnosis [...] SURGERY MORSELIZED performed by SRINIVASA DIEGO at [facility] AMPUTATION OF FINGER/THUMB Right 10/03/2023 BIOPSY OF BREAST, OPEN Breast Biopsy, Benign Disease COLONOSCOPY W/ BIOPSY (RECTUM) 08/20/2011 polyps ENDO DECOMPRESS SPINAL CORD W/LAMINOTOMY, CERVICAL 12/02/2006 LAMINECTOMY DECOMPRESSION SPINAL CORD CERVICAL performed by SRINIVASA DIEGO at [facility] INJECT/TREAT EYE W/MEDICATION 06/01/2020 LASER TRABECULOPLASTY 04/08/12, 04/15/12 Repair of scar tissue from cataract surgery LUMBAR SPINE FUSION W/BONE GRAFT 11/26/2007 ARTHRODESIS SPINE ANTERIOR LUMBAR performed by ZA ERYES at [facility] LUMBAR SPINE FUSION, POST INTERBODY 11/26/2007 ARTHRODESIS SPINE POSTERIOR INTERBODY WITH LAMINECTOMY LUMBAR performed by ZA REYES at [facility] LUMBAR SPINE FUSION, POSTEROLATERAL 11/26/2007 ARTHRODESIS SPINE POSTERIOR LUMBAR performed by ZA REYES at [facility] NECK SPINE FUSION (CERV, BELOW C2) 12/02/2006 ARTHRODESIS SPINE POSTERIOR CERVICAL performed by SRINIVASA DIEGO at [facility] VT BLEPHAROPLASTY UPPER EYELID W/EXCESSIVE SKIN Bilateral 03/31/2024 Bleph OU- Dr Vanegas REINSERT SPINAL FIXATION DEVICE 12/24/2007 REINSERTION OF SPINAL INSTRUMENTATION performed by ZA REYES at [facility] REMOVE CATARACT, INSERT LENS PROSTH both 2008 Cataract Removal REMOVE NECK SPINE DISK, SINGLE 12/02/2006 DISKECTOMY ANTERIOR CERVICAL performed by SRINIVASA DIEGO at [facility] REMOVE VERTEBR SEG FOR SPINE TUMOR 12/02/2006 CORPECTOMY EXCISION INTRASPINAL LESION EXTRADURAL CERVICAL performed by SRINIVASA DIEGO at [facility] SPINAL FUSION, 7-12 VERT, POST 12/02/2006 ARTHRODESIS SPINE POSTERIOR FOR DEFORMITY 7 TO 12 VERTEBRAE performed by SRINIVASA DIEGO at [facility] THORAX SPINE FUSION, POSTEROLATERAL 12/07/2007 ARTHRODESIS SPINE POSTERIOR THORACIC performed by ZA REYES at [facility] Family History Problem Relation Name Age of Onset Heart Disorder Mother Heart Disorder Father AAA, age 77 Cancer Father Stroke Sister Diabetes Sister Lung Disorder Brother Heart Disorder Sister AAA age 67 OBJECTIVE: PHYSICAL EXAM: BP 140/60 (BP Site: Left Arm, BP Position: Sitting, BP Cuff Size: Regular) | Pulse 72 | Temp 37.1 C (98.8 F) (Tympanic) | Resp 12 | Wt 44.4 kg (97 lb 12.8 oz) | BMI 19.75 kg/m | BSA 1.36 m General: alert, healthy, and no distress Extremities: no clubbing, no cyanosis, left big nail thickened, black/ecchymosis like underneath, distal toe red w/o pain, appears well perfused, has sensation, no collection Neuro: stands on own, walks with cane I reviewed last A1c ASSESSMENT: (L03.032) Cellulitis of toe of left foot (primary encounter diagnosis) (R58) Ecchymosis PLAN: Cellulitis of toe of left foot (Primary) - Ciprofloxacin HCl 500 MG Oral Tablet (Cipro); Take 1 Tablet by mouth in the morning and 1 Tablet before bedtime. Do all this for 10 days. - Linezolid 600 MG Oral Tablet (Zyvox); Take 1 Tablet by mouth in the morning and 1 Tablet before bedtime. Discussed abx for infection, using first line tmp-sfx or cephalosporin, but they are concerned given last infection with two abx and hospitalization, we discussed using same abx as previous for finger osteo however this is different infection, they still would prefer abx used last time - sent Follow symptoms Patient to call if increase in warmth, pain, size, swelling, fevers, chills Med side effects discussed, will call if symptoms Ecchymosis - CBC WITH WBC DIFFERENTIAL; Future; Expected date: 05/05/2024 Undernail and also mentions occasional bruising w/o remembering trauma, will check cbc Follow Up: Return if symptoms worsen or fail to improve AND SCHEDULED.. Albino Magaña MD documented in this encounter Nursing Notes * Oleg Tucker RN - 05/05/2024 5:45 PM EDT Chief Complaint Patient presents with Other Painful left great toe - toenail is turning black - had toenail cut 04/16/2024 documented in this encounter Plan of Treatment Upcoming Encounters Date Type Department Care Team (Late st Contact Info) Description 2024 1:30 PM EDT Office Visit Ophthalmology, [facility] [address] [facility] [place] [address] Neeraj Celis DO [address] [place], [place] [address] [address] 05/13/2024 9:00 AM EDT Nurse Only Ancillary [facility] [address] [place] [address] Viridiana Nurse Annual Wellness [address] [place] [address] 05/20/2024 9:00 AM EDT Office Visit General Internal Medicine [facility] [place] [address] [facility] [place] [address] Albino Magaña MD [address] [facility] [place] [address] 05/24/2024 11:00 AM EDT Office Visit Ophthalmology, [facility] [address] [place] [address] Neeraj Celis, DO [address] [place] [address] 06/14/2024 11:00 AM EST Office Visit Cardiology, [facility] [address] [place] [address] Rajni Alejandre PA-C [address] [facility] [place] [id number] 06/15/2024 10:30 AM EST Nurse Only Rheumatology [facility] [address] [facility] [place] [address] Pf, [facility] [address] [facility] [address] Scheduled Orders Name Type Priority Associated Diagnoses Orde r Schedule CBC WITH WBC DIFFERENTIAL Lab Routine Ecchymosis Expected: 05/05/2024 (Approximate), Expires: 05/05/2025 Health Maintenance Due Date Last Done Comments COVID-19 Vaccine ( season) 2024 06/15/2023, 06/15/2023, 05/14/2023, Additional history exists Influenza Vaccine (FLU shot) (#1) 2024 05/14/2023, 04/09/2023, 04/19/2022, Additional history exists CKD PHOS USE SMARTSET 85681 04/09/202403/28, 04/05/2022, 08/02/2020, Additional history exists Adult Wellness Visit 2024 2023, 05/09/2022, 05/07/2021 Depression Screening 2024 2023, 03/22/20 15 Diabetic Foot Exam 2024 2023, 1 09/15/2017, 10/08/2017, Additional history exists HbA1c 07/28/2024 01/26/2024, 09/26, 04/09/2023, Additional history exists Albumin/Creatinine Ratio 10/21/2024 024, 09/09/2022, 04/05/2022, Additional history exists CKD HGB USE SMARTSET 46993 11/23/202411/23, 11/24/2023, 10/22/2023, Additional history exists Diabetic Eye Exam 01/18/2025 01/19/2024, , 10/16/2023, Additional history exists DTap/Tdap Vaccines (2 - Td or Tdap) 03/03/2025 03/03/2015, 11/02/2007 DXA Scan 05/26/2025 05/26/2023, 04/29, 04/30/2021, Additional history exists Pneumococcal Vaccine: 65+ Years Completed 09/01/2014, 04/23/2010 Zoster Vaccines Completed 08/29/2018, 05/30, 05/29/2012 VITAMIN D LEVEL ONCE IN A LIFETIME-USE SMARTSET# 27142 Completed 12/09/2023, 08/08/2021, 10/19/2009 HPV (Gardasil) Vaccine Aged Out No lo nger eligible based on patient's age to complete this topic Hepatitis B Vaccine Aged Out No longe r eligible based on patient's age to complete this topic MENINGOCOCCAL (MENACTRA/MENVEO) Aged Out No longer eligible based on patient's age to complete this topic documented as of this encounter Medical Devices Implanted Type Area Operations Support Coordinator Device Identifier Shelf Expiration Date Model / Serial / Lot Graft Ant Lat 12mm [id number] - [id number] Implanted:Qt y: 1 on 11/26/2007 at [facility] Tissue - Human N/A: Spine Lumbar [employer] 06/09/2011 [id number] / [id number] / Graft Ant Lat 14mm [id number] - [id number] Implanted:Qt y: 1 on 11/26/2007 at [facility] Tissue - Human N/A: Spine Lumbar [employer] 08/08/2011 [id number] / [id number] / Graft Ant Lat 14mm [id number] - [id number] Implanted:Qt y: 1 on 11/26/2007 at [facility] Tissue - Human N/A: Spine Lumbar [employer] 07/23/2009 [id number] / [id number] / Graft Ant Lat 14mm [id number] - [id number] Implanted:Qt y: 1 on 11/26/2007 at [facility] Tissue - Human N/A: Spine Lumbar [facility] [facility] Co 03/10/2012 [id number] / [id number] / Graft Ant 10mm Mf1z-49d - [id number] Implanted:Qt y: 1 on 11/26/2007 at [facility] Tissue - Human N/A: Spine Lumbar [facility] [facility] Co 08/19/2011 [id number] / [id number] / Floseal Nt [id number] - [id number] Implanted:Qt y: 1 on 12/02/2006 at [facility] N/A: Spine Cervical REGALADO [id number] / / [id number] [place]ose[place] Nt [id number] - [id number] Implanted:Qt y: 1 on 12/02/2006 at [facility] N/A: Spine Cervical REGALADO [id number] / / Graft Cervical 6x8 Uo3b-B59 - [id number] Implanted:Qt y: 1 on 12/02/2006 at [facility] N/A: Spine Cervical [facility] Co [id number] / / [id number] Graft Cervical 5x7 Xx6d-W11 - [id number] Implanted:Qt y: 1 on 12/02/2006 at [facility] N/A: Spine Cervical [facility] [facility] Co [id number] / / [id number] Graft Cervical 7x9 Fl8q-D17 - [id number] Implanted:Qt y: 1 on 12/02/2006 at [facility] N/A: Spine Cervical [facility] [facility] Co [id number] / / [id number] Screw 3.5x14 Mntr Fa [id number] - [id number] Implanted:Qt y: 8 on 12/02/2006 at [facility] N/A: Neck [employer]ODIA [employer] ELODIA DEPUY [id number] / / Screw Inner Mntr [id number] - [id number] Implanted:Qt y: 11 on 12/02/2006 at [facility] N/A: Neck [employer]IA [employer] [id number] / / Screw 4.35x25 Mntrml [id number] - [id number] Implanted:Qt y: 2 on 12/02/2006 at [facility] N/A: Neck [employer]Y [id number] / / Amos [id number] - [id number] Implanted:Qt y: 2 on 12/02/2006 at [facility] N/A: Neck [employer]Y [id number] / / Screw 3.5x20 Mntr Fa [id number] - [id number] Implanted:Qt y: 1 on 12/02/2006 at [facility] N/A: Neck [employer]Y [id number] / / Graft Infus Bone Lg Ii [id number] - [id number] Implanted:Qt y: 1 on 11/26/2007 at [facility] N/A: Spine Lumbar [employer] 12/26/2009 [id number] / / [id number] Graft Infuse Bone Sm [id number] - [id number] Implanted:Qt y: 1 on 11/26/2007 at [facility] N/A: Spine Lumbar [employer] 03/28/2010 [id number] / / [id number] Screw 6x40 Poly Si [id number] - [id number] Implanted:Qt y: 5 on 11/26/2007 at [facility] N/A: Spine Lumbar [employer] [id number] / / Screw 6x45 Poly Si [id number] - [id number] Implanted:Qt y: 4 on 11/26/2007 at [facility] N/A: Spine Lumbar [employer] [id number] / / Screw Set Sng Inner [id number] - [id number] Implanted:Qt y: 13 on 11/26/2007 at [facility] N/A: Spine Lumbar [employer] [id number] / / Screw 7x35 Poly Si [id number] - [id number] Implanted:Qt y: 2 on 11/26/2007 at [facility] N/A: Spine Lumbar [employer] [id number] / / Screw 5x40 Poly Si [id number] - [id number] Implanted:Qt y: 1 on 11/26/2007 at [facility] N/A: Spine Lumbar [employer] [id number] / / Screw 5x45 Poly Si [id number] - [id number] Implanted:Qt y: 1 on 11/26/2007 at [facility] N/A: Spine Lumbar [employer] [id number] / / Amos 480mm [id number] - [id number] Implanted:Qt y: 1 on 11/26/2007 at [facility] N/A: Spine Lumbar [employer]Y [id number] / / documented as of this encounter Visit Diagnoses Diagnosis Cellulitis of toe of left foot- Primary Cellulitis and abscess of toe, unspecified Ecchymosis Other specified circulatory system disorders documented [...] 6:01 AM 11/26/2007 2:41 PM Care Teams Bulb Planter Relationship Specialty Start Date End Date Albino Magaña MD [address] [place] [id number] PCP - General Internal Medicine 01/17/12 documented as of this encounter
--- OUTSIDE RECORDS SUMMARY | 2024-06-10 19:22 | External Medical Summary ---
Author Name Unknown Address Unknown Organization K0G:[facility] [place] [address] [place] [id number] Laboratory Report Ordering Provider Test Date Status RASHARD HILLIARD 03/31/2024 12:27:58 Final Observation Date Value Abnormality Reference (Units ) Status Glucose Point of Care 03/31/2024 12:27:58 128 Above high normal 70-120 (mg/dL) Final Performing Location [facility] [place] [address] [place] [address]
--- OUTSIDE RECORDS SUMMARY | 2024-06-10 19:22 | External Medical Summary | Summary of Care ---
Author Name Unknown Organization [facility] Address [address] [place] [address] Phone [phone] Care Team Providers Care Cook Pickled Meat Name Role Phone Albino Magaña MD Primary Care Provider + Reason for Visit * Reason Comments Procedure Encounter Details Date Type Department Care Team (Late st Contact Info) Description 03/31/2024 12:00 PM EDT Office Visit Ophthalmology, 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 use 3 times daily. 270 Each 3 01/18/2014 Active Insulin Syringes, Disposable, U-100 1 ML MISCIndications:Typ e 1 diabetes mellitus with hemoglobin A1c goal of less than 7.5% ([facility]) Use as directed daily. 1 Box Dosing Unit 5 08/05/2016 Active glucagon (GLUCAGON EMERGENCY) 1 MG KITIndications:Type 1 diabetes mellitus with hemoglobin A1c goal of less than 7.5% ([facility]) As directed 1 Kit 5 [...] day. Active UltiCare Insulin Syringe 31G X /" 1 ML 05/04/2021 Active NovoLOG FlexPen 100 UNIT/ML Subcutaneous Solution Pen-injector (insulin aspart)Indications: 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 ([facility]) Inject 6 prior to breakfast, [...] ONCE DAILY 90 Tablet 2 09/08/2023 Active dilTIAZem HCl ER Beads 360 MG Oral Capsule Extended Release 24 Hour (Tiazac)Indications :HTN, goal below 140/90 TAKE 1 CAPSULE BY MOUTH ONCE DAILY 90 Capsule 11/06/2023 Active Aspirin 81 MG Oral Tablet Delayed [...] four weeks 3.5 g 3 03/31/2024 Active Hospital, Clinic, or Other Facility Administered Medication Ordered Dose Route Frequency Start Date End Date Status albuterol sulfate (PROVENTIL) (2.5 MG/3ML) 0.083% inhalation solution 2.5 mgIndications:COPD exacerbation (HCC) 2.5 mg NEBULIZER Q4H PRN 02/18/2019 Active lidocaine-epinephrine 2 %-1:706666 inj 100 mgIndications: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 Doran. Lumbosacral spondylosis 12/15/200203/29 DISC DIS UNQ-OWA-KUOSPR 11/17/200205/29 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 Osteoporosis 06/16/2008 PURE HYPERCHOLESTEROLEM /02/2009 Overview: Per Lipid Taxonomy. DIFFUS CYSTIC MASTOPATHY Osteoporosis 04/22/2017 Overview: Osteopenia HTN, goal to be determined 1 08/20/2008 Overview: Modified per HTN protocol #16. documented as of this encounter (statuses as of 03/31/2024) Immunizations Name Administration Dates Next Due COVID-19 mRNA, LNP-s, No Pre serve, 2-Dose Series ([employer]) 02/15/2022,06/04/2021,09/20/2020,08/30 COVID-19, LNP-s, No Preserve , [place]-sucrose, Ages 12+ (Pfizer) 02/15/2022 COVID-19, MRNA-LNP, 23-24, P F, 30 MCG/0.3 mL, 12 YRS AND ABOVE, IM ([employer]Com[employer]) 06/15/2023,05/14/2023 Covid-19, Mrna, Lnp-s, Pf, B ivalent, [...] on file documented as of this encounter Patient Instructions * Patient Instructions* Radha Austin TECH - 03/31/2024 11:31 AM EDT Post-Op Instructions Activity: Rest today, then increase activity as tolerated. Do not drive or operate machinery for 24-48 hours. Control Of Pain: Take 1-2 extra strength tylenol as needed for pain. Warnings: Call your surgeon promptly in case of: A. Excessive bleeding B. Fever greater than 101 degrees Fahrenheit C. Persistent nausea and vomiting D. Redness, swelling or pus-like drainage E. Uncontrolled pain Special Instructions: - Apply ice water compresses to surgical area as much as possible for the next 48 hours to help reduce bruising and swelling - apply warm compress twice a day starting on day #3 - Apply ointment to surgical area 3-4 times a day for 14 days - Cleanse area gently with fingertips using soap & water. Do not use a washcloth! Pat dry. - Elevate head when resting for the next 48 hours -If advised, please wear eye shield(s) at bedtime for one week If you have any further questions, please call . For emergencies after 5:00 p.m. call and request the eye doctor market asset protection manager. Instructions given by: Dr. Celis documented in this encounter Progress Notes * Neeraj Celis DO - 03/31/2024 12:54 PM EDT NO CHARGE FOR LEVATORS Procedure Note: Pre op: Ptosis both eyes upper lids Post op: same Procedure: both eyes upper lid blepharoplasties with levator advancement Surgeon: Vimal Middleware Administrator: Deann Block PA-C NO AVAILABLE RESIDENT TO ASSIST Needed for exposure assistance in closure right upper lid Anesthesia: 2% lidocaine with epinephrine 1:100K Complications: NONE EBL: minimal Drains: NONE URINE :NONE IVF: NONE SPECIMEN: NONE Surgical findings: Dermatochalasis and ptosis both eyes upper lids Procedure: The patient was escorted to the procedure room where a time out was performed to identify the patient as Sheila Todd and date of as 1935 and verify the procedure to be performed. After obtaining informed consent from the patient, the patient was placed supine on the procedure table inthe procedure room. The patient's both eyes upper lids were examined. The superior lid crease was noted to be ~8mm superior to lid margin. The lid crease was marked with surgical pen following the lid contour. The upper incision marking was made after measuring 12mm inferior to the central inferiorbrow lashes. The area was infiltrated with 2 cc of anesthetic on each upper lid. The patient was prepped and draped in routine aseptic fashion. After waiting for sufficient vasoconstriction, the right eye upper lid was incised with straight iris scissors following the premarked incision lines. The skin and orbicularis muscle was removed withelectrocautery. Hemostasis achieved with electrocautery as well. The orbital septum was elevated and incised with electrocautery over the levator muscle to expose the preaponeurotic fat and identify the muscle. The tarsus was exposed over the right eye eyelid withelectrocautery. A 6-0 prolene suture was passed through the levator aponeurosis and tarsus superiorto the pupil and temporally fixated. The position of the lid was checked by the patient opening hereyes. A central prolene suture was placed in the eyelid to fixate in desired position. The procedure was repeated in similar fashion on the left upper lid. The incisions were closed with a running 6-0 plain suture. Ice water compresses were applied as well as antibiotic ointment with erythromycin ophthalmic ointment. The patient tolerated the procedure well without complication. The patient was escorted from the procedure room. F/u 2 weeks. Neeraj Celis DO [facility] Dept. of Ophthalmology documented in this encounter Nursing Notes * Dalia Guardado MED ASSIST - 03/31/2024 12:42 PM EDT POC blood glucose done at time of office visit, results were 128 * Radha Austin TECH - 03/31/2024 11:36 AM EDT Patient admitted to procedure room at 11:36 AM and identified by full name and date of as Sheila ToddMCKAY 1935. Is patient on blood thinners? no . Is patient hypertensive? yes, if yes, did you take you blood pressure medication today? yes. The operative team (Dr. Celis), along with Ms. Todd, reviewed that she presents today for blepharoplasty of bilateral upper eyelids. Ms. Todd agrees with the procedure and operative site. The correct operative site was marked and verified by the operative team. Ms. Todd signed the surgical consent form as witnessed by the operative team. Pre op vitals BP 144/79 P 80 . Patient prepped and drapped by Dr. Celis. documented in this encounter Plan of Treatment Upcoming Encounters Date Type Department Care Team (Late st Contact Info) Description 04/12/2024 1:40 PM EDT Office Visit Ophthalmology, [facility] [address] [facility] [facility] [place] [address] [facility] [address] 05/13/2024 9:00 AM EDT Nurse Only Ancillary [facility] Umer Kemp [address] [place] [address] Virid[place], Nurse Annual [facility] [address] [place] [address] 05/20/2024 9:00 AM EDT Office Visit General Internal Medicine [facility] [address] [place] [address] Albino Magaña MD [address] [facility] [place] [address] 05/24/2024 11:00 AM EDT Office Visit Ophthalmology, [facility] [address] [place] [address] Neeraj Celis, DO [address] [place] [address] 06/14/2024 11:00 AM EST Office Visit Cardiology, 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) Ordered: 03/31/2024 Health Maintenance Due Date Last Done Comments COVID-19 Vaccine ( season) 2024 06/15/2023, 05/14/2023, 10/04/2022, Additional history exists Influenza Vaccine (FLU shot) (#1) 2024 05/14/2023, 04/09/2023, 04/19/2022, Additional history exists CKD PHOS USE SMARTSET 19032 04/09/202403/28, 04/05/2022, 08/02/2020, Additional history exists Adult Wellness Visit 2024 2023, 05/09/2022, 05/07/2021 Depression Screening 2024 2023, 03/22/20 15 Diabetic Foot Exam 2024 2023, 1 09/15/2017, 10/08/2017, Additional history exists HbA1c 07/28/2024 01/26/2024, 09/26, 04/09/2023, Additional history exists Diabetic Eye Exam 10/15/2024 10/16/2023, , 10/16/2023, Additional history exists Albumin/Creatinine Ratio 10/21/2024 024, 09/09/2022, 04/05/2022, Additional history exists CKD HGB USE SMARTSET 84426 11/23/202411/23, 11/24/2023, 10/22/2023, Additional history exists DTap/Tdap Vaccines (2 - Td or Tdap) 03/03/2025 03/03/2015, 11/02/2007 DXA Scan 05/26/2025 05/26/2023, 04/29, 04/30/2021, Additional history exists Pneumococcal Vaccine: 65+ Years Completed 09/01/2014, 04/23/2010 Zoster Vaccines Completed 08/29/2018, 05/30, 05/29/2012 VITAMIN D LEVEL ONCE IN A LIFETIME-USE SMARTSET# 73060 Completed 12/09/2023, 08/08/2021, 10/19/2009 HPV (Gardasil) Vaccine Aged Out No lo nger eligible based on patient's age to complete this topic Hepatitis B Vaccine Aged Out No longe r eligible based on patient's age to complete this topic MENINGOCOCCAL (MENACTRA/MENVEO) Aged Out No longer eligible based on patient's age to complete this topic documented as of this encounter Medical Devices Implanted Type Area Refinery Operator Coking Device Identifier Shelf Expiration Date Model / Serial / Lot Graft Ant Lat 12mm [id number] - [id number] Implanted:Qt y: 1 on 11/26/2007 at [place] [facility] [place] Tissue - Human N/A: Spine Lumbar [employer] 06/09/2011 [id number] / [id number] / Graft Ant Lat 14mm [id number] - [id number] Implanted:Qt y: 1 on 11/26/2007 at [place] [facility] [place] Tissue - Human N/A: Spine Lumbar [employer] 08/08/2011 [id number] / -[id number] / Graft Ant Lat 14mm Ac0x-[id number] - [id number] Implanted:Qt y: 1 on 11/26/2007 at [place] [facility] [place] Tissue - Human N/A: Spine Lumbar [employer] 07/23/2009 [id number] / -[id number] / Graft Ant Lat 14mm [id number] - [id number] Implanted:Qt y: 1 on 11/26/2007 at [place] [facility] [place] Tissue - Human N/A: Spine Lumbar [employer] 03/10/2012 [id number] / -[id number] / Graft Ant 10mm Af7k-42m - [id number] Implanted:Qt y: 1 on 11/26/2007 at [facility] [place] Tissue - Human N/A: Spine Lumbar [facility] 08/19/2011 [id number] / -[id number] / Floseal Nt 181506 - [id number] Implanted:Qt y: 1 on 12/02/2006 at [place] [facility] [place] N/A: Spine Cervical REGALADO [id number] / / [id number] Floseal Nt 091781 - [id number] Implanted:Qt y: 1 on 12/02/2006 at [place] [facility] [place] N/A: Spine Cervical REGALADO [id number] / / Graft Cervical 6x8 Md2a-H58 - [id number] Implanted:Qt y: 1 on 12/02/2006 at [facility] [place] N/A: Spine Cervical [employer] [id number] / / -[id number] Graft Cervical 5x7 Ef5s-F84 - [id number] Implanted:Qt y: 1 on 12/02/2006 at [place] [facility] [place] N/A: Spine Cervical [employer] [id number] / / -[id number] Graft Cervical 7x9 Pe6l-I93 - [id number] Implanted:Qt y: 1 on 12/02/2006 at [place] [facility] [place] N/A: Spine Cervical [employer] FH0P-L24 / / -[id number] Screw 3.5x14 Mntr Fa [id number] - [id number] Implanted:Qt y: 8 on 12/02/2006 at [place] [facility] [place] N/A: Neck ELODIA & ELODIA DEPUY [id number] / / Screw Inner Mntr [id number] - [id number] Implanted:Qt y: 11 on 12/02/2006 at [place] [facility] [place] N/A: Neck ELODIA [employer] ELOD[employer] DEPUY [id number] / / Screw 4.35x25 Mntrml [id number] - [id number] Implanted:Qt y: 2 on 12/02/2006 at [place] [facility] [place] N/A: Neck ELODIA [employer] ELOD[employer] DEPUY [id number] / / Amos [id number] - [id number] Implanted:Qt y: 2 on 12/02/2006 at [place] [facility] [place] N/A: Neck ELODIA [employer] ELODIA DEPUY [id number] / / Screw 3.5x20 Mntr Fa [id number] - [id number] Implanted:Qt y: 1 on 12/02/2006 at [place] [facility] N/A: Neck ELODIA [employer] ELOD[employer] DEPUY [id number] / / Graft Infus Bone Lg Ii [id number] - [id number] Implanted:Qt y: 1 on 11/26/2007 at [place] [facility] N/A: Spine Lumbar Medtronic Sof[employer] Danek 12/26/2009 [id number] / / [id number] Graft Infuse Bone Sm [id number] - [id number] Implanted:Qt y: 1 on 11/26/2007 at [place] [facility] N/A: Spine Lumbar Medtronic Sofamor [employer]anek 03/28/2010 [id number] / / [id number] Screw 6x40 Poly Si [id number] - [id number] Implanted:Qt y: 5 on 11/26/2007 at [place] [facility] [place] N/A: Spine Lumbar ELODIA [employer] ELOD[employer] DEPUY [id number] / / Screw 6x45 Poly Si [id number] - [id number] Implanted:Qt y: 4 on 11/26/2007 at [place] [facility] N/A: Spine Lumbar [employer] EL[employer] DE[employer]Y [id number] / / Screw Set Sng Inner [id number] - [id number] Implanted:Qt y: 13 on 11/26/2007 at [place] [facility] N/A: Spine Lumbar [employer]ODIA [employer] EL[employer] DE[employer]Y [id number] / / Screw 7x35 Poly Si [id number] - [id number] Implanted:Qt y: 2 on 11/26/2007 at [place] [facility] N/A: Spine Lumbar [employer]Y [id number] / / Screw 5x40 Poly Si [id number] - [id number] Implanted:Qt y: 1 on 11/26/2007 at [place] [facility] N/A: Spine Lumbar [employer]ODIA [employer] ELODIA DE[employer]Y [id number] / / Screw 5x45 Poly Si [id number] - [id number] Implanted:Qt y: 1 on 11/26/2007 at [place] [facility] N/A: Spine Lumbar ELODIA [employer] ELODIA DEPUY [id number] / / Amos 480mm [id number] - [id number] Implanted:Qt y: 1 on 11/26/2007 at [place] [facility] N/A: Spine Lumbar ELODIA & ELODIA DEPUY [id number] / / documented as of this encounter Visit Diagnoses Diagnosis 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
--- OUTSIDE RECORDS SUMMARY | 2024-06-10 19:22 | External Medical Summary | Summary of Care ---
Author Name Unknown Organization [facility] Address [address] [place] [address] Phone [phone] Care Team Providers Care Rn Med Surg Name Role Phone Albino Magaña MD Primary Care Provider + Reason for Visit * Reason Onset Date Comments Advice 03/17/2024 Encounter Details Date Type Department Care Team (Late st Contact Info) Description 03/17/2024 Telephone Access Center, [place] [address] [facility] *DO NOT REMOVE THIS DEPARTMENT* [place] [address] Request, External Referral Advice Allergies Active Allergy Reactions Criticality Noted Date Comments Penicillins Hives High 05/04/2000 Other Reaction(s): HIVES documented as of this encounter (statuses as of 03/17/2024) Medications Medication Sig Dispensed Refills Start Date [...] UNIT/ML Subcutaneous Solution Pen-injector (Admelog) 10/22/2023 Active Hospital, Clinic, or Other Facility Administered Medication Ordered Dose Route Frequency Start Date End Date Status albuterol sulfate (PROVENTIL) (2.5 MG/3ML) 0.083% inhalation solution 2.5 mgIndications:COPD exacerbation (HCC) 2.5 mg NEBULIZER Q4H PRN 02/18/2019 Active documented as of this encounter (statuses as of 03/17/2024) Active Problems Problem Noted Date Diagnosed Date [...] as of this encounter (statuses as of 03/17/2024) Resolved Problems Problem Noted Date Diagnosed Date [...] Dr. Doran. 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 Osteoporosis 06/16/2008 PURE HYPERCHOLESTEROLEM /0 02/2009 Overview: Per Lipid Taxonomy. DIFFUS CYSTIC MASTOPATHY Osteoporosis 04/22/2017 Overview: Osteopenia HTN, goal to be determined 1 08/20/2008 Overview: Modified per HTN protocol #16. documented as of this encounter (statuses as of 03/17/2024) Immunizations Name Administration Dates Next Due COVID-19 mRNA, LNP-s, No Pre serve, 2-Dose Series ([employer]) 02/15/2022,06/04/2021,09/20/2020,08/30 COVID-19, LNP-s, No Preserve , [place]-sucrose, Ages 12+ (Pfizer) 02/15/2022 COVID-19, MRNA-LNP, 23-24, P F, 30 MCG/0.3 mL, 12 YRS AND ABOVE, IM ([employer]-Comirnat) 06/15/2023,05/14/2023 Covid-19, Mrna, Lnp-s, Pf, B ivalent, 30 Mcg, IM, 12 yrs and above ([employer] Spree) 10/04/2022 H1N1 2009 Influenza, IM 07/24/2009 Pneumococcal [...] encounter Miscellaneous Notes * Telephone Encounter - Dalia Guardado MED ASSIST - 03/17/2024 9:12 AM EDT Called and spoke with pt advised okay to take Vitamin D * Telephone Encounter - Concepcion Miller OSA - 03/17/2024 9:00 AM EDT Good Afternoon Pt wants to know if she needs to stop her Vit D3 p [phone] before surgery documented in this encounter Plan of Treatment Upcoming Encounters Date Type Department Care Team (Late st Contact Info) Description 03/31/2024 12:00 PM EDT Office Visit Ophthalmology, [address] [place] [address] Neeraj Celis, DO [address] [place] [address] 04/12/2024 1:40 PM EDT Office Visit Ophthalmology, [address] [place] [address] Neeraj Celis, DO [address] [place] [address] 05/13/2024 9:00 AM EDT Nurse Only Ancillary [facility] [address] [place] [address] Park, Nurse Annual Wellness [facility] [address] [facility] [place] [address] 05/20/2024 9:00 AM EDT Office Visit General Internal Medicine [facility] [address] [facility] [place] [address] Albino Magaña MD [address] [facility] [place] [address] 05/24/2024 11:00 AM EDT Office Visit Ophthalmology, [address] [place] [address] Neeraj Celis, [address] [address] 06/14/2024 11:00 AM EST Office Visit Cardiology, [address] [place] [address] Rajni Alejandre PA-C [address] [place] [phone] 06/15/2024 10:30 AM EST Nurse Only Rheumatology [facility] [address] [facility] [place] [address] Pf, Nurse Rheum [address] [facility] [place] [address] Health Maintenance Due Date Last Done Comments COVID-19 Vaccine ( season) 2023 06/15/2023, 05/14/2023, 10/04/2022, Additional history exists Influenza Vaccine (FLU shot) (#1) 2024 05/14/2023, 04/09/2023, 04/19/2022, Additional history exists CKD PHOS USE SMARTSET 46254 04/09/202403/28, 04/05/2022, 08/02/2020, Additional history exists Adult Wellness Visit 2024 2023, 05/09/2022, 05/07/2021 Depression Screening 2024 2023, 03/22/20 15 Diabetic Foot Exam 2024 2023, 1 09/15/2017, 10/08/2017, Additional history exists HbA1c 07/28/2024 01/26/2024, 09/26, 04/09/2023, Additional history exists Diabetic Eye Exam 10/15/2024 10/16/2023, , 10/16/2023, Additional history exists Albumin/Creatinine Ratio 10/21/2024 024, 09/09/2022, 04/05/2022, Additional history exists CKD HGB USE SMARTSET 54117 11/23/202411/23, 11/24/2023, 10/22/2023, Additional history exists DTaP,Tdap,and Td Vaccines (2 - Td or Tdap) 03/03/2025 03/03/2015, 11/02/2007 DXA Scan 05/26/2025 05/26/2023, 04/29, 04/30/2021, Additional history exists Pneumococcal Vaccine: 65+ Years Completed 09/01/2014, 04/23/2010 Zoster Vaccines Completed 08/29/2018, 05/30, 05/29/2012 VITAMIN D LEVEL ONCE IN A LIFETIME-USE SMARTSET# 58414 Completed 12/09/2023, 08/08/2021, 10/19/2009 HPV (Gardasil) Vaccine Aged Out No lo nger eligible based on patient's age to complete this topic Hepatitis B Vaccine Aged Out No longe r eligible based on patient's age to complete this topic MENINGOCOCCAL (MENACTRA/MENVEO) Aged Out No longer eligible based on patient's age to complete this topic documented as of this encounter Medical Devices Implanted Type Area Mechanical Insulator Device Identifier Shelf Expiration Date Model / Serial / Lot Graft Ant Lat 12mm [id number] - [id number] Implanted:Qt y: 1 on 11/26/2007 at [place] [facility] [place] Tissue - Human N/A: Spine Lumbar [facility] 06/09/2011 [id number] / -[id number] / Graft Ant Lat 14mm [id number]-81tg - [id number] Implanted:Qt y: 1 on 11/26/2007 at [place] [facility] [place] Tissue - Human N/A: Spine Lumbar [facility] Co 08/08/2011 OQ5C-[id number] / -[id number] / Graft Ant Lat 14mm Ju6f-[id number] - [id number] Implanted:Qt y: 1 on 11/26/2007 at [place] [facility] [place] Tissue - Human N/A: Spine Lumbar [facility] 07/23/2009 [id number] / [id number] / Graft Ant Lat 14mm Fh2d-56zo - [id number] Implanted:Qt y: 1 on 11/26/2007 at [place] [facility] [place] Tissue - Human N/A: Spine Lumbar [facility] Co 03/10/2012 KV4C-92Q / -[id number] / Graft Ant 10mm Xx4q-75h - [id number] Implanted:Qt y: 1 on 11/26/2007 at [place] [facility] [place] Tissue - Human N/A: Spine Lumbar [facility] Co 08/19/2011 YJ3E-[id number] / -[id number] / [place] Nt 066819 - [id number] Implanted:Qt y: 1 on 12/02/2006 at OR [facility] [place] N/A: Spine Cervical REGALADO [id number] / / [id number] Floseal Nt [id number] - [id number] Implanted:Qt y: 1 on 12/02/2006 at OR [facility] [place] N/A: Spine Cervical REGALADO [id number] / / Graft Cervical 6x8 Tp7l-M57 - [id number] Implanted:Qt y: 1 on 12/02/2006 at OR [facility] [place] N/A: Spine Cervical [employer] VR0H-W46 / / -[id number] Graft Cervical 5x7 Rz3i-F82 - [id number] Implanted:Qt y: 1 on 12/02/2006 at [place] [facility] [place] N/A: Spine Cervical [facility] TF3N-U42 / / -[id number] Graft Cervical 7x9 Uw3j-M32 - [id number] Implanted:Qt y: 1 on 12/02/2006 at [place] [facility] [place] N/A: Spine Cervical [facility] CJ1P-Z83 / / -[id number] Screw 3.5x14 Mntr Fa [id number] - [id number] Implanted:Qt y: 8 on 12/02/2006 at OR [facility] [place] N/A: Neck ELODIA & ELODIA DEPUY [id number] / / Screw Inner Mntr [id number] - [id number] Implanted:Qt y: 11 on 12/02/2006 at OR [facility] [place] N/A: Neck ELODIA & ELODIA DEPUY [id number] / / Screw 4.35x25 Mntrml [id number] - [id number] Implanted:Qt y: 2 on 12/02/2006 at OR [facility] [place] N/A: Neck ELODIA & ELODIA DEPUY [id number] / / Amos 3.2r320fe [id number] - [id number] Implanted:Qt y: 2 on 12/02/2006 at [place] [facility] [place] N/A: Neck ELODIA & ELODIA DEPUY [id number] / / Screw 3.5x20 Mntr Fa [id number] - [id number] Implanted:Qt y: 1 on 12/02/2006 at [place] [facility] [place] N/A: Neck ELODIA & ELODIA DEPUY [id number] / / Graft Infus Bone Lg Ii [id number] - [id number] Implanted:Qt y: 1 on 11/26/2007 at [place] [facility] [place] N/A: Spine Lumbar Medtronic [employer] Dane[employer] 12/26/2009 [id number] / / [id number] Graft Infuse Bone Sm [id number] - [id number] Implanted:Qt y: 1 on 11/26/2007 at [place] [facility] [place] N/A: Spine Lumbar Medtronic Sof[employer]or [employer]ane[employer] 03/28/2010 [id number] / / [id number] Screw 6x40 Poly Si [id number] - [id number] Implanted:Qt y: 5 on 11/26/2007 at [place] [facility] [place] N/A: Spine Lumbar ELODIA & ELODIA DEPUY [id number] / / Screw 6x45 Poly Si [id number] - [id number] Implanted:Qt y: 4 on 11/26/2007 at [place] [facility] [place] N/A: Spine Lumbar ELODIA & ELODIA DEPUY [id number] / / Screw Set Sng Inner [id number] - [id number] Implanted:Qt y: 13 on 11/26/2007 at [place] [facility] [place] N/A: Spine Lumbar ELODIA & ELODIA DEPUY [id number] / / Screw 7x35 Poly Si [id number] - [id number] Implanted:Qt y: 2 on 11/26/2007 at [place] [facility] [place] N/A: Spine Lumbar ELODIA & ELODIA DEPUY [id number] / / Screw 5x40 Poly Si [id number] - [id number] Implanted:Qt y: 1 on 11/26/2007 at [place] [facility] [place] N/A: Spine Lumbar ELODIA & ELODIA DEPUY [id number] / / Screw 5x45 Poly Si [id number] - [id number] Implanted:Qt y: 1 on 11/26/2007 at [place] [facility] [place] N/A: Spine Lumbar ELODIA & ELODIA DEPUY [id number] / / Amos 480mm [id number] - [id number] Implanted:Qt y: 1 on 11/26/2007 at [place] [facility] [place] N/A: Spine Lumbar ELODIA & ELODIA DEPUY [id number] / / documented as of this encounter [...] 6:01 AM 11/26/2007 2:41 PM Care Teams Rn Med Surg Relationship Specialty Start Date End Date Albino Magaña MD [address] [facility] [place] [address] PCP - General Internal Medicine 01/17/12 documented as of this encounter
--- OUTSIDE RECORDS SUMMARY | 2024-06-10 19:22 | External Medical Summary | Summary of Care ---
Author Name Unknown Organization [facility] Address [address] [place] [address] Phone [phone] Care Team Providers Care Game Manager Name Role Phone Albino Magaña MD Primary Care Provider + Reason for Visit * Reason Comments Procedure Encounter Details Date Type Department Care Team (Late st Contact Info) Description 03/31/2024 12:00 PM EDT Office Visit Ophthalmology, [facility] [address] [place] [address] Neeraj Celis, DO [address] [place] [address] Type 1 DM with CKD stage [...] hemoglobin A1c goal of less than 7.5% ([facility]) Use as directed daily. 1 Box Dosing Unit 5 08/05/2016 Active glucagon ([facility]) 1 MG KITIndications:Type 1 diabetes mellitus with hemoglobin A1c goal of less than 7.5% ([facility]) As directed 1 Kit 5 01/20/2019 Active [...] DM with CKD stage 3 and hypertension ([facility]) Inject 6 prior to breakfast, 5 units [...] NEBULIZER Q4H PRN 02/18/2019 Active lidocaine-epinephrine 2 %-1:816312 inj 100 mgIndications: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),Myogenic ptosis of right eyelid,Dermatochalasis of both upper eyelids 100 mg SC ONCE 03/31/2024 03/31/2024 End ed Erythromycin ophthalmic ointmentIndications:Typ e 1 DM with CKD stage 3 and hypertension (HCC),Myogenic ptosis of right eyelid,Dermatochalasis of both upper eyelids OU ONCE 03/31/2024 03/31/2024 End ed documented as of this encounter (statuses as [...] Dr. Doran. Lumbosacral spondylosis 12/15/200203/29 DISC DIS [id number]-IXLLQS 11/17/200205/29 DIABETES MELLITUS WITHOUT ME NTION OF [...] mRNA, LNP-s, No Pre serve, 2-Dose Series ([employer]) 02/15/2022,06/04/2021,09/20/2020,08/30 COVID-19, LNP-s, No Preserve , [place]-sucrose, Ages 12+ (Pfizer) 02/15/2022 COVID-19, MRNA-LNP, 23-24, P F, 30 MCG/0.3 mL, 12 YRS AND ABOVE, IM ([facility]) 06/15/2023,05/14/2023 Covid-19, Mrna, Lnp-s, Pf, B ivalent, [...] p.m. call and request the eye doctor senior coldfusion developer. Instructions given by: Dr. Celis documented in this encounter Progress Notes * Neeraj Celis DO - 03/31/2024 12:54 PM EDT NO CHARGE FOR LEVATORS Procedure Note: Pre op: Ptosis both eyes upper lids Post op: same Procedure: both eyes upper lid blepharoplasties with levator advancement Surgeon: Vimal Bridge Ironworker: Deann Block PA-C NO AVAILABLE RESIDENT TO [...] room. F/u 2 weeks. Neeraj Celis DO [facility] Dept. of Ophthalmology documented in this encounter [...] 04/12/2024 1:40 PM EDT Office Visit Ophthalmology, [facility] [address] [facility] [place] [address] [facility]er[facility] Celis DO [facility] [address] 05/13/2024 9:00 AM EDT Nurse Only Ancillary [facility] [place] [address] [place] [address] [place] Nurse Annual Wellness [facility] [address] [place] [address] 05/20/2024 9:00 AM EDT Office Visit General Internal Medicine [facility] [address] [facility] [place] [address] Albino Magaña MD [address] [facility] [place] [place] [address] 05/24/2024 11:00 AM EDT Office Visit Ophthalmology, [facility] [address] [place] [address] Neeraj Celis, DO [address] [place] [address] 06/14/2024 11:00 AM EST Office Visit Cardiology, [facility] [address] [place] [address] Rajni Alejandre PA-C [address] [place], [place] [phone] 06/15/2024 10:30 AM EST Nurse Only Rheumatology [facility] [address] [place] [address] Pf, Nurse Rheum [facility] [place] [address] Scheduled Orders Name Type Priority Associated Diagnoses [...] Additional history exists CKD PHOS USE SMARTSET 25747 04/09/202403/28, 04/05/2022, 08/02/2020, Additional history exists Adult Wellness Visit 2024 2023, 05/09/2022, 05/07/2021 Depression Screening 2024 2023, 03/22/20 15 Diabetic Foot Exam 2024 2023, 1 09/15/2017, 10/08/2017, Additional history exists HbA1c 07/28/2024 01/26/2024, 09/26, 04/09/2023, Additional history exists Diabetic Eye Exam 10/15/2024 10/16/2023, , 10/16/2023, Additional history exists Albumin/Creatinine Ratio 10/21/2024 024, 09/09/2022, 04/05/2022, Additional history exists CKD HGB USE SMARTSET 58849 11/23/202411/23, 11/24/2023, 10/22/2023, Additional history exists DTap/Tdap Vaccines (2 - Td or Tdap) 03/03/2025 03/03/2015, 11/02/2007 DXA Scan 05/26/2025 05/26/2023, 04/29, 04/30/2021, Additional history exists Pneumococcal Vaccine: 65+ Years Completed 09/01/2014, 04/23/2010 Zoster Vaccines Completed 08/29/2018, 05/30, 05/29/2012 VITAMIN D LEVEL ONCE IN A LIFETIME-USE SMARTSET# 89957 Completed 12/09/2023, 08/08/2021, 10/19/2009 HPV (Gardasil) Vaccine Aged Out No lo nger eligible based on patient's age to complete this topic Hepatitis B Vaccine Aged Out No longe r eligible based on patient's age to complete this topic MENINGOCOCCAL (MENACTRA/MENVEO) Aged Out No longer eligible based on patient's age to complete this topic documented as of this encounter Medical Devices Implanted Type Area Baker Operator Automatic Device Identifier Shelf Expiration Date Model / Serial / Lot Graft Ant Lat 12mm [id number] - [id number] Implanted:Qt y: 1 on 11/26/2007 at [place] [facility] Tissue - Human N/A: Spine Lumbar [employer] 06/09/2011 [id number] / [id number] / Graft Ant Lat 14mm Wt8x-17lr - [id number] Implanted:Qt y: 1 on 11/26/2007 at [place] [facility] [place] Tissue - Human N/A: Spine Lumbar [employer] 08/08/2011 LV5C-67V / -[id number] / Graft Ant Lat 14mm Vi3j-61ei - [id number] Implanted:Qt y: 1 on 11/26/2007 at [place] [facility] [place] Tissue - Human N/A: Spine Lumbar [employer] 07/23/2009 NE5M-64A / -[id number] / Graft Ant Lat 14mm Jv6x-29jy - [id number] Implanted:Qt y: 1 on 11/26/2007 at [place] [facility] [place] Tissue - Human N/A: Spine Lumbar [employer] 03/10/2012 YZ8X-86X / -[id number] / Graft Ant 10mm Qh3s-82m - [id number] Implanted:Qt y: 1 on 11/26/2007 at [place] [facility] Tissue - Human N/A: Spine Lumbar [employer] 08/19/2011 UD9S-21C / -[id number] / [place] Nt [id number] - [id number] Implanted:Qt y: 1 on 12/02/2006 at OR [facility] [place] N/A: Spine Cervical REGALADO [id number] / / [id number] [place] [id number] - [id number] Implanted:Qt y: 1 on 12/02/2006 at [place] [facility] N/A: Spine Cervical REGALADO [id number] / / Graft Cervical 6x8 St5z-J93 - [id number] Implanted:Qt y: 1 on 12/02/2006 at [place] [facility] [place] N/A: Spine Cervical [employer] ML1G-L78 / -[id number] Graft Cervical 5x7 Ba8e-C67 - [id number] Implanted:Qt y: 1 on 12/02/2006 at OR [facility] N/A: Spine Cervical [employer] Co IH5H-E68 / / -[id number] Graft Cervical 7x9 Rb1u-U27 - [id number] Implanted:Qt y: 1 on 12/02/2006 at [place] [facility] N/A: Spine Cervical [employer] Co NM2G-G75 / / -[id number] Screw 3.5x14 Mntr Fa [id number] - [id number] Implanted:Qt y: 8 on 12/02/2006 at [place] [facility] N/A: Neck ELODIA & ELODIA DEPUY [id number] / / Screw Inner Mntr [id number] - [id number] Implanted:Qt y: 11 on 12/02/2006 at OR [facility] N/A: Neck ELODIA & ELODIA DEPUY [id number] / / Screw 4.35x25 Mntrml [id number] - [id number] Implanted:Qt y: 2 on 12/02/2006 at [place] [facility] N/A: Neck ELODIA & ELODIA DEPUY [id number] / / Amos [id number] - [id number] Implanted:Qt y: 2 on 12/02/2006 at [place] [facility] N/A: Neck ELODIA & ELODIA DEPUY [id number] / / Screw 3.5x20 Mntr Fa [id number] - [id number] Implanted:Qt y: 1 on 12/02/2006 at [place] [facility] N/A: Neck ELODIA & ELODIA DEPUY [id number] / / Graft Infus Bone Lg Ii [id number] - [id number] Implanted:Qt y: 1 on 11/26/2007 at [place] [facility] N/A: Spine Lumbar Medtronic Sof[employer]or [employer] 12/26/2009 [id number] / / [id number] Graft Infuse Bone Sm [id number] - [id number] Implanted:Qt y: 1 on 11/26/2007 at [place] [facility] N/A: Spine Lumbar Medtronic Sofamor [employer]ane[employer] 03/28/2010 [id number] / / [id number] Screw 6x40 Poly Si [id number] - [id number] Implanted:Qt y: 5 on 11/26/2007 at [place] [facility] N/A: Spine Lumbar ELODIA & ELODIA DEPUY [id number] / / Screw 6x45 Poly Si [id number] - [id number] Implanted:Qt y: 4 on 11/26/2007 at [place] [facility] N/A: Spine Lumbar ELODIA & ELODIA DEPUY [id number] / / Screw Set Sng Inner [id number] - [id number] Implanted:Qt y: 13 on 11/26/2007 at [place] [facility] N/A: Spine Lumbar ELODIA & ELODIA DEPUY [id number] / / Screw 7x35 Poly Si [id number] - [id number] Implanted:Qt y: 2 on 11/26/2007 at [place] [facility] N/A: Spine Lumbar ELODIA & ELODIA DEPUY [id number] / / Screw 5x40 Poly Si [id number] - [id number] Implanted:Qt y: 1 on 11/26/2007 at [place] [facility] N/A: Spine Lumbar ELODIA & ELODIA DEPUY [id number] / / Screw 5x45 Poly Si [id number] - [id number] Implanted:Qt y: 1 on 11/26/2007 at [place] [facility] N/A: Spine Lumbar ELODIA & ELODIA DEPUY [id number] / / Amos 480mm [id number] - [id number] Implanted:Qt y: 1 on 11/26/2007 at [place] [facility] N/A: Spine Lumbar ELODIA & ELODIA DEPUY [id number] / / documented as of this encounter Visit Diagnoses Diagnosis 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 Myogenic ptosis Dermatochalasis of both upper eyelids documented in this encounter Administered Medications Inactive Administered Medications - up to 3 most recent administrations Medication Order MAR Action Action Date Dose Rate Site Erythromycin ophthalmic ointment Both eyes, ONCE, On Fri03/31/24 at 1330, For 1 dose Given 03/31/2024 1:21 PM EDT 1 g lidocaine-epinephrine 2 %-1:745407 inj 100 mg 100 mg (5 mL), Subcutaneous, ONCE, On Fri03/31/24 at 1330, For 1 dose Given 03/31/2024 1:22 PM EDT 100 mg Other-Specify documented in this encounter Advance Directives * [...] 6:01 AM 11/26/2007 2:41 PM Care Teams Game Manager Relationship Specialty Start Date End Date Albino Magaña MD [address] [facility], [place] [address] PCP - General Internal Medicine 01/17/12 documented as of this encounter
--- OUTSIDE RECORDS SUMMARY | 2024-06-10 19:22 | External Medical Summary | Summary of Care ---
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 use 3 times daily. 270 Each 3 01/18/2014 Active Insulin Syringes, Disposable, U-100 1 ML MISCIndications:Typ e 1 diabetes mellitus with hemoglobin A1c goal of less than 7.5% ([facility]) Use as directed daily. 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 Doran. Lumbosacral spondylosis 12/15/200203/29 DISC DIS [id number] 11/17/200205/29 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 Osteoporosis 06/16/2008 PURE HYPERCHOLESTEROLEM 02/2009 Overview: Per Lipid Taxonomy. DIFFUS CYSTIC MASTOPATHY Osteoporosis 04/22/2017 Overview: Osteopenia HTN, goal to be determined 1 08/20/2008 Overview: Modified per HTN protocol #16. documented as of this encounter (statuses as of 04/01/2024) Immunizations Name Administration Dates Next Due COVID-19 mRNA, LNP-s, No Pre serve, 2-Dose Series (Mamina Shkola) 02/15/2022,06/04/2021,09/20/2020,08/30 COVID-19, LNP-s, No Preserve , [place]-sucrose, Ages 12+ (Pfizer) 02/15/2022 COVID-19, MRNA-LNP, 23-24, P F, 30 MCG/0.3 mL, 12 YRS AND ABOVE, IM ([employer]) 06/15/2023,05/14/2023 Covid-19, Mrna, Lnp-s, Pf, B ivalent, 30 Mcg, IM, 12 yrs and above (Pfizer) 10/04/2022 H1N1 2009 Influenza, IM 07/24/2009 Pneumococcal Conjugate Vacc, 13 Valent (Prevnar) 09/01/2014 Pneumococcal Conjugate Vacci ne, 7 Valent 03/08/2004 Pneumococcal Polysaccharide PPV23 (Pneumovax) [...] Trivalen t, (IIV3), with Preserv, (Fluzone) 04/22/2014,05/24/2013,04/24/2012,04/15,04/23/2010,04/20/2009,05/02/2008 ,05/14/2007,04/28/2006,05/28/2005,04/28,05/03/2002 TD, Preservative Free 11/02/2007 TDAP (age 10 [...] p.m. call and request the eye doctor line service person. Instructions given by: Dr. Celis documented in this encounter Progress Notes * Neeraj Celis DO - 03/31/2024 12:54 PM EDT NO CHARGE FOR LEVATORS Procedure Note: Pre op: Ptosis both eyes upper lids Post op: same Procedure: both eyes upper lid blepharoplasties with levator advancement Surgeon: Vimal Video Game Tester: Deann Block PA-C NO AVAILABLE RESIDENT TO [...] room. F/u 2 weeks. Neeraj Celis DO [facility] Dept. of Ophthalmology documented in this encounter Nursing Notes * Tami Plasencia, RN - 03/31/2024 1:22 PM EDT Procedure completed without incident. Patient tolerated procedure well. Instructions reviewed with patient by Dr. Celis. Patient discharged from procedure room. * Dalia Guardado MED ASSIST - 03/31/2024 [...] 04/12/2024 1:40 PM EDT Office Visit Ophthalmology, [address] [place] [address] Neeraj Celis, DO [address] [place] [address] 05/13/2024 9:00 AM EDT Nurse Only [facility] [address] [place] [address] [place], Nurse Annual Wellness [facility] [address] [facility] [place] [address] 05/20/2024 9:00 AM EDT Office Visit [facility] [address] [place], [place] [address] Albino Magaña MD [address] [facility] [place] [address] 05/24/2024 11:00 AM EDT Office Visit Ophthalmology, [facility] [address] [place] [address] Neeraj Celis, DO [address] [place] [address] 06/14/2024 11:00 AM EST Office Visit Cardiology, [facility] [address] [place] [address] Rajni Alejandre PA-C [address] [place] [address] 06/15/2024 10:30 AM EST Nurse Only Rheumatology [place] [address] [facility] [place], [place] [address] Pf, Nurse Rheum [facility] [place], [place] [address] Health Maintenance Due Date Last Done Comments COVID-19 Vaccine (2022- season) 2024 06/15/2023, 05/14/2023, 10/04/2022, Additional history exists Influenza Vaccine (FLU shot) (#1) 2024 05/14/2023, 04/09/2023, 04/19/2022, Additional history exists CKD PHOS USE SMARTSET 38248 04/09/202403/28, 04/05/2022, 08/02/2020, Additional history exists Adult Wellness Visit 2024 2023, 05/09/2022, 05/07/2021 Depression Screening 2024 2023, 03/22/20 15 Diabetic Foot Exam 2024 2023, 1 09/15/2017, 10/08/2017, Additional history exists HbA1c 07/28/2024 01/26/2024, 09/26, 04/09/2023, Additional history exists Diabetic Eye Exam 10/15/2024 10/16/2023, , 10/16/2023, Additional history exists Albumin/Creatinine Ratio 10/21/2024 024, 09/09/2022, 04/05/2022, Additional history exists CKD HGB USE SMARTSET 39207 11/23/202411/23, 11/24/2023, 10/22/2023, Additional history exists DTap/Tdap Vaccines (2 - Td or Tdap) 03/03/2025 03/03/2015, 11/02/2007 DXA Scan 05/26/2025 05/26/2023, 04/29, 04/30/2021, Additional history exists Pneumococcal Vaccine: 65+ Years Completed 09/01/2014, 04/23/2010 Zoster Vaccines Completed 08/29/2018, 05/30, 05/29/2012 VITAMIN D LEVEL ONCE IN A LIFETIME-USE SMARTSET# 77561 Completed 12/09/2023, 08/08/2021, 10/19/2009 HPV (Gardasil) Vaccine Aged Out No lo nger eligible based on patient's age to complete this topic Hepatitis B Vaccine Aged Out No longe r eligible based on patient's age to complete this topic MENINGOCOCCAL (MENACTRA/MENVEO) Aged Out No longer eligible based on patient's age to complete this topic documented as of this encounter Medical Devices Implanted Type Area Cnc Cutting Operator Device Identifier Shelf Expiration Date Model / Serial / Lot Graft Ant Lat 12mm [id number] - [id number] Implanted:Qt y: 1 on 11/26/2007 at [place] [facility] [place] [place] Tissue - Human N/A: Spine Lumbar [facility] [employer] 06/09/2011 [id number] / -[id number] / Graft Ant Lat 14mm Qx8w-93fe - [id number] Implanted:Qt y: 1 on 11/26/2007 at [place] [facility] [place] [place] Tissue - Human N/A: Spine Lumbar [facility] [employer] 08/08/2011 [id number] / -[id number] / Graft Ant Lat 14mm Ak5x-03wc - [id number] Implanted:Qt y: 1 on 11/26/2007 at [place] [facility] [place] [place] Tissue - Human N/A: Spine Lumbar [facility] 07/23/2009 NW2T-[id number] / [id number] / Graft Ant Lat 14mm Nw2i-10ht - [id number] Implanted:Qt y: 1 on 11/26/2007 at [place] [facility] [place] [place] Tissue - Human N/A: Spine Lumbar [facility] 03/10/2012 KM6B-[id number] / [id number] / Graft Ant 10mm Ok8a-30l - [id number] Implanted:Qt y: 1 on 11/26/2007 at [place] [facility] [place] [place] Tissue - Human N/A: Spine Lumbar [facility] 08/19/2011 KM7A-[id number] / -[id number] / Floseal Nt [id number] - [id number] Implanted:Qt y: 1 on 12/02/2006 at [place] [facility] [place] [place] N/A: Spine Cervical REGALADO [id number] / / [id number] [place] Nt [id number] - [id number] Implanted:Qt y: 1 on 12/02/2006 at [place] [facility] [place] [place] N/A: Spine Cervical REGALADO [id number] / / Graft Cervical 6x8 Fm9e-P53 - [id number] Implanted:Qt y: 1 on 12/02/2006 at [facility] [place] [place] N/A: Spine [facility]ervical [facility] KD1M-Z96 / / -[id number] Graft Cervical 5x7 Be3b-E97 - [id number] Implanted:Qt y: 1 on 12/02/2006 at [place] [facility] [place] [place] N/A: Spine Cervical [facility] PF5J-G89 / -[id number] Graft Cervical 7x9 Cl3j-D84 - [id number] Implanted:Qt y: 1 on 12/02/2006 at [place] [facility] [place] [place] N/A: Spine Cervical [employer] BH5N-R67 / / [id number] Screw 3.5x14 Mntr Fa [id number] - [id number] Implanted:Qt y: 8 on 12/02/2006 at [facility] [place] [place] N/A: Neck ELODIA & ELODIA DEPUY [id number] / / Screw Inner Mntr [id number] - [id number] Implanted:Qt y: 11 on 12/02/2006 at [facility] [place] [place] N/A: Neck ELODIA & ELODIA DEPUY [id number] / / Screw 4.35x25 Mntrml [id number] - [id number] Implanted:Qt y: 2 on 12/02/2006 at [place] [facility] [place] [place] N/A: Neck ELODIA & ELODIA DEPUY [id number] / / Amos [id number] - [id number] Implanted:Qt y: 2 on 12/02/2006 at [facility] [place] [place] N/A: Neck ELODIA & ELODIA DEPUY [id number] / / Screw 3.5x20 Mntr Fa [id number] - [id number] Implanted:Qt y: 1 on 12/02/2006 at [facility] [place] [place] N/A: Neck ELODIA & ELODIA DEPUY [id number] / / Graft Infus Bone Lg Ii [id number] - [id number] Implanted:Qt y: 1 on 11/26/2007 at [facility] [place] [place] N/A: Spine Lumbar Medtronic Sofamor Danek 12/26/2009 [id number] / / [id number] Graft Infuse Bone Sm [id number] - [id number] Implanted:Qt y: 1 on 11/26/2007 at [facility] [place] [place] N/A: Spine Lumbar Medtronic Sofamor Danek 03/28/2010 [id number] / / [id number] Screw 6x40 Poly Si [id number] - [id number] Implanted:Qt y: 5 on 11/26/2007 at [facility] [place] [place] N/A: Spine Lumbar ELODIA & ELODIA DEPUY [id number] / / Screw 6x45 Poly Si [id number] - [id number] Implanted:Qt y: 4 on 11/26/2007 at [facility] [place] [place] N/A: Spine Lumbar ELODIA & ELODIA DEPUY [id number] / / Screw Set Sng Inner [id number] - [id number] Implanted:Qt y: 13 on 11/26/2007 at [facility] [place] [place] N/A: Spine Lumbar ELODIA & ELODIA DEPUY [id number] / / Screw 7x35 Poly Si [id number] - [id number] Implanted:Qt y: 2 on 11/26/2007 at [facility] [place] [place] N/A: Spine Lumbar ELODIA & ELODIA DEPUY [id number] / / Screw 5x40 Poly Si [id number] - [id number] Implanted:Qt y: 1 on 11/26/2007 at [facility] [place] [place] N/A: Spine Lumbar ELODIA & ELODIA DEPUY [id number] / / Screw 5x45 Poly Si [id number] - [id number] Implanted:Qt y: 1 on 11/26/2007 at [facility] [place] [place] N/A: Spine Lumbar ELODIA & ELODIA DEPUY [id number] / / Amos 480mm [id number] - [id number] Implanted:Qt y: 1 on 11/26/2007 at [facility] [place] [place] N/A: Spine Lumbar ELODIA & ELODIA DEPUY [id number] / / documented as of this encounter Procedures Procedure Name Priority Date/Time Associated Diagnosis Comments GLUCOSE METER, POINT OF CARE Routine 03/31/2024 12:27 PM EDT 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) documented in this encounter Results * (ABNORMAL) GLUCOSE METER, POINT OF CARE (03/31/2024 12:27 PM EDT) Glucose Meter 128(H) 70 - 120 mg/dL 03/31/2024 3:10 PM EDT [facility] [place] 57-10 Blood 03/31/2024 12:2 7 PM EDT 03/31/2024 3:10 PM EDT Neeraj Celis DO LAB POINT OF CARE TEST DOCKED DEVICE UNSOLICITED RESULTS [facility] [place] 57-10 [address] [place] [address] documented in this encounter Visit Diagnoses Diagnosis [...] 1:21 PM EDT 1 g lidocaine-epinephrine 2 %-1:437242 inj 100 mg 100 mg (5 mL), [...] 6:01 AM 11/26/2007 2:41 PM Care Teams Sack Keeper Relationship Specialty Start Date End Date Albino Magaña MD [address] [place] [address] PCP - General Internal Medicine 01/17/12 documented as of this encounter
--- OUTSIDE RECORDS SUMMARY | 2024-06-10 19:22 | External Medical Summary | Summary of Care ---
Author Name Unknown Organization [facility] Address [address] [place] [address] Phone [phone] Care Team Providers Care Analyst Sales Name Role Phone Albino Magaña MD Primary Care Provider + Reason for Visit * Reason Onset Date Comments Nurse Documentation 03/02/2024 Encounter Details Date Type Department Care Team (Late st Contact Info) Description 03/02/2024 Telephone [facility] [address], [place] [id number] Neeraj Celis, [address] [place], [place] [phone] Nurse Documentation Allergies Active Allergy Reactions Criticality Noted Date Comments Penicillins Hives High 05/04/2000 Other Reaction(s): HIVES documented as of this encounter (statuses as of 03/02/2024) Medications Medication Sig Dispensed Refills Start Date [...] as of this encounter (statuses as of 03/02/2024) Active Problems Problem Noted Date Diagnosed Date [...] as of this encounter (statuses as of 03/02/2024) Resolved Problems Problem Noted Date Diagnosed Date [...] Dr. Doran. Lumbosacral spondylosis 12/15/200203/29 DISC DIS ACH-QQF-WHMASW 11/17/200205/29 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 Osteoporosis 06/16/2008 PURE HYPERCHOLESTEROLEM 02/2009 Overview: Per Lipid Taxonomy. DIFFUS CYSTIC MASTOPATHY Osteoporosis 04/22/2017 Overview: Osteopenia HTN, goal to be determined 1 08/20/2008 Overview: Modified per [facility] protocol #16. documented as of this encounter (statuses as of 03/02/2024) Immunizations Name Administration Dates Next Due COVID-19 mRNA, LNP-s, No Pre serve, 2-Dose Series (Pfizer) 02/15/2022,06/04/2021,09/20/2020,08/30 COVID-19, LNP-s, No Preserve , [place]-sucrose, Ages 12+ (Pfizer) 02/15/2022 COVID-19, MRNA-LNP, 23-24, P F, 30 MCG/0.3 mL, 12 YRS AND ABOVE, IM ([employer]) 06/15/2023,05/14/2023 Covid-19, Mrna, Lnp-s, Pf, B ivalent, 30 Mcg, IM, 12 yrs and above ([employer] 10/04/2022 H1N1 2009 Influenza, IM 07/24/2009 Pneumococcal [...] Telephone Encounter - Janneth Babb OSA - 03/02/2024 3:41 PM EDT [facility] [address] [facility] [place] Procedure Room Instructions You will need a subway train driver the day of your procedure. Do not wear any products on your face such as lotions or make-up. There are no food or drink restrictions. Hold all aspirin, ibuprofen and naproxen products and any items containing these ingredients for 7 days prior to your procedure or as permitted by your prescribing physician. Tylenol products are permitted. STOP DATE:03/24 Do not take vitamin E, multivitamin, [place]-3 fish oil, Krill oil, Flax seed/oil, Garlic supplements, Gingko Biloba, Black Cohosh, Red Yeast Rice, and Cinnamon Extract TWO weeks prior to your procedure date. STOP DATE:03/17 For blood thinners such as Plavix, Coumadin, Aggrenox, Xarelto, Ticlid, Eliquis, Pradaxa or Brilinta please check with your prescribing physician for clearance to stop the medication for as long as they will allow prior to the procedure. We request 3-4 days. STOP DATE:03/28 On your procedure day, check in at the Ophthalmology Department front end architect. You need to arrive 15 minutes prior to your scheduled procedure time. You may also be contacted to change your arrival timebased on clinic needs. PROCEDURE DATE: 03/31 TIME:1200 PROCEDURE LOCATION: [place] ([facility]) PROVIDER: Dr. Neeraj Celis Patient verbalized understanding, repeated instructions back and denied further questions. Written instructions will be mailed and sent through [employer]. documented in this encounter Plan of Treatment Upcoming Encounters Date Type Department Care Team (Late st Contact Info) Description 03/31/2024 12:00 PM EDT Office Visit Ophthalmology, [address] [address] Neeraj Celis, [address] [place] [address] 04/12/2024 1:40 PM EDT Office Visit [facility] [address] [place] [address] Neeraj Celis, [address] [place] [address] 05/13/2024 9:00 AM EDT Nurse Only Ancillary [facility] 200 [facility] [place] [address] [place], Nurse Annual Wellness [facility] [place] [address] 05/20/2024 9:00 AM EDT Office Visit General Internal Medicine [facility] [place] [facility] [place] [address] Albino Magaña MD 200 [facility] [place] [address] 05/24/2024 11:00 AM EDT Office Visit Ophthalmology, [facility] [address] [facility] [place] [id number] Neeraj Celis, DO [address] [place] [address] 06/14/2024 11:00 AM EST Office Visit Cardiology, [facility] [address] [place] [address] Rajni Alejandre PA-C [address] [place] [address] 06/15/2024 10:30 AM EST Nurse Only Rheumatology [address] [place] [address] Pf, Nurse Rheum [address] [place] [address] [place] [address] Health Maintenance Due Date Last Done Comments COVID-19 Vaccine ( season) 2023 06/15/2023, 05/14/2023, 10/04/2022, Additional history exists Influenza Vaccine (FLU shot) (#1) 2024 05/14/2023, 04/09/2023, 04/19/2022, Additional history exists CKD PHOS USE SMARTSET 30383 04/09/202403/28, 04/05/2022, 08/02/2020, Additional history exists Adult Wellness Visit 2024 2023 Depression Screening 2024 2023, 03/22/20 15 Diabetic Foot Exam 2024 2023, 1 09/15/2017, 10/08/2017, Additional history exists HbA1c 07/28/2024 01/26/2024, 09/26, 04/09/2023, Additional history exists Diabetic Eye Exam 10/15/2024 10/16/2023, , 10/16/2023, Additional history exists Albumin/Creatinine Ratio 10/21/2024 024, 09/09/2022, 04/05/2022, Additional history exists CKD HGB USE SMARTSET 23032 11/23/202411/23, 11/24/2023, 10/22/2023, Additional history exists DTaP,Tdap,and Td Vaccines (2 - Td or Tdap) 03/03/2025 03/03/2015, 11/02/2007 DXA Scan 05/26/2025 05/26/2023, 04/29, 04/30/2021, Additional history exists Pneumococcal Vaccine: 65+ Years Completed 09/01/2014, 04/23/2010 Zoster Vaccines Completed 08/29/2018, 05/30, 05/29/2012 VITAMIN D LEVEL ONCE IN A LIFETIME-USE SMARTSET# 00626 Completed 12/09/2023, 08/08/2021, 10/19/2009 HPV (Gardasil) Vaccine Aged Out No lo nger eligible based on patient's age to complete this topic Hepatitis B Vaccine Aged Out No longe r eligible based on patient's age to complete this topic MENINGOCOCCAL (MENACTRA/MENVEO) Aged Out No longer eligible based on patient's age to complete this topic documented as of this encounter Medical Devices Implanted Type Area Hospitality Workers Device Identifier Shelf Expiration Date Model / Serial / Lot Graft Ant Lat 12mm [id number] - [id number] Implanted:Qt y: 1 on 11/26/2007 at [place] [facility] [place] Tissue - Human N/A: Spine Lumbar [employer] 06/09/2011 [id number] -[id number] / Graft Ant Lat 14mm At6h-52qf - [id number] Implanted:Qt y: 1 on 11/26/2007 at [place] [facility] [place] Tissue - Human N/A: Spine Lumbar [facility] 08/08/2011 VQ2E-75H / -[id number] / Graft Ant Lat 14mm Rc4x-30iv - [id number] Implanted:Qt y: 1 on 11/26/2007 at [place] [facility] [place] Tissue - Human N/A: Spine Lumbar [facility] 07/23/2009 CA7W-93V / -[id number] / Graft Ant Lat 14mm Lb7d-59oz - [id number] Implanted:Qt y: 1 on 11/26/2007 at [place] [facility] [place] Tissue - Human N/A: Spine Lumbar [facility] 03/10/2012 NK4C-31M / [id number] / Graft Ant 10mm Ms0t-88c - [id number] Implanted:Qt y: 1 on 11/26/2007 at [place] [facility] [place] Tissue - Human N/A: Spine Lumbar [facility] 08/19/2011 BN1G-94X / -[id number] / [place] Nt [id number] - [id number] Implanted:Qt y: 1 on 12/02/2006 at [place] [facility] [place] N/A: Spine Cervical REGALADO [id number] / / [id number] [place] [id number] - [id number] Implanted:Qt y: 1 on 12/02/2006 at [place] [facility] [place] N/A: Spine Cervical REGALADO [id number] / / Graft Cervical 6x8 Ke9o-U82 - [id number] Implanted:Qt y: 1 on 12/02/2006 at [place] [facility] [place] N/A: Spine Cervical [facility] KO4N-M19 / / -[id number] Graft Cervical 5x7 Zl8l-O69 - [id number] Implanted:Qt y: 1 on 12/02/2006 at [place] [facility] [place] N/A: Spine Cervical [facility] VH8S-K03 / / -[id number] Graft Cervical 7x9 Fl5v-C27 - [id number] Implanted:Qt y: 1 on 12/02/2006 at [place] [facility] [place] N/A: Spine Cervical [facility] PW8N-Z23 / / -[id number] Screw 3.5x14 Mntr Fa [id number] - [id number] Implanted:Qt y: 8 on 12/02/2006 at [place] [facility] [place] N/A: Neck ELODIA & ELODIA DEPUY [id number] / / Screw Inner Mntr [id number] - [id number] Implanted:Qt y: 11 on 12/02/2006 at [place] [facility] [place] N/A: Neck ELODIA & ELODIA DEPUY [id number] / / Screw 4.35x25 Mntrml [id number] - [id number] Implanted:Qt y: 2 on 12/02/2006 at [place] [facility] [place] N/A: Neck ELODIA & ELODIA DEPUY [id number] / / Amos [id number] - [id number] Implanted:Qt y: 2 on 12/02/2006 at [place] [facility] [place] N/A: Neck ELODIA & ELODIA DEPUY [id number] / / Screw 3.5x20 Mntr Fa [id number] - [id number] Implanted:Qt y: 1 on 12/02/2006 at [place] [facility] [place] N/A: Neck ELODIA & ELODIA DEPUY [id number] / / Graft Infus Bone Lg Ii [id number] - [id number] Implanted:Qt y: 1 on 11/26/2007 at [place] [facility] [place] N/A: Spine Lumbar Medtronic Sofamor [employer] 12/26/2009 [id number] / / [id number] Graft Infuse Bone Sm [id number] - [id number] Implanted:Qt y: 1 on 11/26/2007 at [place] [facility] [place] N/A: Spine Lumbar Medtr[employer] Sof[employer]ane[employer] 03/28/2010 [id number] / / [id number] Screw 6x40 Poly Si [id number] - [id number] Implanted:Qt y: 5 on 11/26/2007 at [place] [facility] [place] N/A: Spine Lumbar ELODIA & ELODIA DEPUY [id number] / / Screw 6x45 Poly Si [id number] - [id number] Implanted:Qt y: 4 on 11/26/2007 at [place] [facility] [place] N/A: Spine Lumbar ELODIA & ELODIA DEPUY [id number] / / Screw Set Sng Inner [id number] - [id number] Implanted:Qt y: 13 on 11/26/2007 at [place] [facility] [place] N/A: Spine Lumbar ELODIA & ELODIA DEPUY [id number] / / Screw 7x35 Poly Si [id number] - [id number] Implanted:Qt y: 2 on 11/26/2007 at [place] [facility] [place] N/A: Spine Lumbar ELODIA & ELODIA DEPUY [id number] / / Screw 5x40 Poly Si [id number] - [id number] Implanted:Qt y: 1 on 11/26/2007 at [place] [facility] [place] N/A: Spine Lumbar ELODIA & ELODIA DEPUY [id number] / / Screw 5x45 Poly Si [id number] - [id number] Implanted:Qt y: 1 on 11/26/2007 at OR [facility] [place] N/A: Spine Lumbar [employer] [id number] / / Amos 480mm [id number] - [id number] Implanted:Qt y: 1 on 11/26/2007 at OR [facility] [place] N/A: Spine Lumbar [employer] [id number] / / documented as of this encounter [...] 6:01 AM 11/26/2007 2:41 PM Care Teams Analyst Sales Relationship Specialty Start Date End Date Albino Magaña MD [address] [facility] [place] [address] PCP - General Internal Medicine 01/17/12 documented as of this encounter
--- OUTSIDE RECORDS SUMMARY | 2024-06-10 19:22 | External Medical Summary | Summary of Care ---
Author Name Unknown Organization [facility] Address [address] [place] [address] Phone [phone] Care Team Providers Care Infusion Pharmacist Name Role Phone Albino Magaña MD Primary Care Provider + Reason for Visit * Reason Comments Procedure Encounter Details Date Type Department Care Team (Late st Contact Info) Description 03/31/2024 12:00 PM EDT Office Visit Ophthalmology, [facility] [address] [place] [address] Neeraj Celis, DO [address] [place] [id number] Type 1 DM with CKD stage [...] hemoglobin A1c goal of less than 7.5% ([facility]) Use as directed daily. 1 Box Dosing Unit 5 08/05/2016 Active glucagon (GLUCAGON EMERGENCY) 1 MG KITIndications:Type 1 diabetes mellitus with hemoglobin A1c goal of less than 7.5% ([facility]) As directed 1 Kit 5 [...] NEBULIZER Q4H PRN 02/18/2019 Active lidocaine-epinephrine 2 %-1:035249 inj 100 mgIndications:Type 1 DM with CKD [...] Dr. Doran. Lumbosacral spondylosis 12/15/200203/29 DISC DIS [id number]-[id number] 11/17/200205/29 DIABETES MELLITUS WITHOUT ME NTION OF [...] mRNA, LNP-s, No Pre serve, 2-Dose Series ([employer]) 02/15/2022,06/04/2021,09/20/2020,08/30 COVID-19, LNP-s, No Preserve , [place]-sucrose, Ages 12+ (Pfizer) 02/15/2022 COVID-19, MRNA-LNP, 23-24, P F, 30 MCG/0.3 mL, 12 YRS AND ABOVE, IM ([employer]) 06/15/2023,05/14/2023 Covid-19, Mrna, Lnp-s, Pf, [...] p.m. call and request the eye doctor marketing and promotions manager. Instructions given by: Dr. 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 F/u 2 weeks. Neeraj Celis DO [facility] Dept. of Ophthalmology documented in this encounter [...] 04/12/2024 1:40 PM EDT Office Visit Ophthalmology, [address] [place] [address] Neeraj Celis, DO [address] [place] [address] 05/13/2024 9:00 AM EDT Nurse Only Ancillary [facility] [address] [place] [address] Viridiana, Nurse Annual Wellness [facility] [address] [facility] [place] [address] 05/20/2024 9:00 AM EDT Office Visit General Internal Medicine [facility] [address] [place] [address] Albino Magaña MD [address] [facility] [place] [address] 05/24/2024 11:00 AM EDT Office Visit Ophthalmology, [facility] [address] [place] [address] Neeraj Celis, DO [address] [place] [address] 06/14/2024 11:00 AM EST Office Visit Cardiology, [facility] [address] [place] [address] Rajni Alejandre PA-C [address] [place] [address] 06/15/2024 10:30 AM EST Nurse Only Rheumatology [place] [id number] [facility] [place] [address] Pf, Nurse Rheum [facility] [place], [place] [address] Scheduled Orders Name Type Priority Associated Diagnoses [...] Additional history exists CKD PHOS USE SMARTSET 22987 04/09/202403/28, 04/05/2022, 08/02/2020, Additional history exists Adult Wellness Visit 2024 2023, 05/09/2022, 05/07/2021 Depression Screening 2024 2023, 03/22/20 15 Diabetic Foot Exam 2024 2023, 1 09/15/2017, 10/08/2017, Additional history exists HbA1c 07/28/2024 01/26/2024, 09/26, 04/09/2023, Additional history exists Diabetic Eye Exam 10/15/2024 10/16/2023, , 10/16/2023, Additional history exists Albumin/Creatinine Ratio 10/21/2024 024, 09/09/2022, 04/05/2022, Additional history exists CKD HGB USE SMARTSET 97706 11/23/202411/23, 11/24/2023, 10/22/2023, Additional history exists DTap/Tdap Vaccines (2 - Td or Tdap) 03/03/2025 03/03/2015, 11/02/2007 DXA Scan 05/26/2025 05/26/2023, 04/29, 04/30/2021, Additional history exists Pneumococcal Vaccine: 65+ Years Completed 09/01/2014, 04/23/2010 Zoster Vaccines Completed 08/29/2018, 05/30, 05/29/2012 VITAMIN D LEVEL ONCE IN A LIFETIME-USE SMARTSET# [id number] Completed 12/09/2023, 08/08/2021, 10/19/2009 HPV (Gardasil) Vaccine Aged Out No lo nger eligible based on patient's age to complete this topic Hepatitis B Vaccine Aged Out No longe r eligible based on patient's age to complete this topic MENINGOCOCCAL (MENACTRA/MENVEO) Aged Out No longer eligible based on patient's age to complete this topic documented as of this encounter Medical Devices Implanted Type Area Dish Maker Device Identifier Shelf Expiration Date Model / Serial / Lot Graft Ant Lat 12mm [id number] - [id number] Implanted:Qt y: 1 on 11/26/2007 at [facility] Tissue - Human N/A: Spine Lumbar [employer] 06/09/2011 [id number] / [id number] / Graft Ant Lat 14mm Yg2d-83ps - [id number] Implanted:Qt y: 1 on 11/26/2007 at [facility] Tissue - Human N/A: Spine Lumbar [employer] 08/08/2011 [id number] / [id number] / Graft Ant Lat 14mm [id number] - [id number] Implanted:Qt y: 1 on 11/26/2007 at [facility] Tissue - Human N/A: Spine Lumbar [employer] 07/23/2009 [id number] / [id number] / Graft Ant Lat 14mm Od0w-31gu - [id number] Implanted:Qt y: 1 on 11/26/2007 at [facility] Tissue - Human N/A: Spine Lumbar [employer] 03/10/2012 [id number] / [id number] / Graft Ant 10mm Pw2b-02l - [id number] Implanted:Qt y: 1 on 11/26/2007 at [facility] Tissue - Human N/A: Spine Lumbar [employer] 08/19/2011 [id number] / [id number] / [place] Nt [id number] - [id number] Implanted:Qt y: 1 on 12/02/2006 at [facility] N/A: Spine Cervical REGALADO [id number] / / [id number] [place] Nt [id number] - [id number] Implanted:Qt y: 1 on 12/02/2006 at [facility] N/A: Spine Cervical REGALADO [id number] / / Graft Cervical 6x8 Gr5f-B57 - [id number] Implanted:Qt y: 1 on 12/02/2006 at [facility] N/A: Spine Cervical [employer] [id number] / / [id number] Graft Cervical 5x7 Vw3q-H49 - [id number] Implanted:Qt y: 1 on 12/02/2006 at [facility] N/A: Spine Cervical [employer] [id number] / / [id number] Graft Cervical 7x9 Vq0o-W12 - [id number] Implanted:Qt y: 1 on 12/02/2006 at [facility] N/A: Spine Cervical [employer] LA4X-P84 / / [id number] Screw 3.5x14 Mntr Fa [id number] - [id number] Implanted:Qt y: 8 on 12/02/2006 at [facility] N/A: Neck ELODIA & ELODIA DEPUY [id number] / / Screw Inner Mntr [id number] - [id number] Implanted:Qt y: 11 on 12/02/2006 at [facility] N/A: Neck ELODIA & ELODIA DEPUY [id number] / / Screw 4.35x25 Mntrml [id number] - [id number] Implanted:Qt y: 2 on 12/02/2006 at [facility] N/A: Neck ELODIA & ELODIA DEPUY [id number] / / Amos [id number] - [id number] Implanted:Qt y: 2 on 12/02/2006 at [facility] N/A: Neck ELODIA & ELODIA DEPUY [id number] / / Screw 3.5x20 Mntr Fa [id number] - [id number] Implanted:Qt y: 1 on 12/02/2006 at [facility] N/A: Neck ELODIA [employer] ELODIA DEPUY [id number] / / Graft Infus Bone Lg Ii [id number] - [id number] Implanted:Qt y: 1 on 11/26/2007 at [facility] N/A: Spine Lumbar Med[employer]onic Sofamor Danek 12/26/2009 [id number] / / [id number] Graft Infuse Bone Sm [id number] - [id number] Implanted:Qt y: 1 on 11/26/2007 at [facility] N/A: Spine Lumbar Medtronic Sofamor Danek 03/28/2010 [id number] / / [id number] Screw 6x40 Poly Si [id number] - [id number] Implanted:Qt y: 5 on 11/26/2007 at [facility] N/A: Spine Lumbar ELODIA [employer] ELODIA DEPUY [id number] / / Screw 6x45 Poly Si [id number] - [id number] Implanted:Qt y: 4 on 11/26/2007 at [facility] N/A: Spine Lumbar ELODIA & ELODIA DEPUY [id number] / / Screw Set Sng Inner [id number] - [id number] Implanted:Qt y: 13 on 11/26/2007 at [facility] N/A: Spine Lumbar ELODIA & ELODIA DEPUY [id number] / / Screw 7x35 Poly Si [id number] - [id number] Implanted:Qt y: 2 on 11/26/2007 at [facility] N/A: Spine Lumbar ELODIA & ELODIA DEPUY [id number] / / Screw 5x40 Poly Si [id number] - [id number] Implanted:Qt y: 1 on 11/26/2007 at [facility] N/A: Spine Lumbar ELODIA [employer] ELODIA DEPUY [id number] / / Screw 5x45 Poly Si [id number] - [id number] Implanted:Qt y: 1 on 11/26/2007 at [facility] N/A: Spine Lumbar ELODIA & ELODIA DEPUY [id number] / / Amos 480mm [id number] - [id number] Implanted:Qt y: 1 on 11/26/2007 at [facility] N/A: Spine Lumbar ELODIA & ELODIA DEPUY [id number] / / documented as of this encounter [...] 1:21 PM EDT 1 g lidocaine-epinephrine 2 %-1:271483 inj 100 mg 100 mg (5 mL), [...] 6:01 AM 11/26/2007 2:41 PM Care Teams Infusion Pharmacist Relationship Specialty Start Date End Date Albino Magaña MD [address] [place] [address] PCP - General Internal Medicine 01/17/12 documented as of this encounter
[2024-06-10] MEDS: LEVALBUTEROL HCL 0.63 MG/3 ML NEB NEB SCH ×2 (20:06→23:56)
[2024-06-10] MEDS: HEPARIN SOD 5,000 UNIT/0.5 ML VIAL SQ SCH (21:46)
[2024-06-10] MEDS: SIMVASTATIN 10 MG TAB PO SCH (21:58)
[2024-06-11] MEDS: INSULIN ASPART PER UNIT CHARGE SC SCH (00:20)
[2024-06-11 08:20] LABS: Hematocrit (blood only) 37.6 % (37.0-47.0); Hemoglobin 12.8 g/dl (12.0-16.0); Immature Granulocytes # (auto) 0.04 K/uL (0.01-0.20); Immature Granulocytes % (auto) 0.6 %; Lymphocytes # (auto) 0.45 K/uL (1.20-3.40); Lymphocytes % (auto) 6.6 %; Mean Corpuscular Hemoglobin 32.4 pg (25.0-34.0); Mean Corpuscular Volume 95.2 fL (80.0-100.0); Mean Platelet Volume 9.6 fL (9.4-12.4); Monocytes # (auto) 0.44 K/uL (0.11-0.59); Monocytes % (auto) 6.4 %; Neutrophils # (auto) 5.94 K/uL (1.40-6.50); Neutrophils % (auto) 86.4 %; Platelet Count 166 K/uL (130-400); RDW Coefficient of Variation 13.4 % (11.5-14.5); RDW Standard Deviation 47.5 fL (36.4-46.3); Red Blood Count 3.95 M/uL (4.20-5.40); White Blood Count 6.87 K/ul (4.8-10.8)
[2024-06-11 08:32] LABS: Calcium 9.4 mg/dl (8.6-10.3); Magnesium 1.9 mg/dl (1.7-2.4); Potassium 4.3 mmol/L (3.5-5.1)
[2024-06-11] MEDS ORDERED: LANTUS PER UNIT CHARGE SQ SCH (09:00)
[2024-06-11] MEDS: CHOLECALCIFEROL 125 MCG (5,000 UNITS) TAB PO SCH (09:06)
[2024-06-11] MEDS: predniSONE 20 MG TAB PO SCH (09:06)
[2024-06-11] MEDS: dilTIAZem HCL 180 MG CAPCR PO SCH (09:07)
[2024-06-11] MEDS: lisinopril 40 MG TAB PO SCH (09:07)
[2024-06-11] MEDS: ASPIRIN 81 MG ECTAB PO SCH (09:07)
[2024-06-11 10:03] LABS: Estimated Average Glucose 148 mg/dl; Hemoglobin A1C 6.8 % (4.5-5.6)
[2024-06-11] MEDS: INSULIN HUMAN NPH SC SCH (10:10)
--- NOTE | 2024-06-11 11:46 | Pharmacy Report ---
Pharmacy Glycemic Short Note 2 - Date of Service June 11, 2024 - Glycemic Short BSG Results (Last 24 hours): 06/10/24 06/10/24 06/10/24 16:51 20:58 21:03 Glucose POC Glucose 239 H 358 H* 326 H* 06/11/24 06/11/24 06/11/24 00:14 04:17 07:32 Glucose POC Glucose 268 H 183 H 155 H 06/11/24 06/11/24 08:02 11:30 Glucose 196 H POC Glucose 236 H OUTPATIENT ANTIDIABETIC REGIMEN: * Lantus 10 units AM, 5 units PM / lispro 5-5-7 units TIDM ASSESSMENT: * 89 year old admitted with bronchitis - steroids started. Type 1 diabetic - pharmacy consulted for glycemic management. Patient received total of 37 units of insulin yesterday, of which 15 units were basal insulin. * Prednisone 40 mg daily continued this AM, will add on NPH 0.4 units/kg to cover prednisone (15 units). This dosing is similar to morning basal insulin she takes at home, but increased from 10 units. Will continue with Lantus 5 units at HS time, similar to home regimen. (This will ~30% increase in out patient dose) * Lunch BSG trending up at 236 mg/dL, however NPH dose only given ~1.5 hours ago so likely not seeing full effect yet. PLAN FOR INPATIENT GLYCEMIC CONTROL: * Hold outpatient oral diabetes medications * Basal insulin * NPH 15 units QAM - to cover PO prednisone * Lantus 5 units HS * Bolus insulin * NovoLog per scale ACHS or Q6hrs while NPO * Goal Range: Low 110 mg/dL - High 140 mg/dL * Correction Factor: 30 mg/dL/unit * Nutritional / Prandial insulin per carb ratio of 1 unit per 9 grams CHO consumed
--- NOTE | 2024-06-11 12:11 | Hospitalist Progress Note ---
Date of Service June 11, 2024 Assessment & Plan (1) Acute bronchitis: (2) Rhinovirus infection: (3) Generalized weakness: (4) DM type 1 (diabetes mellitus, type 1): (5) CKD (chronic kidney disease), stage III: (6) Hypertension: Plan This is an 89-year-old female who has a significant past medical history of type 1 diabetes mellitus, pulmonary hypertension, CKD stage III, mild mitral regurgitation, osteoporosis, macular degeneration, lumbar spinal stenosis and history of tobacco use who presents to the ED secondary to increasing shortness of breath and cough. Acute bronchitis Rhinovirus infection Generalized weakness Procal normal chest XRAY unremarkable prednisone 40 mg orally daily for 5 days doxycycline 100mg BID for acute complicated bronchitis scheduled lev albuterol every 6 hours, incentive spirometry, as needed antitussives PT/OT monitor oxygen saturation for possible oxygen need Continue to monitor type 1 diabetes mellitus: A1c on 05/20 was 6.9, follows [facility] endocrinology, well-controlled, Lantus/NovoLog per protocol, glycemic pharmacy secondary to steroid use, appreciate their assistance hypertension: Chronic, stable continue lisinopril and diltiazem Hyperlipidemia: Chronic, stable continue statin macular degeneration: Follows ophthalmology, continue AREDS DVT prophylaxis: Subcu heparin every 12 FULL CODE PCP: Gómez dispo: PT/OT for further recs Admission and Anticipated Discharge Date Admission Date: June 10, 2024 Subjective patient was seen sitting in a chair beside her bed States she has never had shortness of breath just had the cough and it seems to be getting better However she states she is not yet ready to be discharged, notes she lives alone Review of Systems Review of Systems: All systems reviewed & are unremarkable except as noted in Subjective Physical Exam Physical Exam: General: Alert, oriented. No acute distress Skin: No noted rashes or bruises Psych: Appropriate mood and affect HEENT: NC/AT CV: RRR Resp: Breath sounds decreased bilaterally, no increased effort of breathing Abdomen: Soft, nontender Extremities: No edema in lower extremities bilaterally. Results & Data Results & Data Vital Signs (Past 12 Hours) Vital Signs Temp Pulse Resp BP Pulse Ox O2 Del Method 06/11/24 09:23 Room Air 06/11/24 07:36 36.5 C 99 H 16 161/70 H 94 Room Air 06/11/24 07:15 93 H 18 96 Room Air 06/11/24 00:37 89 18 99 Room Air Diagnostic Findings Chest X-Ray 06/10/24 09:17 XR chest 1V portable CLINICAL HISTORY: Dyspnea COMPARISON STUDY: Chest radiograph October 01, 2017. Chest CT October 02, 2017. FINDINGS: Lung volumes are normal. The left basilar densities represent atelectasis. There is no pneumothorax or pleural effusion. Cardiac size is normal. Mediastinal contours are normal. There is no evidence for pulmonary edema. Postoperative findings within the spine are partially imaged. IMPRESSION: No acute cardiopulmonary findings. No change in appearance of the chest. ACT 112: Negative or not required by law. Electronically signed by: Saeed Valadez M.D. 06/10/2024 10:04 AM
[2024-06-11] MEDS: guaiFENesin SUGAR FREE 200 MG/10 ML UDC PO PRN (12:16)
[2024-06-11] MEDS: CARBOHYDRATES FOR HYPOGLYCEMIA PO PRN (16:39)
[2024-06-11] MEDS: ADVANCED PROBIOTIC 625 MG CAPSULE PO SCH (18:16)
[2024-06-11] MEDS: DOXYCYCLINE HYCLATE 100 MG CAP PO SCH (21:44)
[2024-06-11] MEDS: LANTUS PER UNIT CHARGE SQ SCH (21:54)
[2024-06-12 07:11] VITALS: RESP 16
[2024-06-12 07:56] VITALS: BP 149/64; TEMP 97.7
[2024-06-12] MEDS: ACETAMINOPHEN 325 MG TAB PO PRN (08:31)
[2024-06-12] MEDS: INSULIN HUMAN NPH SC SCH (08:33)
--- NOTE | 2024-06-12 11:06 | Discharge Summary ---
Discharge Summary Date of Service June 12, 2024 Principal Dx & Hospital Course #1 = Principal Diagnosis (1) Acute bronchitis: (2) Rhinovirus infection: (3) Generalized weakness: (4) DM type 1 (diabetes mellitus, type 1): (5) CKD (chronic kidney disease), stage III: (6) Hypertension: Plan This is an 89-year-old female who has a significant past medical history of type 1 diabetes mellitus, pulmonary hypertension, CKD stage III, mild mitral regurgitation, osteoporosis, macular degeneration, lumbar spinal stenosis and history of tobacco use who presents to the ED secondary to increasing shortness of breath and cough. Acute complicated bronchitis Rhinovirus infection Generalized weakness Procal normal chest XRAY unremarkable prednisone 40 mg orally daily for 5 days (pt discharged with 3 more days of rx) doxycycline 100mg BID for acute complicated bronchitis (pt discharged with 4 more days of rx) scheduled lev albuterol every 6 hours, incentive spirometry, as needed antitussives monitored oxygen saturation for possible oxygen need-pt did not need oxygen during this hospital stay PT/OT evaluated and recommended discharge home. Also discharged with an as needed albuterol inhaler. On the day of discharge patient was stable. Did not need oxygen. Discharged in stable condition to closely follow-up with her primary care provider. type 1 diabetes mellitus: A1c on 05/20 was 6.9, follows with [facility] endocrinology, well-controlled, Lantus/NovoLog per protocol, glycemic pharmacy secondary to steroid use. continue to monitor glucose levels while on steroids. PCP follow-up hypertension: Chronic, stable continue lisinopril and diltiazem Hyperlipidemia: Chronic, stable continue statin macular degeneration: Follows with ophthalmology, continue AREDS Notes For Next Care Provider Please ensure resolution of symptoms. Closely monitor glucose levels while on prednisone for the next 3 days. please ensure close follow-up with endocrinology. Medication Changes From Visit doxycycline 100 mg twice daily for 4 more days Prednisone 40 mg daily for 3 more days albuterol inhaler Admission HPI Per Admitting Provider This is an 89-year-old female who has a significant past medical history of type 1 diabetes mellitus, pulmonary hypertension, CKD stage III, mild mitral regurgitation, osteoporosis, macular degeneration, lumbar spinal stenosis and history of tobacco use who who presents to ED secondary to increasing shortness of breath and cough. History is provided by patient and daughter at bedside. Outpatient chart reviewed as well. She reports visiting her in a custodial on Friday who came down with respiratory symptoms and was recen tly diagnosed with pneumonia. Her symptoms started shortly after including a wet occasionally productive cough, increasing shortness of breath, wheezing and generally feeling unwell. She also complains of a generalized weakness. She lives alone at home with her cat. Her daughter does check in on her regularly. She ambulates with a cane. She does not currently smoke but did 20 years ago. She denies any prior history any asthma or COPD, but states when she gets a cold it always, "goes to her lungs. She has been using zcnr-xug-uafugqu Delsym and Coricidin with minimal relief. Last evening she was unable to sleep due to the chest congestion. In ED patient remained hemodynamically stable although mildly hypertensive. Her CBC and CMP was generally unremarkable except for mild hyperglycemia at 235. Her respiratory bio fire was positive for entero- /rhinovirus. Her chest x-ray was negative for pneumonia. She was not requiring any oxygen but her oxygen saturations were borderline low around 90 to 92% on room air. In ED she received an albuterol nebulizer treatment. She was recommended for hospitalization due to living alone, generalized weakness and concern for progressing symptoms. Admission Exam Per Admitting Provider Constitutional: thin, barrel chested, elderly female, alert and oriented x 3 and very conversive, mildly hard of hearing, no acute distress and sitting up in bed Head: Normocephalic, Atraumatic Eyes: PERRL, conjunctivae normal, anicteric sclerae ENMT: external ear and nose normal, oropharynx normal Neck: trachea midline, no thyromegaly normal visual inspection Respiratory: normal respiratory effort, bilateral scattered wheezing, minimal inspiration exacerbated cough, no rales or rhonchi . no accessory muscle use Cardiovascular: RRR, 1/6 KYLEIGH noted LUSB, no edema Vessels: no JVD or carotid bruit Chest: normal inspection of chest Abdomen: normal bowel sounds, soft, nontender, no hepatosplenomegaly Musculoskeletal: no cyanosis or clubbing, extremities motor strength 5/5 Skin: no rashes, warm and dry normal turgor Neurologic: PERRL, EOMI, accommodation nl, no face palsy, no dysarthria CN's II-XI intact bilaterally and moves all extremities Psychiatric: A+Ox3, euthymic affect Lymphatic: no cervical or axillary lymphadenopathy : deferred Discharge Exam General: Alert, oriented. No acute distress Skin: No noted rashes or bruises Psych: Appropriate mood and affect HEENT: NC/AT CV: RRR Resp: Breath sounds decreased bilaterally, no increased effort of breathing Abdomen: Soft, nontender Extremities: No edema in lower extremities bilaterally. Updated Medication List Medication Instructions Recorded Confirmed Type diltiazem HCl 360 mg capsule,24 360 mg PO QAM 10/03/19 06/10/24 History hr,extended release lisinopril 40 mg tablet 40 mg PO QAM #30 tabs 10/03/19 06/10/24 History simvastatin 10 mg tablet 10 mg PO HS #90 tabs 10/03/19 06/10/24 History vit C 250 mg-vit E 90 mg-zinc 40 2 tab PO BID 01/22/21 06/10/24 History mg-copper 1 [id number]-qpxlba capsule (PreserVision AREDS-2) denosumab 60 mg/mL subcutaneous 60 mg subcut UD 01/22/22 06/10/24 History syringe (Prolia) insulin lispro 100 unit/mL See Rx Instructions subcut 10/22/23 06/10/24 Rx subcutaneous pen (Humalog KwikPen .COMPLEX #30 mL (U-100) Insulin) cholecalciferol (vitamin D3) 125 125 mcg PO 3XWK 02/03/24 06/10/24 History mcg (5,000 unit) capsule insulin glargine 100 unit/mL (3 See Rx Instructions subcut QPM 02/03/24 06/10/24 History mL) subcutaneous pen (Lantus Solostar U-100 Insulin) aspirin 81 mg tablet,delayed 81 mg PO QAM 06/10/24 06/10/24 History release albuterol sulfate 90 mcg/actuation 1 inh inhalation Q6H PRN shortness 06/12/24 Rx aerosol inhaler of breath or wheezing #6.7 grams doxycycline hyclate 100 mg capsule 100 mg PO BID #8 caps 06/12/24 Rx prednisone 20 mg tablet 40 mg (2 x 20 mg) PO DAILY #6 tabs 06/12/24 Rx Hospital Stay Data Consultations 06/10/24 13:23 ED Decision to Admit Stat Diagnostic Imagining Performed Chest X-Ray 06/10/24 09:17 XR chest 1V portable CLINICAL HISTORY: Dyspnea COMPARISON STUDY: Chest radiograph October 01, 2017. Chest CT October 02, 2017. FINDINGS: Lung volumes are normal. The left basilar densities represent atelectasis. There is no pneumothorax or pleural effusion. Cardiac size is normal. Mediastinal contours are normal. There is no evidence for pulmonary edema. Postoperative findings within the spine are partially imaged. IMPRESSION: No acute cardiopulmonary findings. No change in appearance of the chest. ACT 112: Negative or not required by law. Electronically signed by: Saeed Valadez M.D. 06/10/2024 10:04 AM Discharge Instructions Given to Patient (Per Discharging Provider) Sheila, You are admitted and treated for an acute complicated bronchitis. You tested positive for the virus enterovirus/rhinovirus. Your chest x-ray did not show pneumonia. We treated you with an antibiotic doxycycline as well as steroids and your symptoms seemed to improve. Please continue with 3 more days of the steroid prednisone 40 mg daily as well as the doxycycline 100 mg twice a day for an additional 4 days. We are also discharging you home with an albuterol inhaler to use for any shortness of breath or wheezing. You were seen by the physical therapist and occupational therapist who recommended that you were strong enough to be discharged home. Please keep close follow up with your primary care provider after discharge. Please do not hesitate to come back to the emergency room if your symptoms worsen or return. It was a pleasure taking care of you while you were here. Total Time Total Time Spent Total Time Spent (In Minutes): 65
[2024-06-12 11:52] LABS: Hematocrit (blood only) 39.2 % (37.0-47.0); Mean Corpuscular Hemoglobin 31.9 pg (25.0-34.0); Mean Corpuscular Hgb Conc 33.2 g/dL (32.0-36.0); Mean Corpuscular Volume 96.3 fL (80.0-100.0); Mean Platelet Volume 9.9 fL (9.4-12.4); Platelet Count 199 K/uL (130-400); RDW Coefficient of Variation 13.6 % (11.5-14.5); RDW Standard Deviation 48.3 fL (36.4-46.3); Red Blood Count 4.07 M/uL (4.20-5.40); White Blood Count 13.58 K/ul (4.8-10.8)
[2024-06-12 12:01] LABS: BUN Creatinine Ratio 26.5 (10-20); Calcium 10.5 mg/dl (8.6-10.3); Creatinine Clr Calc Pharmacy 31.4 ml/min; Magnesium 1.9 mg/dl (1.7-2.4); Phosphorus 2.1 mg/dl (2.5-4.9); Potassium 4.9 mmol/L (3.5-5.1)
[2024-06-12 12:13] LABS: Basophils # (auto) 0.01 K/uL (0.00-0.20); Basophils % (auto) 0.1 %; Eosinophils # (auto) 0.15 K/uL (0.00-0.50); Eosinophils % (auto) 1.1 %; Immature Granulocytes # (auto) 0.06 K/uL (0.01-0.20); Immature Granulocytes % (auto) 0.4 %; Lymphocytes # (auto) 0.37 K/uL (1.20-3.40); Lymphocytes % (auto) 2.7 %; Monocytes # (auto) 0.55 K/uL (0.11-0.59); Monocytes % (auto) 4.1 %; Neutrophils # (auto) 12.44 K/uL (1.40-6.50); Neutrophils % (auto) 91.6 %
--- NOTE | 2024-06-12 12:33 | Communication Note ---
Date of Service: June 12, 2024 By CMS guidelines, a determination that the admission or continued stay is not medically necessary has been made by a member of the UR committee and a physician for this hospital stay, therefore a Code 44 will be completed and the Inpatient admission will be changed to outpatient.
[2024-06-12 12:35] VITALS: PULSE 78; O2SAT 99
[2024-06-12] MEDS: POT PHOSPHATE MONOBASIC W/ SOD TAB PO STA (13:20)
[2024-06-12] MEDS ORDERED: LANTUS PER UNIT CHARGE SQ SCH (21:00)
--- OUTSIDE RECORDS SUMMARY | 2024-07-15 08:09 | External Medical Summary | Summary of Care ---
Author Name Unknown Organization [facility] Address [address] [place] [address] Phone [phone] Care Team Providers Care Vascular Technologist Sonographer Name Role Phone Albino Magaña MD Primary Care Provider + Encounter Details Date Type Department Care Team (Late st Contact Info) Description 07/13/2024 8:30 AM EST Scheduled Telephone Care Coordination and Integration [address] [place] [address] Bobby Perdue [facility] Body Maker Machine Setter [address], [place] [id number] Allergies Active Allergy Reactions Criticality Noted Date Comments Penicillins Hives High 05/04/2000 Other Reaction(s): HIVES documented as of this encounter (statuses as of 07/13/2024) Medications B-D ULTRAFINE III (8MM) SHORT PEN MISCIndications: DM type 1, goal A1c below 7 for use with Novolog flex pen. use 3 times daily. 270 Each 3 4 Active Insulin Syringes, Disposable, U-100 1 ML MISCIndications: Type 1 diabetes mellitus with hemoglobin A1c goal of less than 7.5% (HCC) Use as directed daily. 1 Box Dosing Unit 5 7 Active glucagon (GLUCAGON EMERGENCY) 1 MG KITIndications:T ype 1 diabetes mellitus with hemoglobin A1c goal of less than 7.5% (HCC) As directed 1 Kit 5 9 Active Additional Information Patient not taking.Reported on 06/30/2024 Blood Glucose Monitoring Suppl (RELION PREMIER COMPACT SYSTEM) w/Device KIT Use as directed. Test 4 times daily as directed. Active Glucose Blood In Vitro Strip Test 4 times daily as directed. Active ReliOn Lancets Micro-Thin 33G MISC Use as directed. Test 4 times daily as directed. Active Multiple Vitamins-Mineral s (PRESERVISION AREDS 2+MULTI VIT) CAPS Take 1 Cap by mouth 2 times a day. 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 Apply to right elbow as needed Active Simvastatin 10 MG Oral Tablet (Zocor)Indicatio ns:Dyslipidemia, goal LDL below 100 TAKE ONE TABLET BY MOUTH ONCE DAILY AT BEDTIME 90 Tablet 2 4 Active Lisinopril 40 MG Oral TabletIndication s:HTN, goal below 140/90 TAKE 1 TABLET BY MOUTH ONCE DAILY 90 Tablet 2 4 Active Aspirin 81 MG Oral Tablet Delayed Release Take 1 Tablet by mouth in the morning. 4 Active Lantus SoloStar 100 UNIT/ML Subcutaneous Solution Pen-injector 10 units in the morning and 5 units in the evening 4 Active Insulin Lispro (1 Unit Dial) 100 UNIT/ML Subcutaneous Solution Pen-injector (Admelog) 4 Active dilTIAZem HCl ER Beads 360 MG Oral Capsule Extended Release 24 Hour (Tiazac)Indicati ons:HTN, goal below 140/90 TAKE 1 CAPSULE BY MOUTH ONCE DAILY 90 Capsule 1 4 Active Albuterol Sulfate HFA 108 (90 Base) MCG/ACT Inhalation Aerosol SolutionIndicati ons:Acute bronchitis, complicated Inhale 2 Puffs by mouth every 6 hours as needed for Wheezing. 18 g 1 4 Active Spacer/Aero-Hold ing Chambers DeviceIndication s:Acute bronchitis, complicated Use with inhaler. 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 SPINAL STENOSIS-LUMBAR 09/05/2005 Spondylolisthesis 09/05/2005 documented as of this encounter (statuses as of 07/13/2024) Resolved Problems Problem Noted Date Diagnosed Date [...] goal of less than 7.0% 05/11/2009 03/22/2015 Overview (11/27/2015): Modified per Diabetes protocol #14. ICD-10 update of inactive term Vertebral fracture, osteoporotic 07/04/2008 04/22/2017 Overview (07/04/2008): Per Osteoporotic Vertebral Fracture Protocol # 9 Constipation 12/26/2007 04/23/2010 Overview (04/28/2017): ICD-10 update of inactive term Neuralgia and neuritis 12/24/200702/25 Overview (12/24/2007): right lower extremity radiculopathy s/p revision of posterior se gmental instrumentation 12/23/2007 07/15/2018 Thoracic and lumbosacral neuritis 08/06/2006 06/16/2008 Other form of scoliosis, uns pecified spinal region 09/05/2005 07/15/2018 Overview (04/30/2021): ICD-10 update of inactive term Pain in limb 09/05/2005 06/16/2008 Inflammation of sacroiliac joint 06/05/2005 06/16/2008 Colonoscopy 06/28; due in 06/201205/28/2005 02/26/2012 Overview (05/28/2005): Hyperplastic polyp - repeat in 10 years ADVANCE DIRECTIVE INFORMATION 03/21/2005 01/09/2018 Overview (03/21/2005): Yes, Patient instructed to provide copy of advance directive for provider to review and to be scanned into Electronic Medical Record States was given to Joann Willoughby with Dr. Doran. Lumbosacral spondylosis 12/15/200203/29 DISC DIS [id number]-CFJOHV 11/17/200205/29 DIABETES MELLITUS WITHOUT ME NTION OF COMPLICATION, TYPE I (INSULIN-DEPENDENT T 07/28/1959 05/11/2009 Overview (05/11/2009): Modified per Diabetes protocol #14. Osteoporosis 06/16/2008 PURE HYPERCHOLESTEROLEM 12/0 02/2009 Overview (07/04/2009): Per Lipid Taxonomy. DIFFUS CYSTIC MASTOPATHY Osteoporosis 04/22/2017 Overview (11/26/2007): Osteopenia HTN, goal to be determined 1 08/20/2008 Overview (06/20/2009): Modified per HTN protocol #16. documented as of this encounter (statuses as of 07/13/2024) Immunizations Name Administration Dates Next Due COVID-19 mRNA, LNP-s, No Pre serve, 2-Dose Series ([employer]) 02/15/2022,06/04/2021,09/20/2020,08/30 COVID-19, LNP-s, No Preserve , [place]-sucrose, Ages 12+ ([employer]) 02/15/2022 COVID-19, MRNA-LNP, 24-25, P R, 30MCG/0.3ML, IM, 12YRS AND ABOVE ([employer] ([employer] 06/15/2023,05/14/2023 COVID-19, MRNA-LNP, PF, 30 M CG/0.3 mL, 12 YRS AND ABOVE, IM ([employer] ([employer] 06/15/2023,05/14/2023 Covid-19, Mrna, Lnp-s, Pf, B ivalent, 30 Mcg, IM, 12 yrs and above ([employer]) 10/04/2022 H1N1 2009 Influenza, IM 07/24/2009 Pneumococcal [...] Date Recorded PHQ Adult Total Score 0 06/14/2024 Hunger Vital Sign Answer Date Recorded Within the past 12 months, y ou worried that your food would run out before you got the money to buy more. Never true 06/14/20 24 Within the past 12 months, t he food you bought just didn't last and you didn't have money to get more. Never true 06/14/2024 Childcare Answer Date Recorded Do you feel overwhelmed with taking care of a child, family member or friend? No 06/14/2024 Does your family need help f inding childcare? (Household - for ages 0-17 years) Not on file 06/14/2024 Clothing Answer Date Recorded Have you been unable to get clothing when it was really needed? No 06/14/2024 Is your family able to get c lothes or diapers when needed? (Household - for ages 0-17 years) Not on file 06/14/2024 Personal Safety Answer Date Recorded Do you feel unsafe or have concerns for your saf ety? No 06/14/2024 Do you have concerns for you r family's safety? (Household - for ages 0-17 years) Not on file 06/14/2024 Utilities Answer Date Recorded Do you have trouble paying y our heating, water, or electric bill? No 06/14/2024 Is your family able to pay t he heat, water, or electric bill? (Household - for ages 0-17 years) Not on file 06/14/2024 Does your family have access to good internet? (Household - for ages 0-17 years) Not on file 06/14/2024 Employment Status Answer Date Recorded Are you unemployed or without regular income? No 06/14/2024 Does the household have a re lar source of income? (Household - for ages 0-17 years) Not on file 06/14/2024 Social Connections Answer Date Recorded How often do you feel lonely or isolated from th ose around you? Never 06/14/2024 Financial Resource Strain Answer Date R ecorded Do you have any trouble payi ng for your medications, or do you think you might in the future? No 06/14/2024 Does your family have troubl e paying for medicine? (Household - for ages 0-17 years) Not on file 06/14/2024 Transportation Needs Answer Date Record ed Do you have trouble getting a ride to medical visits or work? (Adult - for ages 18 years and over) Not on file 06/14/2024 Does your family have a hard time getting a ride to doctors visits? (Household - for ages 0-17 years) Not on file 06/14/2024 Has lack of transportation k ept you from medical appointments, meetings, work, or from getting things needed for daily living? Check all that apply. No 06/14/2024 Do you (or your family) have trouble finding or paying for a ride (transportation)? (Household - for ages 0-17 years) Not on file 06/14/2024 Housing Stability Answer Date Recorded Do you currently live in a s helter or have no steady place to sleep at night? No 06/14/2024 Do you think you are at risk of becoming homeless? (Adult - for ages 18 years and over) Not on file 06/14/2024 Does your family worry about paying for your home or becoming homeless? (Household - for ages 0-17 years) Not on file 1 08/14/2023 Are you homeless or worried that you might be in the future? No 06/14/2024 Are you (or your family) janice eless or worried that you might be in the future? (Household - for ages 0-17 years) Not on file Food Insecurity Answer Date Recorded Do you need food for this week? No 06/14/2024 Are you able to get enough f ood for your family? (Household - for ages 0-17 years) Not on file 06/14/2024 Does your family need food t his week? (Household - for ages 0-17 years) Not on file 06/14/2024 Do you always have enough fo od for your family? 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 Patient reports to be feeling well. She states that she was just cleaning around her house. She reports that her appetite is good and joked that it is too good. She said her energy level has been good as well. Patient denies any cough, SOB or changes in her breathing. Patient agreeable to follow up phone call in 1 week. Wil Perdue Community Health Worker Lead [facility] Silvio Berry [phone] Electronically signed by Bobby Perdue [facility] Body Maker Machine Setter at 07/13/2024 9:12 AM EST documented in this encounter Plan of Treatment Upcoming Encounters Date Type Department Care Team (Late st Contact Info) Description 12/16/2024 10:30 AM EDT Office Visit Rheumatology [facility] [address] [place] [address] Trudy Jeffers CRNP [address] [place] [address] 12/27/2024 1:30 PM EDT Office Visit Cardiology, [facility] [address] [facility] [place] [phone] Rajni Alejandre PA-C [address] [place] [address] 03/10/2025 9:20 AM EDT Office Visit General Internal Medicine [facility] [place] [place] [address] [place] [address] Albino Magaña MD [address] [facility] [place] [address] 05/19/2025 9:00 AM EDT Nurse Only Ancillary [facility] [place] [address] [place] [address] [place], Nurse Annual Wellness [facility] [address] [facility] [place] [address] Health Maintenance Due Date Last Done Comments COVID-19 Vaccine ( season) 2024 06/15/2023, 06/15/2023, 05/14/2023, Additional history exists Albumin/Creatinine Ratio 10/21/202410/21/2 024, 09/09/2022, 04/05/2022, Additional history exists HbA1c 11/18/2024 05/20/2024, 07/0 07/2023, 10/22/2023, Additional history exists DTap/Tdap Vaccines (2 - Td or Tdap) 03/03/2025 03/03/2015, 11/02/2007 CKD HGB USE SMARTSET 25446 05/06/202505/06, 05/06/2024, 11/24/2023, Additional history exists Diabetic Eye Exam 05/06/2025 05/06/2024, , 01/19/2024, Additional history exists Adult Wellness Visit 05/13/2025 05/13/2024, 2023, 05/09/2022, Additional history exists Diabetic Foot Exam 05/13/2025 05/13/2024, 1 , 07/15/2018, Additional history exists DXA Scan 05/26/2025 05/26/2023, 04/29, 04/30/2021, Additional history exists Depression Screening 06/14/2025 06/14/2024, 05/13/2024, 03/22/2015 CKD PHOS USE SMARTSET 37097 06/16/202505/29, 05/20/2024, 04/09/2023, Additional history exists Pneumococcal Vaccine: 65+ Years Completed 09/01/2014, 04/23/2010 Zoster Vaccines Completed 08/29/2018, 05/30, 05/29/2012 Influenza Vaccine (FLU shot) Completed , 05/14/2023, 04/09/2023, Additional history exists VITAMIN D LEVEL ONCE IN A LIFETIME-USE SMARTSET# [id number] Completed 05/20/2024, 12/09/2023, 08/08/2021, Additional history exists [...] encounter Medical Devices Implanted Type Area Operations Staff Specialist Security Device Identifier Shelf Expiration Date Model / Serial / Lot Graft Ant Lat 12mm [id number] - [id number] Implanted:Qt y: 1 on 11/26/2007 [place] [facility] [place] - Human N/A: Spine Lumbar [employer] 06/09/2011 [id number] / [id number] / Graft Ant Lat 14mm [id number] - [id number] Implanted:Qt y: 1 on 11/26/2007 [place] [facility] [place] Tissue - Human N/A: Spine Lumbar [facility] 08/08/2011 [id number] / -[id number] / Graft Ant Lat 14mm [id number] - [id number] Implanted:Qt y: 1 on 11/26/2007 at [place] [facility] [place] Tissue - Human N/A: Spine Lumbar [facility] 07/23/2009 [id number] / [id number] / Graft Ant Lat 14mm [id number] - [id number] Implanted:Qt y: 1 on 11/26/2007 [place] [facility] [place] Tissue - Human N/A: Spine Lumbar [facility] 03/10/2012 [id number] / [id number] / Graft Ant 10mm Mf5q-[id number] - [id number] Implanted:Qt y: 1 on 11/26/2007 [place] [facility] [place] Tissue - Human N/A: Spine Lumbar [facility] 08/19/2011 [id number] / -[id number] / Floseal Nt [id number] - [id number] Implanted:Qt y: 1 on 12/02/2006 at [place] [facility] [place] N/A: Spine Cervical REGALADO [id number] / / [id number] [place] Nt [id number] - [id number] Implanted:Qt y: 1 on 12/02/2006 at [place] [facility] [place] N/A: Spine Cervical REGALADO [id number] / / Graft Cervical 6x8 Fp5e-[id number] - [id number] Implanted:Qt y: 1 on 12/02/2006 at [place] [facility] [place] N/A: Spine Cervical [facility] [id number] / / -[id number] Graft Cervical 5x7 [id number] - [id number] Implanted:Qt y: 1 on 12/02/2006 at [place] [facility] [place] N/A: Spine Cervical [facility] [id number] / / [id number] Graft Cervical 7x9 [id number] - [id number] Implanted:Qt y: 1 on 12/02/2006 at [place] [facility] [place] N/A: Spine Cervical [facility] [id number] / / -[id number] Screw 3.5x14 Mntr Fa [id number] - [id number] Implanted:Qt y: 8 on 12/02/2006 at [place] [facility] [place] N/A: Neck [employer]ODIA [employer] EL[employer] DEPUY [id number] / / Screw Inner Mntr [id number] - [id number] Implanted:Qt y: 11 on 12/02/2006 at [place] [facility] [place] N/A: Neck [employer] [id number] / / Screw 4.35x25 Mntrml [id number] - [id number] Implanted:Qt y: 2 on 12/02/2006 at [place] [facility] [place] N/A: Neck [employer] [id number] / / Amos [id number] - [id number] Implanted:Qt y: 2 on 12/02/2006 at [place] [facility] [place] N/A: Neck [employer]Y [id number] / / Screw 3.5x20 Mntr Fa [id number] - [id number] Implanted:Qt y: 1 on 12/02/2006 at [place] [facility] [place] N/A: Neck [employer] [id number] / / Graft Infus Bone Lg Ii [id number] - [id number] Implanted:Qt y: 1 on 11/26/2007 at [place] [facility] [place] N/A: Spine Lumbar [employer] 12/26/2009 [id number] / / [id number] Graft Infuse Bone Sm [id number] - [id number] Implanted:Qt y: 1 on 11/26/2007 at [place] [facility] [place] N/A: Spine Lumbar [employer] 03/28/2010 [id number] / / [id number] Screw 6x40 Poly Si [id number] - [id number] Implanted:Qt y: 5 on 11/26/2007 at [place] [facility] [place] N/A: Spine Lumbar [employer] [id number] / / Screw 6x45 Poly Si [id number] - [id number] Implanted:Qt y: 4 on 11/26/2007 at [place] [facility] [place] N/A: Spine Lumbar [employer] [id number] / / Screw Set Sng Inner [id number] - [id number] Implanted:Qt y: 13 on 11/26/2007 at [place] [facility] [place] N/A: Spine Lumbar [employer] [id number] / / Screw 7x35 Poly Si [id number] - [id number] Implanted:Qt y: 2 on 11/26/2007 at [place] [facility] [place] N/A: Spine Lumbar [employer] [id number] / / Screw 5x40 Poly Si [id number] - [id number] Implanted:Qt y: 1 on 11/26/2007 at [place] [facility] [place] N/A: Spine Lumbar [employer] [id number] / / Screw 5x45 Poly Si [id number] - [id number] Implanted:Qt y: 1 on 11/26/2007 at [place] [facility] [place] N/A: Spine Lumbar [employer] [id number] / / Amso 480mm [id number] - [id number] Implanted:Qt y: 1 on 11/26/2007 at [place] [facility] [place] N/A: Spine Lumbar [employer] [id number] / / documented as of this encounter [...] Comments 11/26/2007 6:01 AM 11/26/2007 2:41 PM Healthcare Agents on File Name Relationship Healthcare Agent Relationshi p Communication Mya Young Adult Child First Alternate Health Care Agent (per Health Care Power of Tucking Machine Operator document) Care Teams Vascular Technologist Sonographer Relationship Specialty Start Date End Date Albino Magaña MD [address] [place] [address] PCP - General Internal Medicine 01/17/12 documented as of this encounter
--- OUTSIDE RECORDS SUMMARY | 2024-07-15 08:09 | External Medical Summary | Summary of Care ---
Author Name Unknown Organization [facility] Address [address] [place] [address] Phone [phone] Care Team Providers Care Body And Frame Man Name Role Phone Albino Magaña MD Primary Care Provider + Encounter Details Date Type Department Care Team (Late st Contact Info) Description 07/07/2024 11:30 AM EST Scheduled Telephone Care Coordination and Integration [address] [place] [address] Bobby Perdue [facility] Nurse Clinician [address], [place] [id number] Allergies Active Allergy Reactions Criticality Noted Date Comments Penicillins Hives High 05/04/2000 Other Reaction(s): HIVES documented as of this encounter (statuses as of 07/07/2024) Medications B-D ULTRAFINE III (8MM) SHORT PEN [...] as of this encounter (statuses as of 07/07/2024) Active Problems Problem Noted Date Diagnosed Date [...] as of this encounter (statuses as of 07/07/2024) Resolved Problems Problem Noted Date Diagnosed Date [...] Dr. Doran. 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 Osteoporosis 06/16/2008 PURE HYPERCHOLESTEROLEM 12/0 02/2009 Overview (07/04/2009): Per Lipid Taxonomy. DIFFUS CYSTIC MASTOPATHY Osteoporosis 04/22/2017 Overview (11/26/2007): Osteopenia HTN, goal to be determined 1 08/20/2008 Overview (06/20/2009): Modified per HTN protocol #16. documented as of this encounter (statuses as of 07/07/2024) Immunizations Name Administration Dates Next Due COVID-19 mRNA, LNP-s, No Pre serve, 2-Dose Series ([employer]) 02/15/2022,06/04/2021,09/20/2020,08/30 COVID-19, LNP-s, No Preserve , [place]-sucrose, Ages 12+ ([employer]) 02/15/2022 COVID-19, MRNA-LNP, 24-25, P R, 30MCG/0.3ML, IM, 12YRS AND ABOVE ([employer]) 06/15/2023,05/14/2023 COVID-19, MRNA-LNP, PF, 30 M CG/0.3 mL, 12 YRS AND ABOVE, IM ([employer]) 06/15/2023,05/14/2023 Covid-19, Mrna, Lnp-s, Pf, B ivalent, 30 Mcg, IM, 12 yrs and above ([employer]) 10/04/2022 H1N1 2009 Influenza, IM 07/24/2009 Pneumococcal [...] Job Start Date Job End Date Geraldine Strickland Not on file Not on file Not on file documented as of this encounter Progress Notes * Bobby Perdue, Community Health Nurse Clinician - 07/07/2024 12:33 PM EST Telemedicine visit: No Community Health Nurse Clinician ([facility]) documentation: CHW follow up phone call for RNCM. Patient reports to be feeling well. She states that her cough has left and she feels like her old self again. She denies any SOB or wheezing. Patient reports that the only pain she experiences is in her knees, which she reports to be normal for her. Patient reports that her appetite and energy level are both good, as well. Patient agreeable to follow up phone call in 1 week. Wil Perdue Community Health Worker Lead LATHA Berry [phone] documented in this encounter Plan of Treatment Upcoming Encounters Date Type Department Care Team (Late st Contact Info) Description 12/16/2024 10:30 AM EDT Office Visit Rheumatology [facility] [address] [facility] [place] [address] Trudy Jeffers CRNP [address] [facility] [place] [address] 12/27/2024 1:30 PM EDT Office Visit Cardiology, [facility] [address] [place] [address] Rajni Alejandre PA-C [address] [place] [address] 03/10/2025 9:20 AM EDT Office Visit General Internal Medicine [facility] [address] [place] [address] Albino Magaña MD [address] [place] [address] 05/19/2025 9:00 AM EDT Nurse Only Ancillary [facility] [place] [address] [place] [address] [place], Nurse Annual Wellness [facility] [address] [facility] [place] [address] Health Maintenance Due Date Last Done Comments COVID-19 Vaccine ( season) 2024 06/15/2023, 06/15/2023, 05/14/2023, Additional history exists Albumin/Creatinine Ratio 10/21/202410/21/2 024, 09/09/2022, 04/05/2022, Additional history exists HbA1c 11/18/2024 05/20/2024, 07/0 07/2023, 10/22/2023, Additional history exists DTap/Tdap Vaccines (2 - Td or Tdap) 03/03/2025 03/03/2015, 11/02/2007 CKD HGB USE SMARTSET 51547 05/06/202505/06, 05/06/2024, 11/24/2023, Additional history exists Diabetic Eye Exam 05/06/2025 05/06/2024, , 01/19/2024, Additional history exists Adult Wellness Visit 05/13/2025 05/13/2024, 2023, 05/09/2022, Additional history exists Diabetic Foot Exam 05/13/2025 05/13/2024, 1 , 07/15/2018, Additional history exists DXA Scan 05/26/2025 05/26/2023, 04/29, 04/30/2021, Additional history exists Depression Screening 06/14/2025 06/14/2024, 05/13/2024, 03/22/2015 CKD PHOS USE SMARTSET 70012 06/16/202505/29, 05/20/2024, 04/09/2023, Additional history exists Pneumococcal Vaccine: 65+ Years Completed 09/01/2014, 04/23/2010 Zoster Vaccines Completed 08/29/2018, 05/30, 05/29/2012 Influenza Vaccine (FLU shot) Completed , 05/14/2023, 04/09/2023, Additional history exists VITAMIN D LEVEL ONCE IN A LIFETIME-USE SMARTSET# [id number] Completed 05/20/2024, 12/09/2023, 08/08/2021, Additional history exists [...] this encounter Medical Devices Implanted Type Area Sap Abap Programmer Device Identifier Shelf Expiration Date Model / Serial / Lot Graft Ant Lat 12mm [id number] - [id number] Implanted:Qt y: 1 on 11/26[place]2007 [place] [facility] [place] - Human N/A: Spine Lumbar [employer] 06/09/2011 [id number] / -[id number] / Graft Ant Lat 14mm [id number] - [id number] Implanted:Qt y: 1 on 11/26/2007 [place] [facility] [place] Tissue - Human N/A: Spine Lumbar [facility] 08/08/2011 [id number] / -[id number] / Graft Ant Lat 14mm [id number] - [id number] Implanted:Qt y: 1 on 11/26/2007 [place] [facility] [place] Tissue - Human N/A: Spine Lumbar [facility] 07/23/2009 [id number] / -[id number] / Graft Ant Lat 14mm [id number] - [id number] Implanted:Qt y: 1 on 11/26/2007 [place] [facility] [place] Tissue - Human N/A: Spine Lumbar [facility] 03/10/2012 [id number] / -[id number] / Graft Ant 10mm Ia4s-[id number] - [id number] Implanted:Qt y: 1 on 11/26/2007 at [place] [facility] [place] Tissue - Human N/A: Spine Lumbar [facility] 08/19/2011 [id number] / -[id number] / Flose[place] Nt [id number] - [id number] Implanted:Qt y: 1 on 12/02/2006 at [place] [facility] [place] N/A: Spine Cervical [employer]AL[employer] [id number] / / [id number] Flose[place] Nt [id number] - [id number] Implanted:Qt y: 1 on 12/02/2006 at [place] [facility] [place] N/A: Spine Cervical [employer] [id number] / / Graft Cervical 6x8 Zd2q-R86 - [id number] Implanted:Qt y: 1 on 12/02/2006 at [place] [facility] [place] N/A: Spine Cervical [facility] [id number] / / -[id number] Graft Cervical 5x7 Oj0d-B32 - [id number] Implanted:Qt y: 1 on 12/02/2006 at [place] [facility] [place] N/A: Spine [facility]ervical [facility] [id number] / / -[id number] Graft Cervical 7x9 Qi2f-U08 - [id number] Implanted:Qt y: 1 on 12/02/2006 at [place] [facility] [place] N/A: Spine Cervical [facility] [id number]-S34 / / -[id number] Screw 3.5x14 Mntr Fa [id number] - Implanted:Qt y: 8 on 12/02/2006 at [place] [facility] [place] N/A: Neck [employer] [id number] / / Screw Inner Mntr [id number] - [id number] Implanted:Qt y: 11 on 12/02/2006 at [place] [facility] [place] N/A: Neck [employer] [id number] / / Screw 4.35x25 Mntrml [id number] - [id number] Implanted:Qt y: 2 on 12/02/2006 at [place] [facility] [place] N/A: Neck [employer] [id number] / / Amos 3.5a607re [id number] - [id number] Implanted:Qt y: 2 on 12/02/2006 at [place] [facility] [place] N/A: Neck [employer] [id number] / / Screw 3.5x20 Mntr Fa [id number] - [id number] Implanted:Qt y: 1 on 12/02/2006 at [place] [facility] [place] N/A: Neck [employer] [id number] / / Graft Infus Bone Lg Ii [id number] - [id number] Implanted:Qt y: 1 on 11/26/2007 at [place] [facility] [place] N/A: Spine Lumbar [employer] 12/26/2009 [id number] / / [id number] Graft Infuse Bone Sm [id number] - [id number] Implanted:Qt y: 1 on 11/26/2007 at [place] [facility] [place] N/A: Spine Lumbar [employer] 03/28/2010 [id number] / / [id number] Screw 6x40 Poly Si [id number] - [id number] Implanted:Qt y: 5 on 11/26/2007 at [place] [facility] [place] N/A: Spine Lumbar [employer] [id number] / / Screw 6x45 Poly Si [id number] - [id number] Implanted:Qt y: 4 on 11/26/2007 at [place] [facility] [place] N/A: Spine Lumbar [employer] [id number] / / Screw Set Sng Inner [id number] - [id number] Implanted:Qt y: 13 on 11/26/2007 at [place] [facility] [place] N/A: Spine Lumbar [employer] [id number] / / Screw 7x35 Poly Si [id number] - [id number] Implanted:Qt y: 2 on 11/26/2007 at [place] [facility] [place] N/A: Spine Lumbar [employer] [id number] / / Screw 5x40 Poly Si [id number] - [id number] Implanted:Qt y: 1 on 11/26/2007 at [place] [facility] [place] N/A: Spine Lumbar [employer] [id number] / / Screw 5x45 Poly Si [id number] - [id number] Implanted:Qt y: 1 on 11/26/2007 at [place] [facility] [place] N/A: Spine Lumbar [employer] [id number] / / Amos 480mm [id number] - [id number] Implanted:Qt y: 1 on 11/26/2007 at [place] [facility] [place] N/A: Spine Lumbar [employer] [id number] / / documented as of this encounter [...] Care Agent (per Health Care Power of Director [place] document) Care Teams Body And Frame Man Relationship Specialty Start Date End Date Albino Magaña MD [address] [place] [address], [place] [address] PCP - General Internal Medicine 01/17/12 documented as of this encounter
== END 2024-06-12 14:09 | disposition home or self-care (01) | DRG 203 ==
LOC: ED 09:03 → EDINP 09:03 → SUATTDRO 13:32 → 3W 16:31